=== PATIENT | male | born 1935 | race Caucasian/White ===

== ENCOUNTER 2016-12-03 02:37 | Emergency (ER) | payer MEDICARE, OTHER ==
--- NOTE | 2016-12-03 02:48 | ED ---
General Adult HPI - General Chief complaint: Upper Respiratory Infection Stated complaint: Cough Time Seen by Provider: 12/03/16 02:37 Source: patient, EMS, RN notes reviewed Mode of arrival: EMS Limitations: no limitations - History of Present Illness Initial comments: This is an 81-year-old male who presents to the emergency department with a past history of pneumonia 3 weeks ago. Patient also states he has a history of diabetes. Patient comes in today because he has been coughing a little bit today. Patient denies any sputum production. Patient denies any shortness of breath or difficulty breathing. Patient denies any fever or chills. Patient denies anyone else was sick around him. Patient denies any chest pain. Patient denies any abdominal pain. Patient denies nausea vomiting diarrhea. Patient denies headache patient denies numbness weakness. - Related Data Home Medications Medication Instructions Recorded Confirmed ALPRAZolam [Xanax] 0.25 mg PO BID PRN 11/12/16 11/12/16 INSULIN LISPRO (HumaLOG) [humaLOG] See Protocol SQ ACHS 11/12/16 11/12/16 Insulin Detemir [Levemir] 14 unit SQ AC-BRKFST 11/12/16 11/12/16 Multivitamins, Thera [Multivitamin] 1 tab PO DAILY 11/12/16 11/12/16 Pregabalin [Lyrica] 75 mg PO BID 11/12/16 11/12/16 amLODIPine BESYLATE [Norvasc] 10 mg PO DAILY 11/12/16 11/12/16 Previous Rx's Medication Instructions Recorded Cefuroxime Axetil [Ceftin] 500 mg PO BID #14 tab 11/17/16 Sodium Bicarbonate Tab 650 mg PO TID tab 11/17/16 Azithromycin [Zithromax Tri-Asim] 500 mg PO DAILY #3 tab 12/03/16 Allergies Allergy/AdvReac Type Severity Reaction Status Date / Time daptomycin Allergy Unknown Verified 12/03/16 02:45 Review of Systems ROS Statement: Those systems with pertinent positive or pertinent negative responses have been documented in the HPI. ROS Other: All systems not noted in ROS Statement are negative. Past Medical History Past Medical History: Heart Failure, COPD, Dementia, Diabetes Mellitus, Hypertension, Pneumonia, Renal Disease Additional Past Medical History / Comment(s): memory loss, buenrostro catheter History of Any Multi-Drug Resistant Organisms: MRSA, Other MDRO, VRE Date of last positivie culture/infection: 04/02/15 MRSA-Penis; 09/02/2011 VRE Unknown MDRO Source:: Urine-MDROs Past Surgical History: Bowel Resection, Hernia Repair Additional Past Surgical History / Comment(s): ruslan leg amputated below knee, abdominal surgery with a bowel resection. Past Anesthesia/Blood Transfusion Reactions: No Reported Reaction Past Psychological History: Anxiety, Depression Additional Psychological History / Comment(s): Patient is cared for in a family home by his family. Former smoker. No significant history of alcohol or recreational drug use. Smoking Status: Former smoker Past Alcohol Use History: None Reported Past Drug Use History: None Reported - Past Family History Father Family Medical History: Diabetes Mellitus Additional Family Medical History / Comment(s): bleeding ulcer Mother Family Medical History: Dementia General Exam - General Exam Comments Initial Comments: GENERAL: Patient is well-developed and well-nourished. Patient is nontoxic and well- hydrated and is in no acute distress. ENT: Neck is soft and supple. No significant lymphadenopathy is noted. Oropharynx is clear. Moist mucous membranes. Neck has full range of motion without eliciting any pain. EYES: The sclera were anicteric and conjunctiva were pink and moist. Extraocular movements were intact and pupils were equal round and reactive to light. Eyelids were unremarkable. PULMONARY: Unlabored respirations. Good breath sounds bilaterally. No audible rales rhonchi or wheezing was noted. CARDIOVASCULAR: There is a regular rate and rhythm without any murmurs gallops or rubs. ABDOMEN: Soft and nontender with normal bowel sounds. No palpable organomegaly was noted. There is no palpable pulsatile mass. SKIN: Skin is clear with no lesions or rashes and otherwise unremarkable. NEUROLOGIC: Patient is alert and oriented x3. Cranial nerves II through XII are grossly intact. Motor and sensory are also intact. Normal speech, volume and content. Symmetrical smile. MUSCULOSKELETAL: Normal extremities with adequate strength and full range of motion. No lower extremity swelling or edema. No calf tenderness. LYMPHATICS: No significant lymphadenopathy is noted PSYCHIATRIC: Normal psychiatric evaluation. Limitations: no limitations Course Vital Signs 12/03/16 02:43 Temperature 98.6 F Pulse Rate 94 Respiratory 18 Rate Blood Pressure 151/72 O2 Sat by Pulse 97 Oximetry Medical Decision Making - Medical Decision Making Chest x-ray shows no obvious pneumonia Disposition Clinical Impression: Bronchitis Disposition: HOME SELF-CARE Condition: Good Prescriptions: Azithromycin [Zithromax Tri-Asim] 500 mg PO DAILY #3 tab Referrals: Luis Fernando Bhatia DO [Primary Care Provider] - 1-2 days Time of Disposition: 04:24
[2016-12-03] MEDS ORDERED: AZITHROMYCIN 500 MG TAB PO STA (04:25)
--- NOTE | 2016-12-03 05:08 | XR ---
EXAMINATION TYPE: XR chest 2V DATE OF EXAM: 12/03/2016 4:08 AM COMPARISON: November 17, 2016 HISTORY: History of CAD hypertension heart disease complains of cough TECHNIQUE: Frontal and lateral views of the chest are obtained. FINDINGS: Mild bilateral pleural effusions and bibasilar lung infiltrates and atelectasis is suggested. Mild ch ronic lung changes are suggested. Mild pulmonary vascular congestion. The cardiac silhouette size is within normal limits. The osseous structures are intact. IMPRESSION: 1. Mild bilateral pleural effusions and bibasilar lung infiltrate and atelectasis. 2. Mild pulmonary vascular congestion.
[2016-12-03 06:31] VITALS: BP 142/78; PULSE 78; RESP 20; TEMP 96.8
== END 2016-12-03 06:31 | disposition home or self-care (01) ==
LOC: EC 02:37
DX: J40 Bronchitis, not specified as acute or chronic (principal); F03.90 Unspecified dementia, unspecified severity, without behavioral disturbance, psychotic disturbance, mood disturbance, and anxiety; I10 Essential (primary) hypertension; I50.9 Heart failure, unspecified; F41.9 Anxiety disorder, unspecified; E11.9 Type 2 diabetes mellitus without complications; N28.9 Disorder of kidney and ureter, unspecified; R09.89 Other specified symptoms and signs involving the circulatory and respiratory systems; Z88.1 Allergy status to other antibiotic agents; Z79.4 Long term (current) use of insulin; Z87.891 Personal history of nicotine dependence; Z89.512 Acquired absence of left leg below knee; Z89.511 Acquired absence of right leg below knee; Z79.899 Other long term (current) drug therapy
CPT/HCPCS: 71020; 99284

== ENCOUNTER 2016-12-06 15:45 | Inpatient (IN) | payer MEDICARE, OTHER ==
--- NOTE | 2016-12-06 15:51 | ED ---
SOB HPI - General Stated Complaint: RESPITORY DISTRESS Time Seen by Provider: 12/06/16 15:45 Source: patient, EMS, RN notes reviewed, old records reviewed Mode of arrival: EMS - History of Present Illness Initial Comments: This is a 81-year-old male with a history of frequent visits the emergency department who was just discharged about a week ago after being diagnosed with pneumonia who subsequently was brought in for evaluation of a cough and also just finished a Z-Asim who is brought in by EMS today for difficulty breathing which started about an hour before he came in. Per EMS he did have a saturation the 70s after one updraft. Improved today he did require a second updraft in route he also received steroids. Patient is nonverbal. No reports of fevers chills sweats. Patient is a [id number] amputee bilaterally with a chronic indwelling Buenrostro catheter with a history of UTIs. MD Complaint: shortness of breath - Related Data Home Medications Medication Instructions Recorded Confirmed ALPRAZolam [Xanax] 0.25 mg PO BID PRN 11/12/16 12/06/16 INSULIN LISPRO (HumaLOG) [humaLOG] See Protocol SQ ACHS 11/12/16 12/06/16 Insulin Detemir [Levemir] 14 unit SQ AC-BRKFST 11/12/16 12/06/16 Multivitamins, Thera [Multivitamin] 1 tab PO DAILY 11/12/16 12/06/16 Pregabalin [Lyrica] 75 mg PO BID 11/12/16 12/06/16 amLODIPine BESYLATE [Norvasc] 10 mg PO DAILY 11/12/16 12/06/16 Cholecalciferol [Vitamin D3] 1,000 unit PO DAILY 12/06/16 12/06/16 Sodium Bicarbonate Tab 650 mg PO BID 12/06/16 12/06/16 Allergies Allergy/AdvReac Type Severity Reaction Status Date / Time daptomycin Allergy Unknown Verified 12/06/16 16:17 Review of Systems ROS Statement: Those systems with pertinent positive or pertinent negative responses have been documented in the HPI. ROS Other: All systems not noted in ROS Statement are negative. Limitations: ROS unobtainable due to patients medical condition Past Medical History Past Medical History: Heart Failure, COPD, Dementia, Diabetes Mellitus, Hypertension, Pneumonia, Renal Disease Additional Past Medical History / Comment(s): memory loss, buenrostro catheter History of Any Multi-Drug Resistant Organisms: MRSA, Other MDRO, VRE Date of last positivie culture/infection: 04/02/15 MRSA-Penis; 09/02/2011 VRE Unknown MDRO Source:: Urine-MDROs Past Surgical History: Bowel Resection, Hernia Repair Additional Past Surgical History / Comment(s): ruslan leg amputated below knee, abdominal surgery with a bowel resection. Past Anesthesia/Blood Transfusion Reactions: No Reported Reaction Past Psychological History: Anxiety, Depression Additional Psychological History / Comment(s): Patient is cared for in a family home by his family. Former smoker. No significant history of alcohol or recreational drug use. Smoking Status: Former smoker Past Alcohol Use History: None Reported Past Drug Use History: None Reported - Past Family History Father Family Medical History: Diabetes Mellitus Additional Family Medical History / Comment(s): bleeding ulcer Mother Family Medical History: Dementia General Exam - General Exam Comments Initial Comments: This is a well-developed well-nourished confused appearing male the second updraft is in progress. Limitations: altered mental status General appearance: alert, in distress Head exam: Present: atraumatic, normocephalic, normal inspection Eye exam: Present: normal appearance, PERRL, EOMI. Absent: scleral icterus, conjunctival injection, periorbital swelling ENT exam: Present: mucous membranes dry Neck exam: Present: normal inspection. Absent: tenderness, meningismus, lymphadenopathy Respiratory exam: Present: decreased breath sounds Cardiovascular Exam: Present: regular rate, normal rhythm, normal heart sounds. Absent: systolic murmur, diastolic murmur, rubs, gallop, clicks GI/Abdominal exam: Present: soft, normal bowel sounds. Absent: distended, tenderness, guarding, rebound, rigid Extremities exam: Present: full ROM, normal capillary refill, other (Bilateral below-knee amputation). Absent: tenderness, pedal edema, joint swelling, calf tenderness Back exam: Present: normal inspection Neurological exam: Present: alert, oriented X3, CN II-XII intact Psychiatric exam: Present: normal affect, normal mood Skin exam: Present: warm, dry, intact, normal color. Absent: rash Course Vital Signs 12/06/16 12/06/16 12/06/16 15:49 16:06 17:11 Temperature 96.9 F L Pulse Rate 76 77 Respiratory 18 18 18 Rate Blood Pressure 108/55 100/54 O2 Sat by Pulse 96 95 Oximetry 12/06/16 12/06/16 12/06/16 18:34 18:55 19:19 Temperature 96.8 F L Pulse Rate 82 75 81 Respiratory 18 18 20 Rate Blood Pressure 108/54 133/51 116/56 O2 Sat by Pulse 98 98 95 Oximetry Medical Decision Making - Medical Decision Making Patient will be admitted I did discuss the findings with the admitting physician. - Lab Data Result diagrams: 12/06/16 16:03 12/06/16 16:03 Lab Results 12/06/16 12/06/16 12/06/16 Range/Units 16:03 16:03 16:03 WBC 12.7 H (3.8-10.6) k/uL RBC 3.17 L (4.30-5.90) m/uL Hgb 9.4 L (13.0-17.5) gm/dL Hct 30.9 L (39.0-53.0) % MCV 97.4 (80.0-100.0) fL MCH 29.6 (25.0-35.0) pg MCHC 30.3 L (31.0-37.0) g/dL RDW 16.3 H (11.5-15.5) % Plt Count 203 (150-450) k/uL Neutrophils % 73 % Lymphocytes % 18 % Monocytes % 6 % Eosinophils % 1 % Basophils % 1 % Neutrophils # 9.3 H (1.3-7.7) k/uL Lymphocytes # 2.2 (1.0-4.8) k/uL Monocytes # 0.8 (0-1.0) k/uL Eosinophils # 0.2 (0-0.7) k/uL Basophils # 0.1 (0-0.2) k/uL Hypochromasia Moderate Anisocytosis Slight Macrocytosis Slight PT (9.0-12.0) sec INR (<1.1) APTT (22.0-30.0) sec Sodium 148 H (137-145) mmol/L Potassium 5.7 H (3.5-5.1) mmol/L Chloride 114 H (98-107) mmol/L Carbon Dioxide 22 (22-30) mmol/L Anion Gap 12 mmol/L BUN 59 H (9-20) mg/dL Creatinine 4.02 H (0.66-1.25) mg/dL Est GFR (MDRD) Af Amer 17 (>60 ml/min/1.73 sqM) Est GFR (MDRD) Non-Af 14 (>60 ml/min/1.73 sqM) Glucose 162 H (74-99) mg/dL Calcium 8.3 L (8.4-10.2) mg/dL Magnesium 1.5 L (1.6-2.3) mg/dL Total Bilirubin 0.3 (0.2-1.3) mg/dL AST 14 L (17-59) U/L ALT 28 (21-72) U/L Alkaline Phosphatase 80 (38-126) U/L Total Creatine Kinase 39 L (55-170) U/L CK-MB (CK-2) 3.3 H* (0.0-2.4) ng/mL CK-MB (CK-2) Rel Index 8.5 Troponin I <0.012 (0.000-0.034) ng/mL NT-Pro-B Natriuret Pep pg/mL Total Protein 6.1 L (6.3-8.2) g/dL Albumin 3.0 L (3.5-5.0) g/dL 12/06/16 12/06/16 Range/Units 16:03 16:03 WBC (3.8-10.6) k/uL RBC (4.30-5.90) m/uL Hgb (13.0-17.5) gm/dL Hct (39.0-53.0) % MCV (80.0-100.0) fL MCH (25.0-35.0) pg MCHC (31.0-37.0) g/dL RDW (11.5-15.5) % Plt Count (150-450) k/uL Neutrophils % % Lymphocytes % % Monocytes % % Eosinophils % % Basophils % % Neutrophils # (1.3-7.7) k/uL Lymphocytes # (1.0-4.8) k/uL Monocytes # (0-1.0) k/uL Eosinophils # (0-0.7) k/uL Basophils # (0-0.2) k/uL Hypochromasia Anisocytosis Macrocytosis PT 10.4 (9.0-12.0) sec INR 1.0 (<1.1) APTT 24.3 (22.0-30.0) sec Sodium (137-145) mmol/L Potassium (3.5-5.1) mmol/L Chloride (98-107) mmol/L Carbon Dioxide (22-30) mmol/L Anion Gap mmol/L BUN (9-20) mg/dL Creatinine (0.66-1.25) mg/dL Est GFR (MDRD) Af Amer (>60 ml/min/1.73 sqM) Est GFR (MDRD) Non-Af (>60 ml/min/1.73 sqM) Glucose (74-99) mg/dL Calcium (8.4-10.2) mg/dL Magnesium (1.6-2.3) mg/dL Total Bilirubin (0.2-1.3) mg/dL AST (17-59) U/L ALT (21-72) U/L Alkaline Phosphatase (38-126) U/L Total Creatine Kinase (55-170) U/L CK-MB (CK-2) (0.0-2.4) ng/mL CK-MB (CK-2) Rel Index Troponin I (0.000-0.034) ng/mL NT-Pro-B Natriuret Pep 1270 pg/mL Total Protein (6.3-8.2) g/dL Albumin (3.5-5.0) g/dL - EKG Data -: EKG Interpreted by Wi EKG shows normal: sinus rhythm (Sinus rhythm rate of 81 a [place] interval 262 QRS duration 78 daily since QTC of 392/[address]-T wave changes.) - Radiology Data Radiology results: report reviewed (I did review the imaging and report evidence of a new right lower lobe infiltrate.), image reviewed Disposition Clinical Impression: Right lower lobe pneumonia, Bronchospasm, Failure of outpatient treatment, Renal insufficiency syndrome Disposition: [facility] Condition: Stable
[2016-12-06 16:16] LABS: Anisocytosis Slight; Basophils # (A) 0.1 k/uL (0-0.2); Basophils % (A) 1 %; CH 29.8; CHCM 30.9; Eosinophils # (A) 0.2 k/uL (0-0.7); Eosinophils % (A) 1 %; HCT 30.9 % (39.0-53.0); HDW 2.83; HGB 9.4 gm/dL (13.0-17.5); Hypochromasia Moderate; Luc # (Auto) 0.19; Luc % (Auto) 2; Lymphocytes # (A) 2.2 k/uL (1.0-4.8); Lymphocytes % (A) 18 %; MCH 29.6 pg (25.0-35.0); MCHC 30.3 g/dL (31.0-37.0); MCV 97.4 fL (80.0-100.0); Macrocytosis Slight; Mean Platelet Volume 8.5; Monocytes # (A) 0.8 k/uL (0-1.0); Monocytes % (A) 6 %; Neutrophils # (A) 9.3 k/uL (1.3-7.7); Neutrophils % (A) 73 %; RBC 3.17 m/uL (4.30-5.90); RDW 16.3 % (11.5-15.5); WBC 12.7 k/uL (3.8-10.6); WBC (Perox) 12.55
--- NOTE | 2016-12-06 16:19 | XR ---
EXAMINATION TYPE: XR chest 2V DATE OF EXAM: 12/06/2016 4:14 PM COMPARISON: 12/03/2016 INDICATION: Difficulty breathing and shortness of breath TECHNIQUE: Frontal and lateral views of the chest are obtained. FINDINGS: The heart size is normal. The pulmonary vasculature is normal. Bibasilar infiltrates are present. Posterior right pleural effusion is not excluded. Left pleural eff usion may be present. Right lower lobe infiltrate is developing from the comparison IMPRESSION: 1. Developing right lower lobe pneumonia with right basilar pleural effusion. Mild left lower infiltr ate may remain present. Small left pleural effusion is present.
[2016-12-06 16:25] LABS: Partial Thromboplastin Time 24.3 sec (22.0-30.0); Prothrombin Time 10.4 sec (9.0-12.0)
[2016-12-06 16:35] LABS: Calcium 8.3 mg/dL (8.4-10.2); Magnesium 1.5 mg/dL (1.6-2.3); Potassium 5.7 mmol/L (3.5-5.1); Total Bilirubin 0.3 mg/dL (0.2-1.3); Total Protein 6.1 g/dL (6.3-8.2)
[2016-12-06 16:42] LABS: Creatine Kinase 39 U/L (55-170)
[2016-12-06 16:54] LABS: Troponin I <0.012 ng/mL (0.000-0.034)
[2016-12-06 17:00] LABS: Creatine Kinase MB 3.3 ng/mL (0.0-2.4)
[2016-12-06] MEDS ORDERED: PNEUMONIA PROTOCOL UTILIZED 1 EACH MISC PO PRN (19:22)
[2016-12-06] MEDS ORDERED: LEVOFLOXACIN 750MG-D5W PMX 750 MG in DEXTROSE/WATER 1 150ML.BAG IVPB STA (19:22)
[2016-12-06] MEDS: ALPRAZolam 0.25 MG TAB PO PRN (20:28)
[2016-12-06] MEDS: HYDROmorphone 1 MG/ML 1 ML SYRINGE IVP PRN (20:29)
[2016-12-06] MEDS: SODIUM CHLORIDE 0.9% 1,000 ML IV SCH (20:29)
[2016-12-06] MEDS ORDERED: INSULIN LISPRO (humaLOG) 300 UNIT/3 ML VIAL SQ SCH (21:00)
[2016-12-06 21:01] LABS: Glucose,Whole Blood 516 mg/dL (75-99)
[2016-12-06 21:01] LABS: Glucose,Whole Blood 524 mg/dL (75-99)
[2016-12-06] MEDS: PREGABALIN 75 MG CAP PO SCH (21:08)
[2016-12-06] MEDS: HEPARIN SODIUM,PORCINE 5,000 UNIT/ML 1 ML VIAL SQ SCH (21:08)
[2016-12-06] MEDS: SODIUM BICARBONATE TAB 650 MG TAB PO SCH (21:08)
[2016-12-06 21:19] LABS: Glucose,Whole Blood 527 mg/dL (75-99)
[2016-12-06] MEDS: IPRATROPIUM-ALBUTEROL 3 ML NEB INHALATION SCH (21:21)
[2016-12-06] MEDS ORDERED: INSULIN REGULAR BOLUS (FROM DRIP BAG) IV ONE (21:50)
[2016-12-06 22:08] LABS: Glucose,Whole Blood 575 mg/dL (75-99)
[2016-12-06] MEDS: INSULIN REGULAR 100 UNIT in SODIUM CHLORIDE 0.9% 100 ML IV SCH (22:12)
[2016-12-06 22:32] LABS: Glucose,Whole Blood 567 mg/dL (75-99)
[2016-12-06 22:59] LABS: Glucose,Whole Blood 526 mg/dL (75-99)
[2016-12-06 23:32] LABS: Glucose,Whole Blood 473 mg/dL (75-99)
[2016-12-06 23:52] LABS: Glucose,Whole Blood 468 mg/dL (75-99)
[2016-12-06] MEDS: PIPERACILLIN-TAZOBACTAM 3.375 GM in DEXTROSE/WATER 1 50ML.BAG IVPB SCH (23:56)
[2016-12-07 00:26] LABS: Glucose,Whole Blood 424 mg/dL (75-99)
[2016-12-07] MEDS: IPRATROPIUM-ALBUTEROL 3 ML NEB INHALATION SCH ×7 (00:44→20:47)
[2016-12-07 00:59] LABS: Glucose,Whole Blood 415 mg/dL (75-99)
[2016-12-07 01:32] LABS: Glucose,Whole Blood 407 mg/dL (75-99)
[2016-12-07 02:03] LABS: Glucose,Whole Blood 333 mg/dL (75-99)
[2016-12-07] MEDS: INSULIN REGULAR 100 UNIT in SODIUM CHLORIDE 0.9% 100 ML IV SCH (02:14)
[2016-12-07 02:34] LABS: Glucose,Whole Blood 311 mg/dL (75-99)
[2016-12-07 03:11] LABS: Glucose,Whole Blood 301 mg/dL (75-99)
[2016-12-07 03:44] LABS: Glucose,Whole Blood 257 mg/dL (75-99)
[2016-12-07 04:04] LABS: Glucose,Whole Blood 238 mg/dL (75-99)
[2016-12-07 06:13] LABS: Glucose,Whole Blood 153 mg/dL (75-99)
[2016-12-07 07:09] LABS: Glucose 610 mg/dL (74-99)
[2016-12-07] MEDS ORDERED: INSULIN DETEMIR 100 UNIT/ML 10 ML VIAL SQ SCH ×2 (07:30→12:00)
[2016-12-07] MEDS ORDERED: INSULIN LISPRO (humaLOG) 300 UNIT/3 ML VIAL SQ SCH ×2 (07:30)
[2016-12-07 08:18] LABS: Glucose,Whole Blood 80 mg/dL (75-99)
[2016-12-07] MEDS: SODIUM CHLORIDE 0.9% 1,000 ML IV SCH ×2 (08:27→16:43)
[2016-12-07] MEDS: PIPERACILLIN-TAZOBACTAM 3.375 GM in DEXTROSE/WATER 1 50ML.BAG IVPB SCH ×2 (08:33→20:46)
[2016-12-07] MEDS: SODIUM BICARBONATE TAB 650 MG TAB PO SCH ×2 (08:33→20:46)
[2016-12-07] MEDS: PREGABALIN 75 MG CAP PO SCH ×2 (08:33→20:46)
[2016-12-07] MEDS: HEPARIN SODIUM,PORCINE 5,000 UNIT/ML 1 ML VIAL SQ SCH ×2 (08:34→20:46)
[2016-12-07] MEDS: amLODIPine 10 MG TAB PO SCH (08:55)
[2016-12-07] MEDS: CHOLECALCIFEROL 1,000 UNIT TAB PO SCH (08:55)
[2016-12-07] MEDS: MULTIVITAMINS, THERA 1 EACH TAB PO SCH (08:55)
[2016-12-07 09:48] LABS: Calcium 8.3 mg/dL (8.4-10.2)
[2016-12-07 09:58] LABS: Anisocytosis Slight; Basophils # (A) 0.1 k/uL (0-0.2); Basophils % (A) 1 %; CH 29.5; CHCM 30.8; Eosinophils % (A) 0 %; HCT 26.5 % (39.0-53.0); HDW 2.85; HGB 8.2 gm/dL (13.0-17.5); Hypochromasia Moderate; Luc # (Auto) 0.05; Luc % (Auto) 1; Lymphocytes # (A) 0.1 k/uL (1.0-4.8); Lymphocytes % (A) 1 %; MCH 29.8 pg (25.0-35.0); MCHC 30.8 g/dL (31.0-37.0); MCV 96.7 fL (80.0-100.0); Mean Platelet Volume 9.8; Monocytes # (A) 0.3 k/uL (0-1.0); Monocytes % (A) 4 %; Neutrophils # (A) 7.8 k/uL (1.3-7.7); Neutrophils % (A) 93 %; RBC 2.74 m/uL (4.30-5.90); RDW 16.3 % (11.5-15.5); WBC 8.3 k/uL (3.8-10.6)
[2016-12-07 10:09] LABS: Potassium 6.6 mmol/L (3.5-5.1)
[2016-12-07 11:03] LABS: Glucose,Whole Blood 80 mg/dL (75-99)
[2016-12-07 11:27] LABS: Manual Review Performed
[2016-12-07 11:53] LABS: Glucose,Whole Blood 78 mg/dL (75-99)
--- NOTE | 2016-12-07 11:56 | XR ---
EXAMINATION TYPE: XR chest 2V DATE OF EXAM: 12/07/2016 10:02 AM COMPARISON: 12/06/2016 HISTORY: 81-year-old male with shortness of breath, difficulty breathing, evaluate for pneumonia TECHNIQUE: Frontal and lateral views FINDINGS: Heart remains upper limits of normal in size. Diffuse interstitial prominence. Continued right greate r than left bibasilar opacities with continued small to moderate pleural effusions. Overall unchanged from prior. IMPRESSION: [id number] bilateral pleural effusions with right greater than left bibasilar opacities. Corre late for pneumonia or CHF. Overall unchanged.
[2016-12-07 12:24] LABS: Hemoglobin A1C 5.4 % (4.2-6.1)
[2016-12-07] MEDS: INSULIN LISPRO (humaLOG) 300 UNIT/3 ML VIAL SQ SCH ×3 (12:39→20:46)
--- NOTE | 2016-12-07 14:06 | HP ---
DATE OF ADMISSION: 12/06/2016 PRESENTING COMPLAINT: Cough, short of breath. HISTORY OF PRESENTING COMPLAINT: This is an 80-year-old patient who follows with Dr. Bhatia with rather extensive medical history. Patient's chronic stable medical conditions include COPD, dementia, diabetes mellitus type 2, hypertension, multiple infections including that of Pseudomonas, Enterobacter, Acinetobacter. Patient has bilateral lower extremity amputation and a rather extensive surgical history. Patient presents with increasing cough, sputum production, found to have pneumonia, admitted for the same. REVIEW OF SYSTEMS: CONSTITUTIONAL: Tired. HEENT: None. RESPIRATORY: As above. CARDIOVASCULAR: None. GASTROINTESTINAL: None. GENITOURINARY: Chronic Norman catheter. DERMATOLOGICAL: None. HEMATOLOGICAL: None. LYMPHATICS: None. PSYCHIATRY: Nil assess, patient has got dementia. NEUROLOGICAL: None. Past medical history of congestive heart failure, COPD, dementia, diabetes mellitus type 2. hypertension, chronic Norman catheter, Pseudomonas infection, Enterobacter, Acinetobacter infection in the past. PAST SURGICAL HISTORY: Bowel resection, hernia repair, bilateral leg amputation below-knee, abdominal surgery with bowel resection. SOCIAL HISTORY: Patient is cared for at home by family member. Patient is a former smoker. Family history of diabetes mellitus type 2. HOME MEDICATIONS: 1. Norvasc 10 mg a day. 2. Sodium bicarb 650 mg p.o. b.i.d. 3. Lyrica 75 mg p.o. b.i.d. 4. Multivitamin 1 tablet p.o. daily. 5. [id number] units subQ with breakfast. 6. Vitamin D3 one thousand units a day. 7. Xanax 0.25 p.o. b.i.d. p.r.n. Allergies to DAPTOMYCIN. On examination, vital signs on presentation, temperature 96.9, pulse 96, respiration 18, blood pressure 108/55, pulse ox 96% on 2 L. GENERAL APPEARANCE: Lying in bed, tired-appearing. EYES: Pupils equal. Conjunctivae normal. HEENT: External appearance of nose and ears normal. Oral cavity missing dentition. NECK: JVD not raised. Mass not palpable. Respiratory effort increased. LUNGS: Bibasal crackles. CARDIOVASCULAR: First and second sounds normal. No edema. ABDOMEN: Soft, nontender. Liver and spleen not palpable. LYMPHATIC: No lymph node palpable in neck or axillae. PSYCHIATRY: Patient is able to simple questions. NEUROLOGICAL: Speech is slightly slurred. Power and sensation grossly intact. EXTREMITIES: Bilateral below-knee amputation. INVESTIGATIONS: White count 12.7, hemoglobin 9.4. Potassium 5.7, BUN 59, creatinine 4.02, BUN and creatinine was 73/3.71 on 11/17/2016. Patient's sugars got up to 524 yesterday. Check x-ray shows right lobe pneumonia with possible effusion. ASSESSMENT: 1. Right lower lobe pneumonia with a possible parapneumonic effusion, suspect gram-negative organism, could be aspiration pneumonia. 2. Chronic kidney disease stage IV, probably from diabetic nephropathy. 3. Chronic obstructive pulmonary disease in an ex-smoker. 4. 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 5. Essential hypertension. 6. Diabetes mellitus type 2, chronically inflamed. 7. 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 Home medications are resumed. Pulmonary will be consulted. Will do aspiration precautions. Patient initially was put on insulin drip. Will switch back to Levemir. Care was discussed with the patient.
[2016-12-07] MEDS ORDERED: SODIUM POLYSTYRENE SULFONATE 15 GM/60 ML BOTTLE PO STA (16:07)
[2016-12-07] MEDS: LEVOFLOXACIN 500 MG TAB PO SCH (17:09)
[2016-12-07 17:20] LABS: Glucose,Whole Blood 73 mg/dL (75-99)
[2016-12-07] MEDS ORDERED: LEVOFLOXACIN 750 MG TAB PO SCH (18:00)
--- NOTE | 2016-12-07 18:25 | P.CNPUL ---
History of Present Illness Consult date: 12/07/16 Reason for consult: dyspnea, pneumonia History of present illness: This is a 81-year-old male with a history of frequent visits the emergency department who was just discharged about a week ago after being diagnosed with pneumonia who subsequently was brought in for evaluation of a cough and a is brought in by EMS today for difficulty breathing which started about an hour before he came in. Per EMS he did have a saturation the 70s after one updraft. Improved today he did require a second updraft in route he also received steroids. This patient is known to me from his previous hospitalization. He is known to have multiple medical problems including COPD, severe peripheral vascular disease with bilateral below the knee amputations, chronic renal failure, chronic wound infection with MRSA, chronic excoriation around his sacrum, hypertension, congestion heart failure, diabetes mellitus and dementia. The patient also has had previous urinary tract infection with Klebsiella oxytoca and Enterobacter as well as pseudomonas aeruginosa and Proteus mirabilis. He has a chronic indwelling Norman catheter in place. At a time of my evaluation, the patient was interactive. He is a poor historian and not much of an inflammation that is useful can be extracted from him. He seems to be quite comfortable without any significant rest or distress. I reviewed his chest x-ray and there is evidence of small to moderate -sized bilateral pleural effusions right greater than left. An underlying pneumonia in the lung bases cannot be completely excluded. Note that this findings can be also in agreement with CHF. The patient has no significant leukocytosis on his blood work. Chronic anemia. Noted the potassium was elevated at a level of 6.6 and he has a mild anion gap metabolic acidosis with a gap of 13 and the bicarb level of 17. He was placed on a combination of Zosyn and Levaquin. No reported aspiration. History. Review of Systems ROS unobtainable: due to mental status Past Medical History Past Medical History: Heart Failure, COPD, Dementia, Diabetes Mellitus, Hypertension, Pneumonia, Renal Disease Additional Past Medical History / Comment(s): Dementia, multiple bouts of sepsis secondary to urine checked infection with infections with gram-negative bacteria, recent septicemia with blood cultures being positive for hemolytic strep., Chronic renal failure, episodic hyperkalemia, diabetes mellitus insulin -dependent, hypertension, chronic bilateral pleural effusion, sacral skin maceration with stage I disease, peripheral vascular disease with bilateral below-knee amputation, COPD, congestion heart failure, frequent urine checked infection, chronic indwelling Norman catheter, dysphagia with previous swallow evaluation did not reveal evidence of penetration or aspiration, anterior abdominal wall hernia, History of Any Multi-Drug Resistant Organisms: MRSA, Other MDRO, VRE Date of last positivie culture/infection: 04/02/15 MRSA-Penis; 09/02/2011 VRE Unknown MDRO Source:: Urine-MDROs Past Surgical History: Bowel Resection, Hernia Repair Additional Past Surgical History / Comment(s): ruslan leg amputated below knee, abdominal surgery with a bowel resection. Past Anesthesia/Blood Transfusion Reactions: No Reported Reaction Past Psychological History: Anxiety, Depression Additional Psychological History / Comment(s): Patient is cared for in a family home by his family. Former smoker. No significant history of alcohol or recreational drug use. Smoking Status: Former smoker Past Alcohol Use History: None Reported Past Drug Use History: None Reported - Past Family History Father Family Medical History: Diabetes Mellitus Additional Family Medical History / Comment(s): bleeding ulcer Mother Family Medical History: Dementia Medications and Allergies Home Medications Medication Instructions Recorded Confirmed Type ALPRAZolam [Xanax] 0.25 mg PO BID PRN 11/12/16 12/06/16 History INSULIN LISPRO (HumaLOG) [humaLOG] See Protocol SQ ACHS 11/12/16 12/06/16 History Insulin Detemir [Levemir] 14 unit SQ AC-BRKFST 11/12/16 12/06/16 History Multivitamins, Thera [Multivitamin] 1 tab PO DAILY 11/12/16 12/06/16 History Pregabalin [Lyrica] 75 mg PO BID 11/12/16 12/06/16 History amLODIPine BESYLATE [Norvasc] 10 mg PO DAILY 11/12/16 12/06/16 History Cholecalciferol [Vitamin D3] 1,000 unit PO DAILY 12/06/16 12/06/16 History Sodium Bicarbonate Tab 650 mg PO BID 12/06/16 12/06/16 History Allergies Allergy/AdvReac Type Severity Reaction Status Date / Time daptomycin Allergy Unknown Verified 12/06/16 16:17 Physical Exam Vitals: Vital Signs Temp Pulse Pulse Resp BP BP Pulse Ox 12/07/16 16:00 106 H 20 12/07/16 15:00 97 F L 102 H 20 115/47 97 12/07/16 11:42 72 12/07/16 11:29 70 12/07/16 08:00 106 H 20 12/07/16 07:44 76 12/07/16 07:34 76 12/07/16 07:00 97.3 F L 106 H 20 108/62 96 12/07/16 04:24 88 12/07/16 04:09 88 12/07/16 00:56 76 12/07/16 00:44 76 12/06/16 21:37 82 12/06/16 21:24 82 98 12/06/16 21:05 96.3 F L 75 16 107/58 94 L 12/06/16 20:34 82 16 103/56 96 Intake and Output 12/07/16 12/07/16 12/07/16 06:59 14:59 22:59 Intake Total 1160.434 200 Balance 1160.434 200 Intake: IV 1030 Insulin Regular 100 unit 180 In Sodium Chloride 0.9% 100 ml @ Titrate IV .Q0M [facility] Rx#:[id number] Piperacillin-Tazobactam 3 50 .375 gm In Dextrose/Water 1 50ml.bag @ 12.5 mls/hr IVPB Q8HR [facility] Rx#: [id number] Sodium Chloride 0.9% 1, 800 000 ml @ 100 mls/hr IV . Q10H [facility] Rx#:[id number] Intake, IV Titration 130.434 Amount Insulin Regular 100 unit 130.434 In Sodium Chloride 0.9% 100 ml @ Titrate IV .Q0M [facility] Rx#:[id number] Oral 200 Other: Voiding Method Indwelling Catheter Indwelling Catheter Indwelling Catheter Weight 62 kg 62 kg Patient Weight 12/08/16 06:59 Weight 62 kg Head exam was generally normal. There was no scleral icterus or corneal arcus. Mucous membranes were moist.Neck was supple and without jugular venous distension, thyromegaly, or carotid bruits. Carotids were easily palpable bilaterally. There was no adenopathy. Patient is edentulous. Lung sounds are diminished in lung bases bilaterally otherwise clear.Cardiac exam revealed the PMI to be normally situated and sized. The rhythm was regular and no extrasystoles were noted during several minutes of auscultation. The first and second heart sounds were normal and physiologic splitting of the second heart sound was noted. There were no murmurs, rubs, clicks, or gallops.Abdominal exam revealed normal bowel sounds. The abdomen was soft, non-tender, and without masses, organomegaly, or appreciable enlargement of the abdominal aorta. There is a anterior abdominal wall hernia that is easily reducible and the patient has normal bowel sounds. Extremities reveal bilateral below-knee amputation. There is no cyanosis. No clubbing. Upper extremity pulses are diminished at the present. Results - Laboratory Findings CBC and BMP: 12/07/16 09:17 12/07/16 09:17 PT/INR, D-dimer PT 10.4 sec (9.0-12.0) 12/06/16 16:03 INR 1.0 (<1.1) 12/06/16 16:03 Abnormal lab findings: Abnormal Labs 12/06/16 12/06/16 12/06/16 20:52 20:57 21:02 RBC Hgb Hct MCHC RDW Neutrophils # Lymphocytes # Potassium Chloride Carbon Dioxide BUN Creatinine Glucose POC Glucose (mg/dL) 516 H 524 H 527 H Calcium 12/06/16 12/06/16 12/06/16 21:53 22:06 22:30 RBC Hgb Hct MCHC RDW Neutrophils # Lymphocytes # Potassium Chloride Carbon Dioxide BUN Creatinine Glucose 610 H* POC Glucose (mg/dL) 575 H 567 H Calcium 12/06/16 12/06/16 12/06/16 22:58 23:31 23:51 RBC Hgb Hct MCHC RDW Neutrophils # Lymphocytes # Potassium Chloride Carbon Dioxide BUN Creatinine Glucose POC Glucose (mg/dL) 526 H 473 H 468 H Calcium 12/07/16 12/07/16 12/07/16 00:24 00:56 01:29 RBC Hgb Hct MCHC RDW Neutrophils # Lymphocytes # Potassium Chloride Carbon Dioxide BUN Creatinine Glucose POC Glucose (mg/dL) 424 H 415 H 407 H Calcium 12/07/16 12/07/16 12/07/16 02:01 02:33 03:10 RBC Hgb Hct MCHC RDW Neutrophils # Lymphocytes # Potassium Chloride Carbon Dioxide BUN Creatinine Glucose POC Glucose (mg/dL) 333 H 311 H 301 H Calcium 12/07/16 12/07/16 12/07/16 03:31 04:02 06:00 RBC Hgb Hct MCHC RDW Neutrophils # Lymphocytes # Potassium Chloride Carbon Dioxide BUN Creatinine Glucose POC Glucose (mg/dL) 257 H 238 H 153 H Calcium 12/07/16 12/07/16 12/07/16 09:17 09:17 17:07 RBC 2.74 L Hgb 8.2 L Hct 26.5 L MCHC 30.8 L RDW 16.3 H Neutrophils # 7.8 H Lymphocytes # 0.1 L Potassium 6.6 H* Chloride 115 H Carbon Dioxide 17 L BUN 63 H Creatinine 3.98 H Glucose POC Glucose (mg/dL) 73 L Calcium 8.3 L - Diagnostic Findings Chest x-ray: image reviewed Assessment and Plan Plan: Assessment 1 acute respiratory distress with previous hypoxic respiratory failure that has recovered and the patient is currently on room air oxygen without any significant respiratory distress. Chest x-ray shows small to moderate-sized better pleural effusion and possible some underlying pulmonary infiltration/ pneumonia although CHF and fluid overload cannot be completely excluded. 2 dementia 3 dysphagia with a swallow evaluation in the past showing normal findings without any evidence of penetration or aspiration 4 previous bouts of sepsis most recent related to hemolytic streptococcus 5 frequent urine checked infection with previous infections related to Klebsiella, Proteus, Enterobacter and Pseudomonas and VRE 6 chronic renal failure 7 acute hyperkalemia A dementia 9 diabetes mellitus 10 hypertension 11 stage I sacral skin maceration 12 severe peripheral vascular disease with bilateral below-knee amputation 13 COPD 14 chronic indwelling Norman catheter 15 anterior abdominal wall hernia 16 chronic anemia Plan Continue Zosyn /Levaquin. No clear convincing evidence of a pneumonia however based on his medical problems and comorbidities reasonable to put this patient on empiric Antibiotic coverage for now. Treatment of acute hyperkalemia with 60 g of Kayexalate and repeat the potassium in 6 hours. Resume outpatient medication. Continue bronchodilators. Prognosis poor baseline above-mentioned comorbidities. Aspiration precautions. Routine medical care. We'll follow.
[2016-12-07] MEDS ORDERED: IPRATROPIUM-ALBUTEROL 3 ML NEB INHALATION PRN (19:52)
[2016-12-07 20:36] LABS: Glucose,Whole Blood 69 mg/dL (75-99)
[2016-12-07 20:36] LABS: Glucose,Whole Blood 43 mg/dL (75-99)
[2016-12-07 20:36] LABS: Glucose,Whole Blood 45 mg/dL (75-99)
[2016-12-07 21:04] LABS: Glucose,Whole Blood 108 mg/dL (75-99)
[2016-12-08] MEDS: SODIUM CHLORIDE 0.9% 1,000 ML IV SCH ×2 (03:28→12:42)
[2016-12-08] MEDS: IPRATROPIUM-ALBUTEROL 3 ML NEB INHALATION SCH ×4 (07:59→19:39)
[2016-12-08] MEDS: INSULIN LISPRO (humaLOG) 300 UNIT/3 ML VIAL SQ SCH ×4 (08:45→23:06)
[2016-12-08] MEDS: HEPARIN SODIUM,PORCINE 5,000 UNIT/ML 1 ML VIAL SQ SCH ×2 (08:47→22:50)
[2016-12-08] MEDS: MULTIVITAMINS, THERA 1 EACH TAB PO SCH (08:47)
[2016-12-08] MEDS: PREGABALIN 75 MG CAP PO SCH ×2 (08:47→22:50)
[2016-12-08] MEDS: CHOLECALCIFEROL 1,000 UNIT TAB PO SCH (08:48)
[2016-12-08] MEDS: SODIUM BICARBONATE TAB 650 MG TAB PO SCH ×2 (08:48→22:50)
[2016-12-08] MEDS: amLODIPine 10 MG TAB PO SCH (08:48)
[2016-12-08] MEDS: PIPERACILLIN-TAZOBACTAM 3.375 GM in DEXTROSE/WATER 1 50ML.BAG IVPB SCH ×2 (08:50→22:50)
[2016-12-08] MEDS: INSULIN DETEMIR 100 UNIT/ML 10 ML VIAL SQ SCH (08:50)
[2016-12-08 12:23] LABS: Glucose,Whole Blood 87 mg/dL (75-99)
[2016-12-08 13:05] LABS: Anisocytosis Slight; Basophils % (A) 0 %; CH 29.6; CHCM 31.3; Eosinophils # (A) 0.4 k/uL (0-0.7); Eosinophils % (A) 4 %; HDW 2.76; Hypochromasia Slight; Luc # (Auto) 0.11; Luc % (Auto) 1; Lymphocytes # (A) 0.3 k/uL (1.0-4.8); Lymphocytes % (A) 4 %; MCH 30.4 pg (25.0-35.0); MCHC 31.9 g/dL (31.0-37.0); MCV 95.3 fL (80.0-100.0); Mean Platelet Volume 8.6; Monocytes # (A) 0.3 k/uL (0-1.0); Monocytes % (A) 4 %; Neutrophils # (A) 7.4 k/uL (1.3-7.7); Neutrophils % (A) 87 %; RBC 2.62 m/uL (4.30-5.90); RDW 16.4 % (11.5-15.5); WBC 8.5 k/uL (3.8-10.6); WBC (Perox) 8.92
[2016-12-08 13:06] LABS: Calcium 8.2 mg/dL (8.4-10.2); Potassium 5.7 mmol/L (3.5-5.1)
--- NOTE | 2016-12-08 15:48 | P.PN ---
Subjective This is a 81-year-old male with a history of frequent visits the emergency department who was just discharged about a week ago after being diagnosed with pneumonia who subsequently was brought in for evaluation of a cough and a is brought in by EMS today for difficulty breathing which started about an hour before he came in. Per EMS he did have a saturation the 70s after one updraft. He is known to have multiple medical problems including COPD, severe peripheral vascular disease with bilateral [id number] amputations, chronic renal failure, chronic wound infections with with MRSA, chronic excoriation around his sacrum, hypertension, congestion heart failure, diabetes mellitus and dementia. The patient also has had previous urinary tract infection with Klebsiella oxytoca and Enterobacter as well as pseudomonas aeruginosa and Proteus mirabilis. He has a chronic indwelling Norman catheter in place. His initial chest x-ray revealed small to moderate size bilateral pleural effusions right greater than left. An underlying pneumonia in the bases could not be totally excluded. He is being treated for both pneumonia and CHF exacerbation. He is seen again today 12/08/2016 in follow-up. He is awake and alert in no acute distress. He is currently maintaining O2 saturations in the mid 90s on room air. Slight temp at 99.2. No leukocytosis. His hyperkalemia is improved from 6.7-5.7. He states he is breathing easier today as compared to yesterday. Objective - Vital Signs Vital signs: Vital Signs Temp 99.2 F 12/08/16 15:00 Pulse 80 12/08/16 15:34 Resp 16 12/08/16 15:16 BP 115/56 12/08/16 15:00 Pulse Ox 97 12/08/16 15:00 Intake & Output 12/07/16 12/08/16 12/08/16 18:59 06:59 18:59 Intake Total 440 530 200 Output Total 200 Balance 440 330 200 Weight 62 kg 62 kg Intake: IV 50 Piperacillin-Tazobactam 3 50 .375 gm In Dextrose/Water 1 50ml.bag @ 12.5 mls/hr IVPB Q8HR [facility] Rx#: [id number] Oral 440 480 200 Output: Urine 200 Uretheral (Norman) 200 Other: Voiding Method Indwelling Catheter Indwelling Catheter Indwelling Catheter # Bowel Movements 2 1 - Exam GENERAL EXAM: Alert, comfortable in no apparent distress. HEAD: Normocephalic. EYES: Normal reaction of pupils, equal size. NOSE: Clear with pink turbinates. THROAT: No erythema or exudates. NECK: No masses, no JVD. CHEST: No chest wall deformity. LUNGS: Equal air entry with few scattered rhonchi. Crackles in the posterior bases. Diminished. CVS: S1 and S2 normal with audible murmurs, regular rhythm. ABDOMEN: Abdominal wall hernia anteriorly which is easily reducible. No hepatosplenomegaly, normal bowel sounds, no guarding or rigidity. SPINE: Kyphoscoliosis. Extremities: There is no significant peripheral edema. No clubbing, no cyanosis. Peripheral pulses are intact. - Labs CBC & Chem 7: 12/08/16 12:24 12/08/16 12:24 Labs: Abnormal Lab Results - Last 24 Hours (Table) 12/07/16 12/07/16 12/07/16 Range/Units 17:07 20:08 20:09 RBC (4.30-5.90) m/uL Hgb (13.0-17.5) gm/dL Hct (39.0-53.0) % RDW (11.5-15.5) % Plt Count (150-450) k/uL Lymphocytes # (1.0-4.8) k/uL Sodium (137-145) mmol/L Potassium (3.5-5.1) mmol/L Chloride (98-107) mmol/L Carbon Dioxide (22-30) mmol/L BUN (9-20) mg/dL Creatinine (0.66-1.25) mg/dL POC Glucose (mg/dL) 73 L 43 L 45 L (75-99) mg/dL Calcium (8.4-10.2) mg/dL 12/07/16 12/07/16 12/07/16 Range/Units 20:33 20:48 20:55 RBC (4.30-5.90) m/uL Hgb (13.0-17.5) gm/dL Hct (39.0-53.0) % RDW (11.5-15.5) % Plt Count (150-450) k/uL Lymphocytes # (1.0-4.8) k/uL Sodium (137-145) mmol/L Potassium 6.7 H* (3.5-5.1) mmol/L Chloride (98-107) mmol/L Carbon Dioxide (22-30) mmol/L BUN (9-20) mg/dL Creatinine (0.66-1.25) mg/dL POC Glucose (mg/dL) 69 L 108 H (75-99) mg/dL Calcium (8.4-10.2) mg/dL 12/08/16 12/08/16 Range/Units 12:24 12:24 RBC 2.62 L (4.30-5.90) m/uL Hgb 8.0 L (13.0-17.5) gm/dL Hct 25.0 L (39.0-53.0) % RDW 16.4 H (11.5-15.5) % Plt Count 126 L (150-450) k/uL Lymphocytes # 0.3 L (1.0-4.8) k/uL Sodium 146 H (137-145) mmol/L Potassium 5.7 H (3.5-5.1) mmol/L Chloride 113 H (98-107) mmol/L Carbon Dioxide 21 L (22-30) mmol/L BUN 69 H (9-20) mg/dL Creatinine 4.92 H (0.66-1.25) mg/dL POC Glucose (mg/dL) (75-99) mg/dL Calcium 8.2 L (8.4-10.2) mg/dL Assessment and Plan Plan: Impression: #1 Acute respiratory distress with previous hypoxic respiratory failure that has recovered in the patient's currently on room air in no acute distress. Chest x-ray revealed small to moderate bilateral pleural effusions more so on the right with some possible underlying pulmonary infiltrate/pneumonia. #2 Dementia. #3 Dysphagia with a swallow evaluation in the past showing normal findings without evidence of penetration or aspiration. #4 Previous bouts of sepsis most recent related to hemolytic Streptococcus. #5 Frequent urinary tract infections with previous infections related to Klebsiella, Proteus, Enterobacter and Pseudomonas and VRE. #6 Chronic renal failure. #7 Acute hyperkalemia, current potassium 5.7. #8 Dementia. #9 Diabetes mellitus. #10 Hypertension. #11 stage I sacral skin ulceration. #12 Severe peripheral vascular disease with bilateral below the knee and dictation. #13 Chronic obstructive pulmonary disease. #14 Chronic indwelling Norman catheter. #15 Anterior abdominal wall hernia. #16 Chronic anemia. Plan: The patient was seen and evaluated by Dr. Don. The patient is improved today as compared to yesterday. We'll continue with his current antibiotics in the form of Zosyn and Levaquin. We'll continue to monitor his potassium. We will increase his activity as tolerated. We'll continue to follow make further recommendations based on his clinical status.
[2016-12-08 17:30] LABS: Glucose,Whole Blood 102 mg/dL (75-99)
--- NOTE | 2016-12-08 18:55 | PN ---
DATE OF SERVICE: 12/08/2016 PRESENTING COMPLAINT: Pneumonia. INTERVAL HISTORY: This patient with pneumonia looks a bit more awake; still a little bit congested. Did tolerate some diet. Lying in bed, not in distress. Review of systems done for constitutional, cardiovascular, GI, pulmonary; relevant findings as above. Current medications are reviewed that include IV Zosyn. On examination, temperature 99.2, pulse 85, respiration 18, blood pressure 115/66, pulse ox 97% on room air. GENERAL APPEARANCE: Lying in bed. Awake. EYES: Pupils equal. Conjunctivae normal. NECK: JVD not raised. Mass not palpable. RESPIRATORY: Effort increased. LUNGS: Right basal crackles. CARDIOVASCULAR: First and second sounds normal. No edema. ABDOMEN: Soft, nontender. Liver and spleen not palpable. PSYCHIATRY: Awake. Answering simple questions. INVESTIGATIONS: White count 8.5, hemoglobin 8.0, potassium 5.7. BUN 69, creatinine 4.92. ASSESSMENT: 1. Right lower lobe pneumonia with possible parapneumonic effusion; suspect Gram-negative organism; could be aspiration. 2. Chronic kidney disease, stage IV, from diabetic nephropathy. 3. Chronic obstructive pulmonary disease in an ex-smoker. 4. 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 5. Essential hypertension. 6. Diabetes mellitus, type 2, chronic, on medications. 7. 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 8. Hyperkalemia in a setting of renal failure. PLAN: Continue with antibiotics. Patient clinically looks actually better. Keep a close eye on patient's renal function. Overall prognosis is guarded. Will follow.
[2016-12-08 23:00] LABS: Glucose,Whole Blood 131 mg/dL (75-99)
[2016-12-09 07:13] LABS: Glucose,Whole Blood 40 mg/dL (75-99)
[2016-12-09] MEDS: IPRATROPIUM-ALBUTEROL 3 ML NEB INHALATION SCH ×4 (07:32→19:57)
[2016-12-09 07:36] LABS: Calcium 8.4 mg/dL (8.4-10.2); Potassium 5.8 mmol/L (3.5-5.1)
[2016-12-09 07:37] LABS: Glucose,Whole Blood 80 mg/dL (75-99)
[2016-12-09] MEDS: INSULIN LISPRO (humaLOG) 300 UNIT/3 ML VIAL SQ SCH ×4 (07:53→20:52)
[2016-12-09] MEDS: INSULIN DETEMIR 100 UNIT/ML 10 ML VIAL SQ SCH (08:40)
[2016-12-09] MEDS: HEPARIN SODIUM,PORCINE 5,000 UNIT/ML 1 ML VIAL SQ SCH ×2 (10:18→20:52)
[2016-12-09] MEDS: PIPERACILLIN-TAZOBACTAM 3.375 GM in DEXTROSE/WATER 1 50ML.BAG IVPB SCH ×2 (10:18→20:52)
[2016-12-09] MEDS: amLODIPine 10 MG TAB PO SCH (10:19)
[2016-12-09] MEDS: CHOLECALCIFEROL 1,000 UNIT TAB PO SCH (10:19)
[2016-12-09] MEDS: SODIUM BICARBONATE TAB 650 MG TAB PO SCH ×3 (10:19→20:53)
[2016-12-09] MEDS: PREGABALIN 75 MG CAP PO SCH ×2 (10:19→20:53)
[2016-12-09] MEDS: MULTIVITAMINS, THERA 1 EACH TAB PO SCH (10:19)
[2016-12-09] MEDS ORDERED: SODIUM CHLORIDE 0.45% 1,000 ML IV SCH (11:15)
[2016-12-09 11:33] LABS: Glucose,Whole Blood 132 mg/dL (75-99)
[2016-12-09] MEDS: DEXTROSE 5%-0.45% NACL 1,000 ML IV SCH (12:11)
--- NOTE | 2016-12-09 13:49 | P.NPCON ---
History of Present Illness - Reason for Consult Consult date: 12/09/16 acute renal failure - Chief Complaint Acute kidney injury, chronic kidney disease with congestive heart failure - History of Present Illness This 89-year-old male known to us with chronic kidney disease stage IV with a baseline creatinine of 3.4-3.7 a month ago in October 2016, came in because of worsening shortness of breath. He was recently hospitalized in October and discharged. Because is a poor historian and has dementia is difficult to obtain a reliable history. He supposedly has frequent visits to the emergency department. He had just finished a course of Z-Asim. Patient denies any nausea vomiting diarrhea abdominal pain. He says he has a cough and shortness of breath but is much better. He is known with COPD, diabetes, dementia, hypertension, history of MRSA and VRE , history of bowel resection and hernia repair bilateral amputee and has had a history of bowel resection as well. Past Medical History Past Medical History: Heart Failure, COPD, Dementia, Diabetes Mellitus, Hypertension, Pneumonia, Renal Disease Additional Past Medical History / Comment(s): Dementia, multiple bouts of sepsis secondary to urine checked infection with infections with gram-negative bacteria, recent septicemia with blood cultures being positive for hemolytic strep., Chronic renal failure, episodic hyperkalemia, diabetes mellitus insulin -dependent, hypertension, chronic bilateral pleural effusion, sacral skin maceration with stage I disease, peripheral vascular disease with bilateral below-knee amputation, COPD, congestion heart failure, frequent urine checked infection, chronic indwelling Norman catheter, dysphagia with previous swallow evaluation did not reveal evidence of penetration or aspiration, anterior abdominal wall hernia, History of Any Multi-Drug Resistant Organisms: MRSA, Other MDRO, VRE Date of last positivie culture/infection: 04/02/15 MRSA-Penis; 09/02/2011 VRE Unknown MDRO Source:: Urine-MDROs Past Surgical History: Bowel Resection, Hernia Repair Additional Past Surgical History / Comment(s): ruslan leg amputated below knee, abdominal surgery with a bowel resection. Past Anesthesia/Blood Transfusion Reactions: No Reported Reaction Past Psychological History: Anxiety, Depression Additional Psychological History / Comment(s): Patient is cared for in a family home by his family. Former smoker. No significant history of alcohol or recreational drug use. Smoking Status: Former smoker Past Alcohol Use History: None Reported Past Drug Use History: None Reported - Past Family History Father Family Medical History: Diabetes Mellitus Additional Family Medical History / Comment(s): bleeding ulcer Mother Family Medical History: Dementia Medications and Allergies Home Medications Medication Instructions Recorded Confirmed Type ALPRAZolam [Xanax] 0.25 mg PO BID PRN 11/12/16 12/06/16 History INSULIN LISPRO (HumaLOG) [humaLOG] See Protocol SQ ACHS 11/12/16 12/06/16 History Insulin Detemir [Levemir] 14 unit SQ AC-BRKFST 11/12/16 12/06/16 History Multivitamins, Thera [Multivitamin] 1 tab PO DAILY 11/12/16 12/06/16 History Pregabalin [Lyrica] 75 mg PO BID 11/12/16 12/06/16 History amLODIPine BESYLATE [Norvasc] 10 mg PO DAILY 11/12/16 12/06/16 History Cholecalciferol [Vitamin D3] 1,000 unit PO DAILY 12/06/16 12/06/16 History Sodium Bicarbonate Tab 650 mg PO BID 12/06/16 12/06/16 History Allergies Allergy/AdvReac Type Severity Reaction Status Date / Time daptomycin Allergy Unknown Verified 12/06/16 16:17 Physical Exam Vitals: Vital Signs Temp Pulse Pulse Resp BP Pulse Ox 12/09/16 08:00 16 12/09/16 07:42 88 12/09/16 07:32 80 12/09/16 07:00 97.8 F 85 16 121/58 98 12/08/16 22:24 97.7 F 96 18 128/65 97 12/08/16 19:49 80 12/08/16 19:39 80 12/08/16 15:34 80 12/08/16 15:16 89 16 12/08/16 15:00 99.2 F 85 18 115/56 97 Intake and Output 12/08/16 12/09/16 12/09/16 22:59 06:59 14:59 Intake Total 350 Output Total 275 550 Balance 75 -550 Intake: IV 350 Sodium Chloride 0.9% 1, 350 000 ml @ 100 mls/hr IV . Q10H [facility] Rx#:[id number] Output: Urine 275 550 Other: Voiding Method Indwelling Catheter Indwelling Catheter Indwelling Catheter Weight 63.5 kg On examination he seems to be comfortable cheerful but confused and disoriented. He follows commands and cooperative. A chin exam no JVP neck is supple no facial asymmetry no card bruit noted Pupils are equal and reactive. Lungs are significant for bilateral coarse crackles no dullness percussion Heart sounds are unremarkable for any murmur rub gallop Is normal sinus rhythm Abdomen soft nontender no organomegaly, no masses felt. There is a ventral hernia in the epigastric area which is easily reducible. Extremity exam was bilateral amputee below knee Neurologically awake alert but disoriented has no memory of recent events. status masses Results - Lab Results Most recent lab results Calcium 8.4 mg/dL (8.4-10.2) 12/09/16 07:06 Magnesium 1.5 mg/dL (1.6-2.3) L 12/06/16 16:03 12/08/16 12:24 12/09/16 07:06 Assessment and Plan Plan: Impression. 1. Acute kidney injury secondary to congestive heart failure. Creatinine went up from for admission to 5.26. 2. Chronic kidney disease secondary diabetic nephropathy with baseline creatinine of about 3.5-3.7 as of October 2016 a month ago. 3. Hyperkalemia secondary to acute kidney injury. Potassium was 5.7 on 2016, went up to 6.7 on 12/07/2016 and this morning is 5.8 with high blood sugar on and off therefore part of this hyperkalemia is secondary to transcellular shift from high blood sugar. 4. Non-gap Metabolic acidosis non-gap secondary to acute kidney injury and RTA. 5. Hypernatremia secondary to decreased intake of free water in a patient who may be somewhat confused. 6. Bilateral remote amputee. 7. Peripheral vascular disease, COPD, history of bowel resection, likely vasculopathic Recommendation. 1. Maintain diuretics Lasix IV 20 mg every 12. 2. Maintain strict blood sugar control to improve the potassium. 3. Maintain sodium bicarb but increase the dose from 650 twice a day to 4 times a day
--- NOTE | 2016-12-09 14:09 | P.PN ---
Subjective This is a 81-year-old male with a history of frequent visits the emergency department who was just discharged about a week ago after being diagnosed with pneumonia who subsequently was brought in for evaluation of a cough and a is brought in by EMS today for difficulty breathing which started about an hour before he came in. Per EMS he did have a saturation the 70s after one updraft. He is known to have multiple medical problems including COPD, severe peripheral vascular disease with bilateral [id number]-rro-[id number] amputations, chronic renal failure, chronic wound infections with with MRSA, chronic excoriation around his sacrum, hypertension, congestion heart failure, diabetes mellitus and dementia. The patient also has had previous urinary tract infection with Klebsiella oxytoca and Enterobacter as well as pseudomonas aeruginosa and Proteus mirabilis. He has a chronic indwelling Norman catheter in place. His initial chest x-ray revealed small to moderate size bilateral pleural effusions right greater than left. An underlying pneumonia in the bases could not be totally excluded. He is being treated for both pneumonia and CHF exacerbation. He is seen again today 12/09/2016 in follow-up. He is awake and alert in no acute distress. He remains on aspiration precautions. He does need assistance with meals. He is using honey thickened liquids. He is currently maintaining O2 saturations in the mid 90s on room air. Afebrile. Objective - Vital Signs Vital signs: Vital Signs Temp 97.8 F 12/09/16 07:00 Pulse 88 12/09/16 07:42 Resp 16 12/09/16 08:00 BP 121/58 12/09/16 07:00 Pulse Ox 98 12/09/16 07:00 Intake & Output 12/08/16 12/09/16 12/09/16 18:59 06:59 18:59 Intake Total 200 350 Output Total 275 550 Balance -75 -200 Weight 63.5 kg Intake: IV 350 Sodium Chloride 0.9% 1, 350 000 ml @ 100 mls/hr IV . Q10H [facility] Rx#:[id number] Oral 200 Output: Urine 275 550 Other: Voiding Method Indwelling Catheter Indwelling Catheter Indwelling Catheter # Bowel Movements 1 - Exam GENERAL EXAM: Alert, comfortable in no apparent distress. HEAD: Normocephalic. EYES: Normal reaction of pupils, equal size. NOSE: Clear with pink turbinates. THROAT: No erythema or exudates. NECK: No masses, no JVD. CHEST: No chest wall deformity. LUNGS: Equal air entry with few scattered rhonchi. Crackles in the posterior bases. Diminished. CVS: S1 and S2 normal with audible murmurs, regular rhythm. ABDOMEN: Abdominal wall hernia anteriorly which is easily reducible. No hepatosplenomegaly, normal bowel sounds, no guarding or rigidity. SPINE: Kyphoscoliosis. Extremities: There is no significant peripheral edema. No clubbing, no cyanosis. Peripheral pulses are intact. - Labs CBC & Chem 7: 12/08/16 12:24 12/09/16 07:06 Labs: Abnormal Lab Results - Last 24 Hours (Table) 12/08/16 12/08/16 12/09/16 Range/Units 17:28 22:40 07:06 Sodium 148 H (137-145) mmol/L Potassium 5.8 H (3.5-5.1) mmol/L Chloride 118 H (98-107) mmol/L Carbon Dioxide 19 L (22-30) mmol/L BUN 76 H (9-20) mg/dL Creatinine 5.26 H* (0.66-1.25) mg/dL Glucose 36 L* (74-99) mg/dL POC Glucose (mg/dL) 102 H 131 H (75-99) mg/dL 12/09/16 12/09/16 Range/Units 07:06 11:31 Sodium (137-145) mmol/L Potassium (3.5-5.1) mmol/L Chloride (98-107) mmol/L Carbon Dioxide (22-30) mmol/L BUN (9-20) mg/dL Creatinine (0.66-1.25) mg/dL Glucose (74-99) mg/dL POC Glucose (mg/dL) 40 L 132 H (75-99) mg/dL Assessment and Plan Plan: Impression: #1 Acute respiratory distress with previous hypoxic respiratory failure that has recovered in the patient's currently on room air in no acute distress. Chest x-ray revealed small to moderate bilateral pleural effusions more so on the right with some possible underlying pulmonary infiltrate/pneumonia. #2 Dementia. #3 Dysphagia with a swallow evaluation in the past showing normal findings without evidence of penetration or aspiration. #4 Previous bouts of sepsis most recent related to hemolytic Streptococcus. #5 Frequent urinary tract infections with previous infections related to Klebsiella, Proteus, Enterobacter and Pseudomonas and VRE. #6 Acute on Chronic renal failure. Current creatinine 5.26. #7 Acute hyperkalemia, current potassium 5.8. #8 Dementia. #9 Diabetes mellitus, with an episode of hypoglycemia this a.m. #10 Hypertension. #11 Stage I sacral skin ulceration. #12 Severe peripheral vascular disease with bilateral below the knee and dictation. #13 Chronic obstructive pulmonary disease. #14 Chronic indwelling Norman catheter. #15 Anterior abdominal wall hernia. #16 Chronic anemia. Plan: The patient was seen and evaluated by Dr. Don. The patient is improved today as compared to yesterday. We'll continue with his current antibiotics in the form of Zosyn and Levaquin. We will repeat his chest x-ray in the a.m. We' ll change his IV to D5 0.45 at 75 mL per hour based on his episode of hypoglycemia, hypernatremia and increasing creatinine levels. We'll continue to monitor his glucose levels. We'll repeat his labs in the a.m. We'll continue to follow make further recommendations based on his clinical status.
[2016-12-09 17:17] LABS: Glucose,Whole Blood 153 mg/dL (75-99)
[2016-12-09] MEDS: LEVOFLOXACIN 500 MG TAB PO SCH (17:36)
[2016-12-09 20:32] LABS: Glucose,Whole Blood 202 mg/dL (75-99)
[2016-12-09] MEDS: SODIUM POLYSTYRENE SULFONATE 15 GM/60 ML BOTTLE PO STA (22:21)
[2016-12-10] MEDS: SODIUM POLYSTYRENE SULFONATE 15 GM/60 ML BOTTLE PO STA (00:36)
[2016-12-10 02:27] LABS: Glucose,Whole Blood 141 mg/dL (75-99)
--- NOTE | 2016-12-10 06:33 | PN ---
DATE OF SERVICE: 12/09/2016 PRESENTING COMPLAINT: Pneumonia. INTERVAL HISTORY: This patient was admitted with pneumonia, has underlying renal failure. Far more perky today. I saw the patient this morning. Did tolerate some diet. Feels better. Cough has gone down reasonably. Review of systems done for constitutional, cardiovascular, GI, pulmonary; relevant findings as above. Current medications are reviewed and include IV Zosyn and Lasix. On examination, temperature 97.8, pulse 65, respiration 16, blood pressure 120/58, pulse ox 98% on room air. GENERAL APPEARANCE: Sitting up, more comfortable, awake. EYES: Pupils equal. Conjunctivae normal. NECK: JVD not raised. Mass not palpable. RESPIRATORY: Effort increased. LUNGS: Right base crackles. CARDIOVASCULAR: First and second sounds normal. No edema. ABDOMEN: Soft, nontender. Liver and spleen not palpable. PSYCHIATRY: Awake, answering questions. INVESTIGATIONS: Sodium 148, potassium 5.8. BUN 76, creatinine 5.26. ASSESSMENT: 1. Right lobe pneumonia with possible parapneumonic effusion and suspect gram-negative organism, could be aspiration with clinical improvement. 2. 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 3. Acute renal failure, probably acute tubular necrosis, probably from diuresis. 4. Chronic obstructive pulmonary disease in an ex-smoker. 5. 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 6. Essential hypertension. 7. Diabetes mellitus, type 2, chronically on medication. 8. 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 9. Hyperkalemia in the setting of renal failure. PLAN: Continue current medications and treatment plan. Follow with nephrology and pulmonary. Care was discussed with the patient. Will give another dose of Kayexalate.
[2016-12-10 07:22] LABS: Glucose,Whole Blood 156 mg/dL (75-99)
[2016-12-10] MEDS: IPRATROPIUM-ALBUTEROL 3 ML NEB INHALATION SCH ×4 (07:34→19:48)
[2016-12-10] MEDS: INSULIN DETEMIR 100 UNIT/ML 10 ML VIAL SQ SCH (07:40)
[2016-12-10] MEDS: INSULIN LISPRO (humaLOG) 300 UNIT/3 ML VIAL SQ SCH ×4 (07:41→23:46)
[2016-12-10] MEDS: DEXTROSE 5%-0.45% NACL 1,000 ML IV SCH ×2 (07:42→15:59)
--- NOTE | 2016-12-10 08:00 | XR ---
EXAMINATION TYPE: XR chest 1V portable DATE OF EXAM: 12/10/2016 7:48 AM Comparison: 12/07/2016 Clinical History: 81-year-old male CHF/infiltrate, follow-up exam Findings: Heart remains borderline enlarged. Mild interstitial prominence and patchy lower lung opacities persi st. Small effusions also persist. Prominent skinfold projecting at the peripheral left lower lung. Impression: Overall stable small pleural effusions with adjacent bibasilar patchy consolidation that could relate to infiltrates or pulmonary edema.
[2016-12-10] MEDS: SODIUM BICARBONATE TAB 650 MG TAB PO SCH ×4 (08:27→23:46)
[2016-12-10] MEDS: HEPARIN SODIUM,PORCINE 5,000 UNIT/ML 1 ML VIAL SQ SCH ×2 (08:27→23:46)
[2016-12-10] MEDS: PIPERACILLIN-TAZOBACTAM 3.375 GM in DEXTROSE/WATER 1 50ML.BAG IVPB SCH ×2 (08:27→23:53)
[2016-12-10] MEDS: amLODIPine 10 MG TAB PO SCH (08:27)
[2016-12-10] MEDS: MULTIVITAMINS, THERA 1 EACH TAB PO SCH (08:27)
[2016-12-10] MEDS: CHOLECALCIFEROL 1,000 UNIT TAB PO SCH (08:27)
[2016-12-10] MEDS: PREGABALIN 75 MG CAP PO SCH ×2 (08:27→23:46)
[2016-12-10] MEDS ORDERED: FUROSEMIDE 10 MG/ML 2 ML VIAL IV SCH (09:00)
[2016-12-10 10:22] LABS: Calcium 7.9 mg/dL (8.4-10.2); Potassium 5.4 mmol/L (3.5-5.1)
[2016-12-10 11:52] LABS: Glucose,Whole Blood 99 mg/dL (75-99)
--- NOTE | 2016-12-10 12:16 | P.PN ---
Subjective Principal diagnosis: This is a 80-year-old male seen in consultation initially because of acute kidney injury, secondary to prerenal seems to be from congestive heart failure but has worsened with Lasix. He also was hypernatremic and was deemed to be from decreased free water intake. This morning after discussion with cardiology we have stopped his Lasix and he was given IV fluids overnight half-normal saline at 75 mL an hour. This morning he is denying any shortness of breath but because of dementia he is history is rather unreliable. No nausea vomiting diarrhea he has difficulty swallowing therefore is on a dysphagia diet. No abdominal pain no diarrhea. He is known with COPD, diabetes, dementia, hypertension, history of MRSA and VRE , history of bowel resection and hernia repair bilateral amputee and has had a history of bowel resection as well. Objective - Vital Signs Vital signs: Vital Signs Temp 97 F L 12/10/16 07:00 Pulse 88 12/10/16 07:00 Resp 18 12/10/16 08:00 BP 150/71 12/10/16 07:00 Pulse Ox 92 L 12/10/16 07:00 Intake & Output 12/09/16 12/10/16 12/10/16 18:59 06:59 18:59 Intake Total 700 Output Total 440 650 Balance 260 -650 Weight 66.5 kg Intake: IV 700 Sodium Chloride 0.9% 1, 700 000 ml @ 100 mls/hr IV . Q10H [facility] Rx#:[id number] Output: Urine 650 Stool 440 Other: Voiding Method Indwelling Catheter Indwelling Catheter Indwelling Catheter On examination awake alert disoriented. Follows commands. HEENT exam no JVP noted neck is supple no facial asymmetry Lungs are clear to auscultation percussion fair air entry bilaterally Abdomen soft nontender nondistended Sounds are unremarkable for any murmur rub gallop Extremity exam reveals bilateral amputee No swelling in the stumps. Neurologically awake alert cheerful but disoriented. Follows: - Labs CBC & Chem 7: 12/08/16 12:24 12/10/16 09:50 Labs: Abnormal Lab Results - Last 24 Hours (Table) 12/09/16 12/09/16 12/10/16 Range/Units 17:04 20:12 02:24 Sodium (137-145) mmol/L Potassium (3.5-5.1) mmol/L Chloride (98-107) mmol/L Carbon Dioxide (22-30) mmol/L BUN (9-20) mg/dL Creatinine (0.66-1.25) mg/dL Glucose (74-99) mg/dL POC Glucose (mg/dL) 153 H 202 H 141 H (75-99) mg/dL Calcium (8.4-10.2) mg/dL 12/10/16 12/10/16 Range/Units 07:20 09:50 Sodium 146 H (137-145) mmol/L Potassium 5.4 H (3.5-5.1) mmol/L Chloride 116 H (98-107) mmol/L Carbon Dioxide 16 L (22-30) mmol/L BUN 77 H (9-20) mg/dL Creatinine 5.40 H* (0.66-1.25) mg/dL Glucose 156 H (74-99) mg/dL POC Glucose (mg/dL) 156 H (75-99) mg/dL Calcium 7.9 L (8.4-10.2) mg/dL Assessment and Plan Plan: Impression. 1. Acute kidney injury secondary to prerenal, assumed to be initially from congestive heart failure based on clinical and radiological findings . Upon diuresis Creatinine went up from 3.98 on 12/07/2016 to 5.4 as of this morning Likely he has intravascular volume depletion at this time 2. Chronic kidney disease secondary diabetic nephropathy with baseline creatinine of about 3.5-3.7 as of October 2016 a month ago. 3. Hyperkalemia secondary to acute kidney injury, Additionally from high blood sugar. Potassium was 5.7 on 12/06/2016, went up to 6.7 on 12/07/2016 and this morning is down to 5.4. 4. Non-gap Metabolic acidosis non-gap secondary to acute kidney injury and RTA.Bicarb down further to 16 today 5. Hypernatremia secondary to decreased intake of free water in a patient who may be somewhat confused, Additionally from decreased concentration capacity off chronic kidney disease.On IV D5 half-normal saline 6. Bilateral remote amputee. 7. Peripheral vascular disease, COPD, history of bowel resection, likely vasculopathic Recommendation. 1. agree with discontinuation of Lasix and starting IV D5 W half-normal saline at 75 mL an hour. 2. Maintain strict blood sugar control to improve the potassium. 3. Maintain sodium bicarb 650 4 times a day
--- NOTE | 2016-12-10 14:47 | P.PN ---
Subjective This is a 81-year-old male with a history of frequent visits the emergency department who was just discharged about a week ago after being diagnosed with pneumonia who subsequently was brought in for evaluation of a cough and a is brought in by EMS today for difficulty breathing which started about an hour before he came in. Per EMS he did have a saturation the 70s after one updraft. He is known to have multiple medical problems including COPD, severe peripheral vascular disease with bilateral [id number] amputations, chronic renal failure, chronic wound infections with with MRSA, chronic excoriation around his sacrum, hypertension, congestion heart failure, diabetes mellitus and dementia. The patient also has had previous urinary tract infection with Klebsiella oxytoca and Enterobacter as well as pseudomonas aeruginosa and Proteus mirabilis. He has a chronic indwelling Norman catheter in place. His initial chest x-ray revealed small to moderate size bilateral pleural effusions right greater than left. An underlying pneumonia in the bases could not be totally excluded. He is being treated for both pneumonia and CHF exacerbation. He is seen again today 12/09/2016 in follow-up. He is awake and alert in no acute distress. He remains on aspiration precautions. He does need assistance with meals. He is using honey thickened liquids. He is currently maintaining O2 saturations in the mid 90s on room air. Afebrile. On 12/10/2016 the patient is being seen in follow-up. No significant respiratory distress. Is a bit confused and has been interval worsening the renal function and creatinine is up to 5.4. The patient also has a component of non-anion gap metabolic acidosis with a bicarb level of 16. Sodium level remains elevated at 146. No hypoglycemic episodes. The patient is on D5 half- normal saline at rate of 75 ml hour. Objective - Vital Signs Vital signs: Vital Signs Temp 97 F L 12/10/16 07:00 Pulse 88 12/10/16 07:00 Resp 18 12/10/16 08:00 BP 150/71 12/10/16 07:00 Pulse Ox 92 L 12/10/16 07:00 Intake & Output 12/09/16 12/10/16 12/10/16 18:59 06:59 18:59 Intake Total 700 575 Output Total 440 650 Balance 260 -650 575 Weight 66.5 kg Intake: IV 700 Sodium Chloride 0.9% 1, 700 000 ml @ 100 mls/hr IV . Q10H [facility] Rx#:[id number] Intake, IV Titration 575 Amount Dextrose 5%-0.45% NaCl 1, 525 000 ml @ 75 mls/hr IV . [id number] [facility] Rx#:[id number] Piperacillin-Tazobactam 3 50 .375 gm In Dextrose/Water 1 50ml.bag @ 12.5 mls/hr IVPB Q12HR [facility] Rx#: [id number] Output: Urine 650 Stool 440 Other: Voiding Method Indwelling Catheter Indwelling Catheter Indwelling Catheter - Exam GENERAL EXAM: Alert, comfortable in no apparent distress. HEAD: Normocephalic. EYES: Normal reaction of pupils, equal size. NOSE: Clear with pink turbinates. THROAT: No erythema or exudates. NECK: No masses, no JVD. CHEST: No chest wall deformity. LUNGS: Equal air entry with few scattered rhonchi. Crackles in the posterior bases. Diminished. CVS: S1 and S2 normal with audible murmurs, regular rhythm. ABDOMEN: Abdominal wall hernia anteriorly which is easily reducible. No hepatosplenomegaly, normal bowel sounds, no guarding or rigidity. SPINE: Kyphoscoliosis. Extremities: There is no significant peripheral edema. No clubbing, no cyanosis. Peripheral pulses are intact. - Labs CBC & Chem 7: 12/08/16 12:24 12/10/16 09:50 Labs: Abnormal Lab Results - Last 24 Hours (Table) 12/09/16 12/09/16 12/10/16 Range/Units 17:04 20:12 02:24 Sodium (137-145) mmol/L Potassium (3.5-5.1) mmol/L Chloride (98-107) mmol/L Carbon Dioxide (22-30) mmol/L BUN (9-20) mg/dL Creatinine (0.66-1.25) mg/dL Glucose (74-99) mg/dL POC Glucose (mg/dL) 153 H 202 H 141 H (75-99) mg/dL Calcium (8.4-10.2) mg/dL 12/10/16 12/10/16 Range/Units 07:20 09:50 Sodium 146 H (137-145) mmol/L Potassium 5.4 H (3.5-5.1) mmol/L Chloride 116 H (98-107) mmol/L Carbon Dioxide 16 L (22-30) mmol/L BUN 77 H (9-20) mg/dL Creatinine 5.40 H* (0.66-1.25) mg/dL Glucose 156 H (74-99) mg/dL POC Glucose (mg/dL) 156 H (75-99) mg/dL Calcium 7.9 L (8.4-10.2) mg/dL Assessment and Plan Plan: Assessment 1 acute respiratory distress with previous hypoxic respiratory failure that has recovered and the patient is currently on room air oxygen without any significant respiratory distress. Chest x-ray shows small to moderate-sized better pleural effusion and possible some underlying pulmonary infiltration/ pneumonia although CHF and fluid overload cannot be completely excluded. On 12/10/2016, the patient is to status is stable. The patient remains on room air. He is having some difficulties with change in mental status and confusion. This could be attributed to his underlying worsening renal function. 2 dementia 3 dysphagia with a swallow evaluation in the past showing normal findings without any evidence of penetration or aspiration 4 previous bouts of sepsis most recent related to hemolytic streptococcus 5 frequent urine checked infection with previous infections related to Klebsiella, Proteus, Enterobacter and Pseudomonas and VRE 6 chronic renal failure with acute decompensation of renal function in the creatinine is up to 5.4. 7 acute hyperkalemia A dementia 9 diabetes mellitus 10 hypertension 11 stage I sacral skin maceration 12 severe peripheral vascular disease with bilateral below-knee amputation 13 COPD 14 chronic indwelling Norman catheter 15 anterior abdominal wall hernia 16 chronic anemia Plan Continue Zosyn /Levaquin. Continue D5 half-normal saline at the rate of 75 mL an hour. Stop the IV Lasix. Monitor respiratory status. Monitor renal function. We'll continue to follow.
[2016-12-10] MEDS: ALPRAZolam 0.25 MG TAB PO PRN (15:20)
[2016-12-10] MEDS: HYDROmorphone 1 MG/ML 1 ML SYRINGE IVP PRN (15:59)
[2016-12-10 17:01] LABS: Glucose,Whole Blood 87 mg/dL (75-99)
--- NOTE | 2016-12-10 17:18 | PN ---
DATE OF SERVICE: 12/10/2016 PRESENTING COMPLAINT: Pneumonia, renal failure. INTERVAL HISTORY: The patient was admitted with pneumonia and renal failure after getting diuresis, renal function has gotten worse. Patient is refusing his medications. Did tolerate some diet. Review of systems was attempted. Current medications are reviewed and include IV Zosyn, Lasix has been held. On examination, temperature 97, pulse 88, respirations 18, blood pressure 150/71, pulse ox 92% on room air. GENERAL APPEARANCE: A gentleman lying in bed, not in distress. EYES: Pupils equal, conjunctivae normal. NECK: JVD not raised. Mass not palpable. Respiratory effort increased. LUNGS: Bibasilar crackles. CARDIOVASCULAR: First and second sounds normal. No edema. ABDOMEN: Soft, nontender. PSYCHIATRY: Patient does answer some questions. INVESTIGATIONS: Sodium 146, potassium 5.4. BUN 77, creatinine 5.40. ASSESSMENT: 1. Right lobe pneumonia with possible parapneumonic effusion, suspect gram-negative organism, could be aspiration. 2. 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 3. Acute renal failure, probably acute tubular necrosis, probably from diuresis and possibly from decreased oral intake. 4. Chronic obstructive pulmonary disease in an ex-smoker. 5. Alzheimer's dementia, probably late onset with no behavioral change. 6. Essential hypertension. 7. Diabetes mellitus type 2, chronically on medication. 8. 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 9. Hyperkalemia in the setting of renal failure. PLAN: Patient's Lasix has been discontinued. Patient to be gently hydrated. Did ask the nurse to talk to patient's daughter to see if she will come and talk to patient about taking medications. There could be an element of delirium in the same though patient's conscious levels have not fluctuated. Overall prognosis guarded. Will follow closely.
[2016-12-10 20:09] LABS: Glucose,Whole Blood 132 mg/dL (75-99)
[2016-12-11 02:04] LABS: Glucose,Whole Blood 132 mg/dL (75-99)
[2016-12-11] MEDS: HYDROmorphone 1 MG/ML 1 ML SYRINGE IVP PRN (03:28)
[2016-12-11] MEDS: DEXTROSE 5%-0.45% NACL 1,000 ML IV SCH ×2 (06:11→20:12)
[2016-12-11] MEDS: IPRATROPIUM-ALBUTEROL 3 ML NEB INHALATION SCH ×4 (07:37→20:39)
[2016-12-11] MEDS: INSULIN LISPRO (humaLOG) 300 UNIT/3 ML VIAL SQ SCH ×4 (07:52→20:59)
[2016-12-11] MEDS: INSULIN DETEMIR 100 UNIT/ML 10 ML VIAL SQ SCH (07:59)
[2016-12-11 08:03] LABS: Glucose,Whole Blood 116 mg/dL (75-99)
[2016-12-11] MEDS: SODIUM BICARBONATE TAB 650 MG TAB PO SCH ×4 (08:13→23:55)
[2016-12-11] MEDS: PREGABALIN 75 MG CAP PO SCH ×2 (08:14→20:12)
[2016-12-11] MEDS: HEPARIN SODIUM,PORCINE 5,000 UNIT/ML 1 ML VIAL SQ SCH ×2 (08:14→20:12)
[2016-12-11] MEDS: MULTIVITAMINS, THERA 1 EACH TAB PO SCH (08:14)
[2016-12-11] MEDS: amLODIPine 10 MG TAB PO SCH (08:14)
[2016-12-11] MEDS: CHOLECALCIFEROL 1,000 UNIT TAB PO SCH (08:14)
--- NOTE | 2016-12-11 10:40 | P.PN ---
Subjective Patient is seen in follow-up for acute kidney injury on chronic kidney disease. Patient has chronic kidney disease stage IV with baseline creatinine in the range of 3.5-3.7 secondary to diabetic kidney disease. Patient presented with dyspnea. He initially received IV diuretics. His renal function subsequently worsened with creatinine at 5.4 and is currently on gentle IV hydration. Currently is resting in bed. Did have some diarrhea yesterday. No active chest pain or shortness breath. He has a Norman catheter in place and is nonoliguric. Vital signs are stable. General: The patient appeared well nourished and normally developed. HEENT: Head exam is unremarkable. Neck is without jugular venous distension. LUNGS: Lungs are clear to auscultation and percussion. Breath sounds decreased. HEART: Rate and Rhythm are regular. First and second heart sounds normal. No murmurs, rubs or gallops. ABDOMEN: Abdominal exam reveals normal bowel sounds. Non-tender and non- distended. No evidence of peritonitis. EXTREMITITES: No clubbing, cyanosis, or edema. Objective - Vital Signs Vital signs: Vital Signs Temp 97.9 F 12/11/16 07:00 Pulse 83 12/11/16 07:00 Resp 18 12/11/16 07:00 BP 113/61 12/11/16 07:00 Pulse Ox 97 12/11/16 07:00 Intake & Output 12/10/16 12/11/16 12/11/16 18:59 06:59 18:59 Intake Total 575 525 Output Total 440 1140 Balance 135 -615 Weight 67.2 kg Intake: Intake, IV Titration 575 525 Amount Dextrose 5%-0.45% NaCl 1, 525 525 000 ml @ 75 mls/hr IV . [id number] [facility] Rx#:[id number] Piperacillin-Tazobactam 3 50 .375 gm In Dextrose/Water 1 50ml.bag @ 12.5 mls/hr IVPB Q12HR [facility] Rx#: [id number] Output: Urine 700 Uretheral (Norman) 700 Stool 440 440 Other: Voiding Method Indwelling Catheter Indwelling Catheter # Bowel Movements 1 2 - Labs CBC & Chem 7: 12/08/16 12:24 12/10/16 09:50 Labs: Abnormal Lab Results - Last 24 Hours (Table) 12/10/16 12/11/16 12/11/16 Range/Units 20:06 02:02 07:48 POC Glucose (mg/dL) 132 H 132 H 116 H (75-99) mg/dL Assessment and Plan Plan: Assessment: #1. Nonoliguric acute kidney injury secondary to intravascular volume depletion related to sepsis and diuresis. Creatinine was 5.4 yesterday. Labs from today are pending at this time. #2. Chronic kidney disease stage IV secondary to diabetic kidney disease with baseline creatinine in the range of 3.5-3.7. #3. Mild hyperkalemia secondary to acute kidney injury as well as metabolic acidosis. #4. Anion gap metabolic acidosis secondary to acute kidney injury. #5. Mild hypernatremia secondary to lack of oral water intake. #6. Right lobe pneumonia. Plan: Maintain IV hydration with half-normal saline to be run at 75 mL an hour. Maintain oral sodium bicarbonate supplementation. Check electrolytes now and again in the morning. Maintain antibiotics. Avoid nephrotoxic agents and hypotensive episodes. No urgent need for renal replacement therapy at this time.
[2016-12-11] MEDS: PIPERACILLIN-TAZOBACTAM 3.375 GM in DEXTROSE/WATER 1 50ML.BAG IVPB SCH ×2 (10:44→20:12)
[2016-12-11 11:32] LABS: Calcium 7.8 mg/dL (8.4-10.2); Potassium 5.3 mmol/L (3.5-5.1)
[2016-12-11 11:41] LABS: Glucose,Whole Blood 147 mg/dL (75-99)
--- NOTE | 2016-12-11 15:31 | P.PN ---
Subjective Principal diagnosis: Acute hypoxic respiratory failure, multifactorial. This is a 81-year-old male with a history of frequent visits the emergency department who was just discharged about a week ago after being diagnosed with pneumonia who subsequently was brought in for evaluation of a cough and a is brought in by EMS today for difficulty breathing which started about an hour before he came in. Per EMS he did have a saturation the 70s after one updraft. He is known to have multiple medical problems including COPD, severe peripheral vascular disease with bilateral [id number] amputations, chronic renal failure, chronic wound infections with with MRSA, chronic excoriation around his sacrum, hypertension, congestion heart failure, diabetes mellitus and dementia. The patient also has had previous urinary tract infection with Klebsiella oxytoca and Enterobacter as well as pseudomonas aeruginosa and Proteus mirabilis. He has a chronic indwelling Norman catheter in place. His initial chest x-ray revealed small to moderate size bilateral pleural effusions right greater than left. An underlying pneumonia in the bases could not be totally excluded. He is being treated for both pneumonia and CHF exacerbation. He is seen again today 12/09/2016 in follow-up. He is awake and alert in no acute distress. He remains on aspiration precautions. He does need assistance with meals. He is using honey thickened liquids. He is currently maintaining O2 saturations in the mid 90s on room air. Afebrile. On 12/10/2016 the patient is being seen in follow-up. No significant respiratory distress. Is a bit confused and has been interval worsening the renal function and creatinine is up to 5.4. The patient also has a component of non-anion gap metabolic acidosis with a bicarb level of 16. Sodium level remains elevated at 146. No hypoglycemic episodes. The patient is on D5 half- normal saline at rate of 75 ml hour. On 12/11/2016, patient seems to be very comfortable, he denies any shortness of breath. No cough no wheezing no shortness of breath. Renal functioning seems to be getting worse. Continues to have anion gap metabolic acidosis of 16. Chest x-ray showed stable small pleural effusions and adjacent by basilar atelectasis/consolidation. Objective - Vital Signs Vital signs: Vital Signs Temp 97.9 F 12/11/16 07:00 Pulse 83 12/11/16 07:00 Resp 18 12/11/16 07:00 BP 113/61 12/11/16 07:00 Pulse Ox 97 12/11/16 07:00 Intake & Output 12/10/16 12/11/16 12/11/16 18:59 06:59 18:59 Intake Total 575 525 650 Output Total 440 1140 Balance 135 -615 650 Weight 67.2 kg Intake: Intake, IV Titration 575 525 650 Amount Dextrose 5%-0.45% NaCl 1, 525 525 600 000 ml @ 75 mls/hr IV . [id number] [facility] Rx#:[id number] Piperacillin-Tazobactam 3 50 50 .375 gm In Dextrose/Water 1 50ml.bag @ 12.5 mls/hr IVPB Q12HR [facility] Rx#: [id number] Output: Urine 700 Uretheral (Norman) 700 Stool 440 440 Other: Voiding Method Indwelling Catheter Indwelling Catheter Indwelling Catheter # Bowel Movements 1 2 - Exam GENERAL EXAM: Alert, comfortable in no apparent distress. HEAD: Normocephalic. EYES: Normal reaction of pupils, equal size. NOSE: Clear with pink turbinates. THROAT: No erythema or exudates. NECK: No masses, no JVD. CHEST: No chest wall deformity. LUNGS: Equal air entry with few scattered rhonchi. Crackles in the posterior bases. Diminished. CVS: S1 and S2 normal with audible murmurs, regular rhythm. ABDOMEN: Abdominal wall hernia anteriorly which is easily reducible. No hepatosplenomegaly, normal bowel sounds, no guarding or rigidity. SPINE: Kyphoscoliosis. Extremities: Bilateral below-knee amputations. - Labs CBC & Chem 7: 12/08/16 12:24 12/11/16 10:50 Labs: Abnormal Lab Results - Last 24 Hours (Table) 12/10/16 12/11/16 12/11/16 Range/Units 20:06 02:02 07:48 Sodium (137-145) mmol/L Potassium (3.5-5.1) mmol/L Chloride (98-107) mmol/L Carbon Dioxide (22-30) mmol/L BUN (9-20) mg/dL Creatinine (0.66-1.25) mg/dL Glucose (74-99) mg/dL POC Glucose (mg/dL) 132 H 132 H 116 H (75-99) mg/dL Calcium (8.4-10.2) mg/dL 12/11/16 12/11/16 Range/Units 10:50 11:37 Sodium 146 H (137-145) mmol/L Potassium 5.3 H (3.5-5.1) mmol/L Chloride 114 H (98-107) mmol/L Carbon Dioxide 16 L (22-30) mmol/L BUN 79 H (9-20) mg/dL Creatinine 5.44 H* (0.66-1.25) mg/dL Glucose 152 H (74-99) mg/dL POC Glucose (mg/dL) 147 H (75-99) mg/dL Calcium 7.8 L (8.4-10.2) mg/dL Assessment and Plan Plan: 1 acute respiratory distress with previous hypoxic respiratory failure that has recovered and the patient is currently on room air oxygen without any significant respiratory distress. Chest x-ray shows small to moderate-sized better pleural effusion and possible some underlying pulmonary infiltration/ pneumonia although CHF and fluid overload cannot be completely excluded. On 12/10/2016, the patient is to status is stable. The patient remains on room air. He is having some difficulties with change in mental status and confusion. This could be attributed to his underlying worsening renal function. On 12/11/2016, patient is practically about the same. Clinically he looks fine, but his labs and his abnormal chest x-ray are a bit concerning. 2 dementia 3 dysphagia with a swallow evaluation in the past showing normal findings without any evidence of penetration or aspiration 4 previous bouts of sepsis most recent related to hemolytic streptococcus 5 frequent urine checked infection with previous infections related to Klebsiella, Proteus, Enterobacter and Pseudomonas and VRE 6 chronic renal failure with acute decompensation of renal function in the creatinine is up to 5.4. 7 acute hyperkalemia A dementia 9 diabetes mellitus 10 hypertension 11 stage I sacral skin maceration 12 severe peripheral vascular disease with bilateral below-knee amputation 13 COPD 14 chronic indwelling Norman catheter 15 anterior abdominal wall hernia 16 chronic anemia Recommendation: Continue antibiotics, hydrate slowly, hold the Lasix for now, monitor respiratory status and renal profile. Time with Patient: Less than 30
[2016-12-11 17:25] LABS: Glucose,Whole Blood 77 mg/dL (75-99)
[2016-12-11] MEDS: LEVOFLOXACIN 500 MG TAB PO SCH (17:31)
[2016-12-11 20:25] LABS: Glucose,Whole Blood 97 mg/dL (75-99)
--- NOTE | 2016-12-11 21:41 | PN ---
DATE OF SERVICE: 12/11/2016 PRESENTING COMPLAINT: Pneumonia and renal failure. INTERVAL HISTORY: Patient was admitted with pneumonia and renal failure, getting worse after diuresis. Breathing is improved. Minimal sputum production. Renal function seems to getting stabilized. The patient actually ate better. Did tolerate his diet. Review of systems done for constitutional, cardiovascular, GI, pulmonary; relevant findings as above. Current medications are reviewed that include IV Zosyn, Levaquin and IV fluids at 75 mL/h. On examination, temperature 98.1, pulse 81, respirations 18, blood pressure 107/53, pulse ox 96% on room air. GENERAL APPEARANCE: Sitting up, more comfortable. EYES: Pupils equal. Conjunctivae normal. NECK: JVD not raised. Mass not palpable. RESPIRATORY: Effort normal. LUNGS: Improved crackles. CARDIOVASCULAR: First and second sounds normal. No edema. ABDOMEN: Soft, nontender liver and spleen not palpable. PSYCHIATRY: Answering questions appropriately. EXTREMITIES: Bilateral below-knee amputation, chronic. INVESTIGATIONS: Potassium 5.3, BUN 39, creatinine 5.44. ASSESSMENT: 1. Right lower pneumonia with possible parapneumonic effusion, present on admission, suspect gram-negative organism, could be aspiration, present at admission with good clinical improvement. 2. Chronic kidney disease, stage IV, from diabetic nephropathy. 3. Acute renal failure, probably acute tubular necrosis. 4. Chronic obstructive pulmonary disease in an ex-smoker. 5. 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 6. Essential hypertension. 7. Diabetes mellitus type II chronically on oral medications. 8. 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 9. Hyperkalemia in the setting of renal failure. 10. Hypernatremia, probably free water deficit. 11. Acute delirium, ( ) seems to have improved. PLAN: Patient Lasix continues to be held. Patient is gently getting hydrated. Clinically patient looking better. Await labs tomorrow.
[2016-12-12 02:16] LABS: Glucose,Whole Blood 123 mg/dL (75-99)
[2016-12-12] MEDS: DEXTROSE 5%-0.45% NACL 1,000 ML IV SCH ×8 (05:25→22:29)
[2016-12-12] MEDS: IPRATROPIUM-ALBUTEROL 3 ML NEB INHALATION SCH ×4 (07:03→19:02)
[2016-12-12 08:17] LABS: Glucose,Whole Blood 143 mg/dL (75-99)
[2016-12-12 08:30] LABS: Calcium 7.9 mg/dL (8.4-10.2); Potassium 5.8 mmol/L (3.5-5.1)
[2016-12-12] MEDS: amLODIPine 10 MG TAB PO SCH (08:34)
[2016-12-12] MEDS: SODIUM BICARBONATE TAB 650 MG TAB PO SCH ×4 (08:34→22:34)
[2016-12-12] MEDS: INSULIN LISPRO (humaLOG) 300 UNIT/3 ML VIAL SQ SCH ×4 (08:34→22:34)
[2016-12-12] MEDS: MULTIVITAMINS, THERA 1 EACH TAB PO SCH (08:34)
[2016-12-12] MEDS: PREGABALIN 75 MG CAP PO SCH ×2 (08:35→22:30)
[2016-12-12] MEDS: HEPARIN SODIUM,PORCINE 5,000 UNIT/ML 1 ML VIAL SQ SCH ×2 (08:35→22:29)
[2016-12-12] MEDS: CHOLECALCIFEROL 1,000 UNIT TAB PO SCH (08:35)
[2016-12-12] MEDS: INSULIN DETEMIR 100 UNIT/ML 10 ML VIAL SQ SCH (08:37)
[2016-12-12] MEDS: PIPERACILLIN-TAZOBACTAM 3.375 GM in DEXTROSE/WATER 1 50ML.BAG IVPB SCH ×2 (08:55→22:30)
[2016-12-12] MEDS ORDERED: SODIUM BICARB 8.4% 50 ML SYR (1 MEQ/ML) IV STA (11:06)
--- NOTE | 2016-12-12 11:35 | P.PN ---
Subjective Patient is seen in follow-up for acute kidney injury on chronic kidney disease. Patient has chronic kidney disease stage IV with baseline creatinine in the range of 3.5-3.7 secondary to diabetic kidney disease. Patient presented with dyspnea. He initially received IV diuretics. His renal function subsequently worsened with creatinine at 5.4 and is currently on gentle IV hydration. Creatinine today is 5.72. Currently is resting in bed. No active chest pain or shortness breath. He has a Norman catheter in place and is nonoliguric. Vital signs are stable. General: The patient appeared well nourished and normally developed. HEENT: Head exam is unremarkable. Neck is without jugular venous distension. LUNGS: Lungs are clear to auscultation and percussion. Breath sounds decreased. HEART: Rate and Rhythm are regular. First and second heart sounds normal. No murmurs, rubs or gallops. ABDOMEN: Abdominal exam reveals normal bowel sounds. Non-tender and non- distended. No evidence of peritonitis. EXTREMITITES: No clubbing, cyanosis, or edema. Objective - Vital Signs Vital signs: Vital Signs Temp 99.5 F 12/12/16 07:00 Pulse 84 12/12/16 10:42 Resp 18 12/12/16 07:00 BP 123/48 12/12/16 07:00 Pulse Ox 92 L 12/12/16 07:00 Intake & Output 12/11/16 12/12/16 12/12/16 18:59 06:59 18:59 Intake Total 650 775 Output Total 600 1190 Balance 50 -415 Weight 67.2 kg 67.5 kg Intake: Intake, IV Titration 650 525 Amount Dextrose 5%-0.45% NaCl 1, 600 525 000 ml @ 75 mls/hr IV . [id number] [facility] Rx#:[id number] Piperacillin-Tazobactam 3 50 .375 gm In Dextrose/Water 1 50ml.bag @ 12.5 mls/hr IVPB Q12HR [facility] Rx#: [id number] Oral 250 Output: Urine 600 750 Uretheral (Norman) 750 Stool 440 Other: Voiding Method Indwelling Catheter Indwelling Catheter Indwelling Catheter - Labs CBC & Chem 7: 12/08/16 12:24 12/12/16 07:44 Labs: Abnormal Lab Results - Last 24 Hours (Table) 12/11/16 12/11/16 12/12/16 Range/Units 10:50 11:37 02:13 Sodium 146 H (137-145) mmol/L Potassium 5.3 H (3.5-5.1) mmol/L Chloride 114 H (98-107) mmol/L Carbon Dioxide 16 L (22-30) mmol/L BUN 79 H (9-20) mg/dL Creatinine 5.44 H* (0.66-1.25) mg/dL Glucose 152 H (74-99) mg/dL POC Glucose (mg/dL) 147 H 123 H (75-99) mg/dL Calcium 7.8 L (8.4-10.2) mg/dL 12/12/16 12/12/16 Range/Units 07:44 08:06 Sodium 147 H (137-145) mmol/L Potassium 5.8 H (3.5-5.1) mmol/L Chloride 115 H (98-107) mmol/L Carbon Dioxide 16 L (22-30) mmol/L BUN 79 H (9-20) mg/dL Creatinine 5.72 H* (0.66-1.25) mg/dL Glucose 129 H (74-99) mg/dL POC Glucose (mg/dL) 143 H (75-99) mg/dL Calcium 7.9 L (8.4-10.2) mg/dL Assessment and Plan Plan: Assessment: #1. Nonoliguric acute kidney injury secondary to intravascular volume depletion related to sepsis and diuresis. Creatinine at 5.7 today. #2. Chronic kidney disease stage IV secondary to diabetic kidney disease with baseline creatinine in the range of 3.5-3.7. #3. Hyperkalemia secondary to acute kidney injury as well as metabolic acidosis. #4. Anion gap metabolic acidosis secondary to acute kidney injury. #5. Mild hypernatremia secondary to lack of oral water intake. #6. Right lobe pneumonia. Plan: Increase IV hydration with half-normal saline to be run at 100 mL an hour. Maintain oral sodium bicarbonate supplementation. I will give an additional 2 A of sodium bicarbonate IV push. Low potassium diet. Maintain antibiotics. Avoid nephrotoxic agents and hypotensive episodes. No urgent need for renal replacement therapy at this time. However it appears his renal function has progressed to stage V. I did discuss dialysis options with the patient and he is refusing any form of renal replacement therapy at this time. I also spoke with the patient's daughter at length also wishes to hold off on renal replacement therapy at this time. Will continue to assess on a day-to-day basis.
--- NOTE | 2016-12-12 11:51 | P.PN ---
Subjective This is a 81-year-old male with a history of frequent visits the emergency department who was just discharged about a week ago after being diagnosed with pneumonia who subsequently was brought in for evaluation of a cough and a is brought in by EMS today for difficulty breathing which started about an hour before he came in. Per EMS he did have a saturation the 70s after one updraft. He is known to have multiple medical problems including COPD, severe peripheral vascular disease with bilateral kencl-gjr-gjhv amputations, chronic renal failure, chronic wound infections with with MRSA, chronic excoriation around his sacrum, hypertension, congestion heart failure, diabetes mellitus and dementia. The patient also has had previous urinary tract infection with Klebsiella oxytoca and Enterobacter as well as pseudomonas aeruginosa and Proteus mirabilis. He has a chronic indwelling Norman catheter in place. His initial chest x-ray revealed small to moderate size bilateral pleural effusions right greater than left. An underlying pneumonia in the bases could not be totally excluded. A follow-up chest x-ray continue to reveal small pleural effusions with adjacent bibasilar patchy consolidation He is being treated for both pneumonia and CHF exacerbation. He is seen again today 2016 in follow-up. He is awake and alert in no acute distress. He remains on aspiration precautions. He does need assistance with meals. He is using honey thickened liquids. He is currently maintaining O2 saturations in the mid 90s on room air. Afebrile. He has had worsening creatinine levels. Currently at 5.72. Blood cultures revealed no growth to date. Objective - Vital Signs Vital signs: Vital Signs Temp 99.5 F 12/12/16 07:00 Pulse 84 12/12/16 10:42 Resp 18 12/12/16 07:00 BP 123/48 12/12/16 07:00 Pulse Ox 92 L 12/12/16 07:00 Intake & Output 12/11/16 12/12/16 12/12/16 18:59 06:59 18:59 Intake Total 650 775 Output Total 600 1190 Balance 50 -415 Weight 67.2 kg 67.5 kg Intake: Intake, IV Titration 650 525 Amount Dextrose 5%-0.45% NaCl 1, 600 525 000 ml @ 75 mls/hr IV . [id number] [facility] Rx#:[id number] Piperacillin-Tazobactam 3 50 .375 gm In Dextrose/Water 1 50ml.bag @ 12.5 mls/hr IVPB Q12HR [facility] Rx#: [id number] Oral 250 Output: Urine 600 750 Uretheral (Norman) 750 Stool 440 Other: Voiding Method Indwelling Catheter Indwelling Catheter Indwelling Catheter - Exam GENERAL EXAM: Alert, comfortable in no apparent distress. HEAD: Normocephalic. EYES: Normal reaction of pupils, equal size. NOSE: Clear with pink turbinates. THROAT: No erythema or exudates. NECK: No masses, no JVD. CHEST: No chest wall deformity. LUNGS: Equal air entry with few scattered rhonchi. Crackles in the posterior bases. Diminished. CVS: S1 and S2 normal with audible murmurs, regular rhythm. ABDOMEN: Abdominal wall hernia anteriorly which is easily reducible. No hepatosplenomegaly, normal bowel sounds, no guarding or rigidity. SPINE: Kyphoscoliosis. Extremities: There is no significant peripheral edema. No clubbing, no cyanosis. Peripheral pulses are intact. - Labs CBC & Chem 7: 12/08/16 12:24 12/12/16 07:44 Labs: Abnormal Lab Results - Last 24 Hours (Table) 12/12/16 12/12/16 12/12/16 Range/Units 02:13 07:44 08:06 Sodium 147 H (137-145) mmol/L Potassium 5.8 H (3.5-5.1) mmol/L Chloride 115 H (98-107) mmol/L Carbon Dioxide 16 L (22-30) mmol/L BUN 79 H (9-20) mg/dL Creatinine 5.72 H* (0.66-1.25) mg/dL Glucose 129 H (74-99) mg/dL POC Glucose (mg/dL) 123 H 143 H (75-99) mg/dL Calcium 7.9 L (8.4-10.2) mg/dL Assessment and Plan Plan: Impression: #1 Acute respiratory distress with previous hypoxic respiratory failure that has recovered in the patient's currently on room air in no acute distress. Chest x-ray revealed small to moderate bilateral pleural effusions more so on the right with some possible underlying pulmonary infiltrate/pneumonia. #2 Dementia. #3 Dysphagia with a swallow evaluation in the past showing normal findings without evidence of penetration or aspiration. #4 Previous bouts of sepsis most recent related to hemolytic Streptococcus. #5 Frequent urinary tract infections with previous infections related to Klebsiella, Proteus, Enterobacter and Pseudomonas and VRE. #6 Acute on chronic renal failure secondary to diabetic kidney disease. Current creatinine 5.72. #7 Acute hyperkalemia, current potassium 5.8. #8 Dementia. #9 Diabetes mellitus. #10 Hypertension. #11 Stage I sacral skin ulceration. #12 Severe peripheral vascular disease with bilateral below the knee and dictation. #13 Chronic obstructive pulmonary disease. #14 Chronic indwelling Norman catheter. #15 Anterior abdominal wall hernia. #16 Chronic anemia. #17 Poor overall functional performance secondary to the above-mentioned multiple comorbidities. Plan: The patient was seen and evaluated by Dr. Anaya The patient is improved today as compared to yesterday. We'll continue with his current antibiotics in the form of Zosyn and Levaquin. Nephrology is following the patient regards to the worsening renal function. Dr. Lugo did have a discussion with both the patient and his daughter who are declining any renal replacement therapy at this time. He did increase his half normal saline to 100 mL per hour. He is on oral bicarb supplements with an additional 2 Amps of IV sodium bicarb. We will repeat his labs in a.m. We will continue to follow make further recommendations based on his clinical status.
[2016-12-12] MEDS ORDERED: SODIUM POLYSTYRENE SULFONATE 15 GM/60 ML BOTTLE PO STA (11:57)
[2016-12-12 13:02] LABS: Glucose,Whole Blood 185 mg/dL (75-99)
--- NOTE | 2016-12-12 17:40 | PN ---
DATE OF SERVICE: 12/12/2016 PRESENTING COMPLAINT: Pneumonia and renal failure. INTERVAL HISTORY: Patient admitted with pneumonia, renal failure, which has gotten worse. Patient is getting hydrated. Patient did tolerate a diet, taking his medications, feeling better. Review of systems done for constitutional, cardiovascular, GI, pulmonary; relevant findings as above. Current medications are reviewed and include IV fluids at 100 mL/h and IV Zosyn and Levaquin. On examination, temperature 99.5, pulse 95, respiratory rate 18, blood pressure 123/48, pulse 92% on room air. GENERAL APPEARANCE: Lying in bed, awake, comfortable. EYES: Pupils equal. Conjunctivae normal. NECK: JVD not raised. Mass not palpable. RESPIRATORY: Effort normal. LUNGS: Improved air entry. CARDIOVASCULAR: First and second sounds normal. No edema. ABDOMEN: Soft, nontender. PSYCHIATRY: Awake, answering simple questions. INVESTIGATIONS: Sodium 147, potassium 5.8. BUN 79, creatinine 5.72. ASSESSMENT: 1. Right lower lobe pneumonia with possible parapneumonic effusion, present on admission, suspect gram-negative orgasm, could be aspiration with clinical improvement. 2. 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 3. Acute renal failure, nonoliguric, probably acute tubular necrosis from sepsis. 4. Chronic obstructive pulmonary disease in an ex-smoker. 5. Alzheimer's dementia, late onset, no behavioral change. 6. Essential hypertension. 7. Diabetes mellitus, type 2, chronically on oral medications. 8. 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 9. Hyperkalemia in the setting of renal failure. 10. Hypernatremia probably from free water deficit. 11. Acute delirium from sepsis with improvement. PLAN: Continue with IV fluid hydration ( ) renal function to improve. The patient does not want renal replacement therapy as he discussed with Nephrology. Overall prognosis is guarded.
[2016-12-12 17:52] LABS: Glucose,Whole Blood 109 mg/dL (75-99)
[2016-12-12 21:02] LABS: Glucose,Whole Blood 133 mg/dL (75-99)
[2016-12-13 02:04] LABS: Glucose,Whole Blood 38 mg/dL (75-99)
[2016-12-13] MEDS ORDERED: DEXTROSE 50%-WATER 50 ML SYRINGE IVP ONE (02:06)
[2016-12-13 02:22] LABS: Glucose,Whole Blood 122 mg/dL (75-99)
[2016-12-13 03:26] LABS: Glucose,Whole Blood 142 mg/dL (75-99)
[2016-12-13] MEDS: DEXTROSE 5%-0.45% NACL 1,000 ML IV SCH ×2 (05:58→12:58)
[2016-12-13] MEDS: IPRATROPIUM-ALBUTEROL 3 ML NEB INHALATION SCH ×4 (08:01→18:59)
[2016-12-13 08:28] LABS: Glucose,Whole Blood 166 mg/dL (75-99)
[2016-12-13] MEDS: SODIUM BICARBONATE TAB 650 MG TAB PO SCH ×4 (08:40→20:49)
[2016-12-13] MEDS: CHOLECALCIFEROL 1,000 UNIT TAB PO SCH (08:40)
[2016-12-13] MEDS: amLODIPine 10 MG TAB PO SCH (08:40)
[2016-12-13] MEDS: HEPARIN SODIUM,PORCINE 5,000 UNIT/ML 1 ML VIAL SQ SCH ×2 (08:40→20:48)
[2016-12-13] MEDS: INSULIN LISPRO (humaLOG) 300 UNIT/3 ML VIAL SQ SCH ×4 (08:41→20:49)
[2016-12-13] MEDS: MULTIVITAMINS, THERA 1 EACH TAB PO SCH (08:41)
[2016-12-13] MEDS: PIPERACILLIN-TAZOBACTAM 3.375 GM in DEXTROSE/WATER 1 50ML.BAG IVPB SCH ×2 (08:41→19:52)
[2016-12-13] MEDS: PREGABALIN 75 MG CAP PO SCH ×2 (08:41→20:49)
[2016-12-13] MEDS: INSULIN DETEMIR 100 UNIT/ML 10 ML VIAL SQ SCH (09:10)
--- NOTE | 2016-12-13 10:49 | P.PN ---
Subjective This is a 81-year-old male with a history of frequent visits the emergency department who was just discharged about a week ago after being diagnosed with pneumonia who subsequently was brought in for evaluation of a cough and a is brought in by EMS today for difficulty breathing which started about an hour before he came in. Per EMS he did have a saturation the 70s after one updraft. 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 The patient also has had previous urinary tract infection with Klebsiella oxytoca and Enterobacter as well as pseudomonas aeruginosa and Proteus mirabilis. He has a chronic indwelling Norman catheter in place. His initial chest x-ray revealed small to moderate size bilateral pleural effusions right greater than left. An underlying pneumonia in the bases could not be totally excluded. A follow-up chest x-ray on 12/10/2016 continued to reveal small pleural effusions with adjacent bibasilar patchy consolidation. He is being treated for both pneumonia and CHF exacerbation. He is seen again today 12/13/2016 in follow-up. He is awake and alert in no acute distress. He remains on aspiration precautions. He does need assistance with meals. He is using honey thickened liquids. He is currently maintaining O2 saturations in the mid 90s on room air. Afebrile. He has had worsening creatinine levels. Currently at 5.72. Blood cultures revealed no growth to date. Chest x-ray is pending. Objective - Vital Signs Vital signs: Vital Signs Temp 98.2 F 12/13/16 07:00 Pulse 88 12/13/16 08:15 Resp 18 12/13/16 07:00 BP 146/84 12/13/16 07:00 Pulse Ox 93 L 12/13/16 07:00 Intake & Output 12/12/16 12/13/16 12/13/16 18:59 06:59 18:59 Intake Total 250 990 240 Output Total 500 1000 Balance -250 -10 240 Weight 66 kg Intake: Intake, IV Titration 250 750 Amount Dextrose 5%-0.45% NaCl 1, 200 700 000 ml @ 100 mls/hr IV . Q10H [facility] Rx#:[id number] Piperacillin-Tazobactam 3 50 50 .375 gm In Dextrose/Water 1 50ml.bag @ 12.5 mls/hr IVPB Q12HR [facility] Rx#: [id number] Oral 240 240 Output: Urine 500 1000 Uretheral (Norman) 500 Other: Voiding Method Indwelling Catheter Indwelling Catheter Indwelling Catheter - Exam GENERAL EXAM: Alert, comfortable in no apparent distress. HEAD: Normocephalic. EYES: Normal reaction of pupils, equal size. NOSE: Clear with pink turbinates. THROAT: No erythema or exudates. NECK: No masses, no JVD. CHEST: No chest wall deformity. LUNGS: Equal air entry with few scattered rhonchi. Crackles in the posterior bases. Diminished. CVS: S1 and S2 normal with audible murmurs, regular rhythm. ABDOMEN: Abdominal wall hernia anteriorly which is easily reducible. No hepatosplenomegaly, normal bowel sounds, no guarding or rigidity. SPINE: Kyphoscoliosis. Extremities: There is no significant peripheral edema. No clubbing, no cyanosis. Peripheral pulses are intact. - Labs CBC & Chem 7: 12/08/16 12:24 12/12/16 07:44 Labs: Abnormal Lab Results - Last 24 Hours (Table) 12/12/16 12/12/16 12/12/16 Range/Units 12:44 17:37 21:00 POC Glucose (mg/dL) 185 H 109 H 133 H (75-99) mg/dL 12/13/16 12/13/16 12/13/16 Range/Units 02:03 02:21 03:14 POC Glucose (mg/dL) 38 L 122 H 142 H (75-99) mg/dL 12/13/16 Range/Units 07:56 POC Glucose (mg/dL) 166 H (75-99) mg/dL Assessment and Plan Plan: Impression: #1 Acute respiratory distress with previous hypoxic respiratory failure that has recovered in the patient's currently on room air in no acute distress. Chest x-ray revealed small to moderate bilateral pleural effusions more so on the right with some possible underlying pulmonary infiltrate/pneumonia. #2 Dementia. #3 Dysphagia with a swallow evaluation in the past showing normal findings without evidence of penetration or aspiration. #4 Previous bouts of sepsis most recent related to hemolytic Streptococcus. #5 Frequent urinary tract infections with previous infections related to Klebsiella, Proteus, Enterobacter and Pseudomonas and VRE. #6 Acute on chronic renal failure secondary to diabetic kidney disease. Current creatinine 5.72. #7 Acute hyperkalemia, current potassium 5.8. #8 Dementia. #9 Diabetes mellitus. #10 Hypertension. #11 Stage I sacral skin ulceration. #12 Severe peripheral vascular disease with bilateral below the knee and dictation. #13 Chronic obstructive pulmonary disease. #14 Chronic indwelling Norman catheter. #15 Anterior abdominal wall hernia. #16 Chronic anemia. #17 Poor overall functional performance secondary to the above-mentioned multiple comorbidities. Plan: The patient was seen and evaluated by Dr. Anaya The patient is improved today as compared to yesterday. We'll continue with his bronchodilators and current antibiotics in the form of Zosyn and Levaquin. Blood cultures revealed no growth to date. We will repeat his chest x-ray today. Nephrology is following the patient regards to the worsening renal function. Dr. Lugo did have a discussion with both the patient and his daughter who are declining any renal replacement therapy at this time. He did increase his D5W/half normal saline to 100 mL per hour. He is on oral bicarb supplements with an additional 2 Amps of IV sodium bicarb. We will repeat his labs in a.m. we will increase his activity as tolerated. He remains on heparin for DVT prophylaxis. We will continue to follow and make further recommendations based on his clinical status.
[2016-12-13 10:59] LABS: Anisocytosis Slight; CH 29.4; CHCM 31.1; HCT 22.8 % (39.0-53.0); HDW 2.75; HGB 7.1 gm/dL (13.0-17.5); Hypochromasia Slight; MCH 29.9 pg (25.0-35.0); MCHC 31.3 g/dL (31.0-37.0); MCV 95.3 fL (80.0-100.0); Mean Platelet Volume 8.9; RBC 2.39 m/uL (4.30-5.90); RDW 16.2 % (11.5-15.5); WBC (Perox) 5.19
[2016-12-13 11:05] LABS: Calcium 7.5 mg/dL (8.4-10.2); Potassium 4.2 mmol/L (3.5-5.1)
--- NOTE | 2016-12-13 11:16 | XR ---
EXAMINATION TYPE: XR chest 1V portable DATE OF EXAM: 12/13/2016 11:11 AM CLINICAL HISTORY: Difficulty breathing and pleural effusion progress study. TECHNIQUE: Single AP portable upright view of the chest is obtained. COMPARISON: Chest x-ray from 3 days earlier FINDINGS: Cardiac silhouette size is stable and mildly enlarged with atherosclerotic and ectatic aor tic knob redemonstrated. Bibasilar opacity consistent with small bilateral pleural effusions and asso ciated bibasilar atelectasis and/or infiltrate is again seen. Upper lungs are clear without pneumotho rax. Underlying scoliosis is again seen and may be exaggerated by positioning. IMPRESSION: Overall stable findings, suspect CHF exacerbation as there is persistent cardiomegaly w ith mild central vascular congestion and small bilateral pleural effusions all redemonstrated.
[2016-12-13 12:07] LABS: Glucose,Whole Blood 181 mg/dL (75-99)
[2016-12-13 12:55] LABS: Add Differential Manual Differential
[2016-12-13 12:57] LABS: Nucleated Red Blood Cells 0 /100 WBC (0-0); Total Cells Counted 100
[2016-12-13 12:58] LABS: Manual Review Performed
[2016-12-13] MEDS ORDERED: DEXTROSE 5% IN WATER 1,000 ML IV SCH (14:15)
--- NOTE | 2016-12-13 14:16 | P.PN ---
Subjective Patient is seen in follow-up for acute kidney injury on chronic kidney disease. Patient has chronic kidney disease stage IV with baseline creatinine in the range of 3.5-3.7 secondary to diabetic kidney disease. Patient presented with dyspnea. He initially received IV diuretics. His renal function subsequently worsened with creatinine at 5.4 and is currently on gentle IV hydration. Creatinine today is 5.67. Currently resting in bed. No active chest pain or shortness breath. He has a Norman catheter in place and is nonoliguric. Vital signs are stable. General: The patient appeared well nourished and normally developed. HEENT: Head exam is unremarkable. Neck is without jugular venous distension. LUNGS: Lungs are clear to auscultation and percussion. Breath sounds decreased. HEART: Rate and Rhythm are regular. First and second heart sounds normal. No murmurs, rubs or gallops. ABDOMEN: Abdominal exam reveals normal bowel sounds. Non-tender and non- distended. No evidence of peritonitis. EXTREMITITES: No clubbing, cyanosis, or edema. Objective - Vital Signs Vital signs: Vital Signs Temp 98.2 F 12/13/16 07:00 Pulse 88 12/13/16 08:15 Resp 18 12/13/16 07:00 BP 146/84 12/13/16 07:00 Pulse Ox 93 L 12/13/16 07:00 Intake & Output 12/12/16 12/13/16 12/13/16 18:59 06:59 18:59 Intake Total 250 990 240 Output Total 500 1000 Balance -250 -10 240 Weight 66 kg Intake: Intake, IV Titration 250 750 Amount Dextrose 5%-0.45% NaCl 1, 200 700 000 ml @ 100 mls/hr IV . Q10H [facility] Rx#:[id number] Piperacillin-Tazobactam 3 50 50 .375 gm In Dextrose/Water 1 50ml.bag @ 12.5 mls/hr IVPB Q12HR [facility] Rx#: [id number] Oral 240 240 Output: Urine 500 1000 Uretheral (Norman) 500 Other: Voiding Method Indwelling Catheter Indwelling Catheter Indwelling Catheter - Labs CBC & Chem 7: 12/13/16 10:24 12/13/16 10:24 Labs: Abnormal Lab Results - Last 24 Hours (Table) 12/12/16 12/12/16 12/13/16 Range/Units 17:37 21:00 02:03 RBC (4.30-5.90) m/uL Hgb (13.0-17.5) gm/dL Hct (39.0-53.0) % RDW (11.5-15.5) % Plt Count (150-450) k/uL Lymphocytes # (Manual) (1.0-4.8) k/uL Sodium (137-145) mmol/L Chloride (98-107) mmol/L Carbon Dioxide (22-30) mmol/L BUN (9-20) mg/dL Creatinine (0.66-1.25) mg/dL Glucose (74-99) mg/dL POC Glucose (mg/dL) 109 H 133 H 38 L (75-99) mg/dL Calcium (8.4-10.2) mg/dL 12/13/16 12/13/16 12/13/16 Range/Units 02:21 03:14 07:56 RBC (4.30-5.90) m/uL Hgb (13.0-17.5) gm/dL Hct (39.0-53.0) % RDW (11.5-15.5) % Plt Count (150-450) k/uL Lymphocytes # (Manual) (1.0-4.8) k/uL Sodium (137-145) mmol/L Chloride (98-107) mmol/L Carbon Dioxide (22-30) mmol/L BUN (9-20) mg/dL Creatinine (0.66-1.25) mg/dL Glucose (74-99) mg/dL POC Glucose (mg/dL) 122 H 142 H 166 H (75-99) mg/dL Calcium (8.4-10.2) mg/dL 12/13/16 12/13/16 12/13/16 Range/Units 10:24 10:24 11:55 RBC 2.39 L (4.30-5.90) m/uL Hgb 7.1 L (13.0-17.5) gm/dL Hct 22.8 L (39.0-53.0) % RDW 16.2 H (11.5-15.5) % Plt Count 77 L (150-450) k/uL Lymphocytes # (Manual) 0.5 L (1.0-4.8) k/uL Sodium 147 H (137-145) mmol/L Chloride 112 H (98-107) mmol/L Carbon Dioxide 16 L (22-30) mmol/L BUN 78 H (9-20) mg/dL Creatinine 5.67 H* (0.66-1.25) mg/dL Glucose 174 H (74-99) mg/dL POC Glucose (mg/dL) 181 H (75-99) mg/dL Calcium 7.5 L (8.4-10.2) mg/dL Assessment and Plan Plan: Assessment: #1. Nonoliguric acute kidney injury secondary to intravascular volume depletion related to sepsis and diuresis. Creatinine at 5.67 today. It appears he has progressed to chronic kidney disease stage V. #2. Chronic kidney disease stage IV secondary to diabetic kidney disease with baseline creatinine in the range of 3.5-3.7. #3. Hyperkalemia secondary to acute kidney injury as well as metabolic acidosis. #4. Anion gap metabolic acidosis secondary to acute kidney injury. #5. Mild hypernatremia secondary to lack of oral water intake. #6. Right lobe pneumonia. Plan: I will change IV fluids to D5W with 75 mEq of sodium bicarbonate to be run at 100 mL an hour. Maintain oral sodium bicarbonate supplementation. Low potassium diet. Maintain antibiotics. Avoid nephrotoxic agents and hypotensive episodes. No urgent need for renal replacement therapy at this time. However it appears his renal function has progressed to stage V. I did discuss dialysis options with the patient and he is refusing any form of renal replacement therapy at this time. I also spoke with the patient's daughter at length also wishes to hold off on renal replacement therapy at this time. Will continue to assess on a day-to-day basis.
[2016-12-13 15:03] LABS: % Iron Saturation 57.1 % (20-50)
[2016-12-13] MEDS: DARBEPOETIN ALFA 40 MCG/0.4 ML SYRINGE SQ SCH (15:10)
--- NOTE | 2016-12-13 15:18 | PN ---
DATE OF SERVICE: 12/13/2016 PRESENTING COMPLAINT: Pneumonia and renal failure. INTERVAL HISTORY: The patient admitted with pneumonia, renal failure, getting IV fluids. Patient looks more comfortable, did tolerate his diet. Potassium had been running high. Review of systems done for constitutional, cardiovascular, GI, pulmonary; relevant findings as above. Sputum production, minimal if any. Current medications are reviewed and include IV Zosyn. On examination, temperature 98.2, pulse 84, respirations 18, blood pressure 146/84, pulse ox 93%. GENERAL APPEARANCE: Lying in bed, awake, comfortable. EYES: Pupils equal. Conjunctivae normal. NECK: JVD not raised. Mass not palpable. Respiratory effort normal. LUNGS: Improved air entry. CARDIOVASCULAR: First and second sounds normal. No edema. ABDOMEN: Soft, nontender, liver and spleen not palpable. PSYCHIATRY: Awake, answering questions. EXTREMITIES: Bilateral below-knee amputation. INVESTIGATIONS: White count 5, hemoglobin 7.1, potassium 4.2, BUN 78, creatinine 5.67, sodium 147. ASSESSMENT: 1. Right lobe pneumonia with possible parapneumonic effusion, present on admission, suspect gram-negative organism, could be aspiration with clinical improvement. 2. Chronic kidney disease stage IV, from diabetic nephropathy. 3. Acute renal failure, nonoliguric, probably from acute tubular necrosis from sepsis. 4. Chronic obstructive pulmonary disease in an ex-smoker. 5. Alzheimer's dementia, late onset, no behavioral change. 6. Essential hypertension. 7. Diabetes mellitus type 2, chronically on oral medication. 8. 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 9. Hyperkalemia in the setting of renal failure, some improvement. 10. Hypernatremia, probably from free water deficit, slow to respond. 11. Acute delirium from sepsis with improvement. 12. Chronic anemia, probably renal failure with an acute component, which is probably hospital-acquired, likely from blood draws. No evidence of gastrointestinal bleed. PLAN: Continue current medication and treatment plan. Continue with IV fluids, bicarb has been added.
[2016-12-13] MEDS: DEXTROSE 5% IN WATER 1,000 ML with SODIUM BICARB (1 MEQ/ML) 75 ML IV SCH (16:55)
[2016-12-13 17:12] LABS: Glucose,Whole Blood 219 mg/dL (75-99)
[2016-12-13] MEDS: LEVOFLOXACIN 500 MG TAB PO SCH (17:43)
[2016-12-13 20:22] LABS: Glucose,Whole Blood 184 mg/dL (75-99)
[2016-12-14 02:09] LABS: Glucose,Whole Blood 180 mg/dL (75-99)
[2016-12-14] MEDS: DEXTROSE 5% IN WATER 1,000 ML with SODIUM BICARB (1 MEQ/ML) 75 ML IV SCH ×2 (05:19→17:38)
[2016-12-14 07:18] LABS: Glucose,Whole Blood 171 mg/dL (75-99)
[2016-12-14] MEDS: IPRATROPIUM-ALBUTEROL 3 ML NEB INHALATION SCH ×4 (08:34→20:20)
[2016-12-14 08:42] LABS: Potassium 4.1 mmol/L (3.5-5.1)
[2016-12-14] MEDS: MULTIVITAMINS, THERA 1 EACH TAB PO SCH (09:17)
[2016-12-14] MEDS: amLODIPine 10 MG TAB PO SCH (09:17)
[2016-12-14] MEDS: INSULIN LISPRO (humaLOG) 300 UNIT/3 ML VIAL SQ SCH ×4 (09:17→23:02)
[2016-12-14] MEDS: SODIUM BICARBONATE TAB 650 MG TAB PO SCH ×4 (09:17→20:52)
[2016-12-14] MEDS: PREGABALIN 75 MG CAP PO SCH ×2 (09:17→20:52)
[2016-12-14] MEDS: CHOLECALCIFEROL 1,000 UNIT TAB PO SCH (09:18)
[2016-12-14] MEDS: HEPARIN SODIUM,PORCINE 5,000 UNIT/ML 1 ML VIAL SQ SCH ×2 (09:18→20:59)
[2016-12-14] MEDS: INSULIN DETEMIR 100 UNIT/ML 10 ML VIAL SQ SCH (09:19)
[2016-12-14] MEDS: PIPERACILLIN-TAZOBACTAM 3.375 GM in DEXTROSE/WATER 1 50ML.BAG IVPB SCH (09:36)
--- NOTE | 2016-12-14 10:53 | P.PN ---
Subjective Patient is seen in follow-up for acute kidney injury on chronic kidney disease. Patient has chronic kidney disease stage IV with baseline creatinine in the range of 3.5-3.7 secondary to diabetic kidney disease. Patient presented with dyspnea. He initially received IV diuretics. His renal function subsequently worsened with creatinine at 5.4 and is currently on gentle IV hydration. Creatinine today is 5.75. Currently resting in bed. No active chest pain or shortness breath. He has a Norman catheter in place and is nonoliguric. Vital signs are stable. General: The patient appeared well nourished and normally developed. HEENT: Head exam is unremarkable. Neck is without jugular venous distension. LUNGS: Lungs are clear to auscultation and percussion. Breath sounds decreased. HEART: Rate and Rhythm are regular. First and second heart sounds normal. No murmurs, rubs or gallops. ABDOMEN: Abdominal exam reveals normal bowel sounds. Non-tender and non- distended. No evidence of peritonitis. EXTREMITITES: No clubbing, cyanosis, or edema. Objective - Vital Signs Vital signs: Vital Signs Temp 97.6 F 12/14/16 07:00 Pulse 85 12/14/16 08:45 Resp 17 12/14/16 08:00 BP 150/72 12/14/16 07:00 Pulse Ox 97 12/14/16 07:00 Intake & Output 12/13/16 12/14/16 12/14/16 18:59 06:59 18:59 Intake Total 690 350 240 Output Total 1340 440 Balance 690 -990 -200 Weight 68 kg Intake: Intake, IV Titration 450 350 Amount Dextrose 5%-0.45% NaCl 1, 400 300 000 ml @ 100 mls/hr IV . Q10H [facility] Rx#:[id number] Piperacillin-Tazobactam 3 50 50 .375 gm In Dextrose/Water 1 50ml.bag @ 12.5 mls/hr IVPB Q12HR [facility] Rx#: [id number] Oral 240 240 Output: Urine 900 Stool 440 440 Other: Voiding Method Indwelling Catheter Indwelling Catheter Indwelling Catheter # Bowel Movements 2 - Labs CBC & Chem 7: 12/13/16 10:24 12/14/16 07:55 Labs: Abnormal Lab Results - Last 24 Hours (Table) 12/13/16 12/13/16 12/13/16 Range/Units 10:24 10:24 10:24 RBC 2.39 L (4.30-5.90) m/uL Hgb 7.1 L (13.0-17.5) gm/dL Hct 22.8 L (39.0-53.0) % RDW 16.2 H (11.5-15.5) % Plt Count 77 L (150-450) k/uL Lymphocytes # (Manual) 0.5 L (1.0-4.8) k/uL Sodium 147 H (137-145) mmol/L Chloride 112 H (98-107) mmol/L Carbon Dioxide 16 L (22-30) mmol/L BUN 78 H (9-20) mg/dL Creatinine 5.67 H* (0.66-1.25) mg/dL Glucose 174 H (74-99) mg/dL POC Glucose (mg/dL) (75-99) mg/dL Calcium 7.5 L (8.4-10.2) mg/dL TIBC 140 L (261-462) ug/dL % Saturation 57.1 H (20-50) % Ferritin >1000 H (18-464) ng/mL 12/13/16 12/13/16 12/13/16 Range/Units 11:55 17:09 20:19 RBC (4.30-5.90) m/uL Hgb (13.0-17.5) gm/dL Hct (39.0-53.0) % RDW (11.5-15.5) % Plt Count (150-450) k/uL Lymphocytes # (Manual) (1.0-4.8) k/uL Sodium (137-145) mmol/L Chloride (98-107) mmol/L Carbon Dioxide (22-30) mmol/L BUN (9-20) mg/dL Creatinine (0.66-1.25) mg/dL Glucose (74-99) mg/dL POC Glucose (mg/dL) 181 H 219 H 184 H (75-99) mg/dL Calcium (8.4-10.2) mg/dL TIBC (261-462) ug/dL % Saturation (20-50) % Ferritin (18-464) ng/mL 12/14/16 12/14/16 12/14/16 Range/Units 02:06 07:14 07:55 RBC (4.30-5.90) m/uL Hgb (13.0-17.5) gm/dL Hct (39.0-53.0) % RDW (11.5-15.5) % Plt Count (150-450) k/uL Lymphocytes # (Manual) (1.0-4.8) k/uL Sodium 146 H (137-145) mmol/L Chloride 110 H (98-107) mmol/L Carbon Dioxide 21 L (22-30) mmol/L BUN 77 H (9-20) mg/dL Creatinine 5.75 H* (0.66-1.25) mg/dL Glucose 152 H (74-99) mg/dL POC Glucose (mg/dL) 180 H 171 H (75-99) mg/dL Calcium 7.0 L (8.4-10.2) mg/dL TIBC (261-462) ug/dL % Saturation (20-50) % Ferritin (18-464) ng/mL Assessment and Plan Plan: Assessment: #1. Nonoliguric acute kidney injury secondary to intravascular volume depletion related to sepsis and diuresis. Creatinine at 5.75 today. It appears he has progressed to chronic kidney disease stage V. #2. Chronic kidney disease stage IV secondary to diabetic kidney disease with baseline creatinine in the range of 3.5-3.7. #3. Hyperkalemia secondary to acute kidney injury as well as metabolic acidosis. Resolved. #4. Anion gap metabolic acidosis secondary to acute kidney injury. Improving. #5. Mild hypernatremia secondary to lack of oral water intake. #6. Right lobe pneumonia. Plan: Maintain IV fluids with D5W with 75 mEq of sodium bicarbonate to be run at 100 mL an hour. Maintain oral sodium bicarbonate supplementation. Low potassium diet. Maintain antibiotics. Avoid nephrotoxic agents and hypotensive episodes. No urgent need for renal replacement therapy at this time. However it appears his renal function has progressed to stage V. I did discuss dialysis options with the patient and he is refusing any form of renal replacement therapy at this time. I also spoke with the patient's daughter at length also wishes to hold off on renal replacement therapy at this time. Will continue to assess on a day-to-day basis.
[2016-12-14 11:52] LABS: Glucose,Whole Blood 172 mg/dL (75-99)
--- NOTE | 2016-12-14 13:20 | P.PN ---
Subjective Principal diagnosis: Acute hypoxic respiratory failure, multifactorial. This is a 81-year-old male with a history of frequent visits the emergency department who was just discharged about a week ago after being diagnosed with pneumonia who subsequently was brought in for evaluation of a cough and a is brought in by EMS today for difficulty breathing which started about an hour before he came in. Per EMS he did have a saturation the 70s after one updraft. 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 The patient also has had previous urinary tract infection with Klebsiella oxytoca and Enterobacter as well as pseudomonas aeruginosa and Proteus mirabilis. He has a chronic indwelling Norman catheter in place. His initial chest x-ray revealed small to moderate size bilateral pleural effusions right greater than left. An underlying pneumonia in the bases could not be totally excluded. A follow-up chest x-ray on 12/10/2016 continued to reveal small pleural effusions with adjacent bibasilar patchy consolidation. He is being treated for both pneumonia and CHF exacerbation. He is seen again today 12/13/2016 in follow-up. He is awake and alert in no acute distress. He remains on aspiration precautions. He does need assistance with meals. He is using honey thickened liquids. He is currently maintaining O2 saturations in the mid 90s on room air. Afebrile. He has had worsening creatinine levels. Currently at 5.72. Blood cultures revealed no growth to date. Chest x-ray is pending. Reevaluated today on 12/14/2016, patient continues to do well. Chest x-ray is showing definite improvement, mild central vascular congestion and small pleural effusions noted. But overall the chest x-ray is improved. Objective - Vital Signs Vital signs: Vital Signs Temp 97.6 F 12/14/16 07:00 Pulse 85 12/14/16 08:45 Resp 17 12/14/16 08:00 BP 150/72 12/14/16 07:00 Pulse Ox 97 12/14/16 07:00 Intake & Output 12/13/16 12/14/16 12/14/16 18:59 06:59 18:59 Intake Total 690 350 240 Output Total 1340 440 Balance 690 -990 -200 Weight 68 kg Intake: Intake, IV Titration 450 350 Amount Dextrose 5%-0.45% NaCl 1, 400 300 000 ml @ 100 mls/hr IV . Q10H [facility] Rx#:[id number] Piperacillin-Tazobactam 3 50 50 .375 gm In Dextrose/Water 1 50ml.bag @ 12.5 mls/hr IVPB Q12HR [facility] Rx#: [id number] Oral 240 240 Output: Urine 900 Stool 440 440 Other: Voiding Method Indwelling Catheter Indwelling Catheter Indwelling Catheter # Bowel Movements 2 - Exam GENERAL EXAM: Alert, comfortable in no apparent distress. HEAD: Normocephalic. EYES: Normal reaction of pupils, equal size. NOSE: Clear with pink turbinates. THROAT: No erythema or exudates. NECK: No masses, no JVD. CHEST: No chest wall deformity. LUNGS: Equal air entry with few scattered rhonchi. Crackles in the posterior bases. Diminished. CVS: S1 and S2 normal with audible murmurs, regular rhythm. ABDOMEN: Abdominal wall hernia anteriorly which is easily reducible. No hepatosplenomegaly, normal bowel sounds, no guarding or rigidity. SPINE: Kyphoscoliosis. Extremities: There is no significant peripheral edema. No clubbing, no cyanosis. Peripheral pulses are intact. - Labs CBC & Chem 7: 12/13/16 10:24 12/14/16 07:55 Labs: Abnormal Lab Results - Last 24 Hours (Table) 12/13/16 12/13/16 12/13/16 Range/Units 10:24 17:09 20:19 Sodium (137-145) mmol/L Chloride (98-107) mmol/L Carbon Dioxide (22-30) mmol/L BUN (9-20) mg/dL Creatinine (0.66-1.25) mg/dL Glucose (74-99) mg/dL POC Glucose (mg/dL) 219 H 184 H (75-99) mg/dL Calcium (8.4-10.2) mg/dL TIBC 140 L (261-462) ug/dL % Saturation 57.1 H (20-50) % Ferritin >1000 H (18-464) ng/mL 12/14/16 12/14/16 12/14/16 Range/Units 02:06 07:14 07:55 Sodium 146 H (137-145) mmol/L Chloride 110 H (98-107) mmol/L Carbon Dioxide 21 L (22-30) mmol/L BUN 77 H (9-20) mg/dL Creatinine 5.75 H* (0.66-1.25) mg/dL Glucose 152 H (74-99) mg/dL POC Glucose (mg/dL) 180 H 171 H (75-99) mg/dL Calcium 7.0 L (8.4-10.2) mg/dL TIBC (261-462) ug/dL % Saturation (20-50) % Ferritin (18-464) ng/mL 12/14/16 Range/Units 11:48 Sodium (137-145) mmol/L Chloride (98-107) mmol/L Carbon Dioxide (22-30) mmol/L BUN (9-20) mg/dL Creatinine (0.66-1.25) mg/dL Glucose (74-99) mg/dL POC Glucose (mg/dL) 172 H (75-99) mg/dL Calcium (8.4-10.2) mg/dL TIBC (261-462) ug/dL % Saturation (20-50) % Ferritin (18-464) ng/mL Assessment and Plan Plan: #1 Acute respiratory distress with previous hypoxic respiratory failure that has recovered in the patient's currently on room air in no acute distress. Chest x-ray revealed small pleural effusions and mild central vascular congestion. #2 Dementia. #3 Dysphagia with a swallow evaluation in the past showing normal findings without evidence of penetration or aspiration. #4 Previous bouts of sepsis most recent related to hemolytic Streptococcus. #5 Frequent urinary tract infections with previous infections related to Klebsiella, Proteus, Enterobacter and Pseudomonas and VRE. #6 Acute on chronic renal failure secondary to diabetic kidney disease. Current creatinine 5.72. #7 Acute hyperkalemia, current potassium 5.8. #8 Dementia. #9 Diabetes mellitus. #10 Hypertension. #11 Stage I sacral skin ulceration. #12 Severe peripheral vascular disease with bilateral below the knee and dictation. #13 Chronic obstructive pulmonary disease. #14 Chronic indwelling Norman catheter. #15 Anterior abdominal wall hernia. #16 Chronic anemia. #17 Poor overall functional performance secondary to the above-mentioned multiple comorbidities. Plan: Consider present treatment plan, consider discharge planning once the patient is cleared by the other consultants on the case including nephrology. Apparently the patient is refusing to undergo any dialysis now or in the future. Hence overall prognosis is definitely poor and guarded. Time with Patient: Less than 30
[2016-12-14 15:15] LABS: Glucose,Whole Blood 102 mg/dL (75-99)
[2016-12-14 16:05] LABS: Glucose,Whole Blood 77 mg/dL (75-99)
[2016-12-14 20:40] LABS: Glucose,Whole Blood 47 mg/dL (75-99)
[2016-12-14 20:40] LABS: Glucose,Whole Blood 53 mg/dL (75-99)
--- NOTE | 2016-12-14 20:49 | PN ---
DATE OF SERVICE: 12/14/2016 PRESENTING COMPLAINT: Pneumonia and renal failure. INTERVAL HISTORY: This patient with pneumonia, which is clinically improved, but renal failure has not been improving. Patient has declined hemodialysis. Tolerating a diet. Otherwise, comfortable. Review of systems done for constitutional, cardiovascular, GI, pulmonary; relevant findings as above. Current medications are reviewed. On examination, temperature 97.4, pulse 80, respiration 18, blood pressure 115/72, pulse ox 97%. GENERAL APPEARANCE: Lying in bed, awake, comfortable. EYES: Pupils equal. Conjunctivae normal. NECK: JVD not raised. Mass not palpable. RESPIRATORY: Effort normal. LUNGS: Diminished breath sounds. CARDIOVASCULAR: First and second sounds. No edema. ABDOMEN: Soft. Nontender. Liver and spleen not palpable. PSYCHIATRY: Awake, answering questions. EXTREMITIES: Bilateral below-knee amputation. INVESTIGATIONS: Sodium 146, potassium 4.1, bicarb 21, BUN 37, creatinine 5.75. ASSESSMENT: 1. Right lower lobe pneumonia with possible parapneumonic effusion present on admission, suspect gram-negative organism, could be aspiration with clinical improvement. 2. 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 3. Acute renal failure with nonoliguric, probably from acute tubular necrosis from sepsis. 4. Chronic obstructive pulmonary disease in an ex-smoker. 5. Alzheimer's dementia, late onset, no behavioral change. 6. Essential hypertension. 7. Diabetes mellitus type 2, chronically on oral medications. 8. 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 9. Hyperkalemia in the setting of renal failure with some improved. 10. Metabolic alkalosis and renal failure. 11. Hypernatremia probably from free water deficit, slow to respond. 12. Acute delirium from sepsis with improvement. 13. Chronic anemia, probably renal failure with acute component which is probably hospital acquired from blood draws. PLAN: Prognosis remains guarded. Continue with IV fluids, bicarbonate. Follow with Pulmonary. Will discontinue antibiotics.
[2016-12-14 21:02] LABS: Glucose,Whole Blood 102 mg/dL (75-99)
[2016-12-15 02:07] LABS: Glucose,Whole Blood 161 mg/dL (75-99)
[2016-12-15] MEDS: DEXTROSE 5% IN WATER 1,000 ML with SODIUM BICARB (1 MEQ/ML) 75 ML IV SCH (03:26)
[2016-12-15] MEDS: IPRATROPIUM-ALBUTEROL 3 ML NEB INHALATION SCH ×4 (07:28→21:05)
[2016-12-15 07:34] LABS: Glucose,Whole Blood 109 mg/dL (75-99)
[2016-12-15] MEDS: INSULIN LISPRO (humaLOG) 300 UNIT/3 ML VIAL SQ SCH ×4 (08:14→21:10)
[2016-12-15] MEDS: amLODIPine 10 MG TAB PO SCH (08:20)
[2016-12-15] MEDS: CHOLECALCIFEROL 1,000 UNIT TAB PO SCH (08:22)
[2016-12-15] MEDS: PREGABALIN 75 MG CAP PO SCH ×2 (08:22→21:15)
[2016-12-15] MEDS: HEPARIN SODIUM,PORCINE 5,000 UNIT/ML 1 ML VIAL SQ SCH ×2 (08:22→21:14)
[2016-12-15] MEDS: MULTIVITAMINS, THERA 1 EACH TAB PO SCH (08:22)
[2016-12-15] MEDS: SODIUM BICARBONATE TAB 650 MG TAB PO SCH ×4 (08:23→21:16)
--- NOTE | 2016-12-15 08:28 | P.PN ---
Subjective Patient is seen in follow-up for acute kidney injury on chronic kidney disease. Patient has chronic kidney disease stage IV with baseline creatinine in the range of 3.5-3.7 secondary to diabetic kidney disease. Patient presented with dyspnea. He initially received IV diuretics. His renal function subsequently worsened with creatinine at 5.4 and is currently on gentle IV hydration. Creatinine as of yesterday was 5.75. Currently resting in bed. No active chest pain or shortness breath. He has a Norman catheter in place and is nonoliguric. Vital signs are stable. General: The patient appeared well nourished and normally developed. HEENT: Head exam is unremarkable. Neck is without jugular venous distension. LUNGS: Lungs are clear to auscultation and percussion. Breath sounds decreased. HEART: Rate and Rhythm are regular. First and second heart sounds normal. No murmurs, rubs or gallops. ABDOMEN: Abdominal exam reveals normal bowel sounds. Non-tender and non- distended. No evidence of peritonitis. EXTREMITITES: No clubbing, cyanosis, or edema. Objective - Vital Signs Vital signs: Vital Signs Temp 97.7 F 12/15/16 07:00 Pulse 93 12/15/16 07:40 Resp 18 12/15/16 07:00 BP 147/70 12/15/16 07:00 Pulse Ox 96 12/15/16 07:30 Intake & Output 12/14/16 12/15/16 12/15/16 18:59 06:59 18:59 Intake Total 560 800 Output Total 1340 600 Balance -780 200 Weight 69 kg Intake: Intake, IV Titration 800 Amount Dextrose 5% in Water 1, 800 000 ml @ 100 mls/hr IV . [id number] COLIN with Sodium Bicarb (1 Meq/ml) 75 ml Rx#:[id number] Oral 560 Output: Urine 900 600 Uretheral (Norman) 900 Stool 440 Other: Voiding Method Indwelling Catheter Indwelling Catheter # Bowel Movements 1 - Labs CBC & Chem 7: 12/13/16 10:24 12/14/16 07:55 Labs: Abnormal Lab Results - Last 24 Hours (Table) 12/14/16 12/14/16 12/14/16 Range/Units 07:55 11:48 15:12 Sodium 146 H (137-145) mmol/L Chloride 110 H (98-107) mmol/L Carbon Dioxide 21 L (22-30) mmol/L BUN 77 H (9-20) mg/dL Creatinine 5.75 H* (0.66-1.25) mg/dL Glucose 152 H (74-99) mg/dL POC Glucose (mg/dL) 172 H 102 H (75-99) mg/dL Calcium 7.0 L (8.4-10.2) mg/dL 12/14/16 12/14/16 12/14/16 Range/Units 20:13 20:30 20:53 Sodium (137-145) mmol/L Chloride (98-107) mmol/L Carbon Dioxide (22-30) mmol/L BUN (9-20) mg/dL Creatinine (0.66-1.25) mg/dL Glucose (74-99) mg/dL POC Glucose (mg/dL) 53 L 47 L 102 H (75-99) mg/dL Calcium (8.4-10.2) mg/dL 12/15/16 12/15/16 Range/Units 01:58 07:28 Sodium (137-145) mmol/L Chloride (98-107) mmol/L Carbon Dioxide (22-30) mmol/L BUN (9-20) mg/dL Creatinine (0.66-1.25) mg/dL Glucose (74-99) mg/dL POC Glucose (mg/dL) 161 H 109 H (75-99) mg/dL Calcium (8.4-10.2) mg/dL Assessment and Plan Plan: Assessment: #1. Nonoliguric acute kidney injury secondary to intravascular volume depletion related to sepsis and diuresis. Creatinine at 5.75 as of yesterday. It appears he has progressed to chronic kidney disease stage V. #2. Chronic kidney disease stage IV secondary to diabetic kidney disease with baseline creatinine in the range of 3.5-3.7. #3. Hyperkalemia secondary to acute kidney injury as well as metabolic acidosis. Resolved. #4. Anion gap metabolic acidosis secondary to acute kidney injury. Improving. #5. Mild hypernatremia secondary to lack of oral water intake. #6. Right lobe pneumonia. Plan: I will change the IV fluids to normal saline to be run at 50 mL an hour. Maintain oral sodium bicarbonate supplementation - dose may need to be decreased. Low potassium diet. Maintain antibiotics. Avoid nephrotoxic agents and hypotensive episodes. No urgent need for renal replacement therapy at this time. However it appears his renal function has progressed to stage V. I did discuss dialysis options with the patient and he is refusing any form of renal replacement therapy. I also spoke with the patient's daughters again yesterday who want dialysis to be initiated. The patient appears competent at this time and is adamantly refusing any forms of renal replacement therapy. Continue with conservative management for now.
[2016-12-15] MEDS: SODIUM CHLORIDE 0.9% 1,000 ML IV SCH ×2 (08:29→22:28)
[2016-12-15] MEDS: INSULIN DETEMIR 100 UNIT/ML 10 ML VIAL SQ SCH (08:36)
[2016-12-15 09:27] LABS: Calcium 6.8 mg/dL (8.4-10.2); Potassium 4.3 mmol/L (3.5-5.1)
[2016-12-15 11:34] LABS: Glucose,Whole Blood 181 mg/dL (75-99)
--- NOTE | 2016-12-15 14:14 | CONS ---
DATE OF CONSULTATION: This is an 81-year-old gentleman, I was consulted for placement of a dialysis catheter. Patient has several medical issues including COPD, dementia, diabetes type 2, hypertension, history of multiple infections including that of pneumonia. Patient has a high BUN and creatinine and patient was seen by Dr. Lugo and the family wanted to have dialysis catheter but the patient is refusing. Past medical history includes history of congestive heart failure, COPD, hypertension, chronic Norman catheter. PERSONAL HISTORY: Allergic to DAPTOMYCIN. SOCIAL HISTORY: The patient is a former smoker. On examination, patient was seen in his room. NECK: Supple. No jugular distention. LUNGS: Bilateral crackles. ABDOMEN: Soft, nontender. Patient has bilateral lower extremity amputation. I have discussed in detail with the patient. Patient refusing dialysis. Discussed with Dr. Lugo and he will discuss with the family. If patient agrees, we will place.
[2016-12-15 17:13] LABS: Glucose,Whole Blood 57 mg/dL (75-99)
--- NOTE | 2016-12-15 17:16 | PN ---
DATE OF SERVICE: 12/15/2016 PRESENTING COMPLAINT: Pneumonia and renal failure. INTERVAL HISTORY: This patient with pneumonia is clinically much better, but renal failure getting worse. Patient's family along with the patient initially decreased to hemodialysis, then patient later started saying he does not hemodialysis. Otherwise, patient is sitting up tolerating his diet. Often forgetful. Patient's brother and sister in the room too. Review of systems done for constitutional, cardiovascular, GI, pulmonary; relevant findings as above. Current medications are reviewed. On examination, temperature 99.3, pulse 84, respiration 18, blood pressure 123/64, pulse ox 99% on 2 liters. GENERAL APPEARANCE: Sitting up, awake. EYES: Pupils equal. Conjunctivae normal. NECK: JVD not raised. Mass not palpable. RESPIRATORY: Effort normal. LUNGS: Diminished breath sounds. CARDIOVASCULAR: First and second sounds normal. No edema. ABDOMEN: Soft, liver and spleen not palpable. PSYCHIATRY: Awake, answering simple questions. EXTREMITIES: Bilateral below-knee amputation. NEUROLOGICAL: Chronic dysarthria. INVESTIGATIONS: BUN 77, creatinine 5.80. ASSESSMENT: 1. Right lower lobe pneumonia with possible parapneumonic effusion, present at admission, suspect gram-negative organism, could be aspiration with clinical improvement. 2. Chronic kidney disease, stage IV, from diabetic nephropathy. 3. Acute renal failure from nonoliguric, probably from acute tubular necrosis from sepsis. 4. Chronic obstructive pulmonary disease in an ex-smoker. 5. Alzheimer's dementia, late onset, no behavioral changes. 6. Essential hypertension. 7. Diabetes mellitus type 2, chronically on oral medications. 8. 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 9. Hyperkalemia in setting of renal failure with some improvement. 10. Metabolic alkalosis from renal failure. 11. Hypernatremia, probably from free water deficit with improvement. 12. Acute delirium from sepsis with improvement. 13. Chronic anemia, probably from renal failure and acute component, which is probably related to hospital acquired anemia from blood draws. PLAN: I had a very lengthy discussion with the patient, his daughter, patient's brother. Patient going back and forth about hemodialysis. Daughter is also the POA. PA is present. When I left the room they were going to get back to me and finally decide what to do. Total time spent today was about 40 minutes with over 25 minutes of discussion. Will procedure with hemodialysis, both the patient and family agree with the same, especially the daughter who is also the POA.
[2016-12-15 17:33] LABS: Glucose,Whole Blood 98 mg/dL (75-99)
[2016-12-15 20:14] LABS: Glucose,Whole Blood 125 mg/dL (75-99)
[2016-12-16 02:09] LABS: Glucose,Whole Blood 127 mg/dL (75-99)
[2016-12-16] MEDS: IPRATROPIUM-ALBUTEROL 3 ML NEB INHALATION SCH ×4 (07:40→19:25)
[2016-12-16] MEDS ORDERED: IV FLUID CONTINUATION 1,000 ML IV ONE (07:43)
[2016-12-16 08:13] LABS: Glucose,Whole Blood 116 mg/dL (75-99)
[2016-12-16] MEDS ORDERED: fentaNYL (PF) 50 MCG/ML 2 ML AMP IV ONE (08:25)
[2016-12-16] MEDS ORDERED: LIDOCAINE 2% INJ 20 MG/ML SQ ONE ×2 (08:42→09:04)
[2016-12-16] MEDS ORDERED: ONDANSETRON 4 MG/2 ML VIAL IVP ONE (09:17)
[2016-12-16] MEDS: INSULIN LISPRO (humaLOG) 300 UNIT/3 ML VIAL SQ SCH ×4 (09:27→20:14)
--- NOTE | 2016-12-16 10:15 | XR ---
EXAMINATION TYPE: XR chest 1V confirm line [facility] DATE OF EXAM: 12/16/2016 10:04 AM COMPARISON: 12/13/2016 INDICATION: Dialysis catheter confirmation TECHNIQUE: Single frontal view of the chest is obtained. Patient is rotated to the left. FINDINGS: The heart size is normal. The pulmonary vasculature is normal. There is a small to moderate right pleural effusion. Minimal left pleural effusion is present. These are unchanged. Double-lumen catheter is present on the left tips in superior vena cava region. No pneumothorax is ev ident. IMPRESSION: 1. No pneumothorax post line placement. 2. Bilateral pleural effusions, stable
[2016-12-16 11:45] LABS: Anisocytosis Slight; Basophils % (A) 1 %; CH 29.9; CHCM 32.2; Eosinophils # (A) 0.2 k/uL (0-0.7); Eosinophils % (A) 5 %; HCT 20.6 % (39.0-53.0); HDW 2.56; Luc # (Auto) 0.17; Luc % (Auto) 4; Lymphocytes # (A) 0.7 k/uL (1.0-4.8); Lymphocytes % (A) 17 %; MCH 29.1 pg (25.0-35.0); MCHC 31.1 g/dL (31.0-37.0); MCV 93.5 fL (80.0-100.0); Mean Platelet Volume 9.7; Monocytes # (A) 0.3 k/uL (0-1.0); Monocytes % (A) 6 %; Neutrophils # (A) 2.9 k/uL (1.3-7.7); Neutrophils % (A) 68 %; WBC 4.3 k/uL (3.8-10.6); WBC (Perox) 4.22
[2016-12-16 11:47] LABS: Glucose,Whole Blood 144 mg/dL (75-99)
[2016-12-16 11:47] LABS: HGB 6.4 gm/dL (13.0-17.5)
[2016-12-16 11:48] LABS: Potassium 4.8 mmol/L (3.5-5.1)
[2016-12-16 11:57] LABS: Calcium 6.4 mg/dL (8.4-10.2)
[2016-12-16] MEDS: MULTIVITAMINS, THERA 1 EACH TAB PO SCH (12:32)
[2016-12-16] MEDS: SODIUM BICARBONATE TAB 650 MG TAB PO SCH ×4 (12:32→20:13)
[2016-12-16] MEDS: CHOLECALCIFEROL 1,000 UNIT TAB PO SCH (12:32)
[2016-12-16] MEDS: INSULIN DETEMIR 100 UNIT/ML 10 ML VIAL SQ SCH (12:35)
[2016-12-16] MEDS: amLODIPine 10 MG TAB PO SCH (12:35)
[2016-12-16] MEDS: HEPARIN SODIUM,PORCINE 5,000 UNIT/ML 1 ML VIAL SQ SCH ×2 (12:35→20:13)
[2016-12-16] MEDS: PREGABALIN 75 MG CAP PO SCH ×2 (12:35→20:13)
[2016-12-16 16:54] LABS: Glucose,Whole Blood 144 mg/dL (75-99)
--- NOTE | 2016-12-16 18:56 | PCN ---
DATE OF PROCEDURE: PREPROCEDURE DIAGNOSIS: Acute renal failure. PROCEDURE: Attempted to place a right INTERNAL JUGULAR . Right IJ was small in caliber. Then we placed a 32 cm dialysis catheter left internal jugular approach. The patient was brought to the labor expediter and right and left neck was prepped and drapes were applied in the usual sterile manner. 1% lidocaine in the right neck area. The ultrasound guided needle attempted to pass catheter in the right IJ but right IJ was very small in caliber. Then we decided to go on the left side. Left side 1% lidocaine was infiltrated. Ultrasound-guided needle was introduced into the left internal jugular vein. Guidewire was passed and 4 Jordanian dilator advanced on top the guidewire. Then the tunnel was created. Through the tunnel, we brought the 32 cm dialysis catheter. Guidewire was passed. Guidewire was parked in the inferior vena cava. Dilator was advanced and then sheath was advanced on top of the guidewire. Through the sheath, we introduced the dialysis catheter. Tip of catheter was in superior vena cava and atrium, flushed with heparin saline and hep-locked. Incision was closed with Vicryl. Dressing applied. The patient tolerated the procedure well.
[2016-12-16] MEDS: diphenhydrAMINE 50 MG CAP PO PRN (20:12)
[2016-12-16 20:24] LABS: Glucose,Whole Blood 52 mg/dL (75-99)
[2016-12-16 20:48] LABS: Glucose,Whole Blood 60 mg/dL (75-99)
[2016-12-16 21:02] LABS: Glucose,Whole Blood 80 mg/dL (75-99)
[2016-12-16] MEDS: SODIUM CHLORIDE 0.9% 1,000 ML IV SCH (23:30)
[2016-12-17 02:07] LABS: Glucose,Whole Blood 86 mg/dL (75-99)
[2016-12-17 07:29] LABS: Glucose,Whole Blood 40 mg/dL (75-99)
[2016-12-17 07:47] LABS: Anion Gap 9 mmol/L; Blood Urea Nitrogen 46 mg/dL (9-20); Calcium 6.9 mg/dL (8.4-10.2); Carbon Dioxide 29 mmol/L (22-30); Chloride 106 mmol/L (98-107); Potassium 4.2 mmol/L (3.5-5.1); Sodium 144 mmol/L (137-145)
[2016-12-17 08:00] LABS: Glucose,Whole Blood 91 mg/dL (75-99)
[2016-12-17 08:08] LABS: Glucose 35 mg/dL (74-99); Non-African American GFR(MDRD) 15 (>60 ml/min/1.73 sqM)
--- NOTE | 2016-12-17 08:13 | P.PN ---
Subjective Principal diagnosis: Patient was in OR yesterday for HD catheter so unable to see him. He received HD yesterday two hours. BP low. No UF performed. He is alert no distress. Objective - Vital Signs Vital signs: Vital Signs Temp 97.5 F L 12/16/16 23:00 Pulse 74 12/16/16 23:00 Resp 16 12/16/16 23:00 BP 102/48 12/16/16 23:00 Pulse Ox 93 L 12/16/16 23:00 Intake & Output 12/16/16 12/17/16 12/17/16 18:59 06:59 18:59 Intake Total 350 480 Output Total 440 440 Balance -90 40 Weight 63.5 kg Intake: IV 100 Oral 480 Blood Product 250 Rc Cpda-1 Unit 250 [id number] Output: Stool 440 440 Other: Voiding Method Indwelling Catheter Indwelling Catheter # Voids 2 # Bowel Movements 1 - Constitutional General appearance: Present: no acute distress - Respiratory Respiratory: bilateral: CTA - Cardiovascular Rhythm: regular Heart sounds: normal: S1, S2 - Gastrointestinal General gastrointestinal: Present: distended, soft - Labs CBC & Chem 7: 12/16/16 11:09 12/17/16 07:04 Labs: Abnormal Lab Results - Last 24 Hours (Table) 12/16/16 12/16/16 12/16/16 Range/Units 07:23 11:09 11:09 RBC 2.20 L (4.30-5.90) m/uL Hgb 6.4 L* (13.0-17.5) gm/dL Hct 20.6 L (39.0-53.0) % RDW 16.0 H (11.5-15.5) % Plt Count 86 L (150-450) k/uL Lymphocytes # 0.7 L (1.0-4.8) k/uL Carbon Dioxide 21 L (22-30) mmol/L BUN 77 H (9-20) mg/dL Creatinine 5.92 H* (0.66-1.25) mg/dL Glucose 116 H (74-99) mg/dL POC Glucose (mg/dL) 116 H (75-99) mg/dL Calcium 6.4 L* (8.4-10.2) mg/dL Crossmatch 12/16/16 12/16/16 12/16/16 Range/Units 11:38 15:01 16:52 RBC (4.30-5.90) m/uL Hgb (13.0-17.5) gm/dL Hct (39.0-53.0) % RDW (11.5-15.5) % Plt Count (150-450) k/uL Lymphocytes # (1.0-4.8) k/uL Carbon Dioxide (22-30) mmol/L BUN (9-20) mg/dL Creatinine (0.66-1.25) mg/dL Glucose (74-99) mg/dL POC Glucose (mg/dL) 144 H 144 H (75-99) mg/dL Calcium (8.4-10.2) mg/dL Crossmatch See Detail 12/16/16 12/16/16 12/17/16 Range/Units 20:13 20:35 07:04 RBC (4.30-5.90) m/uL Hgb (13.0-17.5) gm/dL Hct (39.0-53.0) % RDW (11.5-15.5) % Plt Count (150-450) k/uL Lymphocytes # (1.0-4.8) k/uL Carbon Dioxide (22-30) mmol/L BUN 46 H (9-20) mg/dL Creatinine 3.92 H (0.66-1.25) mg/dL Glucose 35 L* (74-99) mg/dL POC Glucose (mg/dL) 52 L 60 L (75-99) mg/dL Calcium 6.9 L (8.4-10.2) mg/dL Crossmatch 12/17/16 Range/Units 07:27 RBC (4.30-5.90) m/uL Hgb (13.0-17.5) gm/dL Hct (39.0-53.0) % RDW (11.5-15.5) % Plt Count (150-450) k/uL Lymphocytes # (1.0-4.8) k/uL Carbon Dioxide (22-30) mmol/L BUN (9-20) mg/dL Creatinine (0.66-1.25) mg/dL Glucose (74-99) mg/dL POC Glucose (mg/dL) 40 L (75-99) mg/dL Calcium (8.4-10.2) mg/dL Crossmatch Assessment and Plan Plan: #1. Nonoliguric acute kidney injury secondary to intravascular volume depletion related to sepsis and diuresis. --No renal recovery, Decision made by family to start dialysis. Received HD catheter yesterday and had 2 hours of HD. Low BP but otherwise tolerated well. - -Plan for HD Sunday. #2. Chronic kidney disease stage IV secondary to diabetic kidney disease with baseline creatinine in the range of 3.5-3.7. #3. Hyperkalemia secondary to acute kidney injury as well as metabolic acidosis. Resolved. #4. Anion gap metabolic acidosis secondary to acute kidney injury. Improving. #5. Hypocalcemia --Will add CaCO3 1000mg bid and increase Ca bath on HD Sunday. #6. Right lobe pneumonia.
[2016-12-17 08:15] LABS: Hepatitis B Surface Ag Index 0.08
[2016-12-17 08:20] LABS: Hepatitis B Core IgM Index 0.03
[2016-12-17] MEDS: INSULIN LISPRO (humaLOG) 300 UNIT/3 ML VIAL SQ SCH ×4 (08:32→21:14)
[2016-12-17] MEDS: MULTIVITAMINS, THERA 1 EACH TAB PO SCH (08:35)
[2016-12-17] MEDS: HEPARIN SODIUM,PORCINE 5,000 UNIT/ML 1 ML VIAL SQ SCH ×2 (08:35→21:14)
[2016-12-17] MEDS: amLODIPine 10 MG TAB PO SCH (08:35)
[2016-12-17] MEDS: CHOLECALCIFEROL 1,000 UNIT TAB PO SCH (08:35)
[2016-12-17] MEDS: PREGABALIN 75 MG CAP PO SCH ×2 (08:35→21:14)
[2016-12-17 08:36] LABS: Hepatitis B Surface Antibody Negative (Negative)
[2016-12-17] MEDS: INSULIN DETEMIR 100 UNIT/ML 10 ML VIAL SQ SCH (08:37)
[2016-12-17 08:43] LABS: Anisocytosis Slight; Aty Lym Flag Slight; CH 29.5; CHCM 32.6; HCT 24.1 % (39.0-53.0); HDW 2.63; HGB 7.8 gm/dL (13.0-17.5); MCH 29.6 pg (25.0-35.0); MCHC 32.5 g/dL (31.0-37.0); MCV 91.1 fL (80.0-100.0); Mean Platelet Volume 8.8; RBC 2.64 m/uL (4.30-5.90); RDW 16.1 % (11.5-15.5); WBC 4.8 k/uL (3.8-10.6); WBC (Perox) 5.11
[2016-12-17] MEDS: CALCIUM CARBONATE 500 MG CHEWABLE PO SCH ×2 (09:16→21:14)
[2016-12-17] MEDS: IPRATROPIUM-ALBUTEROL 3 ML NEB INHALATION SCH ×4 (09:18→18:59)
[2016-12-17 10:10] LABS: Add Differential Manual Differential
[2016-12-17 10:13] LABS: Manual Review Performed; Nucleated Red Blood Cells 0 /100 WBC (0-0); Total Cells Counted 100
--- NOTE | 2016-12-17 11:11 | PN ---
DATE OF SERVICE: 12/16/2016 PRESENTING COMPLAINT: Pneumonia and renal failure. INTERVAL HISTORY: This patient and the family after going back and forth, decided to proceed with dialysis. Dr. James has put hemodialysis catheter. When I saw the patient earlier today, the patient awaiting his hemodialysis, tired. Review of systems done for constitutional, cardiovascular, GI, pulmonary; relevant findings as above. Current medications are reviewed. On examination, temperature 97.4, pulse 87, respiration 18, blood pressure 105/54, pulse ox 99% on room air. GENERAL APPEARANCE: Lying in bed, tired -appearing. EYES: Pupils equal. Conjunctivae normal. NECK: JVD not raised. Mass not palpable. RESPIRATORY: Effort normal. LUNGS: Decreased breath sounds. CARDIOVASCULAR: First and second sounds normal. No edema. ABDOMEN: Soft. Liver and spleen not palpable. PSYCHIATRY: Patient continues dozing off. EXTREMITIES: Bilateral below-knee amputation. NEUROLOGICAL: Chronic dysarthria. INVESTIGATIONS: White count 4.3, hemoglobin 6.4. Potassium 4.8. BUN ( ). Creatinine 5.92. ASSESSMENT: 1. Right lower lobe pneumonia with possible parapneumonic effusion present on admission, suspect organism could be aspiration with some clinical improvement. 2. Chronic kidney disease, stage IV, from diabetic nephropathy. 3. Acute renal failure from non-oliguric probably from acute tubular necrosis from sepsis, proceeding to renal replacement therapy. 4. Chronic obstructive pulmonary disease in an ex-smoker. 5. Alzheimer's dementia, late onset, no behavioral changes. 6. Essential hypertension. 7. Diabetes mellitus, type II, chronically on oral medication. 8. 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 9. Hyperkalemia in the setting of renal failure. 10. Metabolic acidosis, from renal failure. 11. Hyponatremia, probably free water deficit with improvement. 12. Acute delirium from sepsis with improvement. 13. Chronic anemia probably from renal failure, acute component, which is probably due to hospital-acquired ( ) from blood draws. PLAN: The patient will get hemodialyzed today, ( ) hemoglobin ( ) drop patient should get blood transfused with hemodialysis. Overall prognosis guarded.
--- NOTE | 2016-12-17 12:14 | IR ---
EXAMINATION TYPE: IR cvc insert central tunneled DATE OF EXAM: 12/17/2016 10:51 AM COMPARISON: NONE HISTORY: Dialysis, renal failure Fluoroscopy support supplied to the referring clinician. See dictated report from vascular surgery, 657 intraoperative C-arm images document the procedure, 1.5 minutes fluoroscopy time supplied.
[2016-12-17 12:21] LABS: Glucose,Whole Blood 137 mg/dL (75-99)
[2016-12-17] MEDS: diphenhydrAMINE 50 MG CAP PO PRN (14:26)
[2016-12-17 17:25] LABS: Glucose,Whole Blood 115 mg/dL (75-99)
[2016-12-17 20:50] LABS: Glucose,Whole Blood 144 mg/dL (75-99)
[2016-12-17] MEDS: ACETAMINOPHEN TAB 325 MG TAB PO PRN (21:13)
[2016-12-18 01:56] LABS: Glucose,Whole Blood 115 mg/dL (75-99)
[2016-12-18 08:15] LABS: Glucose,Whole Blood 90 mg/dL (75-99)
[2016-12-18 08:53] LABS: Calcium 7.4 mg/dL (8.4-10.2); Potassium 4.7 mmol/L (3.5-5.1)
[2016-12-18] MEDS: IPRATROPIUM-ALBUTEROL 3 ML NEB INHALATION SCH ×4 (10:05→19:28)
[2016-12-18] MEDS: INSULIN LISPRO (humaLOG) 300 UNIT/3 ML VIAL SQ SCH ×4 (10:13→22:00)
[2016-12-18] MEDS: CALCIUM CARBONATE 500 MG CHEWABLE PO SCH (10:14)
[2016-12-18] MEDS: amLODIPine 10 MG TAB PO SCH (10:14)
[2016-12-18] MEDS: CHOLECALCIFEROL 1,000 UNIT TAB PO SCH (10:14)
[2016-12-18] MEDS: PREGABALIN 75 MG CAP PO SCH (10:14)
[2016-12-18] MEDS: HEPARIN SODIUM,PORCINE 5,000 UNIT/ML 1 ML VIAL SQ SCH (10:15)
[2016-12-18] MEDS: MULTIVITAMINS, THERA 1 EACH TAB PO SCH (10:15)
--- NOTE | 2016-12-18 10:38 | P.PN ---
Subjective Patient is seen in follow-up for acute kidney injury on chronic kidney disease. Patient has chronic kidney disease stage IV with baseline creatinine in the range of 3.5-3.7 secondary to diabetic kidney disease. Patient presented with dyspnea. His renal function seems to have progressed to stage V and is now dialysis dependent. Currently resting in bed. No active chest pain or shortness breath. He has a Norman catheter in place and is nonoliguric. Vital signs are stable. General: The patient appeared well nourished and normally developed. HEENT: Head exam is unremarkable. Neck is without jugular venous distension. LUNGS: Lungs are clear to auscultation and percussion. Breath sounds decreased. HEART: Rate and Rhythm are regular. First and second heart sounds normal. No murmurs, rubs or gallops. ABDOMEN: Abdominal exam reveals normal bowel sounds. Non-tender and non- distended. No evidence of peritonitis. EXTREMITITES: No clubbing, cyanosis, or edema. Amputations noted. Objective - Vital Signs Vital signs: Vital Signs Temp 100 F H 12/18/16 07:00 Pulse 78 12/18/16 07:00 Resp 18 12/18/16 07:00 BP 139/75 12/18/16 07:00 Pulse Ox 91 L 12/18/16 07:00 Intake & Output 12/17/16 12/18/16 12/18/16 18:59 06:59 18:59 Intake Total 240 100 Output Total 590 101 Balance -350 -1 Weight 68.5 kg Intake: Oral 240 100 Output: Urine 150 101 Stool 440 Other: Voiding Method Indwelling Catheter Indwelling Catheter # Voids 2 # Bowel Movements 1 - Labs CBC & Chem 7: 12/17/16 07:04 12/18/16 07:39 Labs: Abnormal Lab Results - Last 24 Hours (Table) 12/17/16 12/17/16 12/17/16 Range/Units 12:01 17:24 20:49 BUN (9-20) mg/dL Creatinine (0.66-1.25) mg/dL POC Glucose (mg/dL) 137 H 115 H 144 H (75-99) mg/dL Calcium (8.4-10.2) mg/dL 12/18/16 12/18/16 Range/Units 01:54 07:39 BUN 49 H (9-20) mg/dL Creatinine 4.84 H (0.66-1.25) mg/dL POC Glucose (mg/dL) 115 H (75-99) mg/dL Calcium 7.4 L (8.4-10.2) mg/dL Assessment and Plan Plan: Assessment: #1. Nonoliguric acute kidney injury secondary to intravascular volume depletion related to sepsis and diuresis. Renal function has now progressed to stage V. Underwent first treatment of hemodialysis on December 16. #2. Chronic kidney disease stage IV secondary to diabetic kidney disease with baseline creatinine in the range of 3.5-3.7. Now progressed to stage V. #3. Hyperkalemia secondary to acute kidney injury as well as metabolic acidosis. Resolved. #4. Anion gap metabolic acidosis secondary to acute kidney injury. Resolved. #5. Mild hypernatremia secondary to lack of oral water intake. #6. Right lobe pneumonia. #7. Anemia of chronic kidney disease. Plan: Hemodialysis today. Maintain Aranesp. Nephrocaps daily. Check phosphorus level. Will get medical case worker on board to help facilitate outpatient hemodialysis.
--- NOTE | 2016-12-18 11:36 | PN ---
DATE OF SERVICE: 12/17/2016 PRESENTING COMPLAINT: Pneumonia and renal failure. INTERVAL HISTORY: This patient presented with pneumonia, which is improved and went into advanced renal failure. Had a dialysis catheter placed, had first dialysis yesterday. There was no ultrafiltration. Patient is awake, tolerate his diet. Two daughters are at the bedside. Patient feels comfortable. REVIEW OF SYSTEMS: CONSTITUTIONAL: Findings as above. CARDIOVASCULAR: Findings as above. GI: Findings as above. PULMONARY: Findings as above. Current medications are reviewed. On examination, temperature 98.2, pulse 80, respirations 18, blood pressure 130/65, pulse ox 92% on room air. GENERAL APPEARANCE: Lying in bed, awake. EYES: Pupils equal. Conjunctivae normal. NECK: JVD not raised. Mass not palpable. RESPIRATORY: Effort normal. LUNGS: Decreased breath sounds. CARDIOVASCULAR: First and second sounds normal. No edema. ABDOMEN: Soft, nontender. ( ) palpable. CHEST WALL: Dialysis catheter on the left side. EXTREMITIES: Bilateral ( ) amputation. INVESTIGATIONS: Hemoglobin 7.8. BUN 46, creatinine 3.92. Glucose was down to 35. ASSESSMENT: 1. Right lower lobe pneumonia with possible parapneumonic effusion, present on admission; suspect aspiration with clinical resolution. 2. 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 3. Acute renal failure from acute tubular necrosis from sepsis ( ) to renal replacement therapy. 4. Chronic obstructive pulmonary disease/ 5. Smoker. 6. Alzheimer's dementia, late onset, no behavioral changes. 7. Essential hypertension. 8. Diabetes mellitus type 2, chronically on oral medication. 9. 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 10. Hyperkalemia in setting of renal failure, improved. 11. Metabolic acidosis from renal failure. 12. Hypernatremia from free water deficit with improvement. 13. Acute delirium from sepsis with improvement. 14. Chronic anemia from renal failure, acute component which is probably hospital acquired from blood draws. PLAN: Care was discussed with the patient's daughters at bedside. Follow up with nephrology. Patient stable. Because of hypoglycemia, will adjust patient's insulin accordingly. In fact, will d/c the Levemir and just maintain ( ) for right now.
[2016-12-18 12:25] LABS: Glucose,Whole Blood 149 mg/dL (75-99)
[2016-12-18] MEDS: FOLIC ACID-VIT B COMPLEX-VIT C 1 CAP PO SCH (12:49)
[2016-12-18] MEDS: diphenhydrAMINE 50 MG CAP PO PRN (14:34)
[2016-12-18 18:02] LABS: Glucose,Whole Blood 181 mg/dL (75-99)
[2016-12-18 20:40] LABS: Glucose,Whole Blood 167 mg/dL (75-99)
--- NOTE | 2016-12-18 22:25 | PN ---
DATE OF SERVICE: 12/18/2016 PRESENTING COMPLAINT: Pneumonia and renal failure. INTERVAL HISTORY: This patient presented with pneumonia and worsening renal failure; has been started on hemodialysis. Patient did tolerate his diet. Comfortable at rest. Review of systems done for constitutional, cardiovascular, GI, pulmonary; relevant findings as above. Current medications are reviewed. On examination, temperature 100, pulse 78, respiration 18, blood pressure 139/75, pulse ox 91% on room air. GENERAL APPEARANCE: Sitting in bed, comfortable. EYES: Pupils equal. Conjunctivae normal. NECK: JVD not raised. Mass not palpable. RESPIRATORY: Effort normal. LUNGS: Decreased breath sounds. CARDIOVASCULAR: First and second sounds normal. No edema. ABDOMEN: Soft, nontender. Liver and spleen not palpable. Chest wall dialysis catheter on the left side. EXTREMITIES: Bilateral below-knee amputations. DERMATOLOGICAL: Stage II sacral decubitus ulcer. INVESTIGATIONS: BUN 49, creatinine 4.84. ASSESSMENT: 1. Right lobe pneumonia with possible parapneumonic effusion; responded well to antibiotics; improved. 2. Chronic kidney disease, stage IV, from diabetic nephropathy. 3. Acute renal failure from acute tubular necrosis from sepsis. Now patient is on renal replacement therapy. 4. Chronic obstructive pulmonary disease in an ex-smoker. 5. Alzheimer dementia, late onset; no behavioral changes. 6. Essential hypertension. 7. Diabetes mellitus, type 2, chronically on oral medication. 8. 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 9. Hyperkalemia in the setting of renal failure, improved. 10. Metabolic acidosis from renal failure. 11. Hypernatremia from free water deficit, with improvement. 12. Acute delirium from sepsis, improved. 13. Chronic anemia from renal failure, acute component which is probably hospital-acquired from blood draws. Patient did get a blood transfusion. 14. Stage II sacral decubitus ulcer. PLAN: Patient is medically stable. Hemodialysis to continue. I was informed that they are looking at [facility], where he will go for hemodialysis. Family is planning to take the patient home. Levemir was discontinued yesterday and Accu-Cheks are better. Wound care for sacral decubitus ulcer was discussed with the nurse. Continue with the air mattress and frequent turning.
[2016-12-18] MEDS ORDERED: HEPARIN SODIUM,PORCINE 5,000 UNIT/ML 1 ML VIAL ONE (23:30)
[2016-12-19] MEDS: PREGABALIN 75 MG CAP PO SCH ×3 (00:51→20:36)
[2016-12-19] MEDS: HEPARIN SODIUM,PORCINE 5,000 UNIT/ML 1 ML VIAL SQ SCH ×3 (00:52→20:36)
[2016-12-19] MEDS: CALCIUM CARBONATE 500 MG CHEWABLE PO SCH ×3 (00:52→20:36)
[2016-12-19] MEDS: ZINC OXIDE 20% OINT 28.4 GM TUBE TOPICAL SCH ×3 (00:53→20:37)
[2016-12-19 01:56] LABS: Glucose,Whole Blood 188 mg/dL (75-99)
[2016-12-19 07:29] LABS: Glucose,Whole Blood 132 mg/dL (75-99)
[2016-12-19] MEDS: IPRATROPIUM-ALBUTEROL 3 ML NEB INHALATION SCH ×3 (08:03→20:45)
[2016-12-19] MEDS: amLODIPine 10 MG TAB PO SCH (08:25)
[2016-12-19] MEDS: INSULIN LISPRO (humaLOG) 300 UNIT/3 ML VIAL SQ SCH ×4 (08:26→20:36)
[2016-12-19] MEDS: CHOLECALCIFEROL 1,000 UNIT TAB PO SCH (08:26)
[2016-12-19] MEDS: FOLIC ACID-VIT B COMPLEX-VIT C 1 CAP PO SCH (08:27)
[2016-12-19] MEDS: MULTIVITAMINS, THERA 1 EACH TAB PO SCH (08:27)
[2016-12-19 08:57] LABS: Calcium 7.6 mg/dL (8.4-10.2); Potassium 3.8 mmol/L (3.5-5.1)
[2016-12-19 11:16] LABS: Glucose,Whole Blood 168 mg/dL (75-99)
--- NOTE | 2016-12-19 11:20 | P.PN ---
Subjective Patient is seen in follow-up for acute kidney injury on chronic kidney disease. Patient has chronic kidney disease stage IV with baseline creatinine in the range of 3.5-3.7 secondary to diabetic kidney disease. Patient presented with dyspnea. His renal function seems to have progressed to stage V and is now dialysis dependent. Currently resting in bed. No active chest pain or shortness breath. He has a Norman catheter in place and is nonoliguric. Vital signs are stable. General: The patient appeared well nourished and normally developed. HEENT: Head exam is unremarkable. Neck is without jugular venous distension. LUNGS: Lungs are clear to auscultation and percussion. Breath sounds decreased. HEART: Rate and Rhythm are regular. First and second heart sounds normal. No murmurs, rubs or gallops. ABDOMEN: Abdominal exam reveals normal bowel sounds. Non-tender and non- distended. No evidence of peritonitis. EXTREMITITES: No clubbing, cyanosis, or edema. Amputations noted. Objective - Vital Signs Vital signs: Vital Signs Temp 99 F 12/18/16 15:00 Pulse 80 12/19/16 08:18 Resp 18 12/19/16 08:00 BP 127/63 12/19/16 07:00 Pulse Ox 92 L 12/19/16 07:00 Intake & Output 12/18/16 12/19/16 12/19/16 18:59 06:59 18:59 Intake Total 240 Output Total 840 200 Balance -840 240 -200 Weight 68.5 kg 68.5 kg Intake: Oral 240 Output: Stool 840 200 Other: Voiding Method Indwelling Catheter Indwelling Catheter Indwelling Catheter # Voids 1 # Bowel Movements 2 - Labs CBC & Chem 7: 12/17/16 07:04 12/19/16 08:18 Labs: Abnormal Lab Results - Last 24 Hours (Table) 12/18/16 12/18/16 12/18/16 Range/Units 11:55 17:47 20:19 BUN (9-20) mg/dL Creatinine (0.66-1.25) mg/dL Glucose (74-99) mg/dL POC Glucose (mg/dL) 149 H 181 H 167 H (75-99) mg/dL Calcium (8.4-10.2) mg/dL 12/19/16 12/19/16 12/19/16 Range/Units 01:54 07:04 08:18 BUN 27 H (9-20) mg/dL Creatinine 3.10 H (0.66-1.25) mg/dL Glucose 122 H (74-99) mg/dL POC Glucose (mg/dL) 188 H 132 H (75-99) mg/dL Calcium 7.6 L (8.4-10.2) mg/dL 12/19/16 Range/Units 11:14 BUN (9-20) mg/dL Creatinine (0.66-1.25) mg/dL Glucose (74-99) mg/dL POC Glucose (mg/dL) 168 H (75-99) mg/dL Calcium (8.4-10.2) mg/dL Assessment and Plan Plan: Assessment: #1. Nonoliguric acute kidney injury secondary to intravascular volume depletion related to sepsis and diuresis. Renal function has now progressed to stage V. Underwent first treatment of hemodialysis on December 16 and second treatment on December 18. #2. Chronic kidney disease stage IV secondary to diabetic kidney disease with baseline creatinine in the range of 3.5-3.7. Now progressed to stage V. #3. Hyperkalemia secondary to acute kidney injury as well as metabolic acidosis. Resolved. #4. Anion gap metabolic acidosis secondary to acute kidney injury. Resolved. #5. Mild hypernatremia secondary to lack of oral water intake. #6. Right lobe pneumonia. #7. Anemia of chronic kidney disease. #8. Chronic kidney disease mineral bone disease. Plan: Hemodialysis tomorrow. Maintain Aranesp. Nephrocaps daily. Maintain Tums. Stable to be discharged from nephrology standpoint once outpatient hemodialysis set up.
[2016-12-19 17:26] LABS: Glucose,Whole Blood 190 mg/dL (75-99)
[2016-12-19 20:29] LABS: Glucose,Whole Blood 166 mg/dL (75-99)
[2016-12-20 02:50] LABS: Glucose,Whole Blood 175 mg/dL (75-99)
[2016-12-20 06:55] LABS: Glucose,Whole Blood 155 mg/dL (75-99)
[2016-12-20 08:20] VITALS: RESP 16
[2016-12-20] MEDS: CALCIUM CARBONATE 500 MG CHEWABLE PO SCH (08:24)
[2016-12-20] MEDS: PREGABALIN 75 MG CAP PO SCH (08:26)
[2016-12-20] MEDS: FOLIC ACID-VIT B COMPLEX-VIT C 1 CAP PO SCH (08:27)
[2016-12-20] MEDS: CHOLECALCIFEROL 1,000 UNIT TAB PO SCH (08:27)
[2016-12-20] MEDS: HEPARIN SODIUM,PORCINE 5,000 UNIT/ML 1 ML VIAL SQ SCH (08:27)
[2016-12-20] MEDS: INSULIN LISPRO (humaLOG) 300 UNIT/3 ML VIAL SQ SCH ×2 (08:27→12:39)
[2016-12-20] MEDS: amLODIPine 10 MG TAB PO SCH (08:28)
[2016-12-20] MEDS: ZINC OXIDE 20% OINT 28.4 GM TUBE TOPICAL SCH (08:29)
[2016-12-20] MEDS: ACETAMINOPHEN TAB 325 MG TAB PO PRN (09:18)
[2016-12-20] MEDS: MULTIVITAMINS, THERA 1 EACH TAB PO SCH (09:39)
--- NOTE | 2016-12-20 10:26 | P.PN ---
Subjective Patient is seen in follow-up for acute kidney injury on chronic kidney disease. Patient has chronic kidney disease stage IV with baseline creatinine in the range of 3.5-3.7 secondary to diabetic kidney disease. Patient presented with dyspnea. His renal function seems to have progressed to stage V and is now dialysis dependent. Currently resting in bed. No active chest pain or shortness breath. He has a Norman catheter in place and is nonoliguric. Vital signs are stable. General: The patient appeared well nourished and normally developed. HEENT: Head exam is unremarkable. Neck is without jugular venous distension. LUNGS: Lungs are clear to auscultation and percussion. Breath sounds decreased. HEART: Rate and Rhythm are regular. First and second heart sounds normal. No murmurs, rubs or gallops. ABDOMEN: Abdominal exam reveals normal bowel sounds. Non-tender and non- distended. No evidence of peritonitis. EXTREMITITES: No clubbing, cyanosis, or edema. Amputations noted. Objective - Vital Signs Vital signs: Vital Signs Temp 98.9 F 12/20/16 07:00 Pulse 76 12/20/16 07:00 Resp 16 12/20/16 07:00 BP 123/60 12/20/16 07:00 Pulse Ox 95 12/20/16 07:00 Intake & Output 12/19/16 12/20/16 12/20/16 18:59 06:59 18:59 Intake Total 100 390 Output Total 400 100 Balance -300 290 Weight 69 kg Intake: Oral 100 390 Output: Urine 100 Stool 400 Other: Voiding Method Indwelling Catheter Indwelling Catheter # Voids 3 # Bowel Movements 1 - Labs CBC & Chem 7: 12/17/16 07:04 12/19/16 08:18 Labs: Abnormal Lab Results - Last 24 Hours (Table) 12/19/16 12/19/16 12/19/16 Range/Units 11:14 17:20 20:27 POC Glucose (mg/dL) 168 H 190 H 166 H (75-99) mg/dL 12/20/16 12/20/16 Range/Units 02:37 06:54 POC Glucose (mg/dL) 175 H 155 H (75-99) mg/dL Assessment and Plan Plan: Assessment: #1. Nonoliguric acute kidney injury secondary to intravascular volume depletion related to sepsis and diuresis. Renal function has now progressed to stage V. Underwent first treatment of hemodialysis on December 16 and second treatment on December 18. #2. Chronic kidney disease stage IV secondary to diabetic kidney disease with baseline creatinine in the range of 3.5-3.7. Now progressed to stage V. #3. Hyperkalemia secondary to acute kidney injury as well as metabolic acidosis. Resolved. #4. Anion gap metabolic acidosis secondary to acute kidney injury. Resolved. #5. Mild hypernatremia secondary to lack of oral water intake. #6. Right lobe pneumonia. #7. Anemia of chronic kidney disease. #8. Chronic kidney disease mineral bone disease. Plan: Hemodialysis today. Maintain Aranesp. Nephrocaps daily. Maintain Tums. Stable to be discharged from nephrology standpoint once outpatient hemodialysis set up.
[2016-12-20 11:58] VITALS: BMI 23.8
[2016-12-20 12:15] LABS: Glucose,Whole Blood 126 mg/dL (75-99)
[2016-12-20] MEDS ORDERED: HEPARIN SODIUM,PORCINE 5,000 UNIT/ML 1 ML VIAL ONE (13:00)
[2016-12-20] MEDS: IPRATROPIUM-ALBUTEROL 3 ML NEB INHALATION SCH ×2 (13:49→13:50)
[2016-12-20 15:09] VITALS: BP 119/62; PULSE 67; TEMP 97.9
[2016-12-20] MEDS: DARBEPOETIN ALFA 40 MCG/0.4 ML SYRINGE SQ SCH (15:54)
--- NOTE | 2016-12-20 17:09 | DS ---
DATE OF ADMISSION: 12/06/2016 DATE OF DISCHARGE: FINAL DIAGNOSES: 1. Right lower lobe pneumonia with possible ( ) effusion, suspect gram-negative organism. 2. Chronic kidney disease, stage IV, from diabetic nephropathy. 3. Acute renal failure from acute tubular necrosis from sepsis. 4. Chronic obstructive pulmonary disease in an ex-smoker. 5. Alzheimer's dementia, late onset, no behavioral changes. 6. Essential hypertension. 7. Diabetes mellitus Type 2, chronically on oral medications. 8. 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 9. Hyperkalemia in the setting of renal failure. 10. Metabolic acidosis from renal failure. 11. Hypernatremia from free water deficit. 12. Acute delirium from sepsis improved. 13. Chronic anemia prerenal failure with acute component from hospital acquired anemia from blood draws. 14. Stage II sacral decubitus ulcer. CONSULTATION: 1. Dr. Lugo from nephrology. 2. Dr. James from vascular surgery. 3. Dr. Anaya from pulmonary. HOSPITAL COURSE: This patient presented with pneumonia and parapneumonic effusion that improved. The patient also was delirious. The patient's renal functions continued to go downhill. Patient initially was ( ) dialysis, ( ) the patient and the family decided to proceed with hemodialysis. Left chest wall dialysis catheter was placed. The patient getting dialysis. Patient will be going home either this evening or tomorrow morning. Patient on transport. On examination: LUNGS: Fair air entry. The patient able to answer simple questions. Patient has chronic bilateral below-knee amputation. DISCHARGE MEDICATIONS: 1. Xanax 0.25 p.o. b.i.d. p.r.n. 2. Multivitamin 1 tablet p.o. daily. 3. Lyrica 75 mg p.o. b.i.d. 4. Norvasc 10 mg p.o. daily. 5. Vitamin D 3000 units p.o. daily. 6. Sodium bicarbonate 650 mg p.o. b.i.d. 7. TUMS 1000 mg p.o. daily. 8. Nephrocaps 1 capsule p.o. daily. 9. Zinc oxide 20% topical b.i.d. Follow-up with Dr. Dickerson with hemodialysis. Follow-up with Dr. Bhatia. ( ) home care. The patient getting hemodialysis from home. Overall prognosis is guarded. DC planning more than 35 minutes
== END 2016-12-20 17:40 | disposition home health service (06) | DRG 177 ==
LOC: EC 15:45 → 5MS5E 19:22
PROVIDERS: ADMIT Hospitalist; ATTEND Hospitalist
PROC: 5A1D60Z (ICD-10-PCS; principal; 2016-12-16 08:00)
PROC: 05HN33Z Insertion of Infusion Device into Left Internal Jugular Vein, Percutaneous Approach (ICD-10-PCS; principal; 2016-12-16 08:00)
PROC: 30240N1 Transfusion of Nonautologous Red Blood Cells into Central Vein, Open Approach (ICD-10-PCS; 2016-12-16 08:00)
DX: J69.0 Pneumonitis due to inhalation of food and vomit (principal); A41.9 Sepsis, unspecified organism; N17.0 Acute kidney failure with tubular necrosis; R65.20 Severe sepsis without septic shock; I13.2 Hypertensive heart and chronic kidney disease with heart failure and with stage 5 chronic kidney disease, or end stage renal disease; E87.0 Hyperosmolality and hypernatremia; E87.4 Mixed disorder of acid-base balance; N18.5 Chronic kidney disease, stage 5; J44.0 Chronic obstructive pulmonary disease with (acute) lower respiratory infection; F05 Delirium due to known physiological condition; E87.1 Hypo-osmolality and hyponatremia; J15.6 Pneumonia due to other Gram-negative bacteria; L89.152 Pressure ulcer of sacral region, stage 2; R13.10 Dysphagia, unspecified; E11.21 Type 2 diabetes mellitus with diabetic nephropathy; G30.9 Alzheimer's disease, unspecified; E11.51 Type 2 diabetes mellitus with diabetic peripheral angiopathy without gangrene; D63.1 Anemia in chronic kidney disease; E11.22 Type 2 diabetes mellitus with diabetic chronic kidney disease; E11.649 Type 2 diabetes mellitus with hypoglycemia without coma; E86.9 Volume depletion, unspecified; E87.5 Hyperkalemia; F02.80 Dementia in other diseases classified elsewhere, unspecified severity, without behavioral disturbance, psychotic disturbance, mood disturbance, and anxiety; I50.9 Heart failure, unspecified; N13.9 Obstructive and reflux uropathy, unspecified; F32.9 Major depressive disorder, single episode, unspecified; F41.9 Anxiety disorder, unspecified; R19.7 Diarrhea, unspecified; K43.9 Ventral hernia without obstruction or gangrene; E83.9 Disorder of mineral metabolism, unspecified; M41.9 Scoliosis, unspecified; E83.51 Hypocalcemia; Z86.14 Personal history of Methicillin resistant Staphylococcus aureus infection; Z89.512 Acquired absence of left leg below knee; Z89.511 Acquired absence of right leg below knee; Z79.4 Long term (current) use of insulin; Z79.899 Other long term (current) drug therapy; Z88.1 Allergy status to other antibiotic agents
CPT/HCPCS: 36415; 36558; 71010; 71020; 76937; 77001; 80048; 80053; 82009; 82550; 82553; 82728; 82947; 83036; 83540; 83550; 83735; 83880; 84100; 84132; 84484; 85025; 85610; 85730; 86705; 86706; 86850; 86900; 86901; 86920; 87040; 87340; 90935; 93005; 94640; 94760; 96375; 99285

== ENCOUNTER 2016-12-23 19:44 | Inpatient (IN) | payer MEDICARE, OTHER ==
--- NOTE | 2016-12-23 20:08 | ED ---
General Adult HPI - General Chief complaint: Upper Respiratory Infection Stated complaint: pneumonia Time Seen by Provider: 12/23/16 19:44 Source: patient, RN/MD, EMS, RN notes reviewed, old records reviewed Mode of arrival: EMS Limitations: physical limitation - History of Present Illness Initial comments: This is a 81-year-old male with a history of multiple medical problems who was transferred from [facility] to this Hospital due to fear of recurrent pneumonia. Patient started having cough last night he did have dialysis today but had a persistent cough was sent to the emergency department in [place]. He is later transferred here for evaluation. He recently was discharged after an almost 2 week stay in the hospital. He denies any chest pain at this time he denies any fevers chills sweats. He was discharged 3 days ago from this hospital. - Related Data Home Medications Medication Instructions Recorded Confirmed ALPRAZolam [Xanax] 0.25 mg PO BID PRN 11/12/16 12/23/16 Multivitamins, Thera [Multivitamin] 1 tab PO DAILY 11/12/16 12/23/16 Pregabalin [Lyrica] 75 mg PO BID 11/12/16 12/23/16 amLODIPine BESYLATE [Norvasc] 10 mg PO DAILY 11/12/16 12/23/16 Cholecalciferol [Vitamin D3] 2,000 unit PO DAILY 12/06/16 12/23/16 Sodium Bicarbonate Tab 650 mg PO BID 12/06/16 12/23/16 Epoetin Dillon [Procrit] 10,000 unit IV Q14D 12/23/16 12/23/16 Folic Acid-Vit B Complex-Vit C 1 cap PO DAILY 12/23/16 12/23/16 [Nephrocaps] Previous Rx's Medication Instructions Recorded Calcium Carbonate [Tums] 1,000 mg PO BID chew 12/19/16 Zinc Oxide 20% Oint 1 applic TOPICAL BID #1 applic 12/19/16 Allergies Allergy/AdvReac Type Severity Reaction Status Date / Time daptomycin Allergy Unknown Verified 12/06/16 16:17 Penicillins Allergy Unknown Verified 12/23/16 20:11 Review of Systems ROS Statement: Those systems with pertinent positive or pertinent negative responses have been documented in the HPI. ROS Other: All systems not noted in ROS Statement are negative. Past Medical History Past Medical History: Heart Failure, COPD, Dementia, Diabetes Mellitus, Dialysis , Hypertension, Pneumonia, Renal Disease Additional Past Medical History / Comment(s): Dementia, multiple bouts of sepsis secondary to urine checked infection with infections with gram-negative bacteria, recent septicemia with blood cultures being positive for hemolytic strep., Chronic renal failure, episodic hyperkalemia, diabetes mellitus insulin -dependent, hypertension, chronic bilateral pleural effusion, sacral skin maceration with stage I disease, peripheral vascular disease with bilateral below-knee amputation, COPD, congestion heart failure, frequent urine checked infection, chronic indwelling Norman catheter, dysphagia with previous swallow evaluation did not reveal evidence of penetration or aspiration, anterior abdominal wall hernia, History of Any Multi-Drug Resistant Organisms: MRSA, Other MDRO, VRE Date of last positivie culture/infection: 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 Past Anesthesia/Blood Transfusion Reactions: No Reported Reaction Past Psychological History: Anxiety, Depression Additional Psychological History / Comment(s): Patient is cared for in a family home by his family. Former smoker. No significant history of alcohol or recreational drug use. Smoking Status: Former smoker Past Alcohol Use History: None Reported Past Drug Use History: None Reported - Past Family History Father Family Medical History: Diabetes Mellitus Additional Family Medical History / Comment(s): bleeding ulcer Mother Family Medical History: Dementia General Exam - General Exam Comments Initial Comments: This is a well-developed male who is awake and alert at this time. Limitations: physical limitation General appearance: alert, in no apparent distress Head exam: Present: atraumatic, normocephalic, normal inspection Eye exam: Present: normal appearance ENT exam: Present: normal exam, mucous membranes moist Neck exam: Present: normal inspection. Absent: tenderness, meningismus, lymphadenopathy Respiratory exam: Present: decreased breath sounds Cardiovascular Exam: Present: regular rate, normal rhythm, normal heart sounds. Absent: systolic murmur, diastolic murmur, rubs, gallop, clicks GI/Abdominal exam: Present: soft, normal bowel sounds, hernia. Absent: tenderness Rectal exam: Present: other (Patient does demonstrate sacral decubitus ulceration he'll be stage II also seen to the left buttock. Brown stool is present from the rectum.) Extremities exam: Present: other (Bilateral below-knee amputations no evidence of any surgical wound breakdown.) Psychiatric exam: Present: normal affect, normal mood Skin exam: Present: warm, dry, pallor Course Vital Signs 12/23/16 19:54 Temperature 98.2 F Pulse Rate 79 Respiratory 18 Rate Blood Pressure 170/70 O2 Sat by Pulse 92 L Oximetry Medical Decision Making - Medical Decision Making I did discuss the findings with the admission physician as well as review the submitted information from the sending hospital. Patient will be admitted nephrology will be consulted. - Lab Data Lab Results 12/23/16 12/23/16 Range/Units 20:10 20:10 Plasma Lactic Acid Geovani 0.9 (0.7-2.0) mmol/L Magnesium 1.7 (1.6-2.3) mg/dL - Radiology Data Radiology results: image reviewed (I did review the submitted CAT scan and chest x-ray. There is evidence of pleural effusions.) Disposition Clinical Impression: Pleural cavity effusion, Renal insufficiency syndrome, Dyspnea Disposition: ADMITTED IP TO THIS [facility] Condition: Stable
[2016-12-23] MEDS ORDERED: NALOXONE 0.4 MG/ML 1 ML VIAL IV PRN (21:41)
[2016-12-23] MEDS ORDERED: EPOETIN ALFA 10000 UNIT IV SCH (21:45)
[2016-12-23] MEDS: SODIUM CHLORIDE 0.9% 1,000 ML IV SCH (22:51)
[2016-12-24 00:57] LABS: Glucose,Whole Blood 142 mg/dL (75-99)
[2016-12-24 04:51] LABS: Basophils # (A) 0.1 k/uL (0-0.2); Basophils % (A) 1 %; CH 29.4; CHCM 31.2; Eosinophils % (A) 0 %; HCT 23.4 % (39.0-53.0); HDW 2.96; HGB 7.4 gm/dL (13.0-17.5); Hypochromasia Slight; Luc # (Auto) 0.45; Luc % (Auto) 4; Lymphocytes # (A) 0.9 k/uL (1.0-4.8); Lymphocytes % (A) 7 %; MCH 30.2 pg (25.0-35.0); MCHC 31.8 g/dL (31.0-37.0); Mean Platelet Volume 7.3; Monocytes # (A) 0.6 k/uL (0-1.0); Monocytes % (A) 5 %; Neutrophils # (A) 10.4 k/uL (1.3-7.7); Neutrophils % (A) 84 %; RBC 2.47 m/uL (4.30-5.90); RDW 15.7 % (11.5-15.5); WBC 12.4 k/uL (3.8-10.6); WBC (Perox) 12.89
[2016-12-24 04:55] LABS: Calcium 7.8 mg/dL (8.4-10.2); Magnesium 1.7 mg/dL (1.6-2.3); Phosphorous 3.4 mg/dL (2.5-4.5); Potassium 3.1 mmol/L (3.5-5.1); Total Bilirubin 0.4 mg/dL (0.2-1.3); Total Protein 5.1 g/dL (6.3-8.2)
[2016-12-24] MEDS: IPRATROPIUM-ALBUTEROL 3 ML NEB INHALATION SCH ×4 (07:45→19:31)
--- NOTE | 2016-12-24 07:53 | XR ---
EXAMINATION TYPE: XR chest 1V portable DATE OF EXAM: 12/24/2016 7:16 AM COMPARISON: 12/23/2016 HISTORY: Shortness of breath TECHNIQUE: Single frontal view of the chest is obtained. FINDINGS: Bilateral pleural effusion and infiltrate. Underlying COPD. Dialysis catheter stable. Arth ropathy shoulders. No pneumothorax. Apical pleural thickening. IMPRESSION: 1. COPD with bilateral infiltrate and pleural effusion. Pneumonia versus CHF. Underlying chronic inte rstitial lung disease suspected.
[2016-12-24] MEDS ORDERED: MAGNESIUM SULFATE-D5W PMX 1 GM in DEXTROSE/WATER 1 100ML.BAG IVPB ONE (08:00)
[2016-12-24] MEDS: FUROSEMIDE 10 MG/ML 4 ML VIAL IV SCH ×2 (08:38→21:58)
[2016-12-24] MEDS: CALCIUM CARBONATE 500 MG CHEWABLE PO SCH ×2 (08:38→21:57)
[2016-12-24] MEDS: CHOLECALCIFEROL 1,000 UNIT TAB PO SCH (08:38)
[2016-12-24] MEDS: SODIUM BICARBONATE TAB 650 MG TAB PO SCH ×2 (08:38→21:58)
[2016-12-24] MEDS: MULTIVITAMINS, THERA 1 EACH TAB PO SCH (08:39)
[2016-12-24] MEDS: ZINC OXIDE 20% OINT 28.4 GM TUBE TOPICAL SCH ×2 (08:39→21:58)
[2016-12-24] MEDS: PREGABALIN 75 MG CAP PO SCH ×2 (08:39→21:58)
[2016-12-24] MEDS: FOLIC ACID-VIT B COMPLEX-VIT C 1 CAP PO SCH (08:39)
[2016-12-24] MEDS: amLODIPine 10 MG TAB PO SCH (08:39)
[2016-12-24 08:50] LABS: Glucose,Whole Blood 107 mg/dL (75-99)
--- NOTE | 2016-12-24 10:03 | P.NPCON ---
History of Present Illness - Reason for Consult end stage renal disease - History of Present Illness Reason for consultation: End-stage renal disease History of present illness: Patient is a 81-year-old male seen in renal consultation for end- stage renal disease. He was recently started on dialysis earlier this month when he was admitted with pneumonia. Patient has been tolerating dialysis well. He was noted to have a productive cough outpost dialysis and was subsequent he sent to the hospital. Currently he is resting in bed. Denies any active chest pain or shortness of breath. Denies any vomiting or diarrhea. He did complete his dialysis yesterday. Hemodynamically he stable. He is afebrile. No other complaints at this time. His appetite is good. Vital signs are stable. General: The patient appeared well nourished and normally developed. HEENT: Head exam is unremarkable. Neck is without jugular venous distension. LUNGS: Lungs are clear to auscultation and percussion. Breath sounds decreased. HEART: Rate and Rhythm are regular. First and second heart sounds normal. No murmurs, rubs or gallops. ABDOMEN: Abdominal exam reveals normal bowel sounds. Non-tender and non- distended. No evidence of peritonitis. EXTREMITITES: Bilateral [id number] amputations noted. Past Medical History Past Medical History: Heart Failure, COPD, Dementia, Diabetes Mellitus, Dialysis , Hypertension, Pneumonia, Renal Disease Additional Past Medical History / Comment(s): Dementia, multiple bouts of sepsis secondary to urine checked infection with infections with gram-negative bacteria, recent septicemia with blood cultures being positive for hemolytic strep., Chronic renal failure, episodic hyperkalemia, diabetes mellitus insulin -dependent, hypertension, chronic bilateral pleural effusion, sacral skin maceration with stage I disease, peripheral vascular disease with bilateral below-knee amputation, COPD, congestion heart failure, frequent urine checked infection, chronic indwelling Norman catheter, dysphagia with previous swallow evaluation did not reveal evidence of penetration or aspiration, anterior abdominal wall hernia, History of Any Multi-Drug Resistant Organisms: MRSA, Other MDRO, VRE Date of last positivie culture/infection: 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 Past Anesthesia/Blood Transfusion Reactions: No Reported Reaction Past Psychological History: Anxiety, Depression Additional Psychological History / Comment(s): Patient is cared for in a family home by his family. Former smoker. No significant history of alcohol or recreational drug use. Smoking Status: Former smoker Past Alcohol Use History: None Reported Past Drug Use History: None Reported - Past Family History Father Family Medical History: Diabetes Mellitus Additional Family Medical History / Comment(s): bleeding ulcer Mother Family Medical History: Dementia Medications and Allergies Home Medications Medication Instructions Recorded Confirmed Type ALPRAZolam [Xanax] 0.25 mg PO BID PRN 11/12/16 12/23/16 History Multivitamins, Thera [Multivitamin] 1 tab PO DAILY 11/12/16 12/23/16 History Pregabalin [Lyrica] 75 mg PO BID 11/12/16 12/23/16 History amLODIPine BESYLATE [Norvasc] 10 mg PO DAILY 11/12/16 12/23/16 History Cholecalciferol [Vitamin D3] 2,000 unit PO DAILY 12/06/16 12/23/16 History Sodium Bicarbonate Tab 650 mg PO BID 12/06/16 12/23/16 History Epoetin Dillon [Procrit] 10,000 unit IV Q14D 12/23/16 12/23/16 History Folic Acid-Vit B Complex-Vit C 1 cap PO DAILY 12/23/16 12/23/16 History [Nephrocaps] Allergies Allergy/AdvReac Type Severity Reaction Status Date / Time daptomycin Allergy Unknown Verified 12/06/16 16:17 Penicillins Allergy Unknown Verified 12/23/16 20:11 Physical Exam Vitals: Vital Signs Temp Pulse Resp BP Pulse Ox 12/24/16 09:00 89 22 119/49 96 12/24/16 08:00 98.4 F 86 21 129/54 99 12/24/16 07:53 83 12/24/16 07:48 100 12/24/16 07:47 80 12/24/16 07:00 85 20 151/62 99 12/24/16 06:00 74 26 H 92/42 100 12/24/16 05:00 80 25 H 120/56 100 12/24/16 04:00 98.5 F 79 20 104/47 100 12/24/16 03:00 80 25 H 119/50 100 12/24/16 02:00 82 21 113/52 100 12/24/16 00:56 98.5 F 86 20 150/69 98 12/23/16 22:44 78 18 156/70 97 Intake and Output 12/23/16 12/24/16 12/24/16 22:59 06:59 14:59 Intake Total 120 Output Total 150 Balance -30 Intake: Intake, IV Titration 120 Amount Sodium Chloride 0.9% 1, 120 000 ml @ 20 mls/hr IV . Q24H [facility] Rx#:[id number] Output: Urine 150 Other: Voiding Method Indwelling Catheter Indwelling Catheter Weight 66.1 kg 66.1 kg 66.1 kg Patient Weight 12/25/16 06:59 Weight 66.1 kg Results - Lab Results Most recent lab results Calcium 7.8 mg/dL (8.4-10.2) L 12/24/16 04:27 Phosphorus 3.4 mg/dL (2.5-4.5) 12/24/16 04:27 Magnesium 1.7 mg/dL (1.6-2.3) 12/24/16 04:27 12/24/16 04:27 12/24/16 04:27 Assessment and Plan Plan: Assessment: #1. End-stage renal disease maintained on hemodialysis on a Sunday schedule via permacath. #2. Pneumonia. #3. Anemia of chronic kidney disease. Rule out iron deficiency. #4. Chronic kidney disease mineral bone disease. #5. Hypokalemia related to dialysis. He also has good urine output. #6. Hypomagnesemia. #7. Insulin-dependent diabetes mellitus. Plan: Replace potassium. 40 mEq today. Replace magnesium. 1 g today. Hemodialysis on Sunday. Check iron studies. Maintain epogen. Nephrocaps daily. Check phosphorus level. Avoid hypotension. To hold antihypertensives for systolic blood pressure less than 120. Thank you for the consultation. I will continue to follow the patient with you during his hospital stay.
[2016-12-24] MEDS: INSULIN LISPRO (humaLOG) 300 UNIT/3 ML VIAL SQ SCH ×4 (10:11→21:57)
[2016-12-24] MEDS: POTASSIUM CHLORIDE 20 MEQ, LIDOCAINE 2% INJ 20 MG in SODIUM CHLORIDE 0.9% 100 ML IVPB SCH ×2 (10:43→11:39)
[2016-12-24 12:37] LABS: % Iron Saturation 12.8 % (20-50)
[2016-12-24 12:38] LABS: Glucose,Whole Blood 144 mg/dL (75-99)
[2016-12-24 12:47] LABS: Hemoglobin A1C 5.3 % (4.2-6.1)
[2016-12-24 13:10] LABS: Glucose,Whole Blood 144 mg/dL (75-99)
--- NOTE | 2016-12-24 15:54 | P.CONS ---
History of Present Illness - Reason for Consult Consult date: 12/24/16 - Chief Complaint Shortness of breath and altered mental status - History of Present Illness Mr. Brayden Negro is a 81-year-old male who presents to [facility] facility with increasing shortness of breath. He also is having worsening of his baseline mental status. The patient's had multiple hospitalizations as of late. He has developed acute and chronic renal failure. And constantly he has been initiated hemodialysis within the last month. It is related to his dialysis center where he appeared to be more short of breath and was concerns to pneumonia as well as volume overload. And because he had altered mental status he was directed to hospital for admission. He was concerned to sepsis and the patient was brought into the intensive care unit. He has somewhat of a poor historian. He does have some baseline dementia although he is very pleasant overall. He does believe that his mother continues to help him in his home setting. Currently he relates that he is not very short of breath. He does have an occasional cough. No significant sputum production is noted. Nursing staff relates that he has been calm and pleasant. Review of Systems HEENT:Denies headache or acute visual change. Denies sinus or mouth discomforts. Denies neck stiffness or pain. Denies significant oral cavity pain. Denies difficulty on swallowing. Lungs: Relates that he does not feel real short of breath. He does have occasional cough no hemoptysis Cardiovascular: Denies significant shortness of breath, chest pain, chest wall pain, orthopnea, dyspnea on exertion, syncope Gastrointestinal:Denies nausea, vomiting, diarrhea, constipation, hematemesis, melena, hematochezia. No no significant change of bowel habit noticed. Musculoskeletal: denies significant myalgias or arthralgias. No new joint swelling. Denies new back pain. Skin: Denies new rash or lesions. No new ulcers or wounds are related.. Neuro: Denies headache or visual change. Chronic weakness. Psychiatric:Denies anxiety or depression. Endocrine: Does complain of fatigue and has had progressive weight loss over time. Past Medical History Past Medical History: Heart Failure, COPD, Dementia, Diabetes Mellitus, Dialysis , Hypertension, Pneumonia, Renal Disease Additional Past Medical History / Comment(s): Dementia, multiple bouts of sepsis secondary to urine checked infection with infections with gram-negative bacteria, recent septicemia with blood cultures being positive for hemolytic strep., Chronic renal failure, episodic hyperkalemia, diabetes mellitus insulin -dependent, hypertension, chronic bilateral pleural effusion, sacral skin maceration with stage I disease, peripheral vascular disease with bilateral below-knee amputation, COPD, congestion heart failure, frequent urine checked infection, chronic indwelling Norman catheter, dysphagia with previous swallow evaluation did not reveal evidence of penetration or aspiration, anterior abdominal wall hernia, History of Any Multi-Drug Resistant Organisms: MRSA, Other MDRO, VRE Year Discovered:: 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 Past Anesthesia/Blood Transfusion Reactions: No Reported Reaction Past Psychological History: Anxiety, Depression Additional Psychological History / Comment(s): Patient is cared for in a family home by his family. Former smoker. No significant history of alcohol or recreational drug use. Smoking Status: Former smoker Past Alcohol Use History: None Reported Past Drug Use History: None Reported - Past Family History Father Family Medical History: Diabetes Mellitus Additional Family Medical History / Comment(s): bleeding ulcer Mother Family Medical History: Dementia Medications and Allergies Home Medications and Allergies Comment(s): Current Medications Albuterol/Ipratropium (Duoneb 0.5 Mg-3 Mg/3 Ml Soln) 3 ml INHALATION RT-QID [facility] Last Admin: 12/24/16 15:35 Dose: 3 ml Alprazolam (Xanax) 0.25 mg PO BID PRN PRN Reason: Anxiety Amlodipine Besylate (Norvasc) 10 mg PO DAILY [facility] Last Admin: 12/24/16 08:39 Dose: 10 mg Calcium Carbonate/Glycine (Tums) 1,000 mg PO BID [facility] Last Admin: 12/24/16 08:38 Dose: 1,000 mg Cholecalciferol (Vitamin D3) 2,000 unit PO DAILY [facility] Last Admin: 12/24/16 08:38 Dose: 2,000 unit Furosemide (Lasix) 40 mg IV Q12HR [facility] Last Admin: 12/24/16 08:38 Dose: 40 mg Sodium Chloride (Saline 0.9%) 1,000 mls @ 20 mls/hr IV .Q24H [facility] Last Admin: 12/23/16 22:51 Dose: 20 mls/hr Insulin Human Lispro (Humalog) 0 unit SQ ACHS [facility] PRN Reason: Protocol Last Admin: 12/24/16 12:37 Dose: 1 unit Multi-Ingredient Ointment (Zinc Oxide 20% Oint) 1 applic TOPICAL BID [facility] Last Admin: 12/24/16 08:39 Dose: 1 applic Multivit/Ca Carb/B Cmplx/FA/Prenat (Nephrocaps) 1 each PO DAILY [facility] Last Admin: 12/24/16 08:39 Dose: 1 each Multivitamins (Theragran) 1 each PO DAILY [facility] Last Admin: 12/24/16 08:39 Dose: 1 each Naloxone HCl (Narcan) 0.2 mg IV Q2M PRN PRN Reason: Opioid Reversal Non-Formulary Medication (Epoetin Dillon) 10,000 unit IV Q14D [facility] Pregabalin (Lyrica) 75 mg PO BID [facility] Last Admin: 12/24/16 08:39 Dose: 75 mg Sodium Bicarbonate (Sodium Bicarbonate Tab) 650 mg PO BID [facility] Last Admin: 12/24/16 08:38 Dose: 650 mg Home Medications Medication Instructions Recorded Confirmed Type ALPRAZolam [Xanax] 0.25 mg PO BID PRN 11/12/16 12/23/16 History Multivitamins, Thera [Multivitamin] 1 tab PO DAILY 11/12/16 12/23/16 History Pregabalin [Lyrica] 75 mg PO BID 11/12/16 12/23/16 History amLODIPine BESYLATE [Norvasc] 10 mg PO DAILY 11/12/16 12/23/16 History Cholecalciferol [Vitamin D3] 2,000 unit PO DAILY 12/06/16 12/23/16 History Sodium Bicarbonate Tab 650 mg PO BID 12/06/16 12/23/16 History Epoetin Dillon [Procrit] 10,000 unit IV Q14D 12/23/16 12/23/16 History Folic Acid-Vit B Complex-Vit C 1 cap PO DAILY 12/23/16 12/23/16 History [Nephrocaps] Allergies Allergy/AdvReac Type Severity Reaction Status Date / Time daptomycin Allergy Unknown Verified 12/06/16 16:17 Penicillins Allergy Unknown Verified 12/23/16 20:11 Physical Exam Vitals: Vital Signs Temp Pulse Resp BP Pulse Ox 12/24/16 15:37 73 12/24/16 12:00 98.4 F 84 20 107/44 95 12/24/16 11:49 82 12/24/16 11:41 86 12/24/16 11:00 76 25 H 107/44 98 12/24/16 10:00 80 20 85/37 98 12/24/16 09:00 89 22 119/49 96 12/24/16 08:00 98.4 F 86 21 129/54 99 12/24/16 07:53 83 12/24/16 07:48 100 12/24/16 07:47 80 12/24/16 07:00 85 20 151/62 99 12/24/16 06:00 74 26 H 92/42 100 12/24/16 05:00 80 25 H 120/56 100 12/24/16 04:00 98.5 F 79 20 104/47 100 12/24/16 03:00 80 25 H 119/50 100 12/24/16 02:00 82 21 113/52 100 12/24/16 00:56 98.5 F 86 20 150/69 98 12/23/16 22:44 78 18 156/70 97 Intake and Output 12/24/16 12/24/16 12/24/16 06:59 14:59 22:59 Intake Total 120 Output Total 150 300 Balance -30 -300 Intake: Intake, IV Titration 120 Amount Sodium Chloride 0.9% 1, 120 000 ml @ 20 mls/hr IV . Q24H [facility] Rx#:[id number] Output: Urine 150 300 Other: Voiding Method Indwelling Catheter Indwelling Catheter Weight 66.1 kg 66.1 kg Patient Weight 12/25/16 06:59 Weight 66.1 kg On the exam Mr. Brayden Negro is a pleasant woman who is much more awake alert and described the time of his admission. He is afebrile at this time. HEENT exam: Is also begin nasal oral lesions the neck was supple without significant lymphadenopathy or palpable thyromegaly. Lungs: Good bilateral air entry with a few basilar crackles being heard no dullness was noted. Heart:Regular rate and rhythm with an audible S1-S2 no history soft S4 without distinct murmur click or rub. Abdomen positive bowel sounds soft nontender without palpable masses or organomegaly no guarding or rebound. Extremities the bilaterally below the knee amputation residual limb are evaluated without edema or lesions. Neurologically: Patient is awake and alert interactive upon stimulation his speech is understandable but does have poor quality of content. Upon questioning he does state that his mother cares for his Norman catheter. Skin: The residual limbs are without evidence of lesions. There is evidence of the pressure ulceration to the coccyx and buttocks that is stage III at this point in time. There is not a large amount of necrosis however. There is only minimal drainage. And is not tender to manipulation. Please see the nursing photography for measurement. However the Norman catheter has caused be complete splaying of the penis right to its base of the scrotum. There is evidence of significant irritation to that tissue likely from some leakage of the urine around the catheter. There is evidence of a possible uroma into the scrotum itself. Which is not tender Results CBC & Chem 7: 12/24/16 04:27 12/24/16 04:27 Labs: Abnormal Lab Results - Last 24 Hours (Table) 12/24/16 12/24/16 12/24/16 Range/Units 00:55 04:27 04:27 WBC 12.4 H (3.8-10.6) k/uL RBC 2.47 L (4.30-5.90) m/uL Hgb 7.4 L (13.0-17.5) gm/dL Hct 23.4 L (39.0-53.0) % RDW 15.7 H (11.5-15.5) % Neutrophils # 10.4 H (1.3-7.7) k/uL Lymphocytes # 0.9 L (1.0-4.8) k/uL Potassium 3.1 L (3.5-5.1) mmol/L Creatinine 2.00 H (0.66-1.25) mg/dL Glucose 119 H (74-99) mg/dL POC Glucose (mg/dL) 142 H (75-99) mg/dL Calcium 7.8 L (8.4-10.2) mg/dL Iron (49-181) ug/dL TIBC (261-462) ug/dL % Saturation (20-50) % Ferritin (18-464) ng/mL Total Protein 5.1 L (6.3-8.2) g/dL Albumin 2.2 L (3.5-5.0) g/dL 12/24/16 12/24/16 12/24/16 Range/Units 04:27 08:47 12:36 WBC (3.8-10.6) k/uL RBC (4.30-5.90) m/uL Hgb (13.0-17.5) gm/dL Hct (39.0-53.0) % RDW (11.5-15.5) % Neutrophils # (1.3-7.7) k/uL Lymphocytes # (1.0-4.8) k/uL Potassium (3.5-5.1) mmol/L Creatinine (0.66-1.25) mg/dL Glucose (74-99) mg/dL POC Glucose (mg/dL) 107 H 144 H (75-99) mg/dL Calcium (8.4-10.2) mg/dL Iron 17 L (49-181) ug/dL TIBC 133 L (261-462) ug/dL % Saturation 12.8 L (20-50) % Ferritin 1630 H (18-464) ng/mL Total Protein (6.3-8.2) g/dL Albumin (3.5-5.0) g/dL 12/24/16 Range/Units 13:08 WBC (3.8-10.6) k/uL RBC (4.30-5.90) m/uL Hgb (13.0-17.5) gm/dL Hct (39.0-53.0) % RDW (11.5-15.5) % Neutrophils # (1.3-7.7) k/uL Lymphocytes # (1.0-4.8) k/uL Potassium (3.5-5.1) mmol/L Creatinine (0.66-1.25) mg/dL Glucose (74-99) mg/dL POC Glucose (mg/dL) 144 H (75-99) mg/dL Calcium (8.4-10.2) mg/dL Iron (49-181) ug/dL TIBC (261-462) ug/dL % Saturation (20-50) % Ferritin (18-464) ng/mL Total Protein (6.3-8.2) g/dL Albumin (3.5-5.0) g/dL Laboratory Results WBC 12.4 k/uL (3.8-10.6) H 12/24/16 04:27 RBC 2.47 m/uL (4.30-5.90) L 12/24/16 04:27 Hgb 7.4 gm/dL (13.0-17.5) L 12/24/16 04:27 Hct 23.4 % (39.0-53.0) L 12/24/16 04:27 MCV 95.0 fL (80.0-100.0) 12/24/16 04:27 MCH 30.2 pg (25.0-35.0) 12/24/16 04:27 MCHC 31.8 g/dL (31.0-37.0) 12/24/16 04:27 RDW 15.7 % (11.5-15.5) H 12/24/16 04:27 Plt Count 236 k/uL (150-450) D 12/24/16 04:27 Neutrophils % 84 % 12/24/16 04:27 Lymphocytes % 7 % 12/24/16 04:27 Monocytes % 5 % 12/24/16 04:27 Eosinophils % 0 % 12/24/16 04:27 Basophils % 1 % 12/24/16 04:27 Neutrophils # 10.4 k/uL (1.3-7.7) H 12/24/16 04:27 Lymphocytes # 0.9 k/uL (1.0-4.8) L 12/24/16 04:27 Monocytes # 0.6 k/uL (0-1.0) 12/24/16 04:27 Eosinophils # 0.0 k/uL (0-0.7) 12/24/16 04:27 Basophils # 0.1 k/uL (0-0.2) 12/24/16 04:27 Hypochromasia Slight 12/24/16 04:27 Sodium 139 mmol/L (137-145) 12/24/16 04:27 Potassium 3.1 mmol/L (3.5-5.1) L 12/24/16 04:27 Chloride 103 mmol/L (98-107) 12/24/16 04:27 Carbon Dioxide 25 mmol/L (22-30) 12/24/16 04:27 Anion Gap 11 mmol/L 12/24/16 04:27 BUN 12 mg/dL (9-20) 12/24/16 04:27 Creatinine 2.00 mg/dL (0.66-1.25) H 12/24/16 04:27 Est GFR (MDRD) Af Amer 39 (>60 ml/min/1.73 sqM) 12/24/16 04:27 Est GFR (MDRD) Non-Af 32 (>60 ml/min/1.73 sqM) 12/24/16 04:27 Glucose 119 mg/dL (74-99) H 12/24/16 04:27 POC Glucose (mg/dL) 144 mg/dL (75-99) H 12/24/16 13:08 POC Glu [employer] ID 12/24/16 13:[address] Glu mg/dL 105 mg/dL 12/24/16 04:23 Hemoglobin A1c 5.3 % (4.2-6.1) 12/24/16 04:23 Plasma Lactic Acid Geovani 0.9 mmol/L (0.7-2.0) 12/23/16 20:10 Calcium 7.8 mg/dL (8.4-10.2) L 12/24/16 04:27 Phosphorus 3.6 mg/dL (2.5-4.5) 12/24/16 11:03 Magnesium 1.7 mg/dL (1.6-2.3) 12/24/16 04:27 Iron 17 ug/dL (49-181) L 12/24/16 04:27 TIBC 133 ug/dL (261-462) L 12/24/16 04:27 % Saturation 12.8 % (20-50) L 12/24/16 04:27 Ferritin 1630 ng/mL (18-464) H 12/24/16 04:27 Total Bilirubin 0.4 mg/dL (0.2-1.3) 12/24/16 04:27 AST 19 U/L (17-59) 12/24/16 04:27 ALT 30 U/L (21-72) 12/24/16 04:27 Alkaline Phosphatase 110 U/L (38-126) 12/24/16 04:27 Total Protein 5.1 g/dL (6.3-8.2) L 12/24/16 04:27 Albumin 2.2 g/dL (3.5-5.0) L 12/24/16 04:27 Microbiology 12/23/16 20:10 Blood Blood Culture Gram Stain - Preliminary 12/23/16 20:10 Blood Blood Culture - Preliminary Assessment and Plan (1) Right lower lobe pneumonia Narrative/Plan: Pleasant 81-year-old male who presents the hospital after being evaluated at dialysis Center reappeared to be short of breath and more confused. Because of this he was transferred to the emergency center and admitted. With concerns to sepsis, pneumonia and needs for hemodialysis he was admitted to hospital. The patient's chest x-ray has been evaluated with potential for right lower lobe infiltrate however the possibility of volume overload was also noted. It is time he is comfortable. He is not coughing significantly. His fever has improved. There is evidence of the blood cultures are positive at this time with gram- positive cocci. He has ALLERGIES to daptomycin and penicillin. With his history he has had alpha strep and beta strep and his blood. In klebsiella and Enterobacter in his urine. With this Ceftaroline will be initiated and follow blood cultures requested. He has on appropriate mattress. There is notation of a pressure ulceration to his coccyx and buttocks. The optifoam dressing is in place. Patient is tolerating it well. Nutritional status will be evaluated and supplemented as needed. Status: Acute (2) Bacteremia due to Gram-positive bacteria Status: Acute (3) Chronic renal failure, stage 5 Status: Acute
[2016-12-24 16:59] LABS: Glucose,Whole Blood 130 mg/dL (75-99)
[2016-12-24 21:26] LABS: Glucose,Whole Blood 149 mg/dL (75-99)
[2016-12-24] MEDS: SODIUM CHLORIDE 0.9% 1,000 ML IV SCH (21:58)
[2016-12-24] MEDS: SODIUM CHLORIDE 0.9% IVPB SCH (21:59)
[2016-12-24] MEDS: CEFTAROLINE FOSAMIL IVPB SCH (21:59)
[2016-12-25 07:38] LABS: Glucose,Whole Blood 111 mg/dL (75-99)
[2016-12-25] MEDS: IPRATROPIUM-ALBUTEROL 3 ML NEB INHALATION SCH ×4 (07:59→20:05)
[2016-12-25] MEDS: SODIUM CHLORIDE 0.9% IVPB SCH ×2 (08:27→21:44)
[2016-12-25] MEDS: CEFTAROLINE FOSAMIL IVPB SCH ×2 (08:27→21:44)
[2016-12-25] MEDS: amLODIPine 10 MG TAB PO SCH (08:28)
[2016-12-25] MEDS: SODIUM BICARBONATE TAB 650 MG TAB PO SCH ×2 (08:28→22:28)
[2016-12-25] MEDS: CHOLECALCIFEROL 1,000 UNIT TAB PO SCH (08:28)
[2016-12-25] MEDS: CALCIUM CARBONATE 500 MG CHEWABLE PO SCH ×2 (08:28→22:28)
[2016-12-25] MEDS: MULTIVITAMINS, THERA 1 EACH TAB PO SCH (08:28)
[2016-12-25] MEDS: FUROSEMIDE 10 MG/ML 4 ML VIAL IV SCH ×2 (08:28→22:00)
[2016-12-25] MEDS: PREGABALIN 75 MG CAP PO SCH ×2 (08:28→22:28)
[2016-12-25] MEDS: FOLIC ACID-VIT B COMPLEX-VIT C 1 CAP PO SCH (08:29)
[2016-12-25] MEDS: INSULIN LISPRO (humaLOG) 300 UNIT/3 ML VIAL SQ SCH ×4 (08:29→21:39)
[2016-12-25] MEDS: ZINC OXIDE 20% OINT 28.4 GM TUBE TOPICAL SCH ×2 (08:30→21:40)
--- NOTE | 2016-12-25 09:41 | HP ---
DATE OF ADMISSION: 12/23/2016 PRESENTING COMPLAINT: Cough. HISTORY OF PRESENTING COMPLAINT: This is an 81-year-old patient who was just discharged from hospital on 12/19/2016 after a protracted. Was sent here from [facility]. Patient on last admission had a right lower lobe pneumonia with a possible parapneumonic effusion. Also had advancing kidney disease. Patient then had hemodialysis, catheter placed and started on hemodialysis. Patient's other chronic stable medical conditions include chronic obstructive pulmonary disease, Alzheimer's dementia, hypertension, diabetes mellitus type 2, chronic Norman cath and the patient has a known stage II sacral decubitus ulcer. Patient was noted to have a fever at the facility, bouts of coughing and blood cultures came back positive. Seen by Dr. Sanders and placed on IV ceftaroline. Patient is on hemodialysis. REVIEW OF SYSTEMS: CONSTITUTIONAL: Tired. HEENT: None. RESPIRATORY: As above. CARDIOVASCULAR: None. GASTROINTESTINAL: None. GENITOURINARY: None. DERMATOLOGICAL: Stage II decubitus ulcer. LYMPHATICS: None. PSYCHIATRY: Slightly confused. NEUROLOGICAL: None. PAST MEDICAL HISTORY: 1. Recent right lower lobe pneumonia, parapneumonic effusion. 2. End stage kidney disease on hemodialysis. 3. COPD. 4. Alzheimer's dementia. 5. Hypertension. 6. Diabetes mellitus type 2. 7. Chronic urinary outflow obstruction. 8. Chronic anemia. 9. Stage II sacral decubitus ulcer. 10. Peripheral artery disease with bilateral below knee amputation. Patient's prior infectious history includes MRSA, VRE, pseudomonas infection. PAST SURGICAL HISTORY: Bowel resection, hernia repair, bilateral below-knee amputation, abdominal surgery with bowel resection. SOCIAL HISTORY: The patient is currently in the E[facility]. Did smoke in the past. No alcohol history. FAMILY HISTORY: Diabetes mellitus type 2. HOME MEDICATIONS: Norvasc 10 mg a day, zinc oxide 20% application topical b.i.d., sodium bicarbonate 650 mg b.i.d., Lyrica 75 mg t.i.d., multivitamin 1 tablet p.o. daily, Nephrocaps 1 capsule daily, Procrit 10,000 units IV every 14 days, vitamin D3 2000 units p.o. daily, TUMS 1000 mg p.o. b.i.d., Xanax 0.25 p.o. b.i.d. p.r.n. ALLERGIES: ALDACTONE, PENICILLIN. On examination, temperature 98.4, pulse 80, respirations 21, blood pressure 120/54, pulse ox 99% on 2 liters GENERAL APPEARANCE: Average build, tired appearing, lying in bed. EYES: Pupils equal. Conjunctivae normal. HEENT: External appearance of nose and ears normal. Oral cavity with dry mucous membrane. NECK: JVD not raised. Mass not palpable. RESPIRATORY: Effort normal. Decreased breath sounds on the right side base. CARDIOVASCULAR: First and second sounds normal. No edema. ABDOMEN: Soft, nontender. Liver and spleen not palpable. LYMPHATIC: No lymph node palpable in neck or axillae. PSYCHIATRY: Patient answering simple questions. INVESTIGATIONS: White count 12.4. hemoglobin 7.4. Potassium 3.1, BUN 12, creatinine 2.0 The patient's white count was 4.8 on 12/17/2016. Patient blood culture growing gram-positive cocci in clusters. ASSESSMENT: 1. This is a patient who presents now with a sepsis-like picture with positive blood cultures growing gram-positive cocci clusters. It may be noted that the patient recently had a hemodialysis catheter placed. There is also a question about right lower lobe pneumonia and patient was recently treated for the same. 2. End-stage kidney disease on hemodialysis. 3. Chronic obstructive pulmonary disease in an ex-smoker. 4. Alzheimer's dementia, late onset, no behavioral changes. 5. Essential hypertension. 6. Diabetes mellitus type 2, chronically on medication. 7. 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 8. Acute delirium from sepsis from above, big change from his baseline when he left from here. 9. Stage II sacral decubitus ulcer, present on admission. PLAN: Patient was put on IV ceftaroline. Home medications are resumed. Nephrology and ID were consulted. No family is at the bedside. Overall prognosis is guarded.
[2016-12-25] MEDS ORDERED: VANCOMYCIN 1,000 MG in SODIUM CHLORIDE 0.9% 250 ML IVPB STA (10:26)
--- NOTE | 2016-12-25 11:03 | P.PN ---
Subjective Patient is seen in follow-up for end-stage renal disease. He was recently started on hemodialysis last week and is maintained on a Sunday schedule. He has a permacath in place. He presented with a persistent cough. Currently resting in bed. Denies any chest shortness of breath. No vomiting or diarrhea. Vital signs are stable. General: The patient appeared well nourished and normally developed. HEENT: Head exam is unremarkable. Neck is without jugular venous distension. LUNGS: Lungs are clear to auscultation and percussion. Breath sounds decreased. HEART: Rate and Rhythm are regular. First and second heart sounds normal. No murmurs, rubs or gallops. ABDOMEN: Abdominal exam reveals normal bowel sounds. Non-tender and non- distended. No evidence of peritonitis. EXTREMITITES: No clubbing, cyanosis, or edema. Bilateral [id number] amputations noted. Objective - Vital Signs Vital signs: Vital Signs Temp 97.1 F L 12/25/16 07:00 Pulse 68 12/25/16 08:15 Resp 17 12/25/16 08:00 BP 122/63 12/25/16 07:00 Pulse Ox 96 12/25/16 08:02 Intake & Output 12/24/16 12/25/16 12/25/16 18:59 06:59 18:59 Intake Total 530 Output Total 300 500 Balance -300 30 Weight 66.1 kg 66.1 kg Intake: IV 280 Sodium Chloride 0.9% 1, 280 000 ml @ 20 mls/hr IV . Q24H [facility] Rx#:[id number] Intake, IV Titration 250 Amount Ceftaroline Fosamil 200 250 mg In Sodium Chloride 0.9 % 250 ml @ 250 mls/hr IVPB Q12HR [facility] Rx#: [id number] Output: Urine 300 500 Other: Voiding Method Indwelling Catheter Indwelling Catheter Indwelling Catheter - Labs CBC & Chem 7: 12/24/16 04:27 12/24/16 19:09 Labs: Abnormal Lab Results - Last 24 Hours (Table) 12/24/16 12/24/16 12/24/16 Range/Units 04:27 11:03 12:36 Potassium (3.5-5.1) mmol/L POC Glucose (mg/dL) 144 H (75-99) mg/dL Iron 17 L (49-181) ug/dL TIBC 133 L (261-462) ug/dL % Saturation 12.8 L (20-50) % Ferritin 1630 H (18-464) ng/mL Prealbumin 8 L (18-36) mg/dL 12/24/16 12/24/16 12/24/16 Range/Units 13:08 16:56 19:09 Potassium 3.3 L (3.5-5.1) mmol/L POC Glucose (mg/dL) 144 H 130 H (75-99) mg/dL Iron (49-181) ug/dL TIBC (261-462) ug/dL % Saturation (20-50) % Ferritin (18-464) ng/mL Prealbumin (18-36) mg/dL 12/24/16 12/25/16 Range/Units 21:24 07:36 Potassium (3.5-5.1) mmol/L POC Glucose (mg/dL) 149 H 111 H (75-99) mg/dL Iron (49-181) ug/dL TIBC (261-462) ug/dL % Saturation (20-50) % Ferritin (18-464) ng/mL Prealbumin (18-36) mg/dL Assessment and Plan Plan: Assessment: #1. End-stage renal disease maintained on hemodialysis on a Sunday schedule via permacath. #2. Pneumonia. #3. Anemia of chronic kidney disease. High ferritin levels noted. #4. Chronic kidney disease mineral bone disease. #5. Hypokalemia related to dialysis. He also has good urine output. #6. Hypomagnesemia. #7. Insulin-dependent diabetes mellitus. #8. MRSA bacteremia. Plan: Hemodialysis on Sunday. Maintain epogen. Nephrocaps daily. Antibiotics per infectious disease recommendations. Follow-up cultures. Will discuss with infectious disease if dialysis catheter needs to be discontinued. Avoid hypotension. To hold antihypertensives for systolic blood pressure less than 120.
[2016-12-25 12:21] LABS: Glucose,Whole Blood 133 mg/dL (75-99)
--- NOTE | 2016-12-25 12:58 | CDI ---
In responding to this query, please exercise your independent professional judgment. The [facility] Coding Staff and Clinical Documentation Specialists appreciate your assistance in clarifying documentation, maintaining compliance with coding guidelines, accurately documenting patients condition and capturing severity of illness. The fact that a question is asked does not imply that any particular answer is desired or expected. Communication forms are a method of clarifying documentation and are not made part of the Legal Health Record. Thank you in advance for your clarification. Last Revision, September 2015 Sara Rmasay [address] [facility] [place] [address] Documentation Clarification Form Date: 12/25/2016 12:45:00 PM From: Lance Peter, RN, BSN, CDI Admit Date: 12/23/2016 9:41:00 PM Patient Name: Brayden Negro Visit Number: [id number] Dr. Zhao Dixon: "Acute delirium from sepsis (big change from baseline mentation)" is documented in the H&P. History/Risk factors: 81 yo male with history of CHF, Alzheimer's dementia, ESRD on HD, DM, COPD with recent hospitalization for PNA. He has a chronic indwelling buenrostro for urinary outflow obstruction. Presents with stage II sacral decub. Clinical Indicators: Labs: blood cultures + for MRSA, WBC: 12.4 CXR: COPD w/ bilateral infiltrates and pleural effusion (PNA vs CHF is suspected) Treatment: Teflaro q12 Consults: ID, pulmonary and nephrology Other: recent HD catheter placed In your professional opinion, can you please clarify the specific type of encephalopathy (if appropriate)? Metabolic Encephalopathy Septic Encephalopathy Toxic Encephalopathy Other, please specify Unable to determine Please document in your progress notes and discharge summary in order to capture severity of illness and risk of mortality. Include clinical findings that support your diagnosis. FYI: Press F11 to launch patient chart. Place X here if this finding has no clinical significance, is not applicable or if you are not able to provide any additional documentation. MTDD
[2016-12-25 17:13] LABS: Glucose,Whole Blood 126 mg/dL (75-99)
--- NOTE | 2016-12-25 17:37 | P.CNPUL ---
History of Present Illness Consult date: 12/25/16 Reason for consult: pneumonia History of present illness: 81-year-old male who presents to Hospital from extended Care facility with increasing shortness of breath. He also is having worsening of his baseline mental status. The patient's had multiple hospitalizations as of late. He has developed acute and chronic renal failure. And constantly he has been initiated hemodialysis within the last month. Patient has a left subclavian permacath in place. It is related to his dialysis center where he appeared to be more short of breath and was concerns to pneumonia as well as volume overload. And because he had altered mental status he was directed to hospital for admission. He was concerned to sepsis.The patient was admitted to the hospital for further evaluation. The preliminary blood cultures are showing gram-positive cocci and is presumed or presumptive MRSA. For that reason, the patient was started on IV Teflaro. Note that the patient is ALLERGIC to daptomycin and vancomycin from previous hospitalizations. Currently is hemodynamically stable. He is afebrile. He is still confused. He has sacral decubitus ulceration stage II and we are applying zinc oxide and OptiForm to the involved area. The dialysis exit site is clean and intact at this point. ID is on the case. In terms of his breathing, there is always a concern of this patient potentially having aspiration versus hospital-acquired pneumonia. Nevertheless, I reviewed the chest x-ray which shows only small atelectatic changes/effusion the lung bases bilaterally. Dialysis catheter is in place. He has no cough or sputum production. No signs of any respiratory distress. Affect the patient is on room air oxygen for now. Past Medical History Past Medical History: Heart Failure, COPD, Dementia, Diabetes Mellitus, Dialysis , Hypertension, Pneumonia, Renal Disease Additional Past Medical History / Comment(s): Dementia, multiple bouts of sepsis secondary to urine checked infection with infections with gram-negative bacteria, recent septicemia with blood cultures being positive for hemolytic strep., Chronic renal failure, episodic hyperkalemia, diabetes mellitus insulin -dependent, hypertension, chronic bilateral pleural effusion, sacral skin maceration with stage I disease, peripheral vascular disease with bilateral below-knee amputation, COPD, congestion heart failure, frequent urine checked infection, chronic indwelling Norman catheter, dysphagia with previous swallow evaluation did not reveal evidence of penetration or aspiration, anterior abdominal wall hernia, History of Any Multi-Drug Resistant Organisms: MRSA, Other MDRO, VRE Date of last positivie culture/infection: 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 Past Anesthesia/Blood Transfusion Reactions: No Reported Reaction Past Psychological History: Anxiety, Depression Additional Psychological History / Comment(s): Patient is cared for in a family home by his family. Former smoker. No significant history of alcohol or recreational drug use. Smoking Status: Former smoker Past Alcohol Use History: None Reported Past Drug Use History: None Reported - Past Family History Father Family Medical History: Diabetes Mellitus Additional Family Medical History / Comment(s): bleeding ulcer Mother Family Medical History: Dementia Medications and Allergies Home Medications Medication Instructions Recorded Confirmed Type ALPRAZolam [Xanax] 0.25 mg PO BID PRN 11/12/16 12/23/16 History Multivitamins, Thera [Multivitamin] 1 tab PO DAILY 11/12/16 12/23/16 History Pregabalin [Lyrica] 75 mg PO BID 11/12/16 12/23/16 History amLODIPine BESYLATE [Norvasc] 10 mg PO DAILY 11/12/16 12/23/16 History Cholecalciferol [Vitamin D3] 2,000 unit PO DAILY 12/06/16 12/23/16 History Sodium Bicarbonate Tab 650 mg PO BID 12/06/16 12/23/16 History Epoetin Dillon [Procrit] 10,000 unit IV Q14D 12/23/16 12/25/16 History Folic Acid-Vit B Complex-Vit C 1 cap PO DAILY 12/23/16 12/23/16 History [Nephrocaps] Allergies Allergy/AdvReac Type Severity Reaction Status Date / Time daptomycin Allergy Unknown Verified 12/06/16 16:17 Penicillins Allergy Unknown Verified 12/23/16 20:11 Physical Exam Vitals: Vital Signs Temp Pulse Pulse Resp BP BP Pulse Ox 12/25/16 15:50 76 12/25/16 15:44 18 12/25/16 15:39 72 12/25/16 15:00 98.8 F 78 18 122/58 97 12/25/16 11:50 72 12/25/16 11:37 72 12/25/16 08:15 68 12/25/16 08:02 68 96 12/25/16 08:00 17 12/25/16 07:00 97.1 F L 69 16 122/63 99 12/24/16 23:00 97.8 F 75 17 119/60 96 12/24/16 22:00 76 22 101/42 100 12/24/16 21:00 74 20 100 12/24/16 20:00 98.4 F 76 99/40 88 L 12/24/16 19:43 78 12/24/16 19:33 78 12/24/16 19:00 70 24 99/40 92 L 12/24/16 18:00 72 18 96/43 94 L Intake and Output 12/25/16 12/25/16 12/25/16 06:59 14:59 22:59 Intake Total 220 Output Total 200 200 Balance 20 -200 Intake: IV 220 Sodium Chloride 0.9% 1, 220 000 ml @ 20 mls/hr IV . Q24H [facility] Rx#:[id number] Output: Urine 200 200 Other: Voiding Method Indwelling Catheter Indwelling Catheter Indwelling Catheter # Bowel Movements 1 Weight 66.1 kg Patient Weight 12/26/16 06:59 Weight 66.1 kg Alerts awake yet confused. No signs of any respiratory distress.Head exam was generally normal. There was no scleral icterus or corneal arcus. Mucous membranes were moist.Neck was supple and without jugular venous distension, thyromegaly, or carotid bruits. Carotids were easily palpable bilaterally. There was no adenopathy. The patient is edentulous. No thrush. The site of the left internal jugular vein permacath is clean and intact.Lungs were clear to auscultation and percussion, and with normal diaphragmatic excursion. No wheezes or rales were noted. Cardiac exam revealed the PMI to be normally situated and sized. The rhythm was regular and no extrasystoles were noted during several minutes of auscultation. The first and second heart sounds were normal and physiologic splitting of the second heart sound was noted. There were no murmurs, rubs, clicks, or gallops. Abdomen is soft and there is scars of previous surgery over the anterior abdominal wall and the patient has not and anterior abdominal wall hernia which is very easily palpated. Extremities are showing no the amputation bilaterally. Sacrum the patient has stage II to 3 decubitus ulceration. Results - Laboratory Findings CBC and BMP: 12/24/16 04:27 12/24/16 19:09 Abnormal lab findings: Abnormal Labs 12/24/16 12/24/16 12/24/16 00:55 04:27 04:27 WBC 12.4 H RBC 2.47 L Hgb 7.4 L Hct 23.4 L RDW 15.7 H Neutrophils # 10.4 H Lymphocytes # 0.9 L Potassium 3.1 L Creatinine 2.00 H Glucose 119 H POC Glucose (mg/dL) 142 H Calcium 7.8 L Iron TIBC % Saturation Ferritin Total Protein 5.1 L Albumin 2.2 L Prealbumin 12/24/16 12/24/16 12/24/16 04:27 08:47 11:03 WBC RBC Hgb Hct RDW Neutrophils # Lymphocytes # Potassium Creatinine Glucose POC Glucose (mg/dL) 107 H Calcium Iron 17 L TIBC 133 L % Saturation 12.8 L Ferritin 1630 H Total Protein Albumin Prealbumin 8 L 12/24/16 12/24/16 12/24/16 12:36 13:08 16:56 WBC RBC Hgb Hct RDW Neutrophils # Lymphocytes # Potassium Creatinine Glucose POC Glucose (mg/dL) 144 H 144 H 130 H Calcium Iron TIBC % Saturation Ferritin Total Protein Albumin Prealbumin 12/24/16 12/24/16 12/25/16 19:09 21:24 07:36 WBC RBC Hgb Hct RDW Neutrophils # Lymphocytes # Potassium 3.3 L Creatinine Glucose POC Glucose (mg/dL) 149 H 111 H Calcium Iron TIBC % Saturation Ferritin Total Protein Albumin Prealbumin 12/25/16 12/25/16 12:16 17:10 WBC RBC Hgb Hct RDW Neutrophils # Lymphocytes # Potassium Creatinine Glucose POC Glucose (mg/dL) 133 H 126 H Calcium Iron TIBC % Saturation Ferritin Total Protein Albumin Prealbumin - Diagnostic Findings Chest x-ray: image reviewed Assessment and Plan Plan: Assessment 1 Sepsis with gram-positive bacteremia and the patient has presumptive MRSA currently on IV Teflaro. Exact source for the MRSA septicemia is not clear and for suspected to be either from skin and another potential source would be the dialysis catheter. In terms of his lungs, the patient has small better pleural effusion and there is no tonic-clonic and oriented radiographic evidence of pneumonia at this point 2 diminished level of consciousness secondary to sepsis 3 dementia with chronic confusion 4 recurrent bouts of sepsis mainly due to recurrent urine tract infections and the patient has had multiple gram-negative infections and VRE infection so the urine 5 chronic renal failure and the patient was recently started on dialysis 6 diabetes mellitus 7 stage II to 3 sacral decubitus ulceration 8 peripheral vascular disease severe with bilateral below-knee amputation 9 chronic indwelling Norman catheter in place 10 congestion heart failure 11 anterior abdominal wall hernia 12 chronic anemia Plan Continue IV Teflaro. Awaiting further cultures and sensitivities. ID is on the case. Assess the patient's oxygenation on room air and discontinue oxygen therapy as long as saturation remains above 90%. Watch for any aspiration. Note that the patient has been checked for aspiration pneumonias in the past and he checked negative for that. We'll continue to follow make further recommendations based on his progress.
--- NOTE | 2016-12-25 18:55 | P.PN ---
Subjective Principal diagnosis: Shortness of breath and altered mental status Mr. Brayden Negro is a 81-year-old male who presents to Hospital Care facility with increasing shortness of breath. He also is having worsening of his baseline mental status. The patient's had multiple hospitalizations as of late. He has developed acute and chronic renal failure. And constantly he has been initiated hemodialysis within the last month. It is related to his dialysis center where he appeared to be more short of breath and was concerns to pneumonia as well as volume overload. And because he had altered mental status he was directed to hospital for admission. He was concerned to sepsis and the patient was brought into the intensive care unit. He has somewhat of a poor historian. He does have some baseline dementia although he is very pleasant overall. He does believe that his mother continues to help him in his home setting. Currently he relates that he is not very short of breath. He does have an occasional cough. No significant sputum production is noted. Nursing staff relates that he has been calm and pleasant. Doing somewhat better today. Although remains a poor historian. Objective - Vital Signs Vital signs: Vital Signs Temp 98.8 F 12/25/16 15:00 Pulse 76 12/25/16 15:50 Resp 18 12/25/16 15:44 BP 122/58 12/25/16 15:00 Pulse Ox 97 12/25/16 15:00 Intake & Output 12/24/16 12/25/16 12/25/16 18:59 06:59 18:59 Intake Total 530 Output Total 300 500 200 Balance -300 30 -200 Weight 66.1 kg 66.1 kg Intake: IV 280 Sodium Chloride 0.9% 1, 280 000 ml @ 20 mls/hr IV . Q24H [facility] Rx#:[id number] Intake, IV Titration 250 Amount Ceftaroline Fosamil 200 250 mg In Sodium Chloride 0.9 % 250 ml @ 250 mls/hr IVPB Q12HR [facility] Rx#: [id number] Output: Urine 300 500 200 Other: Voiding Method Indwelling Catheter Indwelling Catheter Indwelling Catheter # Bowel Movements 1 - Exam On the exam Mr. Brayden Negro is a pleasant woman who is much more awake alert and described the time of his admission. He is afebrile at this time. HEENT exam: Is also begin nasal oral lesions the neck was supple without significant lymphadenopathy or palpable thyromegaly. Lungs: Good bilateral air entry with a few basilar crackles being heard no dullness was noted. Heart:Regular rate and rhythm with an audible S1-S2 no history soft S4 without distinct murmur click or rub. Abdomen positive bowel sounds soft nontender without palpable masses or organomegaly no guarding or rebound. Extremities the bilaterally below the knee amputation residual limb are evaluated without edema or lesions. Neurologically: Patient is awake and alert interactive upon stimulation his speech is understandable but does have poor quality of content. Upon questioning he does state that his mother cares for his Norman catheter. Skin: The residual limbs are without evidence of lesions. There is evidence of the pressure ulceration to the coccyx and buttocks that is stage III at this point in time. There is not a large amount of necrosis however. There is only minimal drainage. And is not tender to manipulation. Please see the nursing photography for measurement. However the Norman catheter has caused be complete splaying of the penis right to its base of the scrotum. There is evidence of significant irritation to that tissue likely from some leakage of the urine around the catheter. There is evidence of a possible uroma into the scrotum itself. Which is not tender - Labs CBC & Chem 7: 12/24/16 04:27 12/24/16 19:09 Labs: Abnormal Lab Results - Last 24 Hours (Table) 12/24/16 12/24/16 12/25/16 Range/Units 19:09 21:24 07:36 Potassium 3.3 L (3.5-5.1) mmol/L POC Glucose (mg/dL) 149 H 111 H (75-99) mg/dL 12/25/16 12/25/16 Range/Units 12:16 17:10 Potassium (3.5-5.1) mmol/L POC Glucose (mg/dL) 133 H 126 H (75-99) mg/dL Microbiology - Last 24 Hours (Table) 12/24/16 16:30 Blood Culture Gram Stain - Preliminary Blood 12/24/16 16:30 Blood Culture - Preliminary Blood Laboratory Results WBC 12.4 k/uL (3.8-10.6) H 12/24/16 04:27 RBC 2.47 m/uL (4.30-5.90) L 12/24/16 04:27 Hgb 7.4 gm/dL (13.0-17.5) L 12/24/16 04:27 Hct 23.4 % (39.0-53.0) L 12/24/16 04:27 MCV 95.0 fL (80.0-100.0) 12/24/16 04:27 MCH 30.2 pg (25.0-35.0) 12/24/16 04:27 MCHC 31.8 g/dL (31.0-37.0) 12/24/16 04:27 RDW 15.7 % (11.5-15.5) H 12/24/16 04:27 Plt Count 236 k/uL (150-450) D 12/24/16 04:27 Neutrophils % 84 % 12/24/16 04:27 Lymphocytes % 7 % 12/24/16 04:27 Monocytes % 5 % 12/24/16 04:27 Eosinophils % 0 % 12/24/16 04:27 Basophils % 1 % 12/24/16 04:27 Neutrophils # 10.4 k/uL (1.3-7.7) H 12/24/16 04:27 Lymphocytes # 0.9 k/uL (1.0-4.8) L 12/24/16 04:27 Monocytes # 0.6 k/uL (0-1.0) 12/24/16 04:27 Eosinophils # 0.0 k/uL (0-0.7) 12/24/16 04:27 Basophils # 0.1 k/uL (0-0.2) 12/24/16 04:27 Hypochromasia Slight 12/24/16 04:27 Sodium 139 mmol/L (137-145) 12/24/16 04:27 Potassium 3.3 mmol/L (3.5-5.1) L 12/24/16 19:09 Chloride 103 mmol/L (98-107) 12/24/16 04:27 Carbon Dioxide 25 mmol/L (22-30) 12/24/16 04:27 Anion Gap 11 mmol/L 12/24/16 04:27 BUN 12 mg/dL (9-20) 12/24/16 04:27 Creatinine 2.00 mg/dL (0.66-1.25) H 12/24/16 04:27 Est GFR (MDRD) Af Amer 39 (>60 ml/min/1.73 sqM) 12/24/16 04:27 Est GFR (MDRD) Non-Af 32 (>60 ml/min/1.73 sqM) 12/24/16 04:27 Glucose 119 mg/dL (74-99) H 12/24/16 04:27 POC Glucose (mg/dL) 126 mg/dL (75-99) H 12/25/16 17:10 POC Glu Director Of Primary Sofia Hogan 12/25/16 17:[address] Glu mg/dL 105 mg/dL 12/24/16 04:23 Hemoglobin A1c 5.3 % (4.2-6.1) 12/24/16 04:23 Plasma Lactic Acid Geovani 0.9 mmol/L (0.7-2.0) 12/23/16 20:10 Calcium 7.8 mg/dL (8.4-10.2) L 12/24/16 04:27 Phosphorus 3.6 mg/dL (2.5-4.5) 12/24/16 11:03 Magnesium 1.7 mg/dL (1.6-2.3) 12/24/16 04:27 Iron 17 ug/dL (49-181) L 12/24/16 04:27 TIBC 133 ug/dL (261-462) L 12/24/16 04:27 % Saturation 12.8 % (20-50) L 12/24/16 04:27 Ferritin 1630 ng/mL (18-464) H 12/24/16 04:27 Total Bilirubin 0.4 mg/dL (0.2-1.3) 12/24/16 04:27 AST 19 U/L (17-59) 12/24/16 04:27 ALT 30 U/L (21-72) 12/24/16 04:27 Alkaline Phosphatase 110 U/L (38-126) 12/24/16 04:27 Total Protein 5.1 g/dL (6.3-8.2) L 12/24/16 04:27 Albumin 2.2 g/dL (3.5-5.0) L 12/24/16 04:27 Prealbumin 8 mg/dL (18-36) L 12/24/16 11:03 Microbiology 12/24/16 16:30 Blood Blood Culture Gram Stain - Preliminary 12/24/16 16:30 Blood Blood Culture - Preliminary 12/23/16 20:10 Blood Blood Culture Gram Stain - Preliminary 12/23/16 20:10 Blood Blood Culture - Preliminary Presumptive MRSA 12/23/16 20:10 Blood Blood Culture - Preliminary Assessment and Plan (1) Right lower lobe pneumonia Narrative/Plan: Pleasant 81-year-old male who presents the hospital after being evaluated at dialysis Center reappeared to be short of breath and more confused. Because of this he was transferred to the emergency center and admitted. With concerns to sepsis, pneumonia and needs for hemodialysis he was admitted to hospital. The patient's chest x-ray has been evaluated with potential for right lower lobe infiltrate however the possibility of volume overload was also noted. It is time he is comfortable. He is not coughing significantly. His fever has improved. There is evidence of the blood cultures are positive at this time with gram- positive cocci. He has ALLERGIES to daptomycin and penicillin. With his history of multiple pathogens in the past Ceftaroline was chosen. Coverage for staph including MRSA, strep in his prior gram-negative organisms. The follow up blood cultures are also positive at this point in time. Original blood cultures are pulmonary positive for MRSA. With this would continue to Ceftaroline however if he continue to have positive blood cultures will be concerned to infection of his hemodialysis catheter. He has an appropriate mattress. There is pressure ulceration to his coccyx and buttocks. The optifoam dressing is in place. Patient is tolerating it well. Nutritional status is very poor as noted by his very low pre-albumin. This will impact his ability to heal his wound and recover from infection Status: Acute (2) Bacteremia due to Gram-positive bacteria Status: Acute (3) Chronic renal failure, stage 5 Status: Acute
[2016-12-25] MEDS ORDERED: DARBEPOETIN ALFA 25 MCG/0.42 ML SYRINGE IV SCH (21:00)
[2016-12-25 21:04] LABS: Glucose,Whole Blood 217 mg/dL (75-99)
[2016-12-25] MEDS: SODIUM CHLORIDE 0.9% 1,000 ML IV SCH (21:37)
--- NOTE | 2016-12-25 22:20 | PN ---
DATE OF SERVICE: 12/25/2016 PRESENTING COMPLAINT: Positive blood cultures. INTERVAL HISTORY: This is a patient with multiple medical problems, admitted yet again with positive blood cultures growing MRSA. The source could be from the decubitus on the skin or dialysis catheter. Pneumonia was a possibility. Patient is more perky today. Did eat his breakfast. Two daughters at the bedside. Review of systems done for constitutional, cardiovascular, GI, pulmonary; relevant findings as above. Current medications reviewed and include IV ceftaroline. On examination, temperature 97.1, pulse 69, respirations 16, blood pressure 122/63, pulse ox 99% on 2 liters. GENERAL APPEARANCE: Lying in bed, far more awake. EYES: Pupils equal. Conjunctivae normal. NECK: JVD not raised. Mass not palpable. RESPIRATORY: Effort normal. LUNGS: Slightly decreased breath sounds at the right base. CARDIOVASCULAR: First and second sounds normal. No edema. ABDOMEN: Soft. Liver and spleen not palpable. PSYCHIATRY: Awake, answering questions. EXTREMITIES: Bilateral below-knee amputation. INVESTIGATIONS: Blood cultures of 12/23/showing presumptive MRSA. ASSESSMENT: 1. This is a patient who presented with sepsis-like picture with positive blood cultures growing MRSA, source could be hemodialysis catheter or probably from his decubitus of the lower back. 2. End-stage kidney disease on hemodialysis. 3. Chronic obstructive pulmonary disease in an ex-smoker. 4. Alzheimer's dementia, late onset. 5. Essential hypertension. 6. Diabetes mellitus, type 2, chronically on medication. 7. 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 8. Acute delirium with metabolic encephalopathy from sepsis, present on admission. 9. Stage II sacral decubitus ulcer, present on admission. PLAN: Continue current medication and treatment plan. Care was discussed with the family at the bedside. ( ) infection from the dialysis catheter and ( ) of the blood and that could itself be a problem.
[2016-12-26 06:56] LABS: Glucose,Whole Blood 117 mg/dL (75-99)
[2016-12-26] MEDS: IPRATROPIUM-ALBUTEROL 3 ML NEB INHALATION SCH ×4 (07:05→19:03)
[2016-12-26] MEDS: CEFTAROLINE FOSAMIL IVPB SCH ×2 (08:04→20:07)
[2016-12-26] MEDS: SODIUM CHLORIDE 0.9% IVPB SCH ×2 (08:04→20:07)
[2016-12-26] MEDS: INSULIN LISPRO (humaLOG) 300 UNIT/3 ML VIAL SQ SCH ×4 (08:04→21:10)
[2016-12-26] MEDS: SODIUM BICARBONATE TAB 650 MG TAB PO SCH ×2 (08:05→20:08)
[2016-12-26] MEDS: PREGABALIN 75 MG CAP PO SCH ×2 (08:05→20:08)
[2016-12-26] MEDS: amLODIPine 10 MG TAB PO SCH (08:05)
[2016-12-26] MEDS: FUROSEMIDE 10 MG/ML 4 ML VIAL IV SCH ×2 (08:05→20:08)
[2016-12-26] MEDS: CALCIUM CARBONATE 500 MG CHEWABLE PO SCH ×2 (08:05→20:08)
[2016-12-26] MEDS: FOLIC ACID-VIT B COMPLEX-VIT C 1 CAP PO SCH (08:05)
[2016-12-26] MEDS: CHOLECALCIFEROL 1,000 UNIT TAB PO SCH (08:05)
[2016-12-26] MEDS: ZINC OXIDE 20% OINT 28.4 GM TUBE TOPICAL SCH ×2 (08:06→21:10)
[2016-12-26] MEDS: MULTIVITAMINS, THERA 1 EACH TAB PO SCH (08:06)
--- NOTE | 2016-12-26 10:50 | P.PN ---
Subjective Patient is seen in follow-up for end-stage renal disease. He was recently started on hemodialysis last week and is maintained on a Sunday schedule. He has a permacath in place. He presented with a persistent cough. Currently resting in bed. Denies any chest shortness of breath. No vomiting or diarrhea. Blood cultures have been positive for MRSA. Vital signs are stable. General: The patient appeared well nourished and normally developed. HEENT: Head exam is unremarkable. Neck is without jugular venous distension. LUNGS: Lungs are clear to auscultation and percussion. Breath sounds decreased. HEART: Rate and Rhythm are regular. First and second heart sounds normal. No murmurs, rubs or gallops. ABDOMEN: Abdominal exam reveals normal bowel sounds. Non-tender and non- distended. No evidence of peritonitis. EXTREMITITES: No clubbing, cyanosis, or edema. Bilateral [id number] amputations noted. Objective - Vital Signs Vital signs: Vital Signs Temp 96.4 F L 12/26/16 07:00 Pulse 68 12/26/16 07:15 Resp 16 12/26/16 07:00 BP 154/67 12/26/16 07:00 Pulse Ox 94 L 12/26/16 07:00 Intake & Output 12/25/16 12/26/16 12/26/16 18:59 06:59 18:59 Output Total 200 475 Balance -200 -475 Weight 66.1 kg 51 kg Output: Urine 200 475 Other: Voiding Method Indwelling Catheter Indwelling Catheter Indwelling Catheter # Voids 1 # Bowel Movements 1 - Labs CBC & Chem 7: 12/24/16 04:27 12/24/16 19:09 Labs: Abnormal Lab Results - Last 24 Hours (Table) 12/25/16 12/25/16 12/25/16 Range/Units 12:16 17:10 21:01 POC Glucose (mg/dL) 133 H 126 H 217 H (75-99) mg/dL 12/26/16 Range/Units 06:55 POC Glucose (mg/dL) 117 H (75-99) mg/dL Microbiology - Last 24 Hours (Table) 12/24/16 16:30 Blood Culture Gram Stain - Preliminary Blood Blood Culture - Preliminary Presumptive MRSA 12/24/16 19:09 Blood Culture - Preliminary Blood No Growth after 24 hours 12/24/16 16:30 Blood Culture - Preliminary Blood Assessment and Plan Plan: Assessment: #1. End-stage renal disease maintained on hemodialysis on a Sunday schedule via permacath. #2. Pneumonia. #3. Anemia of chronic kidney disease. High ferritin levels noted. #4. Chronic kidney disease mineral bone disease. #5. Hypokalemia related to dialysis. He also has good urine output. #6. Hypomagnesemia. #7. Insulin-dependent diabetes mellitus. #8. MRSA bacteremia. Plan: Hemodialysis today. Maintain aranesp. Nephrocaps daily. Antibiotics per infectious disease recommendations - dialysis catheter may be discontinued after dialysis today from nephrology standpoint if presumed to be the source of infection. Follow-up cultures. Avoid hypotension. To hold antihypertensives for systolic blood pressure less than 120.
[2016-12-26 12:09] LABS: Glucose,Whole Blood 154 mg/dL (75-99)
--- NOTE | 2016-12-26 16:19 | P.PN ---
Subjective This is a very pleasant 81-year-old gentleman who was admitted here on [facility] from [facility] in extended care facility with complaints of increasing shortness of breath and worsening mental status. The patient has had multiple repeated hospitalizations for the same. He had developed acute on chronic renal failure. He has been initiated on hemodialysis within the last month. His blood cultures were positive for presumed MRSA infection. He was initiated on IV Teflaro. The patient is ALLERGIC to daptomycin and vancomycin from previous hospitalizations. Infectious diseases on the case. He was seen and evaluated yesterday by Dr. Don who felt the patient has most likely been having issues with aspiration versus hospital-acquired pneumonia. Currently he is seen on the regular medical floor. He is awake and alert in no acute distress. He is maintaining good O2 saturations in the 90s on room air. Currently afebrile. Objective - Vital Signs Vital signs: Vital Signs Temp 97.9 F 12/26/16 15:00 Pulse 54 L 12/26/16 15:00 Resp 14 12/26/16 15:00 BP 126/62 12/26/16 15:00 Pulse Ox 93 L 12/26/16 15:00 Intake & Output 12/25/16 12/26/16 12/26/16 18:59 06:59 18:59 Output Total 200 475 Balance -200 -475 Weight 66.1 kg 51 kg Output: Urine 200 475 Other: Voiding Method Indwelling Catheter Indwelling Catheter Indwelling Catheter # Voids 1 # Bowel Movements 1 - Exam GENERAL EXAM: Alert, confused to time and place, comfortable in no apparent distress. HEAD: Normocephalic. EYES: Normal reaction of pupils, equal size. NOSE: Clear with pink turbinates. THROAT: No erythema or exudates. NECK: No masses, no JVD. Left jugular vein permacath exit site is clean and dry. CHEST: No chest wall deformity. LUNGS: Equal air entry with no crackles, wheeze, rhonchi or dullness. CVS: S1 and S2 normal with no audible mumurs, regular rhythm. ABDOMEN: Soft, evidence of previous surgery over the anterior abdominal wall, normal bowel sounds, no guarding or rigidity. Skin: There is a stage II to 3 decubitus ulcer on the sacrum. Extremities: There is trace peripheral edema. Peripheral pulses are intact. Bilateral below the knee amputations - Labs CBC & Chem 7: 12/24/16 04:27 12/24/16 19:09 Labs: Abnormal Lab Results - Last 24 Hours (Table) 12/25/16 12/25/16 12/26/16 Range/Units 17:10 21:01 06:55 POC Glucose (mg/dL) 126 H 217 H 117 H (75-99) mg/dL 12/26/16 Range/Units 12:07 POC Glucose (mg/dL) 154 H (75-99) mg/dL Microbiology - Last 24 Hours (Table) 12/24/16 16:30 Blood Culture Gram Stain - Preliminary Blood Blood Culture - Preliminary Presumptive MRSA 12/24/16 19:09 Blood Culture - Preliminary Blood No Growth after 24 hours 12/24/16 16:30 Blood Culture - Preliminary Blood Assessment and Plan Plan: Impression: #1 Acute sepsis with gram-positive bacteremia and the patient has presumed active MRSA, currently on IV Teflaro. Exact source of MRSA septicemia is unclear possibly related to open skin and/or dialysis catheter. The pulmonary standpoint he has small bilateral pleural effusions but no acute pulmonary process at this point. No clear evidence of pneumonia. #2 Diminished level of consciousness secondary to sepsis, improved. #3 Dementia with chronic confusion. #4 Recurrent bouts of sepsis mainly due to recurrent urinary tract infections and the patient has had multiple gram-negative infections and VRE in the past. #5 Chronic renal failure with persistent was recently started on hemodialysis. #6 Diabetes mellitus. #7 Stage II to III sacral decubitus ulceration. #8 Peripheral vascular disease with, severe with bilateral below the knee amputations. #9 Chronic indwelling Norman catheter. #10 Congestive heart failure. #11 Anterior abdominal wall hernia. #12 Chronic anemia. Plan: The patient was seen and evaluated by Dr. Don. The patient remains stable from the pulmonary standpoint and is oxygenating well at saturations in the 90s on room air. He remains on aspiration precautions. We'll continue with bronchodilators. He remains on antibiotics in the form of ceftaroline. We will continue to follow make further recommendations based on his clinical status.
[2016-12-26 16:55] LABS: Glucose,Whole Blood 117 mg/dL (75-99)
[2016-12-26] MEDS: SODIUM CHLORIDE 0.9% 1,000 ML IV SCH (20:09)
[2016-12-26 21:14] LABS: Glucose,Whole Blood 158 mg/dL (75-99)
--- NOTE | 2016-12-26 21:58 | P.PN ---
Subjective Principal diagnosis: Shortness of breath and altered mental status Mr. Brayden Negro is a 81-year-old male who presents to [facility] facility with increasing shortness of breath. He also is having worsening of his baseline mental status. The patient's had multiple hospitalizations as of late. He has developed acute and chronic renal failure. And constantly he has been initiated hemodialysis within the last month. It is related to his dialysis center where he appeared to be more short of breath and was concerns to pneumonia as well as volume overload. And because he had altered mental status he was directed to hospital for admission. He was concerned to sepsis and the patient was brought into the intensive care unit. He has somewhat of a poor historian. He does have some baseline dementia although he is very pleasant overall. He does believe that his mother continues to help him in his home setting. Currently he relates that he is not very short of breath. He does have an occasional cough. No significant sputum production is noted. Nursing staff relates that he has been calm and pleasant. Doing somewhat better today. Although remains a poor historian. Objective - Vital Signs Vital signs: Vital Signs Temp 97.9 F 12/26/16 15:00 Pulse 54 L 12/26/16 15:00 Resp 14 12/26/16 15:00 BP 126/62 12/26/16 15:00 Pulse Ox 93 L 12/26/16 15:00 Intake & Output 12/26/16 12/26/16 12/27/16 06:59 18:59 06:59 Output Total 475 500 Balance -475 -500 Weight 51 kg Output: Urine 475 500 Other: Voiding Method Indwelling Catheter Indwelling Catheter # Voids 1 - Exam On the exam Mr. Brayden Negro is a pleasant woman who is much more awake alert and described the time of his admission. He is afebrile at this time. HEENT exam: Is also begin nasal oral lesions the neck was supple without significant lymphadenopathy or palpable thyromegaly. Lungs: Good bilateral air entry with a few basilar crackles being heard no dullness was noted. Heart:Regular rate and rhythm with an audible S1-S2 no history soft S4 without distinct murmur click or rub. Abdomen positive bowel sounds soft nontender without palpable masses or organomegaly no guarding or rebound. Extremities the bilaterally below the knee amputation residual limb are evaluated without edema or lesions. Neurologically: Patient is awake and alert interactive upon stimulation his speech is understandable but does have poor quality of content. Upon questioning he does state that his mother cares for his Norman catheter. Skin: The residual limbs are without evidence of lesions. There is evidence of the pressure ulceration to the coccyx and buttocks that is stage III at this point in time. There is not a large amount of necrosis however. There is only minimal drainage. And is not tender to manipulation. Please see the nursing photography for measurement. However the Norman catheter has caused be complete splaying of the penis right to its base of the scrotum. There is evidence of significant irritation to that tissue likely from some leakage of the urine around the catheter. There is evidence of a possible uroma into the scrotum itself. Which is not tender - Labs CBC & Chem 7: 12/24/16 04:27 12/24/16 19:09 Labs: Abnormal Lab Results - Last 24 Hours (Table) 12/26/16 12/26/16 12/26/16 Range/Units 06:55 12:07 16:53 POC Glucose (mg/dL) 117 H 154 H 117 H (75-99) mg/dL 12/26/16 Range/Units 20:50 POC Glucose (mg/dL) 158 H (75-99) mg/dL Microbiology - Last 24 Hours (Table) 12/24/16 19:09 Blood Culture - Preliminary Blood No Growth after 48 hours 12/24/16 16:30 Blood Culture Gram Stain - Preliminary Blood Blood Culture - Preliminary Presumptive MRSA 12/24/16 16:30 Blood Culture - Preliminary Blood Laboratory Results WBC 12.4 k/uL (3.8-10.6) H 12/24/16 04:27 RBC 2.47 m/uL (4.30-5.90) L 12/24/16 04:27 Hgb 7.4 gm/dL (13.0-17.5) L 12/24/16 04:27 Hct 23.4 % (39.0-53.0) L 12/24/16 04:27 MCV 95.0 fL (80.0-100.0) 12/24/16 04:27 MCH 30.2 pg (25.0-35.0) 12/24/16 04:27 MCHC 31.8 g/dL (31.0-37.0) 12/24/16 04:27 RDW 15.7 % (11.5-15.5) H 12/24/16 04:27 Plt Count 236 k/uL (150-450) D 12/24/16 04:27 Neutrophils % 84 % 12/24/16 04:27 Lymphocytes % 7 % 12/24/16 04:27 Monocytes % 5 % 12/24/16 04:27 Eosinophils % 0 % 12/24/16 04:27 Basophils % 1 % 12/24/16 04:27 Neutrophils # 10.4 k/uL (1.3-7.7) H 12/24/16 04:27 Lymphocytes # 0.9 k/uL (1.0-4.8) L 12/24/16 04:27 Monocytes # 0.6 k/uL (0-1.0) 12/24/16 04:27 Eosinophils # 0.0 k/uL (0-0.7) 12/24/16 04:27 Basophils # 0.1 k/uL (0-0.2) 12/24/16 04:27 Hypochromasia Slight 12/24/16 04:27 Sodium 139 mmol/L (137-145) 12/24/16 04:27 Potassium 3.3 mmol/L (3.5-5.1) L 12/24/16 19:09 Chloride 103 mmol/L (98-107) 12/24/16 04:27 Carbon Dioxide 25 mmol/L (22-30) 12/24/16 04:27 Anion Gap 11 mmol/L 12/24/16 04:27 BUN 12 mg/dL (9-20) 12/24/16 04:27 Creatinine 2.00 mg/dL (0.66-1.25) H 12/24/16 04:27 Est GFR (MDRD) Af Amer 39 (>60 ml/min/1.73 sqM) 12/24/16 04:27 Est GFR (MDRD) Non-Af 32 (>60 ml/min/1.73 sqM) 12/24/16 04:27 Glucose 119 mg/dL (74-99) H 12/24/16 04:27 POC Glucose (mg/dL) 158 mg/dL (75-99) H 12/26/16 20:50 POC Glu Top Stop Attacher ID Sue Carpenter 12/26/16 20:[address] Glu mg/dL 105 mg/dL 12/24/16 04:23 Hemoglobin A1c 5.3 % (4.2-6.1) 12/24/16 04:23 Plasma Lactic Acid Geovani 0.9 mmol/L (0.7-2.0) 12/23/16 20:10 Calcium 7.8 mg/dL (8.4-10.2) L 12/24/16 04:27 Phosphorus 3.6 mg/dL (2.5-4.5) 12/24/16 11:03 Magnesium 1.7 mg/dL (1.6-2.3) 12/24/16 04:27 Iron 17 ug/dL (49-181) L 12/24/16 04:27 TIBC 133 ug/dL (261-462) L 12/24/16 04:27 % Saturation 12.8 % (20-50) L 12/24/16 04:27 Ferritin 1630 ng/mL (18-464) H 12/24/16 04:27 Total Bilirubin 0.4 mg/dL (0.2-1.3) 12/24/16 04:27 AST 19 U/L (17-59) 12/24/16 04:27 ALT 30 U/L (21-72) 12/24/16 04:27 Alkaline Phosphatase 110 U/L (38-126) 12/24/16 04:27 Total Protein 5.1 g/dL (6.3-8.2) L 12/24/16 04:27 Albumin 2.2 g/dL (3.5-5.0) L 12/24/16 04:27 Prealbumin 8 mg/dL (18-36) L 12/24/16 11:03 Microbiology 12/24/16 19:09 Blood Blood Culture - Preliminary No Growth after 48 hours 12/24/16 16:30 Blood Blood Culture Gram Stain - Preliminary 12/24/16 16:30 Blood Blood Culture - Preliminary Presumptive MRSA 12/23/16 20:10 Blood Blood Culture Gram Stain - Final 12/23/16 20:10 Blood Blood Culture - Final Methicillin resist S. aureus 12/24/16 16:30 Blood Blood Culture - Preliminary 12/23/16 20:10 Blood Blood Culture - Preliminary Assessment and Plan (1) Right lower lobe pneumonia Narrative/Plan: Pleasant 81-year-old male who presents the hospital after being evaluated at dialysis Center reappeared to be short of breath and more confused. Because of this he was transferred to the emergency center and admitted. With concerns to sepsis, pneumonia and needs for hemodialysis he was admitted to hospital. The patient's chest x-ray has been evaluated with potential for right lower lobe infiltrate however the possibility of volume overload was also noted. It is time he is comfortable. He is not coughing significantly. His fever has improved. There is evidence of the blood cultures are positive at this time with gram- positive cocci. He has ALLERGIES to daptomycin and penicillin. With his history of multiple pathogens in the past Ceftaroline was chosen. Coverage for staph including MRSA, strep in his prior gram-negative organisms. The follow up blood cultures are also positive at this point in time. Original blood cultures are pulmonary positive for MRSA. With this would continue to Ceftaroline . One of the follow-up blood cultures is positive for a similar pathogen. Further blood cultures are requested. If further blood cultures are coming back as positive will need to consider removal of his hemodialysis catheter. He has an appropriate mattress. There is pressure ulceration to his coccyx and buttocks. The optifoam dressing is in place. Patient is tolerating it well. Nutritional status is very poor as noted by his very low pre-albumin. This will impact his ability to heal his wound and recover from infection Status: Acute (2) Bacteremia due to Gram-positive bacteria Status: Acute (3) Chronic renal failure, stage 5 Status: Acute
[2016-12-27 07:33] LABS: Glucose,Whole Blood 180 mg/dL (75-99)
[2016-12-27] MEDS: IPRATROPIUM-ALBUTEROL 3 ML NEB INHALATION SCH ×4 (08:16→19:31)
[2016-12-27] MEDS: INSULIN LISPRO (humaLOG) 300 UNIT/3 ML VIAL SQ SCH ×4 (08:30→21:43)
[2016-12-27] MEDS: FOLIC ACID-VIT B COMPLEX-VIT C 1 CAP PO SCH (08:32)
[2016-12-27] MEDS: CHOLECALCIFEROL 1,000 UNIT TAB PO SCH (08:32)
[2016-12-27] MEDS: CALCIUM CARBONATE 500 MG CHEWABLE PO SCH ×2 (08:32→21:41)
[2016-12-27] MEDS: amLODIPine 10 MG TAB PO SCH (08:32)
[2016-12-27] MEDS: ZINC OXIDE 20% OINT 28.4 GM TUBE TOPICAL SCH ×2 (08:33→21:42)
[2016-12-27] MEDS: MULTIVITAMINS, THERA 1 EACH TAB PO SCH (08:33)
[2016-12-27] MEDS: PREGABALIN 75 MG CAP PO SCH ×2 (08:33→21:41)
[2016-12-27] MEDS: FUROSEMIDE 10 MG/ML 4 ML VIAL IV SCH ×2 (08:33→21:42)
[2016-12-27] MEDS: SODIUM BICARBONATE TAB 650 MG TAB PO SCH ×2 (08:33→21:42)
[2016-12-27] MEDS: CEFTAROLINE FOSAMIL IVPB SCH ×2 (08:35→21:46)
[2016-12-27] MEDS: SODIUM CHLORIDE 0.9% IVPB SCH ×2 (08:35→21:46)
[2016-12-27 08:50] LABS: Potassium 3.9 mmol/L (3.5-5.1)
[2016-12-27 09:03] LABS: Aty Lym Flag Slight; CHCM 31.1; HCT 25.8 % (39.0-53.0); HDW 3.31; Hypochromasia Moderate; MCH 29.1 pg (25.0-35.0); MCV 93.9 fL (80.0-100.0); Mean Platelet Volume 7.9; RBC 2.75 m/uL (4.30-5.90); RDW 15.4 % (11.5-15.5); WBC 4.8 k/uL (3.8-10.6); WBC (Perox) 4.53
[2016-12-27 10:25] LABS: Add Differential Manual Differential
[2016-12-27 10:31] LABS: Nucleated Red Blood Cells 0 /100 WBC (0-0)
[2016-12-27 10:39] LABS: Manual Review Performed; Total Cells Counted 200
[2016-12-27] MEDS ORDERED: LIDOCAINE 1% INJ 10MG/ML (20 ML MDV) SQ ONE (12:09)
--- NOTE | 2016-12-27 12:36 | P.PCN ---
Date of Procedure: 12/27/16 Preoperative Diagnosis: infected left IJ tunneled dialysis catheter Postoperative Diagnosis: same Procedure(s) Performed: removal of tunneled dialysis catheter Anesthesia: local Surgeon: Radha Marshall Pathology: other (catheter tip sent for culture) Condition: stable Disposition: no change Indications for Procedure: infected dialysis catheter Description of Procedure: After sterile prep and drape of the left neck and chest, the area overlying the catheter exit site and cuff were infiltrated with 8cc of 1% lidocaine. Sutures at exit site were removed and the catheter was removed in its entirety by applying downward pressure. Hemostasis assured with manual pressure. Dry dressing placed. Tip set for culture.
[2016-12-27 12:44] LABS: Glucose,Whole Blood 111 mg/dL (75-99)
--- NOTE | 2016-12-27 16:04 | PN ---
Patient is seen for followup for end-stage renal disease. He was recently started on dialysis and patient was noted to have MRSA bacteremia; therefore his Perm-A-Cath will be removed today. At this time his potassium is stable at 3.9 and we can continue to monitor him. Once blood cultures are consistently negative, we can place another Perm-A-Cath. On examination, patient is comfortable. Blood pressure is 156/65, heart rate 77 per minute. He is afebrile. EXAMINATION OF THE HEART: S1 and S2. EXAMINATION OF THE LUNGS: Bilateral breath sounds are heard. ABDOMEN: Soft, nontender. Examination of lower extremities shows bilateral below-knee amputations. DRUMS TEACHER exam is grossly intact. Labs show potassium 3.9, sodium 143; hemoglobin 8.0. ASSESSMENT: 1. End-stage renal disease, on hemodialysis, status post dialysis yesterday. We will discontinue the Perm-A-Cath today in view of persistent bacteremia, and once blood cultures are consistently negative, we will place another dialysis catheter. 2. Methicillin-resistant Staphylococcus aureus bacteremia. Source is likely dialysis catheter. 3. Bilateral below-knee amputations. 4. Anemia of chronic disease; high ferritin levels; currently maintained on Aranesp. PLAN: Repeat labs in a.m. Continue to monitor renal function. We replace dialysis catheter when blood cultures remain negative.
[2016-12-27 17:16] LABS: Glucose,Whole Blood 149 mg/dL (75-99)
[2016-12-27 21:03] LABS: Glucose,Whole Blood 236 mg/dL (75-99)
--- NOTE | 2016-12-27 21:35 | PN ---
DATE OF SERVICE: 12/27/2016 PRESENTING COMPLAINT: Positive blood cultures. INTERVAL HISTORY: This patient on hemodialysis with positive blood cultures growing MRSA. Had hemodialysis catheter removed today. Comfortable. Did tolerate his diet. Lying in bed. Was hemodialyzed yesterday. Review of systems done for constitutional, cardiovascular, GI, pulmonary; relevant findings as above. Current medications are reviewed that include IV ceftaroline. On examination, temperature 98.4, pulse 71, respiration 16, blood pressure 140/71, pulse ox 95% on 2 liters. GENERAL APPEARANCE: Lying in bed, awake, comfortable. EYES: Pupils equal. Conjunctivae normal. NECK: JVD not raised. Mass not palpable. Respiratory effort normal. LUNGS: Decreased breath sounds. CARDIOVASCULAR: First and second sounds normal. No edema. ABDOMEN: Soft, nontender. Liver and spleen not palpable. PSYCHIATRY: Awake answering simple questions. EXTREMITIES: Bilateral below-knee amputation. INVESTIGATIONS: White count 4.8, hemoglobin 8, potassium 3.9, BUN 24, creatinine 4.23. ASSESSMENT: 1. Sepsis-like picture with positive blood culture, growing Methicillin-resistant Staph aureus, likely source hemodialysis catheter, removed today Now is being sent off for catheter tip has been sent off. 2. End-stage kidney disease on hemodialysis. 3. Chronic obstructive pulmonary disease in an ex-smoker. 4. Alzheimer's dementia, late onset. 5. Essential hypertension. 6. Type 2 diabetes mellitus, chronically on medication. 7. Chronic urinary outflow obstruction. 8. Patient has got a chronic Norman catheter. 9. Acute delirium with metabolic encephalopathy present on admission, from sepsis. 10. Stage II sacral decubitus ulcer, present on admission. PLAN: Continue current medication and treatment plan. Will follow.
--- NOTE | 2016-12-27 21:41 | PN ---
DATE OF SERVICE: 12/26/2016 PRESENTING COMPLAINT: Positive blood cultures. INTERVAL HISTORY: This patient was seen by me yesterday on 12/26/2016. This patient had hemodialysis. Blood cultures growing positive for MRSA. Source could be from decubitus on the lower back or the dialysis catheter. Pneumonia is felt to be less likely. Patient is comfortable, awake, talking and is having his meals. Review of systems done for constitutional, cardiovascular, GI, pulmonary; relevant findings as above. Current medications are reviewed. On examination, temperature 97.9, pulse 84, respirations 14, blood pressure 120/72, pulse ox 93% on room air. GENERAL APPEARANCE: Propped up in bed; awake comfortable. EYES: Pupils equal. Conjunctivae normal. NECK: JVD not raised. Mass not palpable. RESPIRATORY: Effort normal. LUNGS: There are decreased breath sounds. CARDIOVASCULAR: First and second sounds normal. No edema. ABDOMEN: Soft, nontender Liver and spleen not palpable. PSYCHIATRY: Awake, answering questions. EXTREMITIES: Bilateral below-knee amputation. INVESTIGATIONS: Accu-Cheks are noted. Blood cultures positive. ASSESSMENT: 1. Sepsis-like picture with positive blood cultures growing methicillin-resistant Staphylococcus aureus. Source could be the hemodialysis catheter or the decubitus ulcer on the lower back. 2. End-stage kidney disease on hemodialysis. 3. Chronic obstructive pulmonary disease in an ex-smoker. 4. Alzheimer dementia, late onset. 5. Essential hypertension. 6. Diabetes mellitus type 2, chronically on medication. 7. 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 8. Acute delirium with metabolic encephalopathy with sepsis, present on admission, now improved. 9. Stage II sacral decubitus ulcer, presented with patient. PLAN: Continue current medication, treatment plan. If cultures remain positive, then the dialysis catheter may need to be removed.
[2016-12-27] MEDS: SODIUM CHLORIDE 0.9% 1,000 ML IV SCH (21:42)
--- NOTE | 2016-12-27 23:33 | P.PN ---
Subjective Principal diagnosis: Shortness of breath and altered mental status Mr. Brayden Negro is a 81-year-old male who [facility] with increasing shortness of breath. He also is having worsening of his baseline mental status. The patient's had multiple hospitalizations as of late. He has developed acute and chronic renal failure. And constantly he has been initiated hemodialysis within the last month. It is related to his dialysis center where he appeared to be more short of breath and was concerns to pneumonia as well as volume overload. And because he had altered mental status he was directed to hospital for admission. He was concerned to sepsis and the patient was brought into the intensive care unit. He has somewhat of a poor historian. He does have some baseline dementia although he is very pleasant overall. He does believe that his mother continues to help him in his home setting. Currently he relates that he is not very short of breath. He does have an occasional cough. No significant sputum production is noted. Nursing staff relates that he has been calm and pleasant. Awake and comfortable ate some of his dinner Objective - Vital Signs Vital signs: Vital Signs Temp 98.4 F 12/27/16 15:00 Pulse 71 12/27/16 15:00 Resp 16 12/27/16 15:00 BP 148/71 12/27/16 15:00 Pulse Ox 95 12/27/16 15:00 Intake & Output 12/27/16 12/27/16 12/28/16 06:59 18:59 06:59 Intake Total 200 Output Total 800 500 Balance -600 -500 Weight 49.5 kg Intake: Oral 200 Output: Urine 800 500 Uretheral (Norman) 400 Other: Voiding Method Indwelling Catheter Indwelling Catheter # Voids 2 # Bowel Movements 2 0 - Exam On the exam Mr. Brayden Negro is a pleasant woman who is much more awake alert and described the time of his admission. He is afebrile at this time. HEENT exam: Is also begin nasal oral lesions the neck was supple without significant lymphadenopathy or palpable thyromegaly. Lungs: Good bilateral air entry with a few basilar crackles being heard no dullness was noted. Heart:Regular rate and rhythm with an audible S1-S2 no history soft S4 without distinct murmur click or rub. Abdomen positive bowel sounds soft nontender without palpable masses or organomegaly no guarding or rebound. Extremities the bilaterally below the knee amputation residual limb are evaluated without edema or lesions. Neurologically: Patient is awake and alert interactive upon stimulation his speech is understandable but does have poor quality of content. Upon questioning he does state that his mother cares for his Norman catheter. Skin: The residual limbs are without evidence of lesions. There is evidence of the pressure ulceration to the coccyx and buttocks that is stage III at this point in time. There is not a large amount of necrosis however. There is only minimal drainage. And is not tender to manipulation. Please see the nursing photography for measurement. However the Norman catheter has caused be complete splaying of the penis right to its base of the scrotum. There is evidence of significant irritation to that tissue likely from some leakage of the urine around the catheter. There is evidence of a possible uroma into the scrotum itself. Which is not tender The hemodialysis catheter is now removed without bleeding - Labs CBC & Chem 7: 12/27/16 07:57 12/27/16 07:57 Labs: Abnormal Lab Results - Last 24 Hours (Table) 12/27/16 12/27/16 12/27/16 Range/Units 07:32 07:57 07:57 RBC 2.75 L (4.30-5.90) m/uL Hgb 8.0 L (13.0-17.5) gm/dL Hct 25.8 L (39.0-53.0) % Chloride 108 H (98-107) mmol/L BUN 24 H (9-20) mg/dL Creatinine 4.23 H (0.66-1.25) mg/dL Glucose 154 H (74-99) mg/dL POC Glucose (mg/dL) 180 H (75-99) mg/dL 12/27/16 12/27/16 12/27/16 Range/Units 12:42 17:15 21:01 RBC (4.30-5.90) m/uL Hgb (13.0-17.5) gm/dL Hct (39.0-53.0) % Chloride (98-107) mmol/L BUN (9-20) mg/dL Creatinine (0.66-1.25) mg/dL Glucose (74-99) mg/dL POC Glucose (mg/dL) 111 H 149 H 236 H (75-99) mg/dL Microbiology - Last 24 Hours (Table) 12/26/16 19:50 Blood Culture Gram Stain - Preliminary Blood 12/26/16 19:50 Blood Culture - Preliminary Blood No Growth after 24 hours 12/26/16 19:50 Blood Culture - Preliminary Blood No Growth after 24 hours 12/24/16 19:09 Blood Culture - Preliminary Blood No Growth after 72 hours 12/27/16 12:15 Catheter Tip Culture - Preliminary Catheter Tip 12/24/16 16:30 Blood Culture Gram Stain - Final Blood Blood Culture - Final Methicillin resist S. aureus Laboratory Results WBC 4.8 k/uL (3.8-10.6) 12/27/16 07:57 RBC 2.75 m/uL (4.30-5.90) L 12/27/16 07:57 Hgb 8.0 gm/dL (13.0-17.5) L 12/27/16 07:57 Hct 25.8 % (39.0-53.0) L 12/27/16 07:57 MCV 93.9 fL (80.0-100.0) 12/27/16 07:57 MCH 29.1 pg (25.0-35.0) 12/27/16 07:57 MCHC 31.0 g/dL (31.0-37.0) 12/27/16 07:57 RDW 15.4 % (11.5-15.5) 12/27/16 07:57 Plt Count 284 k/uL (150-450) 12/27/16 07:57 Neutrophils % 84 % 12/24/16 04:27 Neutrophils % (Manual) 55.5 % 12/27/16 07:57 Lymphocytes % 7 % 12/24/16 04:27 Lymphocytes % (Manual) 25.0 % 12/27/16 07:57 Monocytes % 5 % 12/24/16 04:27 Monocytes % (Manual) 9.0 % 12/27/16 07:57 Eosinophils % 0 % 12/24/16 04:27 Eosinophils % (Manual) 8.0 % 12/27/16 07:57 Basophils % 1 % 12/24/16 04:27 Basophils % (Manual) 0.5 % 12/27/16 07:57 Metamyelocytes % 1.0 % 12/27/16 07:57 Myelocytes % 1.0 % 12/27/16 07:57 Neutrophils # 10.4 k/uL (1.3-7.7) H 12/24/16 04:27 Neutrophils # (Manual) 2.7 k/uL (1.3-7.7) 12/27/16 07:57 Lymphocytes # 0.9 k/uL (1.0-4.8) L 12/24/16 04:27 Lymphocytes # (Manual) 1.2 k/uL (1.0-4.8) 12/27/16 07:57 Monocytes # 0.6 k/uL (0-1.0) 12/24/16 04:27 Monocytes # (Manual) 0.4 k/uL (0-1.0) 12/27/16 07:57 Eosinophils # 0.0 k/uL (0-0.7) 12/24/16 04:27 Eosinophils # (Manual) 0.4 k/uL (0-0.7) 12/27/16 07:57 Basophils # 0.1 k/uL (0-0.2) 12/24/16 04:27 Basophils # (Manual) 0.0 k/uL (0-0.2) 12/27/16 07:57 Nucleated RBCs 0 /100 WBC (0-0) 12/27/16 07:57 Manual Slide Review Performed 12/27/16 07:57 Hypochromasia Moderate 12/27/16 07:57 Sodium 143 mmol/L (137-145) 12/27/16 07:57 Potassium 3.9 mmol/L (3.5-5.1) 12/27/16 07:57 Chloride 108 mmol/L (98-107) H 12/27/16 07:57 Carbon Dioxide 25 mmol/L (22-30) 12/27/16 07:57 Anion Gap 10 mmol/L 12/27/16 07:57 BUN 24 mg/dL (9-20) H 12/27/16 07:57 Creatinine 4.23 mg/dL (0.66-1.25) H 12/27/16 07:57 Est GFR (MDRD) Af Amer 16 (>60 ml/min/1.73 sqM) 12/27/16 07:57 Est GFR (MDRD) Non-Af 14 (>60 ml/min/1.73 sqM) 12/27/16 07:57 Glucose 154 mg/dL (74-99) H 12/27/16 07:57 POC Glucose (mg/dL) 236 mg/dL (75-99) H 12/27/16 21:01 POC Glu Food Bagging Machine Operator ID Abbi Smith 12/27/16 21:[address] Glu mg/dL 105 mg/dL 12/24/16 04:23 Hemoglobin A1c 5.3 % (4.2-6.1) 12/24/16 04:23 Plasma Lactic Acid Geovani 0.9 mmol/L (0.7-2.0) 12/23/16 20:10 Calcium 9.0 mg/dL (8.4-10.2) 12/27/16 07:57 Phosphorus 3.6 mg/dL (2.5-4.5) 12/24/16 11:03 Magnesium 1.7 mg/dL (1.6-2.3) 12/24/16 04:27 Iron 17 ug/dL (49-181) L 12/24/16 04:27 TIBC 133 ug/dL (261-462) L 12/24/16 04:27 % Saturation 12.8 % (20-50) L 12/24/16 04:27 Ferritin 1630 ng/mL (18-464) H 12/24/16 04:27 Total Bilirubin 0.4 mg/dL (0.2-1.3) 12/24/16 04:27 AST 19 U/L (17-59) 12/24/16 04:27 ALT 30 U/L (21-72) 12/24/16 04:27 Alkaline Phosphatase 110 U/L (38-126) 12/24/16 04:27 Total Protein 5.1 g/dL (6.3-8.2) L 12/24/16 04:27 Albumin 2.2 g/dL (3.5-5.0) L 12/24/16 04:27 Prealbumin 8 mg/dL (18-36) L 12/24/16 11:03 Microbiology 12/26/16 19:50 Blood Blood Culture Gram Stain - Preliminary 12/26/16 19:50 Blood Blood Culture - Preliminary No Growth after 24 hours 12/26/16 19:50 Blood Blood Culture - Preliminary No Growth after 24 hours 12/24/16 19:09 Blood Blood Culture - Preliminary No Growth after 72 hours 12/27/16 12:15 Catheter Tip Catheter Tip Culture - Preliminary 12/24/16 16:30 Blood Blood Culture Gram Stain - Final 12/24/16 16:30 Blood Blood Culture - Final Methicillin resist S. aureus 12/23/16 20:10 Blood Blood Culture Gram Stain - Final 12/23/16 20:10 Blood Blood Culture - Final Methicillin resist S. aureus 12/24/16 16:30 Blood Blood Culture - Preliminary 12/23/16 20:10 Blood Blood Culture - Preliminary Assessment and Plan (1) Right lower lobe pneumonia Narrative/Plan: Pleasant 81-year-old male who presents the hospital after being evaluated at dialysis Center reappeared to be short of breath and more confused. Because of this he was transferred to the emergency center and admitted. With concerns to sepsis, pneumonia and needs for hemodialysis he was admitted to hospital. The patient's chest x-ray has been evaluated with potential for right lower lobe infiltrate however the possibility of volume overload was also noted. It is time he is comfortable. He is not coughing significantly. His fever has improved. There is evidence of the blood cultures are positive at this time with gram- positive cocci. He has ALLERGIES to daptomycin and penicillin. With his history of multiple pathogens in the past Ceftaroline was chosen. Coverage for staph including MRSA, strep in his prior gram-negative organisms. The follow up blood cultures are also positive at this point in time. Original blood cultures are pulmonary positive for MRSA. With this would continue to Ceftaroline . the follow-up cultures were all positive consequently the The hemodialysis catheter has been removed and he tolerated it well He has an appropriate mattress. There is pressure ulceration to his coccyx and buttocks. The optifoam dressing is in place. Patient is tolerating it well. Nutritional status is very poor as noted by his very low pre-albumin. This will impact his ability to heal his wound and recover from infection He will need 4-6 weeks of antibiotic therapy if the current aggressive course of therapy is to continue. Once the bacteria clears from the blood stream will need some type of IV access to receive ongoing antibiotic therapy. Biggest concern would be to hemodialysis and whether that is a further option in the future. Status: Acute (2) Bacteremia due to Gram-positive bacteria Status: Acute (3) Chronic renal failure, stage 5 Status: Acute
[2016-12-28 07:13] LABS: Glucose,Whole Blood 114 mg/dL (75-99)
[2016-12-28] MEDS: INSULIN LISPRO (humaLOG) 300 UNIT/3 ML VIAL SQ SCH ×5 (07:30→21:43)
[2016-12-28] MEDS: FUROSEMIDE 10 MG/ML 4 ML VIAL IV SCH ×2 (08:14→21:33)
[2016-12-28] MEDS: CEFTAROLINE FOSAMIL IVPB SCH ×2 (08:15→21:32)
[2016-12-28] MEDS: CALCIUM CARBONATE 500 MG CHEWABLE PO SCH ×2 (08:15→21:43)
[2016-12-28] MEDS: FOLIC ACID-VIT B COMPLEX-VIT C 1 CAP PO SCH (08:15)
[2016-12-28] MEDS: PREGABALIN 75 MG CAP PO SCH ×2 (08:15→21:44)
[2016-12-28] MEDS: amLODIPine 10 MG TAB PO SCH (08:15)
[2016-12-28] MEDS: SODIUM BICARBONATE TAB 650 MG TAB PO SCH ×2 (08:15→21:44)
[2016-12-28] MEDS: ZINC OXIDE 20% OINT 28.4 GM TUBE TOPICAL SCH ×2 (08:15→21:44)
[2016-12-28] MEDS: MULTIVITAMINS, THERA 1 EACH TAB PO SCH (08:15)
[2016-12-28] MEDS: SODIUM CHLORIDE 0.9% IVPB SCH ×2 (08:15→21:32)
[2016-12-28] MEDS: CHOLECALCIFEROL 1,000 UNIT TAB PO SCH (08:15)
[2016-12-28] MEDS: IPRATROPIUM-ALBUTEROL 3 ML NEB INHALATION SCH ×4 (08:22→19:52)
[2016-12-28 11:24] LABS: Glucose,Whole Blood 171 mg/dL (75-99)
[2016-12-28 11:24] LABS: Glucose,Whole Blood 148 mg/dL (75-99)
--- NOTE | 2016-12-28 14:54 | PN ---
Patient is seen for followup for end-stage renal disease. His Perm-A-cath was removed yesterday secondary to persistent bacteremia. Currently, patient is sitting up, comfortable, not in any acute distress. Blood pressure is 148/70, heart rate 76 per minute. He is afebrile. Examination of the heart S1 and S2. Examination of the lungs, bilateral breath sounds are heard. No significant crackles or wheezing is heard. Abdomen is soft, nontender. 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 Labs from yesterday show a potassium of 3.9, sodium 143, hemoglobin is 8.0 g/dL. ASSESSMENT: 1. End-stage renal disease on hemodialysis, status post removal of IJ Perm-A-Cath secondary to persistent bacteremia. Patient does not need dialysis today. We will repeat his labs tomorrow. Blood cultures from 12/26 is still positive for methicillin-resistant Staphylococcus aureus. Blood cultures will be repeated again today. Continue to maintain patient on Ceftaroline. He is being followed by Infectious Disease. 2. Hypertension, controlled. 3. Status post bilateral below-knee amputation. 4. Anemia of chronic disease, maintained on Aranesp. PLAN: No need for hemodialysis today. Repeat blood cultures today and repeat labs in a.m. Will continue to monitor closely for need for renal replacement therapy on a daily basis.
[2016-12-28 17:02] LABS: Glucose,Whole Blood 111 mg/dL (75-99)
--- NOTE | 2016-12-28 20:01 | PN ---
DATE OF SERVICE: 12/28/2016 PRESENTING COMPLAINT: Positive blood cultures. INTERVAL HISTORY: This is a patient who is on hemodialysis with positive blood cultures growing MRSA. Hemodialysis catheter was removed yesterday. Patient is comfortable in bed, tolerating some diet. Last hemodialysis was yesterday. Review of systems done for constitutional, cardiovascular, GI, pulmonary; relevant findings as above. Current medications include IV ceftaroline. On examination, temperature 96.3, pulse 54, respirations 16, blood pressure 140/70, pulse ox 97% on 2 liters. GENERAL APPEARANCE: Sitting up in bed, comfortable. EYES: Pupils equal. Conjunctivae normal. NECK: JVD not raised. Mass not palpable. RESPIRATORY: Effort normal. LUNGS: Diminished breath sounds. CARDIOVASCULAR: First and second sounds normal. No edema. ABDOMEN: Soft, nontender. Liver and spleen not palpable. PSYCHIATRY: Awake, answering simple questions. EXTREMITIES: Bilateral below-knee amputation. DERMATOLOGIC: Sacral decubitus present. INVESTIGATIONS: Accu-Cheks are noted. ASSESSMENT: 1. Sepsis from positive blood cultures growing methicillin resistant staphylococcus aureus, likely source is hemodialysis catheter which was removed yesterday. Repeat cultures are pending. 2. End-stage kidney disease, on hemodialysis. 3. Chronic obstructive pulmonary disease in an ex-smoker. 4. Alzheimer's dementia, late onset. 5. Essential hypertension. 6. Diabetes mellitus, type 2, chronically on medication. 7. 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 8. Acute delirium with metabolic encephalopathy, present at admission from sepsis, now improved. 9. Stage II sacral decubitus ulcer, present on admission. PLAN: I spoke to the daughter at length on the phone. She is concerned about further hemodialysis. Did talk about several aspects. Did say that the blood cultures need to be negative before we can put a catheter back in and because of his decubitus ulcers and overall weakened immunity he is of course at high risk of infection yet again. This will be finally determined by Dr. Sanders and Dr. Dickerson. I did leave a message with Dr. Dickerson, to talk to the daughter more on this. Labs will be followed. Total time spent today was about 40 minutes with over 20 minutes of discussion.
[2016-12-28 20:36] LABS: Glucose,Whole Blood 139 mg/dL (75-99)
--- NOTE | 2016-12-28 21:08 | P.PN ---
Subjective Principal diagnosis: Shortness of breath and altered mental status Mr. Brayden Negro is a 81-year-old male who [facility] to [facility] with increasing shortness of breath. He also is having worsening of his baseline mental status. The patient's had multiple hospitalizations as of late. He has developed acute and chronic renal failure. And constantly he has been initiated hemodialysis within the last month. It is related to his dialysis center where he appeared to be more short of breath and was concerns to pneumonia as well as volume overload. And because he had altered mental status he was directed to hospital for admission. He was concerned to sepsis and the patient was brought into the intensive care unit. He has somewhat of a poor historian. He does have some baseline dementia although he is very pleasant overall. He does believe that his mother continues to help him in his home setting. Currently he relates that he is not very short of breath. He does have an occasional cough. No significant sputum production is noted. Nursing staff relates that he has been calm and pleasant. Awake and comfortable ate better today Objective - Vital Signs Vital signs: Vital Signs Temp 97.8 F 12/28/16 14:45 Pulse 72 12/28/16 15:41 Resp 20 12/28/16 14:45 BP 132/60 12/28/16 14:45 Pulse Ox 98 12/28/16 14:45 Intake & Output 12/28/16 12/28/16 12/29/16 06:59 18:59 06:59 Intake Total 410 Output Total 650 400 Balance -650 10 Weight 56.5 kg Intake: IV 160 Sodium Chloride 0.9% 1, 160 000 ml @ 20 mls/hr IV . Q24H COLIN Rx#:[id number] Intake, IV Titration 250 Amount Ceftaroline Fosamil 200 250 mg In Sodium Chloride 0.9 % 250 ml @ 250 mls/hr IVPB Q12HR COLIN Rx#: [id number] Output: Urine 650 400 Other: Voiding Method Indwelling Catheter Indwelling Catheter Indwelling Catheter # Voids 1 # Bowel Movements 1 1 - Exam On the exam Mr. Brayden Negro is a pleasant woman who is much more awake alert and described the time of his admission. He is afebrile at this time. HEENT exam: Is also begin nasal oral lesions the neck was supple without significant lymphadenopathy or palpable thyromegaly. Lungs: Good bilateral air entry with a few basilar crackles being heard no dullness was noted. Heart:Regular rate and rhythm with an audible S1-S2 no history soft S4 without distinct murmur click or rub. Abdomen positive bowel sounds soft nontender without palpable masses or organomegaly no guarding or rebound. Extremities the bilaterally below the knee amputation residual limb are evaluated without edema or lesions. Neurologically: Patient is awake and alert interactive upon stimulation his speech is understandable but does have poor quality of content. Upon questioning he does state that his mother cares for his Norman catheter. Skin: The residual limbs are without evidence of lesions. There is evidence of the pressure ulceration to the coccyx and buttocks that is stage III at this point in time. There is not a large amount of necrosis however. There is only minimal drainage. And is not tender to manipulation. Please see the nursing photography for measurement. However the Norman catheter has caused be complete splaying of the penis right to its base of the scrotum. There is evidence of significant irritation to that tissue likely from some leakage of the urine around the catheter. There is evidence of a possible uroma into the scrotum itself. Which is not tender The hemodialysis catheter is now removed without bleeding - Labs CBC & Chem 7: 12/27/16 07:57 12/27/16 07:57 Labs: Abnormal Lab Results - Last 24 Hours (Table) 12/28/16 12/28/16 12/28/16 Range/Units 07:11 11:12 11:13 POC Glucose (mg/dL) 114 H 171 H 148 H (75-99) mg/dL 12/28/16 12/28/16 Range/Units 17:00 20:34 POC Glucose (mg/dL) 111 H 139 H (75-99) mg/dL Microbiology - Last 24 Hours (Table) 12/27/16 12:15 Catheter Tip Culture - Preliminary Catheter Tip 12/26/16 19:50 Blood Culture Gram Stain - Preliminary Blood Blood Culture - Preliminary Presumptive MRSA 12/26/16 19:50 Blood Culture - Preliminary Blood No Growth after 24 hours 12/26/16 19:50 Blood Culture - Preliminary Blood No Growth after 24 hours 12/24/16 19:09 Blood Culture - Preliminary Blood No Growth after 72 hours Laboratory Results WBC 4.8 k/uL (3.8-10.6) 12/27/16 07:57 RBC 2.75 m/uL (4.30-5.90) L 12/27/16 07:57 Hgb 8.0 gm/dL (13.0-17.5) L 12/27/16 07:57 Hct 25.8 % (39.0-53.0) L 12/27/16 07:57 MCV 93.9 fL (80.0-100.0) 12/27/16 07:57 MCH 29.1 pg (25.0-35.0) 12/27/16 07:57 MCHC 31.0 g/dL (31.0-37.0) 12/27/16 07:57 RDW 15.4 % (11.5-15.5) 12/27/16 07:57 Plt Count 284 k/uL (150-450) 12/27/16 07:57 Neutrophils % 84 % 12/24/16 04:27 Neutrophils % (Manual) 55.5 % 12/27/16 07:57 Lymphocytes % 7 % 12/24/16 04:27 Lymphocytes % (Manual) 25.0 % 12/27/16 07:57 Monocytes % 5 % 12/24/16 04:27 Monocytes % (Manual) 9.0 % 12/27/16 07:57 Eosinophils % 0 % 12/24/16 04:27 Eosinophils % (Manual) 8.0 % 12/27/16 07:57 Basophils % 1 % 12/24/16 04:27 Basophils % (Manual) 0.5 % 12/27/16 07:57 Metamyelocytes % 1.0 % 12/27/16 07:57 Myelocytes % 1.0 % 12/27/16 07:57 Neutrophils # 10.4 k/uL (1.3-7.7) H 12/24/16 04:27 Neutrophils # (Manual) 2.7 k/uL (1.3-7.7) 12/27/16 07:57 Lymphocytes # 0.9 k/uL (1.0-4.8) L 12/24/16 04:27 Lymphocytes # (Manual) 1.2 k/uL (1.0-4.8) 12/27/16 07:57 Monocytes # 0.6 k/uL (0-1.0) 12/24/16 04:27 Monocytes # (Manual) 0.4 k/uL (0-1.0) 12/27/16 07:57 Eosinophils # 0.0 k/uL (0-0.7) 12/24/16 04:27 Eosinophils # (Manual) 0.4 k/uL (0-0.7) 12/27/16 07:57 Basophils # 0.1 k/uL (0-0.2) 12/24/16 04:27 Basophils # (Manual) 0.0 k/uL (0-0.2) 12/27/16 07:57 Nucleated RBCs 0 /100 WBC (0-0) 12/27/16 07:57 Manual Slide Review Performed 12/27/16 07:57 Hypochromasia Moderate 12/27/16 07:57 Sodium 143 mmol/L (137-145) 12/27/16 07:57 Potassium 3.9 mmol/L (3.5-5.1) 12/27/16 07:57 Chloride 108 mmol/L (98-107) H 12/27/16 07:57 Carbon Dioxide 25 mmol/L (22-30) 12/27/16 07:57 Anion Gap 10 mmol/L 12/27/16 07:57 BUN 24 mg/dL (9-20) H 12/27/16 07:57 Creatinine 4.23 mg/dL (0.66-1.25) H 12/27/16 07:57 Est GFR (MDRD) Af Amer 16 (>60 ml/min/1.73 sqM) 12/27/16 07:57 Est GFR (MDRD) Non-Af 14 (>60 ml/min/1.73 sqM) 12/27/16 07:57 Glucose 154 mg/dL (74-99) H 12/27/16 07:57 POC Glucose (mg/dL) 139 mg/dL (75-99) H 12/28/16 20:34 POC Glu Infant Room Teacher ID Abbi Smith 12/28/16 20:[address] Glu mg/dL 105 mg/dL 12/24/16 04:23 Hemoglobin A1c 5.3 % (4.2-6.1) 12/24/16 04:23 Plasma Lactic Acid Geovani 0.9 mmol/L (0.7-2.0) 12/23/16 20:10 Calcium 9.0 mg/dL (8.4-10.2) 12/27/16 07:57 Phosphorus 3.6 mg/dL (2.5-4.5) 12/24/16 11:03 Magnesium 1.7 mg/dL (1.6-2.3) 12/24/16 04:27 Iron 17 ug/dL (49-181) L 12/24/16 04:27 TIBC 133 ug/dL (261-462) L 12/24/16 04:27 % Saturation 12.8 % (20-50) L 12/24/16 04:27 Ferritin 1630 ng/mL (18-464) H 12/24/16 04:27 Total Bilirubin 0.4 mg/dL (0.2-1.3) 12/24/16 04:27 AST 19 U/L (17-59) 12/24/16 04:27 ALT 30 U/L (21-72) 12/24/16 04:27 Alkaline Phosphatase 110 U/L (38-126) 12/24/16 04:27 Total Protein 5.1 g/dL (6.3-8.2) L 12/24/16 04:27 Albumin 2.2 g/dL (3.5-5.0) L 12/24/16 04:27 Prealbumin 8 mg/dL (18-36) L 12/24/16 11:03 Microbiology 12/27/16 12:15 Catheter Tip Catheter Tip Culture - Preliminary 12/26/16 19:50 Blood Blood Culture Gram Stain - Preliminary 12/26/16 19:50 Blood Blood Culture - Preliminary Presumptive MRSA 12/26/16 19:50 Blood Blood Culture - Preliminary No Growth after 24 hours 12/26/16 19:50 Blood Blood Culture - Preliminary No Growth after 24 hours 12/24/16 19:09 Blood Blood Culture - Preliminary No Growth after 72 hours 12/24/16 16:30 Blood Blood Culture Gram Stain - Final 12/24/16 16:30 Blood Blood Culture - Final Methicillin resist S. aureus 12/23/16 20:10 Blood Blood Culture Gram Stain - Final 12/23/16 20:10 Blood Blood Culture - Final Methicillin resist S. aureus 12/24/16 16:30 Blood Blood Culture - Preliminary 12/23/16 20:10 Blood Blood Culture - Preliminary Assessment and Plan (1) Right lower lobe pneumonia Narrative/Plan: Pleasant 81-year-old male who presents the hospital after being evaluated at dialysis Center reappeared to be short of breath and more confused. Because of this he was transferred to the emergency center and admitted. With concerns to sepsis, pneumonia and needs for hemodialysis he was admitted to hospital. The patient's chest x-ray has been evaluated with potential for right lower lobe infiltrate however the possibility of volume overload was also noted. It is time he is comfortable. He is not coughing significantly. His fever has improved. There is evidence of the blood cultures are positive at this time with gram- positive cocci. He has ALLERGIES to daptomycin and penicillin. With his history of multiple pathogens in the past Ceftaroline was chosen. Coverage for staph including MRSA, strep in his prior gram-negative organisms. The follow up blood cultures are also positive at this point in time. Original blood cultures are pulmonary positive for MRSA. With this would continue to Ceftaroline . the follow-up cultures were all positive consequently the The hemodialysis catheter has been removed and he tolerated it well He has an appropriate mattress. There is pressure ulceration to his coccyx and buttocks. The optifoam dressing is in place. Patient is tolerating it well. Nutritional status is very poor as noted by his very low pre-albumin. This will impact his ability to heal his wound and recover from infection He will need 4-6 weeks of antibiotic therapy if the current aggressive course of therapy is to continue. Once the bacteria clears from the blood stream will need some type of IV access to receive ongoing antibiotic therapy. Biggest concern would be to hemodialysis and whether that is a further option in the future. Ideally dialysis would not continue. Status: Acute (2) Bacteremia due to Gram-positive bacteria Status: Acute (3) Chronic renal failure, stage 5 Status: Acute
[2016-12-28] MEDS: SODIUM CHLORIDE 0.9% 1,000 ML IV SCH (21:45)
[2016-12-29] MEDS: BACITRACIN 500 UNIT/GM OINT 28.4 GM TUBE TOPICAL SCH ×2 (06:12→08:45)
[2016-12-29 07:49] LABS: Glucose,Whole Blood 126 mg/dL (75-99)
[2016-12-29] MEDS: IPRATROPIUM-ALBUTEROL 3 ML NEB INHALATION SCH ×4 (07:49→20:24)
[2016-12-29 08:39] LABS: Calcium 8.6 mg/dL (8.4-10.2); Potassium 3.9 mmol/L (3.5-5.1)
[2016-12-29] MEDS: CALCIUM CARBONATE 500 MG CHEWABLE PO SCH ×2 (08:45→20:30)
[2016-12-29] MEDS: amLODIPine 10 MG TAB PO SCH (08:45)
[2016-12-29] MEDS: PREGABALIN 75 MG CAP PO SCH ×2 (08:45→20:31)
[2016-12-29] MEDS: CHOLECALCIFEROL 1,000 UNIT TAB PO SCH (08:45)
[2016-12-29] MEDS: FOLIC ACID-VIT B COMPLEX-VIT C 1 CAP PO SCH (08:45)
[2016-12-29] MEDS: SODIUM BICARBONATE TAB 650 MG TAB PO SCH ×2 (08:45→20:30)
[2016-12-29] MEDS: SODIUM CHLORIDE 0.9% IVPB SCH ×2 (08:45→21:16)
[2016-12-29] MEDS: FUROSEMIDE 10 MG/ML 4 ML VIAL IV SCH ×2 (08:45→21:17)
[2016-12-29] MEDS: CEFTAROLINE FOSAMIL IVPB SCH ×2 (08:45→21:16)
[2016-12-29] MEDS: MULTIVITAMINS, THERA 1 EACH TAB PO SCH (08:45)
[2016-12-29] MEDS: ZINC OXIDE 20% OINT 28.4 GM TUBE TOPICAL SCH ×2 (08:46→21:04)
[2016-12-29] MEDS: INSULIN LISPRO (humaLOG) 300 UNIT/3 ML VIAL SQ SCH ×4 (08:46→22:27)
[2016-12-29 12:40] LABS: Glucose,Whole Blood 203 mg/dL (75-99)
[2016-12-29 17:13] LABS: Glucose,Whole Blood 173 mg/dL (75-99)
[2016-12-29] MEDS: ALPRAZolam 0.25 MG TAB PO PRN (17:51)
--- NOTE | 2016-12-29 18:23 | P.PN ---
Subjective Principal diagnosis: Shortness of breath and altered mental status Mr. Brayden Negro is a 81-year-old male who [facility] with increasing shortness of breath. He also is having worsening of his baseline mental status. The patient's had multiple hospitalizations as of late. He has developed acute and chronic renal failure. And constantly he has been initiated hemodialysis within the last month. It is related to his dialysis center where he appeared to be more short of breath and was concerns to pneumonia as well as volume overload. And because he had altered mental status he was directed to hospital for admission. He was concerned to sepsis and the patient was brought into the intensive care unit. He has somewhat of a poor historian. He does have some baseline dementia although he is very pleasant overall. He does believe that his mother continues to help him in his home setting. Currently he relates that he is not very short of breath. He does have an occasional cough. No significant sputum production is noted. Nursing staff relates that he has been calm and pleasant. Awake and comfortable ate better today Objective - Vital Signs Vital signs: Vital Signs Temp 97.1 F L 12/29/16 14:58 Pulse 74 12/29/16 14:58 Resp 91 H 12/29/16 14:58 BP 131/81 12/29/16 14:58 Pulse Ox 91 L 12/29/16 14:58 Intake & Output 12/28/16 12/29/16 12/29/16 18:59 06:59 18:59 Intake Total 410 Output Total 400 750 500 Balance 10 -750 -500 Weight 66.5 kg 66.5 kg Intake: IV 160 Sodium Chloride 0.9% 1, 160 000 ml @ 20 mls/hr IV . Q24H [facility] Rx#:[id number] Intake, IV Titration 250 Amount Ceftaroline Fosamil 200 250 mg In Sodium Chloride 0.9 % 250 ml @ 250 mls/hr IVPB Q12HR COLIN Rx#: [id number] Output: Urine 400 750 500 Other: Voiding Method Indwelling Catheter Indwelling Catheter # Voids 1 # Bowel Movements 1 1 - Exam On the exam Mr. Brayden Negro is a pleasant woman who is much more awake alert and described the time of his admission. He is afebrile at this time. HEENT exam: Is also begin nasal oral lesions the neck was supple without significant lymphadenopathy or palpable thyromegaly. Lungs: Good bilateral air entry with a few basilar crackles being heard no dullness was noted. Heart:Regular rate and rhythm with an audible S1-S2 no history soft S4 without distinct murmur click or rub. Abdomen positive bowel sounds soft nontender without palpable masses or organomegaly no guarding or rebound. Extremities the bilaterally below the knee amputation residual limb are evaluated without edema or lesions. Neurologically: Patient is awake and alert interactive upon stimulation his speech is understandable but does have poor quality of content. Upon questioning he does state that his mother cares for his Norman catheter. Skin: The residual limbs are without evidence of lesions. There is evidence of the pressure ulceration to the coccyx and buttocks that is stage III at this point in time. There is not a large amount of necrosis however. There is only minimal drainage. And is not tender to manipulation. Please see the nursing photography for measurement. However the Norman catheter has caused be complete splaying of the penis right to its base of the scrotum. There is evidence of significant irritation to that tissue likely from some leakage of the urine around the catheter. There is evidence of a possible uroma into the scrotum itself. Which is not tender The hemodialysis catheter is now removed without bleeding - Labs CBC & Chem 7: 12/27/16 07:57 12/29/16 07:51 Labs: Abnormal Lab Results - Last 24 Hours (Table) 12/28/16 12/29/16 12/29/16 Range/Units 20:34 07:46 07:51 Sodium 146 H (137-145) mmol/L Chloride 110 H (98-107) mmol/L BUN 27 H (9-20) mg/dL Creatinine 5.58 H* (0.66-1.25) mg/dL Glucose 129 H (74-99) mg/dL POC Glucose (mg/dL) 139 H 126 H (75-99) mg/dL 12/29/16 12/29/16 Range/Units 12:38 17:11 Sodium (137-145) mmol/L Chloride (98-107) mmol/L BUN (9-20) mg/dL Creatinine (0.66-1.25) mg/dL Glucose (74-99) mg/dL POC Glucose (mg/dL) 203 H 173 H (75-99) mg/dL Microbiology - Last 24 Hours (Table) 12/28/16 13:46 Blood Culture - Preliminary Blood No Growth after 24 hours 12/26/16 19:50 Blood Culture Gram Stain - Final Blood Blood Culture - Final Methicillin resist S. aureus 12/26/16 19:50 Blood Culture - Preliminary Blood No Growth after 48 hours 12/26/16 19:50 Blood Culture - Preliminary Blood No Growth after 48 hours 12/24/16 19:09 Blood Culture - Preliminary Blood No Growth after 96 hours Assessment and Plan (1) Right lower lobe pneumonia Narrative/Plan: Pleasant 81-year-old male who presents the hospital after being evaluated at dialysis Center reappeared to be short of breath and more confused. Because of this he was transferred to the emergency center and admitted. With concerns to sepsis, pneumonia and needs for hemodialysis he was admitted to hospital. The patient's chest x-ray has been evaluated with potential for right lower lobe infiltrate however the possibility of volume overload was also noted. It is time he is comfortable. He is not coughing significantly. His fever has improved. There is evidence of the blood cultures are positive at this time with gram- positive cocci. He has ALLERGIES to daptomycin and penicillin. With his history of multiple pathogens in the past Ceftaroline was chosen. Coverage for staph including MRSA, strep in his prior gram-negative organisms. The follow up blood cultures are also positive at this point in time. Original blood cultures are pulmonary positive for MRSA. With this would continue to Ceftaroline . the follow-up cultures were all positive consequently the The hemodialysis catheter has been removed and he tolerated it well He has an appropriate mattress. There is pressure ulceration to his coccyx and buttocks. The optifoam dressing is in place. Patient is tolerating it well. Nutritional status is very poor as noted by his very low pre-albumin. This will impact his ability to heal his wound and recover from infection He will need 4-6 weeks of antibiotic therapy if the current aggressive course of therapy is to continue. Once the bacteria clears from the blood stream will need some type of IV access to receive ongoing antibiotic therapy.Ceftaroline chosen given the Vanco EDENILSON of2 Biggest concern would be to hemodialysis and whether that is a further option in the future. Ideally dialysis would not continue. Status: Acute (2) Bacteremia due to Gram-positive bacteria Status: Acute (3) Chronic renal failure, stage 5 Status: Acute
--- NOTE | 2016-12-29 18:54 | PN ---
Patient is seen for follow-up for end-stage renal disease. He is currently being treated for bacteremia, which is MRSA bacteremia, most likely catheter related. Perm-A-Cath was discontinued on Sunday. Blood cultures were drawn yesterday and they are negative thus far. Patient is being assessed on a daily basis and at this time he does not need dialysis yet. He does have good urine output and his electrolytes are fairly stable. On examination, blood pressure is 131/81, heart rate 74 per minute. He is afebrile. Examination of the heart S1 and S2. Examination of the lungs: Bilateral breath sounds are heard. ABDOMEN: Soft, nontender. 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 Labs show serum creatinine 5.58, sodium 146, potassium 3.9. ASSESSMENT: 1. End-stage renal disease on hemodialysis, which is currently on hold. Patient was last dialyzed on 12/26/2016. So far he is stable in terms of his labs and volume status. We are awaiting the final blood cultures from yesterday and if they remain negative then we will plan on a Perm-A-Cath either Sunday or over the weekend. 2. 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 3. Metabolic acidosis maintained on sodium bicarb. 4. Chronic kidney disease, bone mineral disorder. 5. Anemia of chronic disease, maintained on ( ). PLAN: Follow up on blood cultures tomorrow. Repeat labs in a.m. Encourage increased oral intake.
--- NOTE | 2016-12-29 20:50 | PN ---
DATE OF SERVICE: 12/29/2016 PRESENTING COMPLAINT: Positive blood cultures. INTERVAL HISTORY: This is a patient who was recently just started on hemodialysis. Presented with sepsis picture with positive blood culture growing MRSA. Hemodialysis catheter had to be removed. Last hemodialysis was 2 days ago. Lying in bed, comfortable. Did tolerate his diet. Review of systems done for constitutional, cardiovascular, GI, pulmonary; relevant findings as above. Current medications include IV ceftaroline. On examination, temperature 97.1, pulse 74, respiration 16, blood pressure 130/81, pulse 91% on 2 liters. GENERAL APPEARANCE: Lying in bed, comfortable, awake. EYES: Pupils equal. Conjunctivae normal. NECK: JVD not raised. Mass not palpable. RESPIRATORY: effort normal. LUNGS: Diminished breath sounds. CARDIOVASCULAR: First and second sounds normal. No edema. ABDOMEN: Soft, and nontender. Liver and spleen not palpable. PSYCHIATRY: Awake, answering questions. EXTREMITIES: Bilateral below-knee amputation. Skin: Decubitus ulcer, present. INVESTIGATIONS: BUN 27, creatinine 5.38. ASSESSMENT: 1. Sepsis from positive blood cultures growing Methicillin-resistant Staph aureus, likely source hemodialysis catheter which was removed two days ago. 2. End-stage kidney disease on hemodialysis. 3. Chronic obstructive pulmonary disease in an ex-smoker. 4. Alzheimer's dementia, late onset type. 5. Essential hypertension. 6. Diabetes mellitus type 2, chronically on medication. 7. Chronic urine outflow obstruction, patient with chronic Norman catheter. 8. Acute delirium with metabolic encephalopathy, present on admission, from sepsis now improved. 9. Stage II sacral decubitus ulcer, present on admission. PLAN: Continue current medication and treatment plan. The dilemma will be of course about when to put the dialysis catheter back. Patient's blood cultures are still positive for methicillin-resistant Staphylococcus aureus from 12/26/2016. Catheter tip cultures pending. I did speak to the patient although yesterday and did convey the message to Dr. Dickerson. Overall prognosis is guarded.
[2016-12-29 21:48] LABS: Glucose,Whole Blood 205 mg/dL (75-99)
[2016-12-29] MEDS: SODIUM CHLORIDE 0.9% 1,000 ML IV SCH (22:30)
[2016-12-30] MEDS ORDERED: INFLUENZA VACCINE (3YR+) 60 MCG/0.5 ML SYRINGE IM ONE (06:24)
[2016-12-30] MEDS ORDERED: PNEUMOCOCCAL VACC-PNEUMOVAX 23 25 MCG/0.5 ML VIAL IM ONE (06:24)
[2016-12-30 07:29] LABS: Glucose,Whole Blood 103 mg/dL (75-99)
[2016-12-30] MEDS: INSULIN LISPRO (humaLOG) 300 UNIT/3 ML VIAL SQ SCH ×4 (07:56→22:14)
[2016-12-30] MEDS: SODIUM BICARBONATE TAB 650 MG TAB PO SCH ×2 (07:59→22:13)
[2016-12-30] MEDS: amLODIPine 10 MG TAB PO SCH (08:00)
[2016-12-30] MEDS: CEFTAROLINE FOSAMIL IVPB SCH ×2 (08:00→22:13)
[2016-12-30] MEDS: SODIUM CHLORIDE 0.9% IVPB SCH ×2 (08:00→22:13)
[2016-12-30] MEDS: FUROSEMIDE 10 MG/ML 4 ML VIAL IV SCH ×2 (08:00→22:13)
[2016-12-30] MEDS: CALCIUM CARBONATE 500 MG CHEWABLE PO SCH ×2 (08:00→22:13)
[2016-12-30] MEDS: PREGABALIN 75 MG CAP PO SCH ×2 (08:00→22:13)
[2016-12-30] MEDS: FOLIC ACID-VIT B COMPLEX-VIT C 1 CAP PO SCH (08:00)
[2016-12-30] MEDS: MULTIVITAMINS, THERA 1 EACH TAB PO SCH (08:00)
[2016-12-30] MEDS: CHOLECALCIFEROL 1,000 UNIT TAB PO SCH (08:00)
[2016-12-30 12:13] LABS: Glucose,Whole Blood 123 mg/dL (75-99)
[2016-12-30] MEDS: IPRATROPIUM-ALBUTEROL 3 ML NEB INHALATION SCH ×3 (12:42→19:23)
--- NOTE | 2016-12-30 14:33 | PN ---
Patient is seen for followup for end-stage renal disease. He is currently without any access for dialysis secondary to persistent MRSA bacteremia for which his left IJ Perm-A-Cath was removed. Repeat blood cultures were done on 12/28/2016 and so far there is no growth. Catheter tip also shows no growth thus far. On examination, blood pressure is 128/69, heart rate 59 per minute. The patient is afebrile. EXAMINATION OF THE HEART: S1 and S2. EXAMINATION OF THE LUNGS: Bilateral breath sounds are heard. ABDOMEN: Soft, nontender. Examination of the lower extremities shows bilateral BKA. Labs are not available from today. ASSESSMENT: 1. End-stage renal disease on hemodialysis, currently without any access secondary to persistent methicillin-resistant Staphylococcus aureus bacteremia and removal of left IJ Perm-A-Cath. Blood cultures from 12/28 have been negative thus far. We can still wait another day and repeat labs tomorrow. So far patient does not need dialysis. 2. Status post bilateral below knee amputation. 3. Chronic obstructive pulmonary disease. 4. Stage II sacral decub. PLAN: Repeat labs in a.m. and continue to follow up on blood cultures. We can place the Perm-A-Cath on Sunday with arrangement for dialysis on Sunday as well.
[2016-12-30 16:57] LABS: Glucose,Whole Blood 165 mg/dL (75-99)
[2016-12-30] MEDS: BACITRACIN 500 UNIT/GM OINT 28.4 GM TUBE TOPICAL SCH (17:46)
[2016-12-30] MEDS: ZINC OXIDE 20% OINT 28.4 GM TUBE TOPICAL SCH ×2 (17:49→22:15)
[2016-12-30 21:41] LABS: Glucose,Whole Blood 87 mg/dL (75-99)
[2016-12-30] MEDS: SODIUM CHLORIDE 0.9% 1,000 ML IV SCH (22:14)
[2016-12-31 07:52] LABS: Glucose,Whole Blood 118 mg/dL (75-99)
[2016-12-31] MEDS: IPRATROPIUM-ALBUTEROL 3 ML NEB INHALATION SCH ×4 (08:03→20:15)
[2016-12-31] MEDS: INSULIN LISPRO (humaLOG) 300 UNIT/3 ML VIAL SQ SCH ×4 (09:52→20:50)
[2016-12-31] MEDS: FOLIC ACID-VIT B COMPLEX-VIT C 1 CAP PO SCH (09:53)
[2016-12-31] MEDS: MULTIVITAMINS, THERA 1 EACH TAB PO SCH (09:53)
[2016-12-31] MEDS: CALCIUM CARBONATE 500 MG CHEWABLE PO SCH ×2 (09:53→20:40)
[2016-12-31] MEDS: amLODIPine 10 MG TAB PO SCH (09:53)
[2016-12-31] MEDS: PREGABALIN 75 MG CAP PO SCH ×2 (09:53→20:41)
[2016-12-31] MEDS: SODIUM BICARBONATE TAB 650 MG TAB PO SCH ×2 (09:54→20:41)
[2016-12-31] MEDS: SODIUM CHLORIDE 0.9% IVPB SCH ×2 (09:54→20:41)
[2016-12-31] MEDS: FUROSEMIDE 10 MG/ML 4 ML VIAL IV SCH ×2 (09:54→20:41)
[2016-12-31] MEDS: ZINC OXIDE 20% OINT 28.4 GM TUBE TOPICAL SCH ×2 (09:54→20:42)
[2016-12-31] MEDS: BACITRACIN 500 UNIT/GM OINT 28.4 GM TUBE TOPICAL SCH (09:54)
[2016-12-31] MEDS: CEFTAROLINE FOSAMIL IVPB SCH ×2 (09:54→20:41)
[2016-12-31 10:03] LABS: Calcium 8.5 mg/dL (8.4-10.2)
[2016-12-31 11:35] LABS: Anisocytosis Slight; Basophils # (A) 0.1 k/uL (0-0.2); Basophils % (A) 1 %; Eosinophils # (A) 0.4 k/uL (0-0.7); Eosinophils % (A) 6 %; HCT 28.5 % (39.0-53.0); HDW 3.19; HGB 8.5 gm/dL (13.0-17.5); Hypochromasia Marked; Luc # (Auto) 0.29; Luc % (Auto) 4; Lymphocytes # (A) 1.4 k/uL (1.0-4.8); Lymphocytes % (A) 21 %; MCH 29.2 pg (25.0-35.0); MCV 97.3 fL (80.0-100.0); Macrocytosis Slight; Monocytes # (A) 0.5 k/uL (0-1.0); Monocytes % (A) 8 %; Neutrophils % (A) 60 %; RBC 2.93 m/uL (4.30-5.90); WBC 6.6 k/uL (3.8-10.6); WBC (Perox) 6.86
--- NOTE | 2016-12-31 11:36 | PN ---
DATE OF SERVICE: 12/30/2016 PRESENTING COMPLAINT: Positive blood cultures. INTERVAL HISTORY: This patient was seen by me this afternoon. This patient recently started on hemodialysis, presented with sepsis picture and positive blood culture with MRSA, hemodialysis catheter was removed. Patient is lying in bed, comfortable, tolerating his diet. Review of systems done for constitutional, cardiovascular, GI, pulmonary; relevant findings as above. Current medications include IV ceftaroline. On examination, temperature 99.8, pulse 73, respirations 16, blood pressure 131/64, pulse ox 93% on 2 L. GENERAL APPEARANCE: Propped up in bed, comfortable. EYES: Pupils equal, conjunctivae normal. NECK: JVD not raised. Mass not palpable. Respiratory effort normal. LUNGS: Slightly decreased breath sounds. CARDIOVASCULAR: First and second sounds normal. No edema. ABDOMEN: Soft, nontender. Liver and spleen not palpable. SKIN: Decubitus ulcer present. EXTREMITIES: Bilateral below-knee amputation. INVESTIGATIONS: Accu-Cheks are noted. Patient catheter tip culture is pending. Repeat blood culture from 12/28/2016 is pending. ASSESSMENT: 1. Sepsis with positive blood cultures growing methicillin-resistant Staphylococcus aureus, likely associated with hemodialysis catheter tip for which cultures are pending. 2. End-stage kidney disease on hemodialysis 3. Chronic obstructive pulmonary disease in an ex-smoker. 4. Alzheimer's dementia, late onset type. 5. Hypertension. 6. Diabetes mellitus type 2, chronically on medication. 7. Chronic urine outflow obstruction. Patient has chronic Norman catheter. 8. Acute delirium with metabolic encephalopathy present on admission from sepsis, now improved. 9. Stage II sacral decubitus ulcer, present on admission. PLAN: Continue medication and treatment. If cultures remain negative, patient may get a dialysis catheter back on Sunday. No family is present at the bedside.
[2016-12-31 12:20] LABS: Glucose,Whole Blood 130 mg/dL (75-99)
[2016-12-31] MEDS: CHOLECALCIFEROL 1,000 UNIT TAB PO SCH (13:08)
[2016-12-31 17:27] LABS: Glucose,Whole Blood 130 mg/dL (75-99)
--- NOTE | 2016-12-31 17:28 | PN ---
Patient is seen for followup for end-stage renal disease. Currently he is maintained without an access and his daily labs have been fairly stable. Creatinine is up to 6.3 mg/dL, potassium is at 4. Patient has been comfortable. His blood cultures, so far from the second have been negative. On examination, blood pressure is 136/66, heart rate 74 per minute. Patient is afebrile. Examination of the heart, S1 and S2. Examination of the lungs, bilateral breath sounds are heard. Abdomen is soft, nontender. 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 Labs show sodium 148, potassium 4.0, BUN 43, serum creatinine 6.3. Hemoglobin 8.5 g/dL. ASSESSMENT: 1. End-stage renal disease on hemodialysis, currently without an access. We will most likely place the Perm-A-Cath tomorrow. His blood cultures have been negative for 72 hours. Patient will be dialyzed tomorrow if his catheter is placed in the morning. 2. Anemia of chronic disease, maintained on Aranesp. 3. Methicillin-resistant Staphylococcus aureus bacteremia with repeat blood cultures, currently negative on the second. 4. Mild hypernatremia. Patient is encouraged to increase his oral fluid intake. PLAN: Will contact Vascular Surgery for Perm-A-Cath placement tomorrow and I will arrange for hemodialysis tomorrow as well.
[2016-12-31 21:06] LABS: Glucose,Whole Blood 136 mg/dL (75-99)
[2016-12-31] MEDS: SODIUM CHLORIDE 0.9% 1,000 ML IV SCH (22:21)
[2017-01-01 07:25] LABS: Glucose,Whole Blood 179 mg/dL (75-99)
--- NOTE | 2017-01-01 07:42 | PN ---
DATE OF SERVICE: 12/31/2016 PRESENTING COMPLAINT: Positive blood cultures. INTERVAL HISTORY: This patient was recently started on hemodialysis, presented with sepsis picture. Positive blood cultures growing MRSA. Hemodialysis catheter was removed. Patient's comfortable lying in bed, tolerating his meals. Review of systems done for constitutional, cardiovascular, GI, pulmonary, relative findings as above. Current medications include IV ceftaroline. On examination, temperature 97.8, pulse 69, respiration 16, blood pressure 130/69, pulse ox 97% on 2 liters. GENERAL APPEARANCE: Sitting up, propped in bed, awake. EYES: Pupils equal, conjunctivae normal. NECK: JVD not raised. Mass not palpable. RESPIRATORY: Effort normal. LUNGS: Slightly decreased breath sounds. CARDIOVASCULAR: First and second sounds normal. No edema. ABDOMEN: Soft, nontender. Liver and spleen not palpable. SKIN: Decubitus ulcer on the lower back. EXTREMITIES: Bilateral below-knee amputation. INVESTIGATIONS: White count 6.6, hemoglobin 8.5, potassium 4.0, BUN 43, creatinine 6.30. Patient's dialysis catheter tip culture is pending. Blood cultures from 12/28/16 negative ( ). Positive blood cultures from 12/26/2016 growing MRSA. ASSESSMENT: 1. Sepsis with positive blood cultures growing Methicillin-resistant Staph aureus likely associated with hemodialysis catheter tip that was not being removed. 2. End-stage kidney disease on hemodialysis. 3. Chronic obstructive pulmonary disease in an ex-smoker. 4. Alzheimer's dementia, late onset type. 5. Essential hypertension. 6. Diabetes mellitus type 2, chronically on medication. 7. Chronic urine outflow obstruction, the patient has a chronic Norman catheter. 8. Acute delirium with metabolic encephalopathy, present on admission from sepsis now resolved. 9. Stage II sacral decubitus ulcer, present on admission. PLAN: Continue current medication and treatment plan. If blood cultures remain negative, patient should have a new dialysis catheter placed hopefully on Sunday so that dialysis can be resumed.
[2017-01-01] MEDS: IPRATROPIUM-ALBUTEROL 3 ML NEB INHALATION SCH ×4 (08:03→19:48)
[2017-01-01] MEDS: CHOLECALCIFEROL 1,000 UNIT TAB PO SCH (08:47)
[2017-01-01] MEDS: MULTIVITAMINS, THERA 1 EACH TAB PO SCH (08:47)
[2017-01-01] MEDS: CEFTAROLINE FOSAMIL IVPB SCH ×2 (08:47→22:38)
[2017-01-01] MEDS: CALCIUM CARBONATE 500 MG CHEWABLE PO SCH ×2 (08:47→22:32)
[2017-01-01] MEDS: amLODIPine 10 MG TAB PO SCH (08:47)
[2017-01-01] MEDS: SODIUM CHLORIDE 0.9% IVPB SCH ×2 (08:47→22:38)
[2017-01-01] MEDS: PREGABALIN 75 MG CAP PO SCH ×2 (08:47→22:33)
[2017-01-01] MEDS: FOLIC ACID-VIT B COMPLEX-VIT C 1 CAP PO SCH (08:47)
[2017-01-01] MEDS: SODIUM BICARBONATE TAB 650 MG TAB PO SCH ×2 (08:47→22:33)
[2017-01-01] MEDS: FUROSEMIDE 10 MG/ML 4 ML VIAL IV SCH ×2 (08:48→22:32)
[2017-01-01] MEDS: INSULIN LISPRO (humaLOG) 300 UNIT/3 ML VIAL SQ SCH ×4 (08:48→22:33)
[2017-01-01] MEDS: BACITRACIN 500 UNIT/GM OINT 28.4 GM TUBE TOPICAL SCH (08:48)
[2017-01-01] MEDS: ZINC OXIDE 20% OINT 28.4 GM TUBE TOPICAL SCH ×2 (09:01→22:34)
[2017-01-01 09:33] LABS: INR 1.1 (<1.1); Prothrombin Time 11.4 sec (9.0-12.0)
[2017-01-01 10:10] LABS: Potassium 4.1 mmol/L (3.5-5.1)
[2017-01-01 12:20] LABS: Glucose,Whole Blood 157 mg/dL (75-99)
--- NOTE | 2017-01-01 12:49 | P.PN ---
Progress Note - Text 81 old dialysis patient patient has history of dementia, history of chronic or failure, patient has a bilateral amputee today I was called in for placement of dialysis catheter patient has a dementia and refusing dialysis catheter placement patient is very restless and patient O2 saturations is in the 80s 6 L of Oxygen Patient Is Very Noncooperative I Have Discussed with the Daughter They Want Us to Replace the Dialysis Catheter since Patient Is Very Unstable from a Respiratory Point of View We like to Place This under Care Of Anesthesia and We'll Discuss with Nephrology and We Arrange for Placement of the Dialysis Catheter
[2017-01-01] MEDS: ONDANSETRON 4 MG/2 ML VIAL IVP PRN (14:40)
[2017-01-01 16:48] LABS: Glucose,Whole Blood 153 mg/dL (75-99)
--- NOTE | 2017-01-01 19:05 | P.PN ---
Subjective Principal diagnosis: Shortness of breath and altered mental status Mr. Brayden Negro is a 81-year-old male who [facility] with increasing shortness of breath. He also is having worsening of his baseline mental status. The patient's had multiple hospitalizations as of late. He has developed acute and chronic renal failure. And constantly he has been initiated hemodialysis within the last month. It is related to his dialysis center where he appeared to be more short of breath and was concerns to pneumonia as well as volume overload. And because he had altered mental status he was directed to hospital for admission. He was concerned to sepsis and the patient was brought into the intensive care unit. He has somewhat of a poor historian. He does have some baseline dementia although he is very pleasant overall. He does believe that his mother continues to help him in his home setting. Currently he relates that he is not very short of breath. He does have an occasional cough. No significant sputum production is noted. Nursing staff relates that he has been calm and pleasant. Awake and comfortable improve nutrition today Objective - Vital Signs Vital signs: Vital Signs Temp 97.0 F L 01/01/17 15:00 Pulse 67 01/01/17 15:00 Resp 16 01/01/17 16:00 BP 119/55 01/01/17 15:00 Pulse Ox 91 L 01/01/17 15:00 Intake & Output 01/01/17 01/01/17 01/02/17 06:59 18:59 06:59 Intake Total 820 Output Total 600 200 Balance 220 -200 Weight 52 kg 52 kg Intake: Oral 820 Output: Urine 600 200 Other: Voiding Method Indwelling Catheter Indwelling Catheter # Bowel Movements 1 2 - Exam On the exam Mr. Brayden Negro is a pleasant woman who is much more awake alert and described the time of his admission. He is afebrile at this time. HEENT exam: Is also begin nasal oral lesions the neck was supple without significant lymphadenopathy or palpable thyromegaly. Lungs: Good bilateral air entry with a few basilar crackles being heard no dullness was noted. Heart:Regular rate and rhythm with an audible S1-S2 no history soft S4 without distinct murmur click or rub. Abdomen positive bowel sounds soft nontender without palpable masses or organomegaly no guarding or rebound. Extremities the bilaterally below the knee amputation residual limb are evaluated without edema or lesions. Neurologically: Patient is awake and alert interactive upon stimulation his speech is understandable but does have poor quality of content. Upon questioning he does state that his mother cares for his Norman catheter. Skin: The residual limbs are without evidence of lesions. There is evidence of the pressure ulceration to the coccyx and buttocks that is stage III at this point in time. There is not a large amount of necrosis however. There is only minimal drainage. And is not tender to manipulation. Please see the nursing photography for measurement. However the Norman catheter has caused be complete splaying of the penis right to its base of the scrotum. There is evidence of significant irritation to that tissue likely from some leakage of the urine around the catheter. There is evidence of a possible uroma into the scrotum itself. Which is not tender The hemodialysis catheter is now removed without bleeding - Labs CBC & Chem 7: 12/31/16 09:05 01/01/17 09:15 Labs: Abnormal Lab Results - Last 24 Hours (Table) 12/31/16 01/01/17 01/01/17 Range/Units 20:46 07:22 09:15 Sodium 149 H (137-145) mmol/L Chloride 113 H (98-107) mmol/L BUN 48 H (9-20) mg/dL Creatinine 6.48 H* (0.66-1.25) mg/dL Glucose 182 H (74-99) mg/dL POC Glucose (mg/dL) 136 H 179 H (75-99) mg/dL Calcium 8.0 L (8.4-10.2) mg/dL 01/01/17 01/01/17 Range/Units 12:15 16:39 Sodium (137-145) mmol/L Chloride (98-107) mmol/L BUN (9-20) mg/dL Creatinine (0.66-1.25) mg/dL Glucose (74-99) mg/dL POC Glucose (mg/dL) 157 H 153 H (75-99) mg/dL Calcium (8.4-10.2) mg/dL Microbiology - Last 24 Hours (Table) 12/28/16 13:46 Blood Culture - Preliminary Blood No Growth after 96 hours 12/27/16 12:15 Catheter Tip Culture - Final Catheter Tip Presumptive Staph aureus Diphtheroid species 12/26/16 19:50 Blood Culture - Preliminary Blood No Growth after 120 hours 12/26/16 19:50 Blood Culture - Preliminary Blood No Growth after 120 hours Assessment and Plan (1) Right lower lobe pneumonia Narrative/Plan: Pleasant 81-year-old male who presents the hospital after being evaluated at dialysis Center reappeared to be short of breath and more confused. Because of this he was transferred to the emergency center and admitted. With concerns to sepsis, pneumonia and needs for hemodialysis he was admitted to hospital. The patient's chest x-ray has been evaluated with potential for right lower lobe infiltrate however the possibility of volume overload was also noted. It is time he is comfortable. He is not coughing significantly. His fever has improved. There is evidence of the blood cultures are positive at this time with gram- positive cocci. He has ALLERGIES to daptomycin and penicillin. With his history of multiple pathogens in the past Ceftaroline was chosen. Coverage for staph including MRSA, strep in his prior gram-negative organisms. The follow up blood cultures are also positive at this point in time. Original blood cultures are pulmonary positive for MRSA. With this would continue to Ceftaroline . the follow-up cultures were all positive consequently the The hemodialysis catheter has been removed and he tolerated it well He has an appropriate mattress. There is pressure ulceration to his coccyx and buttocks. The optifoam dressing would not stay in place and constantly zinc cream is being utilized Nutritional status is very poor as noted by his very low pre-albumin. This will impact his ability to heal his wound and recover from infection He will need 4-6 weeks of antibiotic therapy if the current aggressive course of therapy is to continue. Once the bacteria clears from the blood stream will need some type of IV access to receive ongoing antibiotic therapy. Ceftaroline chosen given the Vanco ED[place] of2 Biggest concern would be to hemodialysis and whether that is a further option in the future. Ideally dialysis would not continue. This is discussed with the daughters who are present. There appears to be some mild discourse between the 2 is for overall plans. The daughter who is the power of deputy prosecuting attorney still would like to have everything attempted. This time I discussed that the father has had significant complication from his hemodialysis. His quality of life is poor. He will have ongoing difficulties in further dialysis is only short-term answer at this time. Consideration for hospice. Status: Acute (2) Bacteremia due to Gram-positive bacteria Status: Acute (3) Chronic renal failure, stage 5 Status: Acute
[2017-01-01 20:38] LABS: Glucose,Whole Blood 146 mg/dL (75-99)
[2017-01-01] MEDS: SODIUM CHLORIDE 0.9% 1,000 ML IV SCH (22:38)
[2017-01-02 07:15] LABS: Glucose,Whole Blood 170 mg/dL (75-99)
--- NOTE | 2017-01-02 07:29 | PN ---
DATE OF SERVICE: 01/01/2017 INTERVAL HISTORY: Mr. Negro is an 81-year-old male with a past medical history of heart failure, COPD, dementia, diabetes mellitus and end-stage renal disease on hemodialysis, admitted to the hospital with sepsis. Blood cultures positive for MRSA and the source of infection was thought to be hemodialysis catheter that was removed. Patient blood cultures have been growing MRSA. The patient's dialysis catheter was removed and repeat blood cultures have been negative. Also the decision was made to put in a Perm-A-Cath for dialysis access. Today the patient was taken to get the catheter placed, but after he was taken to the OR patient refused the procedure. The patient is aware of his situation but his daughter is his health care proxy who makes decisions for him. Patient's daughter insists that he get the dialysis catheter, but the patient is not willing to get it. The patient is just coming back from the procedure and he seems to be very agitated. He states that he does not want to be getting the catheter. REVIEW OF SYSTEMS: CONSTITUTIONAL: He does not complain of any fever, chills, or rigors. RESPIRATORY: No cough. No difficulty in breathing. Patient states that he does not want to be in the hospital and is depressed about his situation. Patient's medications have been reviewed. He is on Xanax, Norvasc, ( ) ointment, TUMs, ceftaroline, vitamin D3, Aranesp, Lasix, sliding scale insulin, multivitamin, Nephrocaps, Lyrica, Zofran, sodium bicarbonate tablets. On examination, patient's vital signs temperature 97, heart rate 67, respiratory rate 16, blood pressure 119/55, saturating at 91% on 2 liters of nasal cannula. GENERAL APPEARANCE: Patient is elderly male, lying in bed, appears to be anxious. EYES: Pupils, round, and reactive to light. NECK: No JVD. CARDIOVASCULAR: S1, S2 heard. RESPIRATORY: Decreased breath sounds in all lung horn. SKIN: Sacral decubitus ulcer on the lower back. EXTREMITIES: Bilateral below the knee amputation. Patient's labs: Sodium 149, potassium 4.1, chloride 113, bicarb 24, BUN 48, creatinine 6.48. ASSESSMENT AND PLAN: 1. Sepsis secondary to infection from the hemodialysis catheter. Blood culture growing methicillin-resistant Staphylococcus aureus, status post removal. 2. End-stage renal disease hemodialysis. 3. Chronic obstructive pulmonary disease in an ex-smoker. 4. Alzheimer's dementia late onset type. 5. Essential hypertension. 6. Type 2 diabetes mellitus. 7. Chronic urinary outflow obstruction. Patient is on Norman catheter. 8. Acute delirium with metabolic encephalopathy. That has resolved currently. 9. Stage II sacral decubitus ulcers present on admission. PLAN: Continue the patient on ceftaroline for his MRSA infection, but currently the patient does not have dialysis access and so if he has to be dialyzed, he needs catheter placed. The patient is refusing the procedure, but his daughter insists that he get the procedure. Dr. James is on board and said he would try to put in a catheter again tomorrow morning. Further recommendations depending on the progress of the patient.
[2017-01-02] MEDS: FUROSEMIDE 10 MG/ML 4 ML VIAL IV SCH ×2 (07:50→22:13)
[2017-01-02] MEDS: INSULIN LISPRO (humaLOG) 300 UNIT/3 ML VIAL SQ SCH ×4 (07:50→22:07)
[2017-01-02] MEDS: SODIUM CHLORIDE 0.9% IVPB SCH ×2 (07:50→22:13)
[2017-01-02] MEDS: CEFTAROLINE FOSAMIL IVPB SCH ×2 (07:50→22:13)
[2017-01-02] MEDS: BACITRACIN 500 UNIT/GM OINT 28.4 GM TUBE TOPICAL SCH (07:51)
[2017-01-02] MEDS: ZINC OXIDE 20% OINT 28.4 GM TUBE TOPICAL SCH ×2 (07:52→22:14)
[2017-01-02] MEDS: IPRATROPIUM-ALBUTEROL 3 ML NEB INHALATION SCH ×4 (09:53→19:28)
[2017-01-02] MEDS: CALCIUM CARBONATE 500 MG CHEWABLE PO SCH ×2 (10:11→22:13)
[2017-01-02] MEDS: SODIUM BICARBONATE TAB 650 MG TAB PO SCH ×2 (10:11→22:13)
[2017-01-02] MEDS: CHOLECALCIFEROL 1,000 UNIT TAB PO SCH (10:11)
[2017-01-02] MEDS: PREGABALIN 75 MG CAP PO SCH ×2 (10:11→22:13)
[2017-01-02] MEDS: amLODIPine 10 MG TAB PO SCH (10:11)
[2017-01-02] MEDS: MULTIVITAMINS, THERA 1 EACH TAB PO SCH (10:11)
[2017-01-02] MEDS: FOLIC ACID-VIT B COMPLEX-VIT C 1 CAP PO SCH (10:11)
[2017-01-02 12:42] LABS: Glucose,Whole Blood 96 mg/dL (75-99)
[2017-01-02] MEDS ORDERED: KETAMINE 10 MG/ML 20 ML VIAL ONE (14:21)
[2017-01-02] MEDS ORDERED: LIDOCAINE 2% INJ 20 MG/ML SQ ONE ×2 (14:39→14:47)
--- NOTE | 2017-01-02 15:07 | P.PCN ---
Description of Procedure: Procedure note Diagnoses is acute chronic renal failure Procedure is to 2 times CM dialysis catheter left internal jugular approach Procedure this patient brought to the [facility] left-sided chest was prepped and draped applied in the usual manner 1% lidocaine for infected infarcted neck and chest area ultrasound-guided micropuncture introduced to the left internal jugular vein micropuncture guidewire was passed check i under fluoroscopy 4- Yakut dilator advanced on top of the guidewire then tunnel was created through the tunnel be brought to the to the neck32 centimeter catheter dilator advanced on the top of the guidewire then sheath was advanced to the top of the guidewire through the sheath we introduced a dialysis catheter tip of the catheter was at superior vena cava and atrium sheath was removed flushed with heparin saline and Hep-Lock catheter was secured fifth 3-0 nylon and 3-0 Vicryl dressing applied patient tolerated the procedure well
[2017-01-02] MEDS ORDERED: IV FLUID CONTINUATION 1,000 ML IV ONE (15:21)
--- NOTE | 2017-01-02 15:38 | IR ---
EXAMINATION TYPE: IR cvc insert central tunneled DATE OF EXAM: 01/02/2017 3:28 PM COMPARISON: NONE HISTORY: Renal failure Fluoroscopy was applied to the referring clinician.
--- NOTE | 2017-01-02 16:14 | XR ---
EXAMINATION TYPE: XR chest 1V portable DATE OF EXAM: 01/02/2017 3:59 PM Comparison: 12/24/2016 Clinical History: 81-year-old male line placement Findings: Heart is upper limits of normal in size. Diffuse vascular and interstitial prominence with perihilar densities and right mid and lower lung opacity as well as small left pleural effusion. Left IJ double lumen hemodialysis catheter is present with tips in the mid SVC. Impression: Findings suggest fluid overload with pulmonary edema. [id number] right and small left pleural effusions with adjacent atelectasis.
[2017-01-02 17:05] LABS: Glucose,Whole Blood 105 mg/dL (75-99)
--- NOTE | 2017-01-02 19:47 | P.PN ---
Subjective Principal diagnosis: Shortness of breath and altered mental status Mr. Brayden Negro is a 81-year-old male who [facility] to [facility] with increasing shortness of breath. He also is having worsening of his baseline mental status. The patient's had multiple hospitalizations as of late. He has developed acute and chronic renal failure. And constantly he has been initiated hemodialysis within the last month. It is related to his dialysis center where he appeared to be more short of breath and was concerns to pneumonia as well as volume overload. And because he had altered mental status he was directed to hospital for admission. He was concerned to sepsis and the patient was brought into the intensive care unit. He has somewhat of a poor historian. He does have some baseline dementia although he is very pleasant overall. He does believe that his mother continues to help him in his home setting. Currently he relates that he is not very short of breath. He does have an occasional cough. No significant sputum production is noted. Nursing staff relates that he has been calm and pleasant. Awake and comfortable improve nutrition today Dialysis catheter was placed today into the right subclavian area. Objective - Vital Signs Vital signs: Vital Signs Temp 97.4 F L 01/02/17 16:05 Pulse 63 01/02/17 16:05 Resp 16 01/02/17 16:05 BP 118/60 01/02/17 16:30 Pulse Ox 96 01/02/17 16:05 Intake & Output 01/02/17 01/02/17 01/03/17 06:59 18:59 06:59 Intake Total 580 Output Total 200 700 Balance 380 -700 Weight 52 kg Intake: Oral 580 Output: Urine 200 700 Other: Voiding Method Indwelling Catheter Indwelling Catheter - Exam On the exam Mr. Brayden Negro is a pleasant woman who is much more awake alert and described the time of his admission. He is afebrile at this time. HEENT exam: Is also begin nasal oral lesions the neck was supple without significant lymphadenopathy or palpable thyromegaly. Lungs: Good bilateral air entry with a few basilar crackles being heard no dullness was noted. Heart:Regular rate and rhythm with an audible S1-S2 no history soft S4 without distinct murmur click or rub. Abdomen positive bowel sounds soft nontender without palpable masses or organomegaly no guarding or rebound. Extremities the bilaterally below the knee amputation residual limb are evaluated without edema or lesions. Neurologically: Patient is awake and alert interactive upon stimulation his speech is understandable but does have poor quality of content. Upon questioning he does state that his mother cares for his Norman catheter. Skin: The residual limbs are without evidence of lesions. There is evidence of the pressure ulceration to the coccyx and buttocks that is stage III at this point in time. There is not a large amount of necrosis however. There is only minimal drainage. And is not tender to manipulation. Please see the nursing photography for measurement. However the Nomran catheter has caused be complete splaying of the penis right to its base of the scrotum. There is evidence of significant irritation to that tissue likely from some leakage of the urine around the catheter. There is evidence of a possible uroma into the scrotum itself. Which is not tender The prior site of the dialysis catheter left anterior chest wall without purulence. New site is more internal jugular and is without erythema or tenderness. - Labs CBC & Chem 7: 12/31/16 09:05 01/01/17 09:15 Labs: Abnormal Lab Results - Last 24 Hours (Table) 01/01/17 01/02/17 01/02/17 Range/Units 20:17 07:13 17:03 POC Glucose (mg/dL) 146 H 170 H 105 H (75-99) mg/dL Microbiology - Last 24 Hours (Table) 12/28/16 13:46 Blood Culture - Preliminary Blood No Growth after 120 hours 12/26/16 19:50 Blood Culture - Final Blood No Growth after 144 hours 12/26/16 19:50 Blood Culture - Final Blood No Growth after 144 hours 12/27/16 12:15 Catheter Tip Culture - Final Catheter Tip Presumptive Staph aureus Diphtheroid species Laboratory Results WBC 6.6 k/uL (3.8-10.6) 12/31/16 09:05 RBC 2.93 m/uL (4.30-5.90) L 12/31/16 09:05 Hgb 8.5 gm/dL (13.0-17.5) L 12/31/16 09:05 Hct 28.5 % (39.0-53.0) L 12/31/16 09:05 MCV 97.3 fL (80.0-100.0) 12/31/16 09:05 MCH 29.2 pg (25.0-35.0) 12/31/16 09:05 MCHC 30.0 g/dL (31.0-37.0) L 12/31/16 09:05 RDW 17.0 % (11.5-15.5) H 12/31/16 09:05 Plt Count 323 k/uL (150-450) 12/31/16 09:05 Neutrophils % 60 % 12/31/16 09:05 Neutrophils % (Manual) 55.5 % 12/27/16 07:57 Lymphocytes % 21 % 12/31/16 09:05 Lymphocytes % (Manual) 25.0 % 12/27/16 07:57 Monocytes % 8 % 12/31/16 09:05 Monocytes % (Manual) 9.0 % 12/27/16 07:57 Eosinophils % 6 % 12/31/16 09:05 Eosinophils % (Manual) 8.0 % 12/27/16 07:57 Basophils % 1 % 12/31/16 09:05 Basophils % (Manual) 0.5 % 12/27/16 07:57 Metamyelocytes % 1.0 % 12/27/16 07:57 Myelocytes % 1.0 % 12/27/16 07:57 Neutrophils # 4.0 k/uL (1.3-7.7) 12/31/16 09:05 Neutrophils # (Manual) 2.7 k/uL (1.3-7.7) 12/27/16 07:57 Lymphocytes # 1.4 k/uL (1.0-4.8) 12/31/16 09:05 Lymphocytes # (Manual) 1.2 k/uL (1.0-4.8) 12/27/16 07:57 Monocytes # 0.5 k/uL (0-1.0) 12/31/16 09:05 Monocytes # (Manual) 0.4 k/uL (0-1.0) 12/27/16 07:57 Eosinophils # 0.4 k/uL (0-0.7) 12/31/16 09:05 Eosinophils # (Manual) 0.4 k/uL (0-0.7) 12/27/16 07:57 Basophils # 0.1 k/uL (0-0.2) 12/31/16 09:05 Basophils # (Manual) 0.0 k/uL (0-0.2) 12/27/16 07:57 Nucleated RBCs 0 /100 WBC (0-0) 12/27/16 07:57 Manual Slide Review Performed 12/27/16 07:57 Hypochromasia Marked 12/31/16 09:05 Anisocytosis Slight 12/31/16 09:05 Macrocytosis Slight 12/31/16 09:05 PT 11.4 sec (9.0-12.0) 01/01/17 09:15 INR 1.1 (<1.1) 01/01/17 09:15 Sodium 149 mmol/L (137-145) H 01/01/17 09:15 Potassium 4.1 mmol/L (3.5-5.1) 01/01/17 09:15 Chloride 113 mmol/L (98-107) H 01/01/17 09:15 Carbon Dioxide 24 mmol/L (22-30) 01/01/17 09:15 Anion Gap 12 mmol/L 01/01/17 09:15 BUN 48 mg/dL (9-20) H 01/01/17 09:15 Creatinine 6.48 mg/dL (0.66-1.25) H* 01/01/17 09:15 Est GFR (MDRD) Af Amer 10 (>60 ml/min/1.73 sqM) 01/01/17 09:15 Est GFR (MDRD) Non-Af 8 (>60 ml/min/1.73 sqM) 01/01/17 09:15 Glucose 182 mg/dL (74-99) H 01/01/17 09:15 POC Glucose (mg/dL) 105 mg/dL (75-99) H 01/02/17 17:03 POC Glu Vending Machine Assembler ID Felicity Joseph 01/02/17 17:[address] Glu mg/dL 105 mg/dL 12/24/16 04:23 Hemoglobin A1c 5.3 % (4.2-6.1) 12/24/16 04:23 Plasma Lactic Acid Geovani 0.9 mmol/L (0.7-2.0) 12/23/16 20:10 Calcium 8.0 mg/dL (8.4-10.2) L 01/01/17 09:15 Phosphorus 3.6 mg/dL (2.5-4.5) 12/24/16 11:03 Magnesium 1.7 mg/dL (1.6-2.3) 12/24/16 04:27 Iron 17 ug/dL (49-181) L 12/24/16 04:27 TIBC 133 ug/dL (261-462) L 12/24/16 04:27 % Saturation 12.8 % (20-50) L 12/24/16 04:27 Ferritin 1630 ng/mL (18-464) H 12/24/16 04:27 Total Bilirubin 0.4 mg/dL (0.2-1.3) 12/24/16 04:27 AST 19 U/L (17-59) 12/24/16 04:27 ALT 30 U/L (21-72) 12/24/16 04:27 Alkaline Phosphatase 110 U/L (38-126) 12/24/16 04:27 Total Protein 5.1 g/dL (6.3-8.2) L 12/24/16 04:27 Albumin 2.2 g/dL (3.5-5.0) L 12/24/16 04:27 Prealbumin 8 mg/dL (18-36) L 12/24/16 11:03 Microbiology 12/28/16 13:46 Blood Blood Culture - Preliminary No Growth after 120 hours 12/26/16 19:50 Blood Blood Culture - Final No Growth after 144 hours 12/26/16 19:50 Blood Blood Culture - Final No Growth after 144 hours 12/27/16 12:15 Catheter Tip Catheter Tip Culture - Final Presumptive Staph aureus Diphtheroid species 12/24/16 19:09 Blood Blood Culture - Final No Growth after 144 hours 12/26/16 19:50 Blood Blood Culture Gram Stain - Final 12/26/16 19:50 Blood Blood Culture - Final Methicillin resist S. aureus 12/24/16 16:30 Blood Blood Culture Gram Stain - Final 12/24/16 16:30 Blood Blood Culture - Final Methicillin resist S. aureus 12/23/16 20:10 Blood Blood Culture Gram Stain - Final 12/23/16 20:10 Blood Blood Culture - Final Methicillin resist S. aureus 12/24/16 16:30 Blood Blood Culture - Preliminary 12/23/16 20:10 Blood Blood Culture - Preliminary Assessment and Plan (1) Right lower lobe pneumonia Narrative/Plan: Pleasant 81-year-old male who presents the hospital after being evaluated at dialysis Center reappeared to be short of breath and more confused. Because of this he was transferred to the emergency center and admitted. With concerns to sepsis, pneumonia and needs for hemodialysis he was admitted to hospital. The patient's chest x-ray has been evaluated with potential for right lower lobe infiltrate however the possibility of volume overload was also noted. It is time he is comfortable. He is not coughing significantly. His fever has improved. There is evidence of the blood cultures are positive at this time with gram- positive cocci. He has ALLERGIES to daptomycin and penicillin. With his history of multiple pathogens in the past Ceftaroline was chosen. Coverage for staph including MRSA, strep in his prior gram-negative organisms. The follow up blood cultures are also positive at this point in time. Original blood cultures are pulmonary positive for MRSA. With this would continue to Ceftaroline . the follow-up cultures were all positive consequently the The hemodialysis catheter has been removed and he tolerated it well He has an appropriate mattress. There is pressure ulceration to his coccyx and buttocks. The optifoam dressing would not stay in place and constantly zinc cream is being utilized Nutritional status is very poor as noted by his very low pre-albumin. This will impact his ability to heal his wound and recover from infection He will need 4-6 weeks of antibiotic therapy if the current aggressive course of therapy is to continue. Once the bacteria clears from the blood stream will need some type of IV access to receive ongoing antibiotic therapy. Ceftaroline chosen given the Vanco [place] of2 Biggest concern would be to hemodialysis . A dialysis catheter was placed today. We'll be continuing dialysis in the near future. We'll need as noted a course of IV antibiotic therapy. Given that the infections with his hemodialysis catheter. The time of his discharge with his improvement would be able to complete his course of antibiotic therapy with vancomycin. Status: Acute (2) Bacteremia due to Gram-positive bacteria Status: Acute (3) Chronic renal failure, stage 5 Status: Acute
--- NOTE | 2017-01-02 20:32 | PN ---
Patient is seen for followup for end-stage renal disease. He is scheduled for PermCath placement today. Yesterday it was attempted, but patient was quite unstable and was not able to lie flat. Therefore, the procedure was not attempted. On examination today, the patient is sitting up in bed. His daughters are present at bedside. Blood pressure is 135/70, heart rate 66 per minute. He is afebrile. HEART: S1 and S2. LUNGS: Decreased breath sounds at the bases. Minimal basal crackles are heard. Abdomen is soft, nontender. Lower extremities show bilateral BKA. Labs show sodium 149, potassium 4.1, serum creatinine 6.48. ASSESSMENT: 1. End-stage renal disease on hemodialysis and patient will be dialyzed after his catheter is placed. 2. Methicillin-resistant Staphylococcus aureus status post removal of left internal jugular PermCath. 3. Peripheral vascular disease with bilateral below-knee amputation. PLAN: Hemodialysis today and will likely repeat dialysis in a.m. as well.
[2017-01-02 20:53] LABS: Glucose,Whole Blood 118 mg/dL (75-99)
[2017-01-02] MEDS: ALPRAZolam 0.25 MG TAB PO PRN (22:13)
[2017-01-02] MEDS: SODIUM CHLORIDE 0.9% 1,000 ML IV SCH (22:18)
[2017-01-03 07:07] LABS: Glucose,Whole Blood 93 mg/dL (75-99)
[2017-01-03] MEDS: INSULIN LISPRO (humaLOG) 300 UNIT/3 ML VIAL SQ SCH ×4 (07:54→21:32)
[2017-01-03] MEDS: FUROSEMIDE 10 MG/ML 4 ML VIAL IV SCH ×2 (07:55→21:31)
[2017-01-03] MEDS: PREGABALIN 75 MG CAP PO SCH ×2 (07:55→21:32)
[2017-01-03] MEDS: CEFTAROLINE FOSAMIL IVPB SCH (07:55)
[2017-01-03] MEDS: SODIUM CHLORIDE 0.9% IVPB SCH (07:55)
[2017-01-03] MEDS: FOLIC ACID-VIT B COMPLEX-VIT C 1 CAP PO SCH (07:55)
[2017-01-03] MEDS: SODIUM BICARBONATE TAB 650 MG TAB PO SCH ×2 (07:55→21:32)
[2017-01-03] MEDS: ZINC OXIDE 20% OINT 28.4 GM TUBE TOPICAL SCH ×2 (07:56→21:32)
[2017-01-03] MEDS: MULTIVITAMINS, THERA 1 EACH TAB PO SCH (07:57)
[2017-01-03] MEDS: BACITRACIN 500 UNIT/GM OINT 28.4 GM TUBE TOPICAL SCH (07:57)
[2017-01-03] MEDS: CHOLECALCIFEROL 1,000 UNIT TAB PO SCH (07:57)
[2017-01-03] MEDS: CALCIUM CARBONATE 500 MG CHEWABLE PO SCH ×2 (07:58→21:31)
--- NOTE | 2017-01-03 09:19 | PN ---
DATE OF SERVICE: 01/02/2017 INTERVAL HISTORY: Mr. Negro is an 81-year-old male with a past medical history of heart failure, COPD, dementia, diabetes mellitus and end-stage renal disease on hemodialysis admitted to the hospital with sepsis. Patient's blood cultures have been positive for MRSA and source of infection was identified as his hemodialysis catheter that was removed. Repeat blood cultures were negative. The patient is currently continued on antibiotics as per Dr. Tommy PROCTOR recommendations. Eventually the plan was to put in Perm-A-Cath for dialysis access, but patient refused the procedure yesterday. The patient's daughter insisted that we put in the catheter as she is caregiver for him and so the patient did receive the Perm-A-Cath today. Patient is coming back from the procedure and he is comfortably sleeping. On waking him up, he states that he is sleepy and wants to go back to sleep. Review of systems could not be done as the patient is very sleepy as he just came back from the procedure. Patient's medications DuoNeb, Xanax, Norvasc, bacitracin, Tums, ceftaroline, Vitamin D3, Aranesp, Lasix, sliding scale of insulin, multivitamin, Nephrocaps, Theragran, Narcan, Zofran, Lyrica and sodium bicarbonate. The patient's vital signs: Temperature is 97.4, heart rate 63, respiratory rate 16, blood pressure 115/72, saturating at 96% on 2 L of nasal cannula. On examination, the patient an elderly male, cachectic, lying in bed, appears to be in no acute distress. HEAD: Atraumatic. Normocephalic. He is edentulous. NECK: No JVD. CARDIAC: S1 and S2 heard. LUNGS: Bilateral breath sounds are positive with few basilar crackles. ABDOMEN: Soft. Bowel sounds positive. No palpable masses. EXTREMITIES: Bilaterally below the knee amputation. NEUROLOGICAL: The patient is awake and alert, but states sleepy and fell asleep quickly as he just came back from the procedure. SKIN: Patient has stage III sacral decubitus ulcer which is nontender. PATIENT'S LABS: White count of 6.6, hemoglobin 8.5, platelets 323. Sodium 149, potassium 4.1, chloride 113, bicarb 24, BUN 48, creatinine 6.48. ASSESSMENT AND PLAN: 1. Sepsis secondary to infection from hemodialysis catheter, status post removal of it. Blood cultures growing methicillin-resistant Staphylococcus aureus and he has been on the ceftaroline. Patient did get a new [id number]-J-Apqy today. 2. End-stage renal disease on hemodialysis. 3. Chronic obstructive pulmonary disease in an ex-smoker. 4. Alzheimer's dementia, late onset type. 5. Essential hypertension. 6. Type 2 diabetes mellitus. 7. Chronic urinary outflow obstruction. Patient is on Norman catheter. 8. Acute delirium secondary to metabolic encephalopathy, resolved. 9. Stage II to III sacral decubitus ulcer, that is present on admission. 10. Protein calorie malnutrition severe, came in with a body mass index of 16. PLAN: Plan is to continue the patient on antibiotics in the form of ceftaroline as per ID recommendations. Patient receive a Thill-S-Wcjh today for dialysis access. Overall picture is that patient has very poor prognosis, but his daughter insists that we do everything possible for him even though after we explained to her multiple times that the prognosis is poor. As per the nursing staff report, ( ) seems to have secondary gain taking care of her father ( ), but I did not technically talk with the patient's daughter. Overall prognosis is guarded. Further recommendations depending on the progress of the patient.
[2017-01-03] MEDS: IPRATROPIUM-ALBUTEROL 3 ML NEB INHALATION SCH ×4 (09:38→19:39)
[2017-01-03 10:19] LABS: Anisocytosis Slight; Basophils % (A) 1 %; CH 29.1; CHCM 30.5; Eosinophils # (A) 0.2 k/uL (0-0.7); Eosinophils % (A) 3 %; HCT 26.2 % (39.0-53.0); HDW 3.33; Hypochromasia Marked; Luc # (Auto) 0.21; Luc % (Auto) 3; Lymphocytes # (A) 1.7 k/uL (1.0-4.8); Lymphocytes % (A) 24 %; MCH 29.3 pg (25.0-35.0); MCHC 30.5 g/dL (31.0-37.0); Macrocytosis Slight; Monocytes # (A) 0.4 k/uL (0-1.0); Monocytes % (A) 6 %; Neutrophils # (A) 4.5 k/uL (1.3-7.7); Neutrophils % (A) 64 %; RBC 2.73 m/uL (4.30-5.90); RDW 17.3 % (11.5-15.5); WBC 6.9 k/uL (3.8-10.6); WBC (Perox) 7.07
[2017-01-03] MEDS: amLODIPine 10 MG TAB PO SCH (10:40)
[2017-01-03 10:43] LABS: Potassium 3.8 mmol/L (3.5-5.1); Total Bilirubin 0.4 mg/dL (0.2-1.3); Total Protein 5.3 g/dL (6.3-8.2)
[2017-01-03 11:43] LABS: Glucose,Whole Blood 114 mg/dL (75-99)
[2017-01-03] MEDS ORDERED: HEPARIN SODIUM,PORCINE 5,000 UNIT/ML 1 ML VIAL ONE (12:10)
[2017-01-03] MEDS ORDERED: diphenhydrAMINE 50 MG/ML 1 ML VIAL IVP PRN (14:47)
[2017-01-03 17:05] LABS: Glucose,Whole Blood 103 mg/dL (75-99)
--- NOTE | 2017-01-03 19:02 | PN ---
Patient is seen for followup for end-stage renal disease. He is scheduled for hemodialysis today and possible discharge after dialysis. On examination, patient is comfortable. Blood pressure 125/63, heart rate 68 per minute. He is afebrile. Examination shows decreased breath sounds, bilateral bases, with crackles heard in the bases. Abdomen is soft, nontender. Heart sounds are heard. 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 Labs show potassium 3.8, sodium 145. Hemoglobin 8.0. ASSESSMENT: 1. End-stage renal disease, on hemodialysis on a Sunday, , Sunday schedule as outpatient. 2. Methicillin-resistant Staphylococcus aureus bacteremia, status post removal of IJ Perm-A-Cath with reinsertion once blood cultures were negative. The new catheter was placed yesterday on 12/02/2016. 3. Volume overload. PLAN: Hemodialysis today. Patient will be dialyzed again tomorrow as outpatient.
[2017-01-03] MEDS ORDERED: IV VANCOMYCIN PER PHARMACY 1 EACH MISC MISCELLANE PRN (19:08)
--- NOTE | 2017-01-03 19:08 | P.PN ---
Subjective Principal diagnosis: Shortness of breath and altered mental status Mr. Brayden Negro is a 81-year-old male who [facility] with increasing shortness of breath. He also is having worsening of his baseline mental status. The patient's had multiple hospitalizations as of late. He has developed acute and chronic renal failure. And constantly he has been initiated hemodialysis within the last month. It is related to his dialysis center where he appeared to be more short of breath and was concerns to pneumonia as well as volume overload. And because he had altered mental status he was directed to hospital for admission. He was concerned to sepsis and the patient was brought into the intensive care unit. He has somewhat of a poor historian. He does have some baseline dementia although he is very pleasant overall. He does believe that his mother continues to help him in his home setting. Currently he relates that he is not very short of breath. He does have an occasional cough. No significant sputum production is noted. Nursing staff relates that he has been calm and pleasant. Awake and comfortable improve nutrition today Dialysis catheter was placed into the right subclavian area with first course of hemodialysis his creatinine has gone from 6.48-4.46. Dialysis planned today.. Objective - Vital Signs Vital signs: Vital Signs Temp 98.9 F 01/03/17 15:00 Pulse 72 01/03/17 15:00 Resp 20 01/03/17 15:00 BP 133/61 01/03/17 15:00 Pulse Ox 95 01/03/17 15:00 Intake & Output 01/03/17 01/03/17 01/04/17 06:59 18:59 06:59 Output Total 175 Balance -175 Weight 68 kg Output: Urine 175 Other: Voiding Method Indwelling Catheter Indwelling Catheter # Voids 1 # Bowel Movements 1 - Exam On the exam Mr. Brayden Negro is a pleasant woman who is much more awake alert and described the time of his admission. He is afebrile at this time. HEENT exam: Is also begin nasal oral lesions the neck was supple without significant lymphadenopathy or palpable thyromegaly. Lungs: Good bilateral air entry with a few basilar crackles being heard no dullness was noted. Heart:Regular rate and rhythm with an audible S1-S2 no history soft S4 without distinct murmur click or rub. Abdomen positive bowel sounds soft nontender without palpable masses or organomegaly no guarding or rebound. Extremities the bilaterally below the knee amputation residual limb are evaluated without edema or lesions. Neurologically: Patient is awake and alert interactive upon stimulation his speech is understandable but does have poor quality of content. Upon questioning he does state that his mother cares for his Norman catheter. Skin: The residual limbs are without evidence of lesions. There is evidence of the pressure ulceration to the coccyx and buttocks that is stage III at this point in time. There is not a large amount of necrosis however. There is only minimal drainage. And is not tender to manipulation. Please see the nursing photography for measurement. However the Norman catheter has caused be complete splaying of the penis right to its base of the scrotum. There is evidence of significant irritation to that tissue likely from some leakage of the urine around the catheter. There is evidence of a possible uroma into the scrotum itself. Which is not tender The prior site of the dialysis catheter left anterior chest wall without purulence. New site is more internal jugular and is without erythema or tenderness. - Labs CBC & Chem 7: 01/03/17 09:49 01/03/17 09:49 Labs: Abnormal Lab Results - Last 24 Hours (Table) 01/02/17 01/03/17 01/03/17 Range/Units 20:51 09:49 09:49 RBC 2.73 L (4.30-5.90) m/uL Hgb 8.0 L (13.0-17.5) gm/dL Hct 26.2 L (39.0-53.0) % MCHC 30.5 L (31.0-37.0) g/dL RDW 17.3 H (11.5-15.5) % Chloride 110 H (98-107) mmol/L BUN 32 H (9-20) mg/dL Creatinine 4.46 H (0.66-1.25) mg/dL Glucose 125 H (74-99) mg/dL POC Glucose (mg/dL) 118 H (75-99) mg/dL Calcium 7.0 L (8.4-10.2) mg/dL Total Protein 5.3 L (6.3-8.2) g/dL Albumin 2.3 L (3.5-5.0) g/dL 01/03/17 01/03/17 Range/Units 11:42 17:03 RBC (4.30-5.90) m/uL Hgb (13.0-17.5) gm/dL Hct (39.0-53.0) % MCHC (31.0-37.0) g/dL RDW (11.5-15.5) % Chloride (98-107) mmol/L BUN (9-20) mg/dL Creatinine (0.66-1.25) mg/dL Glucose (74-99) mg/dL POC Glucose (mg/dL) 114 H 103 H (75-99) mg/dL Calcium (8.4-10.2) mg/dL Total Protein (6.3-8.2) g/dL Albumin (3.5-5.0) g/dL Microbiology - Last 24 Hours (Table) 12/28/16 13:46 Blood Culture - Final Blood No Growth after 144 hours Laboratory Results WBC 6.9 k/uL (3.8-10.6) 01/03/17 09:49 RBC 2.73 m/uL (4.30-5.90) L 01/03/17 09:49 Hgb 8.0 gm/dL (13.0-17.5) L 01/03/17 09:49 Hct 26.2 % (39.0-53.0) L 01/03/17 09:49 MCV 96.0 fL (80.0-100.0) 01/03/17 09:49 MCH 29.3 pg (25.0-35.0) 01/03/17 09:49 MCHC 30.5 g/dL (31.0-37.0) L 01/03/17 09:49 RDW 17.3 % (11.5-15.5) H 01/03/17 09:49 Plt Count 185 k/uL (150-450) 01/03/17 09:49 Neutrophils % 64 % 01/03/17 09:49 Neutrophils % (Manual) 55.5 % 12/27/16 07:57 Lymphocytes % 24 % 01/03/17 09:49 Lymphocytes % (Manual) 25.0 % 12/27/16 07:57 Monocytes % 6 % 01/03/17 09:49 Monocytes % (Manual) 9.0 % 12/27/16 07:57 Eosinophils % 3 % 01/03/17 09:49 Eosinophils % (Manual) 8.0 % 12/27/16 07:57 Basophils % 1 % 01/03/17 09:49 Basophils % (Manual) 0.5 % 12/27/16 07:57 Metamyelocytes % 1.0 % 12/27/16 07:57 Myelocytes % 1.0 % 12/27/16 07:57 Neutrophils # 4.5 k/uL (1.3-7.7) 01/03/17 09:49 Neutrophils # (Manual) 2.7 k/uL (1.3-7.7) 12/27/16 07:57 Lymphocytes # 1.7 k/uL (1.0-4.8) 01/03/17 09:49 Lymphocytes # (Manual) 1.2 k/uL (1.0-4.8) 12/27/16 07:57 Monocytes # 0.4 k/uL (0-1.0) 01/03/17 09:49 Monocytes # (Manual) 0.4 k/uL (0-1.0) 12/27/16 07:57 Eosinophils # 0.2 k/uL (0-0.7) 01/03/17 09:49 Eosinophils # (Manual) 0.4 k/uL (0-0.7) 12/27/16 07:57 Basophils # 0.0 k/uL (0-0.2) 01/03/17 09:49 Basophils # (Manual) 0.0 k/uL (0-0.2) 12/27/16 07:57 Nucleated RBCs 0 /100 WBC (0-0) 12/27/16 07:57 Manual Slide Review Performed 12/27/16 07:57 Hypochromasia Marked 01/03/17 09:49 Anisocytosis Slight 01/03/17 09:49 Macrocytosis Slight 01/03/17 09:49 PT 11.4 sec (9.0-12.0) 01/01/17 09:15 INR 1.1 (<1.1) 01/01/17 09:15 Sodium 145 mmol/L (137-145) 01/03/17 09:49 Potassium 3.8 mmol/L (3.5-5.1) 01/03/17 09:49 Chloride 110 mmol/L (98-107) H 01/03/17 09:49 Carbon Dioxide 25 mmol/L (22-30) 01/03/17 09:49 Anion Gap 10 mmol/L 01/03/17 09:49 BUN 32 mg/dL (9-20) H 01/03/17 09:49 Creatinine 4.46 mg/dL (0.66-1.25) H 01/03/17 09:49 Est GFR (MDRD) Af Amer 15 (>60 ml/min/1.73 sqM) 01/03/17 09:49 Est GFR (MDRD) Non-Af 13 (>60 ml/min/1.73 sqM) 01/03/17 09:49 Glucose 125 mg/dL (74-99) H 01/03/17 09:49 POC Glucose (mg/dL) 103 mg/dL (75-99) H 01/03/17 17:03 POC Glu Unit Nurse ID Felicity Joseph 01/03/17 17:[address] Glu mg/dL 105 mg/dL 12/24/16 04:23 Hemoglobin A1c 5.3 % (4.2-6.1) 12/24/16 04:23 Plasma Lactic Acid Geovani 0.9 mmol/L (0.7-2.0) 12/23/16 20:10 Calcium 7.0 mg/dL (8.4-10.2) L 01/03/17 09:49 Phosphorus 3.6 mg/dL (2.5-4.5) 12/24/16 11:03 Magnesium 1.7 mg/dL (1.6-2.3) 12/24/16 04:27 Iron 17 ug/dL (49-181) L 12/24/16 04:27 TIBC 133 ug/dL (261-462) L 12/24/16 04:27 % Saturation 12.8 % (20-50) L 12/24/16 04:27 Ferritin 1630 ng/mL (18-464) H 12/24/16 04:27 Total Bilirubin 0.4 mg/dL (0.2-1.3) 01/03/17 09:49 AST 18 U/L (17-59) 01/03/17 09:49 ALT 31 U/L (21-72) 01/03/17 09:49 Alkaline Phosphatase 84 U/L (38-126) 01/03/17 09:49 Total Protein 5.3 g/dL (6.3-8.2) L 01/03/17 09:49 Albumin 2.3 g/dL (3.5-5.0) L 01/03/17 09:49 Prealbumin 8 mg/dL (18-36) L 12/24/16 11:03 Microbiology 12/28/16 13:46 Blood Blood Culture - Final No Growth after 144 hours 12/26/16 19:50 Blood Blood Culture - Final No Growth after 144 hours 12/26/16 19:50 Blood Blood Culture - Final No Growth after 144 hours 12/27/16 12:15 Catheter Tip Catheter Tip Culture - Final Presumptive Staph aureus Diphtheroid species 12/24/16 19:09 Blood Blood Culture - Final No Growth after 144 hours 12/26/16 19:50 Blood Blood Culture Gram Stain - Final 12/26/16 19:50 Blood Blood Culture - Final Methicillin resist S. aureus 12/24/16 16:30 Blood Blood Culture Gram Stain - Final 12/24/16 16:30 Blood Blood Culture - Final Methicillin resist S. aureus 12/23/16 20:10 Blood Blood Culture Gram Stain - Final 12/23/16 20:10 Blood Blood Culture - Final Methicillin resist S. aureus 12/24/16 16:30 Blood Blood Culture - Preliminary 12/23/16 20:10 Blood Blood Culture - Preliminary Assessment and Plan (1) Right lower lobe pneumonia Narrative/Plan: Pleasant 81-year-old male who presents the hospital after being evaluated at dialysis Center reappeared to be short of breath and more confused. Because of this he was transferred to the emergency center and admitted. With concerns to sepsis, pneumonia and needs for hemodialysis he was admitted to hospital. The patient's chest x-ray has been evaluated with potential for right lower lobe infiltrate however the possibility of volume overload was also noted. It is time he is comfortable. He is not coughing significantly. His fever has improved. There is evidence of the blood cultures are positive at this time with gram- positive cocci. He has ALLERGIES to daptomycin and penicillin. With his history of multiple pathogens in the past Ceftaroline was chosen. Coverage for staph including MRSA, strep in his prior gram-negative organisms. The follow up blood cultures are also positive at this point in time. Original blood cultures are pulmonary positive for MRSA. With this would continue to Ceftaroline . the follow-up cultures were all positive consequently the The hemodialysis catheter has been removed and he tolerated it well He has an appropriate mattress. There is pressure ulceration to his coccyx and buttocks. The optifoam dressing would not stay in place and constantly zinc cream is being utilized Nutritional status is very poor as noted by his very low pre-albumin. This will impact his ability to heal his wound and recover from infection He will need 4-6 weeks of antibiotic therapy if the current aggressive course of therapy is to continue. Once the bacteria clears from the blood stream will need some type of IV access to receive ongoing antibiotic therapy. Ceftaroline chosen given the Vanco EDENILSON of2 follow blood culture shows an EDENILSON of 1 for the vancomycin. Biggest concern would be to hemodialysis . A dialysis catheter was placed Dialysis today again for session did improve uremia We'll need as noted a course of IV antibiotic therapy. Given that the infections with his hemodialysis catheter. The time of his discharge with his improvement would be able to complete his course of antibiotic therapy with vancomycin. Status: Acute (2) Bacteremia due to Gram-positive bacteria Status: Acute (3) Chronic renal failure, stage 5 Status: Acute
[2017-01-03] MEDS ORDERED: VANCOMYCIN 1,250 MG in SODIUM CHLORIDE 0.9% 250 ML IVPB STA (19:36)
[2017-01-03 21:26] LABS: Glucose,Whole Blood 100 mg/dL (75-99)
[2017-01-03] MEDS: SODIUM CHLORIDE 0.9% 1,000 ML IV SCH (22:17)
[2017-01-04 07:44] LABS: Glucose,Whole Blood 87 mg/dL (75-99)
[2017-01-04] MEDS: INSULIN LISPRO (humaLOG) 300 UNIT/3 ML VIAL SQ SCH ×4 (07:46→21:34)
[2017-01-04] MEDS: BACITRACIN 500 UNIT/GM OINT 28.4 GM TUBE TOPICAL SCH (07:47)
[2017-01-04] MEDS: SODIUM BICARBONATE TAB 650 MG TAB PO SCH ×3 (07:52→21:49)
[2017-01-04] MEDS: FUROSEMIDE 10 MG/ML 4 ML VIAL IV SCH ×2 (07:52→23:18)
[2017-01-04] MEDS: CALCIUM CARBONATE 500 MG CHEWABLE PO SCH ×4 (07:52→21:50)
[2017-01-04] MEDS: PREGABALIN 75 MG CAP PO SCH ×3 (07:52→21:49)
[2017-01-04] MEDS: FOLIC ACID-VIT B COMPLEX-VIT C 1 CAP PO SCH (07:53)
[2017-01-04] MEDS: CHOLECALCIFEROL 1,000 UNIT TAB PO SCH (07:53)
[2017-01-04] MEDS: amLODIPine 10 MG TAB PO SCH (07:53)
[2017-01-04] MEDS: ZINC OXIDE 20% OINT 28.4 GM TUBE TOPICAL SCH ×2 (07:53→21:51)
[2017-01-04] MEDS: MULTIVITAMINS, THERA 1 EACH TAB PO SCH (07:53)
[2017-01-04] MEDS ORDERED: HEPARIN SODIUM,PORCINE 5,000 UNIT/ML 1 ML VIAL ONE (08:00)
--- NOTE | 2017-01-04 08:05 | DS ---
DATE OF ADMISSION: 12/23/2016 DATE OF DISCHARGE: Patient is an 81-year-old with history of heart failure, COPD, dementia, diabetes mellitus, and patient is admitted for MRSA bacteremia secondary to hemodialysis catheter which was removed and patient had Permacath placed. The patient is clinically doing well and patient will be discharged today. Patient was seen and examined on the day of discharge. Vitals are stable. PHYSICAL EXAMINATION: GENERAL: The patient is alert and oriented x3, not in any acute distress. Well developed, well nourished. HEENT: Pupils are round and equally reacting to light. EOMI. No scleral icterus. No conjunctival pallor. Normocephalic, atraumatic. No pharyngeal erythema. No thyromegaly. CARDIOVASCULAR: S1 and S2 present. No murmurs, rubs, or gallops. PULMONARY: Chest is clear to auscultation, no wheezing or crackles. ABDOMEN: Soft, nontender, nondistended, normoactive bowel sounds. No palpable organomegaly. MUSCULOSKELETAL: No joint swelling or deformity. EXTREMITIES: No significant change. Patient has amputations. NEUROLOGICAL: Gross neurological examination did not reveal any focal deficits. SKIN: No rashes. ASSESSMENT AND PLAN: 1. Sepsis and bacteremia secondary to infected hemodialysis catheter, which was removed and patient had a Permacath. 2. End-stage renal disease on hemodialysis. 3. Chronic obstructive pulmonary disease without any acute exacerbation. 4. Alzheimer's dementia. 5. Essential hypertension. 6. Type 2 diabetes mellitus. 7. Delirium. 8. Stage II to III sacral decubitus ulcers for which patient needs local wound care. ID evaluated the patient. 9. Moderate to severe protein calorie malnutrition. Patient will be discharged today to home with home care as per family request. The patient will follow with Dr. Luis Fernando Bhatia in about 3 to 7 days. Activity as tolerated. Renal diet. Spent greater than 35 minutes in total discharge process. Please refer to my depart summary for further details of discharge medications.
[2017-01-04] MEDS: IPRATROPIUM-ALBUTEROL 3 ML NEB INHALATION SCH ×4 (08:19→19:33)
[2017-01-04 10:58] VITALS: BMI 18.6
[2017-01-04 12:18] LABS: Glucose,Whole Blood 114 mg/dL (75-99)
--- NOTE | 2017-01-04 13:39 | P.PN ---
Subjective Patient is seen in follow-up for end-stage renal disease. He is maintained on hemodialysis on a Sunday schedule. Patient developed MRSA bacteremia and a permacath was discontinued. He received a new permacath this admission. Currently resting in bed. Denies any chest pain or shortness of breath. No active complaints. Vital signs are stable. General: The patient appeared well nourished and normally developed. HEENT: Head exam is unremarkable. Neck is without jugular venous distension. LUNGS: Lungs are clear to auscultation and percussion. Breath sounds decreased. HEART: Rate and Rhythm are regular. First and second heart sounds normal. No murmurs, rubs or gallops. ABDOMEN: Abdominal exam reveals normal bowel sounds. Non-tender and non- distended. No evidence of peritonitis. EXTREMITITES: No clubbing, cyanosis, or edema. Below the knee amputations noted. Objective - Vital Signs Vital signs: Vital Signs Temp 97 F L 01/04/17 07:00 Pulse 67 01/04/17 07:00 Resp 18 01/04/17 07:00 BP 141/65 01/04/17 07:00 Pulse Ox 90 L 01/04/17 07:00 Intake & Output 01/03/17 01/04/17 01/04/17 18:59 06:59 18:59 Intake Total 1070 Balance 1070 Weight 59 kg 59 kg Intake: IV 320 Sodium Chloride 0.9% 1, 320 000 ml @ 20 mls/hr IV . Q24H [facility] Rx#:[id number] Intake, IV Titration 750 Amount Ceftaroline Fosamil 200 250 mg In Sodium Chloride 0.9 % 250 ml @ 250 mls/hr IVPB Q12HR [facility] Rx#: [id number] Vancomycin 1,250 mg In 500 Sodium Chloride 0.9% 250 ml @ 125 mls/hr IVPB ONCE [facility] Rx#:[id number] Other: Voiding Method Indwelling Catheter Indwelling Catheter Indwelling Catheter # Bowel Movements 1 1 1 - Labs CBC & Chem 7: 01/03/17 09:49 01/03/17 09:49 Labs: Abnormal Lab Results - Last 24 Hours (Table) 01/03/17 01/03/17 01/04/17 Range/Units 17:03 21:20 12:17 POC Glucose (mg/dL) 103 H 100 H 114 H (75-99) mg/dL Microbiology - Last 24 Hours (Table) 12/28/16 13:46 Blood Culture - Final Blood No Growth after 144 hours Assessment and Plan Plan: Assessment: #1. End-stage renal disease maintained on hemodialysis on a Sunday schedule via permacath. #2. MRSA bacteremia. Initial permacath was removed and a new permacath was placed once cultures remained negative. #3. Chronic kidney disease mineral bone disease. #4. Anemia of chronic kidney disease. #5. Diabetes mellitus. Plan: Hemodialysis today with goal 1 L ultrafiltration. Maintain Aranesp. Antibiotics per infectious disease recommendations. Currently on IV vancomycin. Awaits discharge.
[2017-01-04 17:11] LABS: Glucose,Whole Blood 90 mg/dL (75-99)
[2017-01-04 21:00] LABS: Glucose,Whole Blood 78 mg/dL (75-99)
--- NOTE | 2017-01-04 21:32 | P.PN ---
Subjective Principal diagnosis: Shortness of breath and altered mental status Mr. Brayden Negro is a 81-year-old male who [facility] with increasing shortness of breath. He also is having worsening of his baseline mental status. The patient's had multiple hospitalizations as of late. He has developed acute and chronic renal failure. And constantly he has been initiated hemodialysis within the last month. It is related to his dialysis center where he appeared to be more short of breath and was concerns to pneumonia as well as volume overload. And because he had altered mental status he was directed to hospital for admission. He was concerned to sepsis and the patient was brought into the intensive care unit. He has somewhat of a poor historian. He does have some baseline dementia although he is very pleasant overall. He does believe that his mother continues to help him in his home setting. Currently he relates that he is not very short of breath. He does have an occasional cough. No significant sputum production is noted. Nursing staff relates that he has been calm and pleasant. Awake and comfortable improve nutrition today Dialysis catheter was placed into the right subclavian area with first course of hemodialysis his creatinine has gone from 6.48-4.46. Dialysis planned today.. Objective - Vital Signs Vital signs: Vital Signs Temp 97.6 F 01/04/17 15:00 Pulse 67 01/04/17 15:00 Resp 18 01/04/17 19:18 BP 109/54 01/04/17 15:00 Pulse Ox 91 L 01/04/17 15:00 Intake & Output 01/04/17 01/04/17 01/05/17 06:59 18:59 06:59 Intake Total 1070 Output Total 500 Balance 1070 -500 Weight 59 kg 59 kg Intake: IV 320 Sodium Chloride 0.9% 1, 320 000 ml @ 20 mls/hr IV . Q24H [facility] Rx#:[id number] Intake, IV Titration 750 Amount Ceftaroline Fosamil 200 250 mg In Sodium Chloride 0.9 % 250 ml @ 250 mls/hr IVPB Q12HR [facility] Rx#: [id number] Vancomycin 1,250 mg In 500 Sodium Chloride 0.9% 250 ml @ 125 mls/hr IVPB ONCE [facility] Rx#:[id number] Output: Urine 500 Other: Voiding Method Indwelling Catheter Indwelling Catheter Indwelling Catheter # Bowel Movements 1 1 - Exam On the exam Mr. Brayden Negro is a pleasant woman who is much more awake alert and described the time of his admission. He is afebrile at this time. HEENT exam: Is also begin nasal oral lesions the neck was supple without significant lymphadenopathy or palpable thyromegaly. Lungs: Good bilateral air entry with a few basilar crackles being heard no dullness was noted. Heart:Regular rate and rhythm with an audible S1-S2 no history soft S4 without distinct murmur click or rub. Abdomen positive bowel sounds soft nontender without palpable masses or organomegaly no guarding or rebound. Extremities the bilaterally below the knee amputation residual limb are evaluated without edema or lesions. Neurologically: Patient is awake and alert interactive upon stimulation his speech is understandable but does have poor quality of content. Upon questioning he does state that his mother cares for his Norman catheter. Skin: The residual limbs are without evidence of lesions. There is evidence of the pressure ulceration to the coccyx and buttocks that is stage III at this point in time. There is not a large amount of necrosis however. There is only minimal drainage. And is not tender to manipulation. Please see the nursing photography for measurement. However the Norman catheter has caused be complete splaying of the penis right to its base of the scrotum. There is evidence of significant irritation to that tissue likely from some leakage of the urine around the catheter. There is evidence of a possible uroma into the scrotum itself. Which is not tender The prior site of the dialysis catheter left anterior chest wall without purulence. New site is more internal jugular and is without erythema or tenderness. - Labs CBC & Chem 7: 01/03/17 09:49 01/03/17 09:49 Labs: Abnormal Lab Results - Last 24 Hours (Table) 01/04/17 Range/Units 12:17 POC Glucose (mg/dL) 114 H (75-99) mg/dL Laboratory Results WBC 6.9 k/uL (3.8-10.6) 01/03/17 09:49 RBC 2.73 m/uL (4.30-5.90) L 01/03/17 09:49 Hgb 8.0 gm/dL (13.0-17.5) L 01/03/17 09:49 Hct 26.2 % (39.0-53.0) L 01/03/17 09:49 MCV 96.0 fL (80.0-100.0) 01/03/17 09:49 MCH 29.3 pg (25.0-35.0) 01/03/17 09:49 MCHC 30.5 g/dL (31.0-37.0) L 01/03/17 09:49 RDW 17.3 % (11.5-15.5) H 01/03/17 09:49 Plt Count 185 k/uL (150-450) 01/03/17 09:49 Neutrophils % 64 % 01/03/17 09:49 Neutrophils % (Manual) 55.5 % 12/27/16 07:57 Lymphocytes % 24 % 01/03/17 09:49 Lymphocytes % (Manual) 25.0 % 12/27/16 07:57 Monocytes % 6 % 01/03/17 09:49 Monocytes % (Manual) 9.0 % 12/27/16 07:57 Eosinophils % 3 % 01/03/17 09:49 Eosinophils % (Manual) 8.0 % 12/27/16 07:57 Basophils % 1 % 01/03/17 09:49 Basophils % (Manual) 0.5 % 12/27/16 07:57 Metamyelocytes % 1.0 % 12/27/16 07:57 Myelocytes % 1.0 % 12/27/16 07:57 Neutrophils # 4.5 k/uL (1.3-7.7) 01/03/17 09:49 Neutrophils # (Manual) 2.7 k/uL (1.3-7.7) 12/27/16 07:57 Lymphocytes # 1.7 k/uL (1.0-4.8) 01/03/17 09:49 Lymphocytes # (Manual) 1.2 k/uL (1.0-4.8) 12/27/16 07:57 Monocytes # 0.4 k/uL (0-1.0) 01/03/17 09:49 Monocytes # (Manual) 0.4 k/uL (0-1.0) 12/27/16 07:57 Eosinophils # 0.2 k/uL (0-0.7) 01/03/17 09:49 Eosinophils # (Manual) 0.4 k/uL (0-0.7) 12/27/16 07:57 Basophils # 0.0 k/uL (0-0.2) 01/03/17 09:49 Basophils # (Manual) 0.0 k/uL (0-0.2) 12/27/16 07:57 Nucleated RBCs 0 /100 WBC (0-0) 12/27/16 07:57 Manual Slide Review Performed 12/27/16 07:57 Hypochromasia Marked 01/03/17 09:49 Anisocytosis Slight 01/03/17 09:49 Macrocytosis Slight 01/03/17 09:49 PT 11.4 sec (9.0-12.0) 01/01/17 09:15 INR 1.1 (<1.1) 01/01/17 09:15 Sodium 145 mmol/L (137-145) 01/03/17 09:49 Potassium 3.8 mmol/L (3.5-5.1) 01/03/17 09:49 Chloride 110 mmol/L (98-107) H 01/03/17 09:49 Carbon Dioxide 25 mmol/L (22-30) 01/03/17 09:49 Anion Gap 10 mmol/L 01/03/17 09:49 BUN 32 mg/dL (9-20) H 01/03/17 09:49 Creatinine 4.46 mg/dL (0.66-1.25) H 01/03/17 09:49 Est GFR (MDRD) Af Amer 15 (>60 ml/min/1.73 sqM) 01/03/17 09:49 Est GFR (MDRD) Non-Af 13 (>60 ml/min/1.73 sqM) 01/03/17 09:49 Glucose 125 mg/dL (74-99) H 01/03/17 09:49 POC Glucose (mg/dL) 78 mg/dL (75-99) 01/04/17 20:49 POC Glu [place] Albina Price 01/04/17 20:[address] Glu mg/dL 105 mg/dL 12/24/16 04:23 Hemoglobin A1c 5.3 % (4.2-6.1) 12/24/16 04:23 Plasma Lactic Acid Geovani 0.9 mmol/L (0.7-2.0) 12/23/16 20:10 Calcium 7.0 mg/dL (8.4-10.2) L 01/03/17 09:49 Phosphorus 3.6 mg/dL (2.5-4.5) 12/24/16 11:03 Magnesium 1.7 mg/dL (1.6-2.3) 12/24/16 04:27 Iron 17 ug/dL (49-181) L 12/24/16 04:27 TIBC 133 ug/dL (261-462) L 12/24/16 04:27 % Saturation 12.8 % (20-50) L 12/24/16 04:27 Ferritin 1630 ng/mL (18-464) H 12/24/16 04:27 Total Bilirubin 0.4 mg/dL (0.2-1.3) 01/03/17 09:49 AST 18 U/L (17-59) 01/03/17 09:49 ALT 31 U/L (21-72) 01/03/17 09:49 Alkaline Phosphatase 84 U/L (38-126) 01/03/17 09:49 Total Protein 5.3 g/dL (6.3-8.2) L 01/03/17 09:49 Albumin 2.3 g/dL (3.5-5.0) L 01/03/17 09:49 Prealbumin 8 mg/dL (18-36) L 12/24/16 11:03 Microbiology 12/28/16 13:46 Blood Blood Culture - Final No Growth after 144 hours 12/26/16 19:50 Blood Blood Culture - Final No Growth after 144 hours 12/26/16 19:50 Blood Blood Culture - Final No Growth after 144 hours 12/27/16 12:15 Catheter Tip Catheter Tip Culture - Final Presumptive Staph aureus Diphtheroid species 12/24/16 19:09 Blood Blood Culture - Final No Growth after 144 hours 12/26/16 19:50 Blood Blood Culture Gram Stain - Final 12/26/16 19:50 Blood Blood Culture - Final Methicillin resist S. aureus 12/24/16 16:30 Blood Blood Culture Gram Stain - Final 12/24/16 16:30 Blood Blood Culture - Final Methicillin resist S. aureus 12/23/16 20:10 Blood Blood Culture Gram Stain - Final 12/23/16 20:10 Blood Blood Culture - Final Methicillin resist S. aureus 12/24/16 16:30 Blood Blood Culture - Preliminary 12/23/16 20:10 Blood Blood Culture - Preliminary Assessment and Plan (1) Right lower lobe pneumonia Narrative/Plan: Pleasant 81-year-old male who presents the hospital after being evaluated at dialysis Center reappeared to be short of breath and more confused. Because of this he was transferred to the emergency center and admitted. With concerns to sepsis, pneumonia and needs for hemodialysis he was admitted to hospital. The patient's chest x-ray has been evaluated with potential for right lower lobe infiltrate however the possibility of volume overload was also noted. It is time he is comfortable. He is not coughing significantly. His fever has improved. There is evidence of the blood cultures are positive at this time with gram- positive cocci. He has ALLERGIES to daptomycin and penicillin. With his history of multiple pathogens in the past Ceftaroline was chosen. Coverage for staph including MRSA, strep in his prior gram-negative organisms. The follow up blood cultures are also positive at this point in time. Original blood cultures are pulmonary positive for MRSA. With this would continue to Ceftaroline . the follow-up cultures were all positive consequently the The hemodialysis catheter has been removed and he tolerated it well He has an appropriate mattress. There is pressure ulceration to his coccyx and buttocks. The optifoam dressing would not stay in place and constantly zinc cream is being utilized Nutritional status is very poor as noted by his very low pre-albumin. This will impact his ability to heal his wound and recover from infection He will need 4-6 weeks of antibiotic therapy if the current aggressive course of therapy is to continue. Once the bacteria clears from the blood stream will need some type of IV access to receive ongoing antibiotic therapy. Ceftaroline chosen given the Vanco EDENILSON of2, follow blood culture shows an EDENILSON of 1 for the vancomycin. Biggest concern would be to hemodialysis . A dialysis catheter was placed Dialysis was performed yesterday follow blood work is in process to determine the effect on his uremia We'll need as noted a course of IV antibiotic therapy. Given that the infections with his hemodialysis catheter. The time of his discharge with his improvement would be able to complete his course of antibiotic therapy with vancomycin Status: Acute (2) Bacteremia due to Gram-positive bacteria Status: Acute (3) Chronic renal failure, stage 5 Status: Acute
[2017-01-04] MEDS: ONDANSETRON 4 MG/2 ML VIAL IVP PRN (23:18)
[2017-01-04] MEDS: SODIUM CHLORIDE 0.9% 1,000 ML IV SCH (23:22)
[2017-01-05 07:43] LABS: Glucose,Whole Blood 83 mg/dL (75-99)
[2017-01-05] MEDS: INSULIN LISPRO (humaLOG) 300 UNIT/3 ML VIAL SQ SCH ×4 (08:23→22:02)
[2017-01-05 08:55] LABS: Calcium 7.1 mg/dL (8.4-10.2); Potassium 3.5 mmol/L (3.5-5.1)
[2017-01-05] MEDS: amLODIPine 10 MG TAB PO SCH (09:04)
[2017-01-05] MEDS: BACITRACIN 500 UNIT/GM OINT 28.4 GM TUBE TOPICAL SCH (09:05)
[2017-01-05] MEDS: CHOLECALCIFEROL 1,000 UNIT TAB PO SCH (09:05)
[2017-01-05] MEDS: CALCIUM CARBONATE 500 MG CHEWABLE PO SCH ×2 (09:05→20:44)
[2017-01-05] MEDS: SODIUM BICARBONATE TAB 650 MG TAB PO SCH ×2 (09:06→20:45)
[2017-01-05] MEDS: FUROSEMIDE 10 MG/ML 4 ML VIAL IV SCH ×2 (09:06→21:33)
[2017-01-05] MEDS: FOLIC ACID-VIT B COMPLEX-VIT C 1 CAP PO SCH (09:06)
[2017-01-05] MEDS: PREGABALIN 75 MG CAP PO SCH ×2 (09:06→20:45)
[2017-01-05] MEDS: MULTIVITAMINS, THERA 1 EACH TAB PO SCH (09:06)
[2017-01-05] MEDS: ZINC OXIDE 20% OINT 28.4 GM TUBE TOPICAL SCH ×2 (09:07→22:45)
--- NOTE | 2017-01-05 09:18 | DS ---
DATE OF ADMISSION: 12/23/2016 DATE OF DISCHARGE: The patient is an 81-year-old patient who was discharged yesterday. Because of the family concerns, the patient ended up staying in the hospital because of which I ( ) to evaluate the patient. No significant change in physical exam compared to yesterday. Please refer to my dictation from discharge summary from yesterday for further details of discharge and consider that discharge summary as progress note considering that patient ended up staying in the hospital.
[2017-01-05] MEDS: IPRATROPIUM-ALBUTEROL 3 ML NEB INHALATION SCH ×4 (09:22→19:16)
[2017-01-05 13:13] LABS: Glucose,Whole Blood 114 mg/dL (75-99)
[2017-01-05] MEDS ORDERED: VANCOMYCIN 1,250 MG in SODIUM CHLORIDE 0.9% 250 ML IVPB ONE (15:00)
--- NOTE | 2017-01-05 16:10 | PN ---
Patient is seen for followup for end-stage renal disease. Patient is maintained on a Sunday, , Sunday schedule as outpatient. He was admitted to the hospital with MRSA bacteremia. His Perm-A-Cath was removed and then replaced once all the cultures were negative. Volume status has improved with hemodialysis and there are plans for discharge today. On examination, blood pressure is 139/63, heart rate 66 per minute. Patient is afebrile. Examination shows bilateral BKA. Breath sounds are decreased at the bases. Heart sounds are heard. Abdomen is soft, nontender. Labs show potassium 3.5, sodium 142. ASSESSMENT: 1. End-stage renal disease, on hemodialysis on a Sunday, , Sunday schedule as outpatient. 2. Methicillin-resistant Staphylococcus aureus bacteremia, status post removal of Perm-A-Cath and reinsertion of Perm-A-Cath once blood cultures were negative. Currently maintained on vancomycin. 3. Volume overload, now improved. PLAN: Patient can be discharged. He will follow up for dialysis as outpatient tomorrow.
--- NOTE | 2017-01-05 17:05 | P.PN ---
Subjective Principal diagnosis: Shortness of breath and altered mental status Mr. Brayden Negro is a 81-year-old male who [facility] with increasing shortness of breath. He also is having worsening of his baseline mental status. The patient's had multiple hospitalizations as of late. He has developed acute and chronic renal failure. And constantly he has been initiated hemodialysis within the last month. It is related to his dialysis center where he appeared to be more short of breath and was concerns to pneumonia as well as volume overload. And because he had altered mental status he was directed to hospital for admission. He was concerned to sepsis and the patient was brought into the intensive care unit. He has somewhat of a poor historian. He does have some baseline dementia although he is very pleasant overall. He does believe that his mother continues to help him in his home setting. Currently he relates that he is not very short of breath. He does have an occasional cough. No significant sputum production is noted. Nursing staff relates that he has been calm and pleasant. Awake and comfortable improve nutrition today Dialysis catheter was placed into the right subclavian area with first course of hemodialysis his creatinine has gone from 6.48-2.65. Dialysis planned tomorrow Objective - Vital Signs Vital signs: Vital Signs Temp 97.4 F L 01/05/17 07:00 Pulse 66 01/05/17 07:00 Resp 19 01/05/17 07:00 BP 139/63 01/05/17 07:00 Pulse Ox 97 01/05/17 07:00 Intake & Output 01/04/17 01/05/17 01/05/17 18:59 06:59 18:59 Intake Total 320 Output Total 500 Balance -500 320 Weight 59 kg 62.5 kg Intake: IV 320 Sodium Chloride 0.9% 1, 320 000 ml @ 20 mls/hr IV . Q24H [facility] Rx#:[id number] Output: Urine 500 Other: Voiding Method Indwelling Catheter Indwelling Catheter Indwelling Catheter # Bowel Movements 1 - Exam On the exam Mr. Brayden Negro is a pleasant woman who is much more awake alert and described the time of his admission. He is afebrile at this time. HEENT exam: Is also begin nasal oral lesions the neck was supple without significant lymphadenopathy or palpable thyromegaly. Lungs: Good bilateral air entry with a few basilar crackles being heard no dullness was noted. Heart:Regular rate and rhythm with an audible S1-S2 no history soft S4 without distinct murmur click or rub. Abdomen positive bowel sounds soft nontender without palpable masses or organomegaly no guarding or rebound. Extremities the bilaterally below the knee amputation residual limb are evaluated without edema or lesions. Neurologically: Patient is awake and alert interactive upon stimulation his speech is understandable but does have poor quality of content. Upon questioning he does state that his mother cares for his Norman catheter. He is a bit more confused today. Skin: The residual limbs are without evidence of lesions. There is evidence of the pressure ulceration to the coccyx and buttocks that is stage III at this point in time. There is not a large amount of necrosis however. There is only minimal drainage. And is not tender to manipulation. Please see the nursing photography for measurement. However the Norman catheter has caused be complete splaying of the penis right to its base of the scrotum. There is evidence of significant irritation to that tissue likely from some leakage of the urine around the catheter. There is evidence of a possible uroma into the scrotum itself. Which is not tender The prior site of the dialysis catheter left anterior chest wall without purulence. New site is more internal jugular and is without erythema or tenderness. - Labs CBC & Chem 7: 01/03/17 09:49 01/05/17 07:40 Labs: Abnormal Lab Results - Last 24 Hours (Table) 01/05/17 01/05/17 Range/Units 07:40 13:04 Creatinine 2.65 H (0.66-1.25) mg/dL POC Glucose (mg/dL) 114 H (75-99) mg/dL Calcium 7.1 L (8.4-10.2) mg/dL Laboratory Results WBC 6.9 k/uL (3.8-10.6) 01/03/17 09:49 RBC 2.73 m/uL (4.30-5.90) L 01/03/17 09:49 Hgb 8.0 gm/dL (13.0-17.5) L 01/03/17 09:49 Hct 26.2 % (39.0-53.0) L 01/03/17 09:49 MCV 96.0 fL (80.0-100.0) 01/03/17 09:49 MCH 29.3 pg (25.0-35.0) 01/03/17 09:49 MCHC 30.5 g/dL (31.0-37.0) L 01/03/17 09:49 RDW 17.3 % (11.5-15.5) H 01/03/17 09:49 Plt Count 185 k/uL (150-450) 01/03/17 09:49 Neutrophils % 64 % 01/03/17 09:49 Neutrophils % (Manual) 55.5 % 12/27/16 07:57 Lymphocytes % 24 % 01/03/17 09:49 Lymphocytes % (Manual) 25.0 % 12/27/16 07:57 Monocytes % 6 % 01/03/17 09:49 Monocytes % (Manual) 9.0 % 12/27/16 07:57 Eosinophils % 3 % 01/03/17 09:49 Eosinophils % (Manual) 8.0 % 12/27/16 07:57 Basophils % 1 % 01/03/17 09:49 Basophils % (Manual) 0.5 % 12/27/16 07:57 Metamyelocytes % 1.0 % 12/27/16 07:57 Myelocytes % 1.0 % 12/27/16 07:57 Neutrophils # 4.5 k/uL (1.3-7.7) 01/03/17 09:49 Neutrophils # (Manual) 2.7 k/uL (1.3-7.7) 12/27/16 07:57 Lymphocytes # 1.7 k/uL (1.0-4.8) 01/03/17 09:49 Lymphocytes # (Manual) 1.2 k/uL (1.0-4.8) 12/27/16 07:57 Monocytes # 0.4 k/uL (0-1.0) 01/03/17 09:49 Monocytes # (Manual) 0.4 k/uL (0-1.0) 12/27/16 07:57 Eosinophils # 0.2 k/uL (0-0.7) 01/03/17 09:49 Eosinophils # (Manual) 0.4 k/uL (0-0.7) 12/27/16 07:57 Basophils # 0.0 k/uL (0-0.2) 01/03/17 09:49 Basophils # (Manual) 0.0 k/uL (0-0.2) 12/27/16 07:57 Nucleated RBCs 0 /100 WBC (0-0) 12/27/16 07:57 Manual Slide Review Performed 12/27/16 07:57 Hypochromasia Marked 01/03/17 09:49 Anisocytosis Slight 01/03/17 09:49 Macrocytosis Slight 01/03/17 09:49 PT 11.4 sec (9.0-12.0) 01/01/17 09:15 INR 1.1 (<1.1) 01/01/17 09:15 Sodium 142 mmol/L (137-145) 01/05/17 07:40 Potassium 3.5 mmol/L (3.5-5.1) 01/05/17 07:40 Chloride 105 mmol/L (98-107) 01/05/17 07:40 Carbon Dioxide 27 mmol/L (22-30) 01/05/17 07:40 Anion Gap 10 mmol/L 01/05/17 07:40 BUN 13 mg/dL (9-20) 01/05/17 07:40 Creatinine 2.65 mg/dL (0.66-1.25) H 01/05/17 07:40 Est GFR (MDRD) Af Amer 28 (>60 ml/min/1.73 sqM) 01/05/17 07:40 Est GFR (MDRD) Non-Af 23 (>60 ml/min/1.73 sqM) 01/05/17 07:40 Glucose 88 mg/dL (74-99) 01/05/17 07:40 POC Glucose (mg/dL) 114 mg/dL (75-99) H 01/05/17 13:04 POC Glu [employer] ID Zoie Bright 01/05/17 13:[address] Glu mg/dL 105 mg/dL 12/24/16 04:23 Hemoglobin A1c 5.3 % (4.2-6.1) 12/24/16 04:23 Plasma Lactic Acid Geovani 0.9 mmol/L (0.7-2.0) 12/23/16 20:10 Calcium 7.1 mg/dL (8.4-10.2) L 01/05/17 07:40 Phosphorus 3.6 mg/dL (2.5-4.5) 12/24/16 11:03 Magnesium 1.7 mg/dL (1.6-2.3) 12/24/16 04:27 Iron 17 ug/dL (49-181) L 12/24/16 04:27 TIBC 133 ug/dL (261-462) L 12/24/16 04:27 % Saturation 12.8 % (20-50) L 12/24/16 04:27 Ferritin 1630 ng/mL (18-464) H 12/24/16 04:27 Total Bilirubin 0.4 mg/dL (0.2-1.3) 01/03/17 09:49 AST 18 U/L (17-59) 01/03/17 09:49 ALT 31 U/L (21-72) 01/03/17 09:49 Alkaline Phosphatase 84 U/L (38-126) 01/03/17 09:49 Total Protein 5.3 g/dL (6.3-8.2) L 01/03/17 09:49 Albumin 2.3 g/dL (3.5-5.0) L 01/03/17 09:49 Prealbumin 8 mg/dL (18-36) L 12/24/16 11:03 Random Vancomycin 14.4 ug/mL 01/05/17 07:40 Microbiology 12/28/16 13:46 Blood Blood Culture - Final No Growth after 144 hours 12/26/16 19:50 Blood Blood Culture - Final No Growth after 144 hours 12/26/16 19:50 Blood Blood Culture - Final No Growth after 144 hours 12/27/16 12:15 Catheter Tip Catheter Tip Culture - Final Presumptive Staph aureus Diphtheroid species 12/24/16 19:09 Blood Blood Culture - Final No Growth after 144 hours 12/26/16 19:50 Blood Blood Culture Gram Stain - Final 12/26/16 19:50 Blood Blood Culture - Final Methicillin resist S. aureus 12/24/16 16:30 Blood Blood Culture Gram Stain - Final 12/24/16 16:30 Blood Blood Culture - Final Methicillin resist S. aureus 12/23/16 20:10 Blood Blood Culture Gram Stain - Final 12/23/16 20:10 Blood Blood Culture - Final Methicillin resist S. aureus 12/24/16 16:30 Blood Blood Culture - Preliminary 12/23/16 20:10 Blood Blood Culture - Preliminary Assessment and Plan (1) Right lower lobe pneumonia Narrative/Plan: Pleasant 81-year-old male who presents the hospital after being evaluated at dialysis Center reappeared to be short of breath and more confused. Because of this he was transferred to the emergency center and admitted. With concerns to sepsis, pneumonia and needs for hemodialysis he was admitted to hospital. The patient's chest x-ray has been evaluated with potential for right lower lobe infiltrate however the possibility of volume overload was also noted. It is time he is comfortable. He is not coughing significantly. His fever has improved. There is evidence of the blood cultures are positive at this time with gram- positive cocci. He has ALLERGIES to daptomycin and penicillin. With his history of multiple pathogens in the past Ceftaroline was chosen. Coverage for staph including MRSA, strep in his prior gram-negative organisms. The follow up blood cultures are also positive at this point in time. Original blood cultures are pulmonary positive for MRSA. With this would continue to Ceftaroline . the follow-up cultures were all positive consequently the The hemodialysis catheter has been removed and he tolerated it well He has an appropriate mattress. There is pressure ulceration to his coccyx and buttocks. The optifoam dressing would not stay in place and constantly zinc cream is being utilized Nutritional status is very poor as noted by his very low pre-albumin. This will impact his ability to heal his wound and recover from infection He will need 28 days of antibiotic therapy if the current aggressive course of therapy is to continue. blood culture shows an EDENILSON of 1, and vancomycin therapy is planned to complete his course of therapy. Biggest concern would be to hemodialysis . A dialysis catheter was placed Dialysis has been performed follow up blood work revealed evidence of the improvement of his uremia We'll need as noted a course of IV antibiotic therapy. Given that the infections with his hemodialysis catheter. The time of his discharge with his improvement would be able to complete his course of antibiotic therapy with vancomycin Status: Acute (2) Bacteremia due to Gram-positive bacteria Status: Acute (3) Chronic renal failure, stage 5 Status: Acute
[2017-01-05 17:19] LABS: Glucose,Whole Blood 100 mg/dL (75-99)
[2017-01-05 21:59] LABS: Glucose,Whole Blood 104 mg/dL (75-99)
[2017-01-05] MEDS: SODIUM CHLORIDE 0.9% 1,000 ML IV SCH (23:18)
[2017-01-06 08:07] LABS: Calcium 7.1 mg/dL (8.4-10.2); Potassium 3.4 mmol/L (3.5-5.1)
[2017-01-06 08:46] LABS: Glucose,Whole Blood 110 mg/dL (75-99)
[2017-01-06] MEDS: INSULIN LISPRO (humaLOG) 300 UNIT/3 ML VIAL SQ SCH ×3 (08:52→17:25)
[2017-01-06] MEDS: PREGABALIN 75 MG CAP PO SCH ×2 (08:52→20:10)
[2017-01-06] MEDS: CALCIUM CARBONATE 500 MG CHEWABLE PO SCH (08:52)
[2017-01-06] MEDS: MULTIVITAMINS, THERA 1 EACH TAB PO SCH (08:53)
[2017-01-06] MEDS: FUROSEMIDE 10 MG/ML 4 ML VIAL IV SCH (08:53)
[2017-01-06] MEDS: SODIUM BICARBONATE TAB 650 MG TAB PO SCH (08:53)
[2017-01-06] MEDS: CHOLECALCIFEROL 1,000 UNIT TAB PO SCH (08:53)
[2017-01-06] MEDS: amLODIPine 10 MG TAB PO SCH (08:53)
[2017-01-06] MEDS: FOLIC ACID-VIT B COMPLEX-VIT C 1 CAP PO SCH (08:53)
[2017-01-06] MEDS: BACITRACIN 500 UNIT/GM OINT 28.4 GM TUBE TOPICAL SCH (08:54)
[2017-01-06] MEDS: ZINC OXIDE 20% OINT 28.4 GM TUBE TOPICAL SCH (08:55)
--- NOTE | 2017-01-06 09:47 | P.PN ---
Subjective doing well. d/c today. Objective - Vital Signs Vital signs: Vital Signs Temp 97.9 F 01/06/17 07:00 Pulse 65 01/06/17 07:00 Resp 16 01/06/17 07:00 BP 138/64 01/06/17 07:00 Pulse Ox 97 01/06/17 07:00 Intake & Output 01/05/17 01/06/17 01/06/17 18:59 06:59 18:59 Intake Total 600 600 Output Total 200 200 Balance -200 400 600 Intake: Oral 600 600 Output: Urine 200 200 Uretheral (Norman) 100 Other: Voiding Method Indwelling Catheter Indwelling Catheter # Bowel Movements 1 - Constitutional General appearance: Present: cooperative, no acute distress - Respiratory Respiratory: bilateral: CTA - Cardiovascular Rhythm: regular Heart sounds: normal: S1, S2 - Gastrointestinal General gastrointestinal: Present: normal bowel sounds, soft - Labs CBC & Chem 7: 01/03/17 09:49 01/06/17 07:19 Labs: Abnormal Lab Results - Last 24 Hours (Table) 01/05/17 01/05/17 01/05/17 Range/Units 13:04 17:17 21:55 Potassium (3.5-5.1) mmol/L Chloride (98-107) mmol/L BUN (9-20) mg/dL Creatinine (0.66-1.25) mg/dL Glucose (74-99) mg/dL POC Glucose (mg/dL) 114 H 100 H 104 H (75-99) mg/dL Calcium (8.4-10.2) mg/dL 01/06/17 01/06/17 Range/Units 07:19 07:26 Potassium 3.4 L (3.5-5.1) mmol/L Chloride 108 H (98-107) mmol/L BUN 21 H (9-20) mg/dL Creatinine 3.51 H (0.66-1.25) mg/dL Glucose 109 H (74-99) mg/dL POC Glucose (mg/dL) 110 H (75-99) mg/dL Calcium 7.1 L (8.4-10.2) mg/dL Assessment and Plan Plan: Assessment/Plan Assessment: #1. End-stage renal disease maintained on hemodialysis on a Sunday schedule via permacath. --dialyze today prior to discharge. #2. MRSA bacteremia. Initial permacath was removed and a new permacath was placed. --Outpatient Abx per ID. #3. Chronic kidney disease mineral bone disease. #4. Anemia of chronic kidney disease. #5. Diabetes mellitus.
[2017-01-06 11:32] LABS: Glucose,Whole Blood 153 mg/dL (75-99)
[2017-01-06] MEDS: IPRATROPIUM-ALBUTEROL 3 ML NEB INHALATION SCH ×2 (12:01→16:51)
[2017-01-06 15:28] VITALS: BP 130/64; PULSE 66; RESP 18; TEMP 97
[2017-01-06] MEDS ORDERED: HEPARIN SODIUM,PORCINE 5,000 UNIT/ML 1 ML VIAL ONE (16:00)
[2017-01-06 17:11] LABS: Glucose,Whole Blood 107 mg/dL (75-99)
--- NOTE | 2017-01-06 22:02 | DS ---
DATE OF ADMISSION: 12/23/2016 DATE OF DISCHARGE: 01/06/2017 Patient is an 81-year-old with history of heart failure, COPD, dementia, diabetes mellitus, and patient is admitted for MRSA bacteremia secondary to hemodialysis catheter which was removed and patient had PermCath placed. The patient is clinically doing well and patient will be discharged today. Patient was seen and examined on the day of discharge. Vitals are stable. PHYSICAL EXAMINATION: GENERAL: The patient is alert and oriented x3, not in any acute distress. Well developed, well nourished. HEENT: Pupils are round and equally reacting to light. EOMI. No scleral icterus. No conjunctival pallor. Normocephalic, atraumatic. No pharyngeal erythema. No thyromegaly. CARDIOVASCULAR: S1 and S2 present. No murmurs, rubs, or gallops. PULMONARY: Chest is clear to auscultation, no wheezing or crackles. ABDOMEN: Soft, nontender, nondistended, normoactive bowel sounds. No palpable organomegaly. MUSCULOSKELETAL: No joint swelling or deformity. EXTREMITIES: No significant change. Patient has amputations. NEUROLOGICAL: Gross neurological examination did not reveal any focal deficits. SKIN: No rashes. ASSESSMENT AND PLAN: 1. Sepsis and bacteremia secondary to infected hemodialysis catheter, which was removed and patient had a PermCath. 2. End-stage renal disease on hemodialysis. 3. Chronic obstructive pulmonary disease without any acute exacerbation. 4. Alzheimer's dementia. 5. Essential hypertension. 6. Type 2 diabetes mellitus. 7. Delirium. 8. Stage II to III sacral decubitus ulcers for which patient needs local wound care. ID evaluated the patient. 9. Moderate to severe protein calorie malnutrition. Patient will be discharged today to home with home care as per family request. The patient will follow with Dr. Luis Fernando Bhatia in about 3 to 7 days. Activity as tolerated. Renal diet. Spent greater than 35 minutes in total discharge process. Please refer to my depart summary for further details of discharge medications.
== END 2017-01-06 20:19 | disposition home health service (06) | DRG 314 ==
LOC: EC 19:44 → 6SEL 21:41 → 6ICU 22:06 → 4MS4W 12-24 22:47
PROVIDERS: ADMIT Hospitalist; ATTEND Hospitalist
PROC: 5A1D60Z (ICD-10-PCS; 2016-12-26)
PROC: 05PYX3Z Removal of Infusion Device from Upper Vein, External Approach (ICD-10-PCS; principal; 2016-12-27)
PROC: 05HN33Z Insertion of Infusion Device into Left Internal Jugular Vein, Percutaneous Approach (ICD-10-PCS; 2017-01-02 14:24)
DX: T82.7XXA Infection and inflammatory reaction due to other cardiac and vascular devices, implants and grafts, initial encounter (principal); N18.6 End stage renal disease; A41.02 Sepsis due to Methicillin resistant Staphylococcus aureus; E43 Unspecified severe protein-calorie malnutrition; G93.41 Metabolic encephalopathy; J18.9 Pneumonia, unspecified organism; L89.153 Pressure ulcer of sacral region, stage 3; L89.303 Pressure ulcer of unspecified buttock, stage 3; E87.0 Hyperosmolality and hypernatremia; J44.0 Chronic obstructive pulmonary disease with (acute) lower respiratory infection; E87.2 Acidosis; Z68.1 Body mass index [BMI] 19.9 or less, adult; E11.22 Type 2 diabetes mellitus with diabetic chronic kidney disease; I50.9 Heart failure, unspecified; D63.1 Anemia in chronic kidney disease; E83.42 Hypomagnesemia; E87.6 Hypokalemia; F02.80 Dementia in other diseases classified elsewhere, unspecified severity, without behavioral disturbance, psychotic disturbance, mood disturbance, and anxiety; I10 Essential (primary) hypertension; K43.9 Ventral hernia without obstruction or gangrene; N13.9 Obstructive and reflux uropathy, unspecified; F32.9 Major depressive disorder, single episode, unspecified; F41.9 Anxiety disorder, unspecified; E11.51 Type 2 diabetes mellitus with diabetic peripheral angiopathy without gangrene; R13.10 Dysphagia, unspecified; G30.1 Alzheimer's disease with late onset; E83.9 Disorder of mineral metabolism, unspecified; Z99.2 Dependence on renal dialysis; Z89.512 Acquired absence of left leg below knee; Z89.511 Acquired absence of right leg below knee; Z87.891 Personal history of nicotine dependence; Z87.440 Personal history of urinary (tract) infections; Z88.0 Allergy status to penicillin; Z88.1 Allergy status to other antibiotic agents; Z79.899 Other long term (current) drug therapy; Z86.14 Personal history of Methicillin resistant Staphylococcus aureus infection; Y83.8 Other surgical procedures as the cause of abnormal reaction of the patient, or of later complication, without mention of misadventure at the time of the procedure
CPT/HCPCS: 36415; 36558; 71010; 76937; 77001; 80048; 80053; 80202; 82728; 83036; 83540; 83550; 83605; 83735; 84100; 84132; 84134; 85025; 85610; 87040; 87070; 87077; 87186; 90935; 94640; 94760; 99285

== ENCOUNTER 2017-01-28 18:16 | Inpatient (IN) | payer MEDICARE, OTHER ==
[2017-01-28] MEDS ORDERED: IPRATROPIUM-ALBUTEROL 3 ML NEB INHALATION STA (18:26)
--- NOTE | 2017-01-28 18:31 | ED ---
General Adult HPI - General Stated complaint: FREDRICK Time Seen by Provider: 01/28/17 18:20 Source: patient, EMS, RN notes reviewed Mode of arrival: EMS Limitations: altered mental status, physical limitation - History of Present Illness Initial comments: Patient is an 81-year-old male presenting to the emergency department with difficulty breathing. Patient is nonverbal at this time and provides no further history. EMS states patient was recently in the hospital with pneumonia. Patient did provide some simple answers to EMS. Unclear onset. Patient does reportedly have a history of COPD. - Related Data Home Medications Medication Instructions Recorded Confirmed Pregabalin [Lyrica] 75 mg PO BID 11/12/16 01/28/17 Cholecalciferol [Vitamin D3] 2,000 unit PO DAILY 12/06/16 01/28/17 Sodium Bicarbonate Tab 650 mg PO BID 12/06/16 01/28/17 ALPRAZolam [Xanax] 0.25 mg PO Q12H PRN 01/28/17 01/28/17 Folic Acid-Vit B Complex-Vit C 1 cap PO DAILY 01/28/17 01/28/17 [Nephrocaps] INSULIN LISPRO (humaLOG) [HumaLOG] See Protocol SQ ACHS 01/28/17 01/28/17 Loperamide HCl [Loperamide] 4 mg PO Q6H PRN 01/28/17 01/28/17 Vancomycin 750 mg IVPB MOWEFR 01/28/17 01/28/17 Previous Rx's Medication Instructions Recorded amLODIPine BESYLATE [Norvasc] 5 mg PO DAILY #0 01/03/17 Allergies Allergy/AdvReac Type Severity Reaction Status Date / Time cephalexin [From Keflex] Allergy Unknown Verified 01/28/17 18:30 daptomycin Allergy Unknown Verified 01/28/17 18:30 mirtazapine [From Remeron] Allergy Unknown Verified 01/28/17 18:30 Penicillins Allergy Unknown Verified 01/28/17 18:30 Review of Systems ROS Statement: Those systems with pertinent positive or pertinent negative responses have been documented in the HPI. ROS Other: All systems not noted in ROS Statement are negative. Limitations: ROS unobtainable due to patients medical condition Past Medical History Past Medical History: Heart Failure, COPD, Dementia, Diabetes Mellitus, Dialysis , Hypertension, Pneumonia, Renal Disease Additional Past Medical History / Comment(s): Dementia, multiple bouts of sepsis secondary to urine checked infection with infections with gram-negative bacteria, recent septicemia with blood cultures being positive for hemolytic strep., Chronic renal failure, episodic hyperkalemia, diabetes mellitus insulin -dependent, hypertension, chronic bilateral pleural effusion, sacral skin maceration with stage I disease, peripheral vascular disease with bilateral below-knee amputation, COPD, congestion heart failure, frequent urine checked infection, chronic indwelling Norman catheter, dysphagia with previous swallow evaluation did not reveal evidence of penetration or aspiration, anterior abdominal wall hernia, History of Any Multi-Drug Resistant Organisms: MRSA, Other MDRO, VRE Date of last positivie culture/infection: 12/26/16 MRSA-Blood; 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 Past Anesthesia/Blood Transfusion Reactions: No Reported Reaction Past Psychological History: Anxiety, Depression Additional Psychological History / Comment(s): Patient is cared for in a family home by his family. Former smoker. No significant history of alcohol or recreational drug use. Smoking Status: Former smoker Past Alcohol Use History: None Reported Past Drug Use History: None Reported - Past Family History Father Family Medical History: Diabetes Mellitus Additional Family Medical History / Comment(s): bleeding ulcer Mother Family Medical History: Dementia General Exam Limitations: altered mental status, physical limitation General appearance: obtunded Head exam: Present: atraumatic Eye exam: Present: normal appearance, PERRL ENT exam: Present: normal oropharynx, other (Patient did have some sort of material in his mouth that appeared similar to food and was removed.) Neck exam: Present: normal inspection Respiratory exam: Present: rales Cardiovascular Exam: Present: regular rate, normal rhythm GI/Abdominal exam: Present: soft, hernia. Absent: tenderness Extremities exam: Present: other (Bilateral amputation) Neurological exam: Present: other (Does not follow commands. Does not answer questions. Questionable gag reflex.) Expanded Eye Response: (2) open to pain Motor Response: (4) withdraws to pain Verbal Response: incomprehensible sounds Psychiatric exam: Present: normal affect, normal mood Skin exam: Absent: rash Course Vital Signs 01/28/17 01/28/17 01/28/17 18:43 18:50 18:57 Temperature Pulse Rate 80 66 59 L Respiratory 16 16 Rate Blood Pressure 103/53 109/56 Blood Pressure [Right Arm] O2 Sat by Pulse 96 90 L Oximetry 01/28/17 01/28/17 01/28/17 19:00 19:38 19:40 Temperature 91.1 F L Pulse Rate 66 Respiratory 14 Rate Blood Pressure Blood Pressure 60/37 [Right Arm] O2 Sat by Pulse Oximetry 01/28/17 01/28/17 20:17 20:41 Temperature Pulse Rate Respiratory 16 18 Rate Blood Pressure Blood Pressure 76/50 119/56 [Right Arm] O2 Sat by Pulse 97 Oximetry - Reevaluation(s) Reevaluation #1: 01/28/17 18:52 Patient seemed to be somewhat more drowsy. Questionable gag reflex. Patient was intubated for respiratory support and airway protection. 01/28/17 20:07 Patient reexamined. Blood pressure starting to improve again following fluids. 01/28/17 20:08 Patient does meet sepsis criteria, severe sepsis diagnosed at 2007. IV antibiotics and fluid boluses provided. 01/28/17 21:10 Patient reexamined. Blood pressure is improved. Family now present and are updated. Case discussed in detail with Dr. Xiao, who will admit for Dr. Bhatia. He is covering for Dr. león. Case also discussed in detail with Dr. Anaya, who will consult for critical care. EKG Findings - EKG Comments: EKG Findings:: Sinus rhythm at 59. QRS 104. QT 504. QTC 498. Normal axis. Nonspecific ST changes. Normal QRS. Premature ventricular complex. Procedures - Intubation Time Out Performed: Yes Sedative: Versed Paralytic: Succinylcholine Laryngoscope: Taylor Size: 3 ET Tube Size: 8 Tube Placement Confirmation: visualized tube passing through cords, equal breath sounds bilaterally, confirmation by capnometry Patient Tolerated Procedure: well Intubation Complications: none Medical Decision Making - Lab Data Result diagrams: 01/28/17 18:30 01/28/17 18:30 Lab Results 01/28/17 01/28/17 01/28/17 Range/Units 18:30 18:30 18:30 WBC 18.9 H (3.8-10.6) k/uL RBC 3.12 L (4.30-5.90) m/uL Hgb 9.4 L (13.0-17.5) gm/dL Hct 30.7 L (39.0-53.0) % MCV 98.4 (80.0-100.0) fL MCH 30.3 (25.0-35.0) pg MCHC 30.8 L (31.0-37.0) g/dL RDW 18.1 H (11.5-15.5) % Plt Count 196 (150-450) k/uL Neutrophils % (Manual) 33.0 % Lymphocytes % (Manual) 48.0 % Monocytes % (Manual) 7.0 % Eosinophils % (Manual) 10.0 % Basophils % (Manual) 2.0 % Neutrophils # (Manual) 6.2 (1.3-7.7) k/uL Lymphocytes # (Manual) 9.1 H (1.0-4.8) k/uL Monocytes # (Manual) 1.3 H (0-1.0) k/uL Eosinophils # (Manual) 1.9 H (0-0.7) k/uL Basophils # (Manual) 0.4 H (0-0.2) k/uL Nucleated RBCs 0 (0-0) /100 WBC Manual Slide Review Performed Hypochromasia Marked Anisocytosis Slight Macrocytosis Slight PT (9.0-12.0) sec INR (<1.1) APTT (22.0-30.0) sec Sample Site ABG pH (7.35-7.45) ABG pCO2 (35-45) mmHg ABG pO2 (83-108) mmHg ABG HCO3 (21-25) mmol/L ABG Total CO2 (19-24) mmol/L ABG O2 Saturation (94-97) % ABG Base Excess mmol/L FiO2 % Sodium 143 (137-145) mmol/L Potassium 2.9 L* (3.5-5.1) mmol/L Chloride 101 (98-107) mmol/L Carbon Dioxide 33 H (22-30) mmol/L Anion Gap 9 mmol/L BUN 23 H (9-20) mg/dL Creatinine 3.45 H (0.66-1.25) mg/dL Est GFR (MDRD) Af Amer 21 (>60 ml/min/1.73 sqM) Est GFR (MDRD) Non-Af 17 (>60 ml/min/1.73 sqM) Glucose 145 H (74-99) mg/dL Calcium 8.6 (8.4-10.2) mg/dL Total Bilirubin 0.4 (0.2-1.3) mg/dL AST 26 (17-59) U/L ALT 29 (21-72) U/L Alkaline Phosphatase 107 (38-126) U/L Total Creatine Kinase 51 L (55-170) U/L CK-MB (CK-2) 2.7 H* (0.0-2.4) ng/mL CK-MB (CK-2) Rel Index 5.3 Troponin I 0.104 H* (0.000-0.034) ng/mL NT-Pro-B Natriuret Pep pg/mL Total Protein 6.1 L (6.3-8.2) g/dL Albumin 2.8 L (3.5-5.0) g/dL Urine Color Urine Appearance (Clear) Urine pH (5.0-8.0) Ur Specific Dewitt (1.001-1.035) Urine Protein (Negative) Urine Glucose (UA) (Negative) Urine Ketones (Negative) Urine Blood (Negative) Urine Nitrate (Negative) Urine Bilirubin (Negative) Urine Urobilinogen (<2.0) mg/dL Ur Leukocyte Esterase (Negative) Urine RBC (0-5) /hpf Urine WBC (0-5) /hpf Urine WBC Clumps (None) /hpf Urine Bacteria (None) /hpf Urine Mucus (None) /hpf 01/28/17 01/28/17 01/28/17 Range/Units 18:30 18:30 19:20 WBC (3.8-10.6) k/uL RBC (4.30-5.90) m/uL Hgb (13.0-17.5) gm/dL Hct (39.0-53.0) % MCV (80.0-100.0) fL MCH (25.0-35.0) pg MCHC (31.0-37.0) g/dL RDW (11.5-15.5) % Plt Count (150-450) k/uL Neutrophils % (Manual) % Lymphocytes % (Manual) % Monocytes % (Manual) % Eosinophils % (Manual) % Basophils % (Manual) % Neutrophils # (Manual) (1.3-7.7) k/uL Lymphocytes # (Manual) (1.0-4.8) k/uL Monocytes # (Manual) (0-1.0) k/uL Eosinophils # (Manual) (0-0.7) k/uL Basophils # (Manual) (0-0.2) k/uL Nucleated RBCs (0-0) /100 WBC Manual Slide Review Hypochromasia Anisocytosis Macrocytosis PT 9.8 (9.0-12.0) sec INR 1.0 (<1.1) APTT 27.2 (22.0-30.0) sec Sample Site RRAD ABG pH 7.38 (7.35-7.45) ABG pCO2 47 H (35-45) mmHg ABG pO2 228 H (83-108) mmHg ABG HCO3 27 H (21-25) mmol/L ABG Total CO2 29 H (19-24) mmol/L ABG O2 Saturation 100.0 H (94-97) % ABG Base Excess 2.6 mmol/L FiO2 100 % Sodium (137-145) mmol/L Potassium (3.5-5.1) mmol/L Chloride (98-107) mmol/L Carbon Dioxide (22-30) mmol/L Anion Gap mmol/L BUN (9-20) mg/dL Creatinine (0.66-1.25) mg/dL Est GFR (MDRD) Af Amer (>60 ml/min/1.73 sqM) Est GFR (MDRD) Non-Af (>60 ml/min/1.73 sqM) Glucose (74-99) mg/dL Calcium (8.4-10.2) mg/dL Total Bilirubin (0.2-1.3) mg/dL AST (17-59) U/L ALT (21-72) U/L Alkaline Phosphatase (38-126) U/L Total Creatine Kinase (55-170) U/L CK-MB (CK-2) (0.0-2.4) ng/mL CK-MB (CK-2) Rel Index Troponin I (0.000-0.034) ng/mL NT-Pro-B Natriuret Pep 23866 pg/mL Total Protein (6.3-8.2) g/dL Albumin (3.5-5.0) g/dL Urine Color Urine Appearance (Clear) Urine pH (5.0-8.0) Ur Specific Dewitt (1.001-1.035) Urine Protein (Negative) Urine Glucose (UA) (Negative) Urine Ketones (Negative) Urine Blood (Negative) Urine Nitrate (Negative) Urine Bilirubin (Negative) Urine Urobilinogen (<2.0) mg/dL Ur Leukocyte Esterase (Negative) Urine RBC (0-5) /hpf Urine WBC (0-5) /hpf Urine WBC Clumps (None) /hpf Urine Bacteria (None) /hpf Urine Mucus (None) /hpf 01/28/17 Range/Units 19:37 WBC (3.8-10.6) k/uL RBC (4.30-5.90) m/uL Hgb (13.0-17.5) gm/dL Hct (39.0-53.0) % MCV (80.0-100.0) fL MCH (25.0-35.0) pg MCHC (31.0-37.0) g/dL RDW (11.5-15.5) % Plt Count (150-450) k/uL Neutrophils % (Manual) % Lymphocytes % (Manual) % Monocytes % (Manual) % Eosinophils % (Manual) % Basophils % (Manual) % Neutrophils # (Manual) (1.3-7.7) k/uL Lymphocytes # (Manual) (1.0-4.8) k/uL Monocytes # (Manual) (0-1.0) k/uL Eosinophils # (Manual) (0-0.7) k/uL Basophils # (Manual) (0-0.2) k/uL Nucleated RBCs (0-0) /100 WBC Manual Slide Review Hypochromasia Anisocytosis Macrocytosis PT (9.0-12.0) sec INR (<1.1) APTT (22.0-30.0) sec Sample Site ABG pH (7.35-7.45) ABG pCO2 (35-45) mmHg ABG pO2 (83-108) mmHg ABG HCO3 (21-25) mmol/L ABG Total CO2 (19-24) mmol/L ABG O2 Saturation (94-97) % ABG Base Excess mmol/L FiO2 % Sodium (137-145) mmol/L Potassium (3.5-5.1) mmol/L Chloride (98-107) mmol/L Carbon Dioxide (22-30) mmol/L Anion Gap mmol/L BUN (9-20) mg/dL Creatinine (0.66-1.25) mg/dL Est GFR (MDRD) Af Amer (>60 ml/min/1.73 sqM) Est GFR (MDRD) Non-Af (>60 ml/min/1.73 sqM) Glucose (74-99) mg/dL Calcium (8.4-10.2) mg/dL Total Bilirubin (0.2-1.3) mg/dL AST (17-59) U/L ALT (21-72) U/L Alkaline Phosphatase (38-126) U/L Total Creatine Kinase (55-170) U/L CK-MB (CK-2) (0.0-2.4) ng/mL CK-MB (CK-2) Rel Index Troponin I (0.000-0.034) ng/mL NT-Pro-B Natriuret Pep pg/mL Total Protein (6.3-8.2) g/dL Albumin (3.5-5.0) g/dL Urine Color Light Yellow Urine Appearance Turbid (Clear) Urine pH 8.0 (5.0-8.0) Ur Specific Dewitt 1.007 (1.001-1.035) Urine Protein 2+ H (Negative) Urine Glucose (UA) 1+ H (Negative) Urine Ketones Negative (Negative) Urine Blood Small H (Negative) Urine Nitrate Negative (Negative) Urine Bilirubin Negative (Negative) Urine Urobilinogen <2.0 (<2.0) mg/dL Ur Leukocyte Esterase Large H (Negative) Urine RBC 27 H (0-5) /hpf Urine WBC >182 H (0-5) /hpf Urine WBC Clumps Many H (None) /hpf Urine Bacteria Occasional H (None) /hpf Urine Mucus Rare H (None) /hpf Critical Care Time Critical Care Time: Yes Total Critical Care Time: 35 Disposition Clinical Impression: Severe sepsis, Respiratory failure Disposition: ADMITTED IP TO THIS [facility] Condition: Critical
[2017-01-28] MEDS ORDERED: LORazepam 2 MG/ML SYRINGE IV PRN ×2 (18:50)
[2017-01-28] MEDS ORDERED: SUCCINYLCHOLINE CHLORIDE VIAL 200 MG/10 ML VIAL IV STA (18:50)
[2017-01-28] MEDS ORDERED: IPRATROPIUM-ALBUTEROL 3 ML NEB INHALATION PRN (18:50)
[2017-01-28] MEDS ORDERED: MIDAZOLAM (PF) 1 MG/ML 5 ML VIAL IV STA (18:50)
[2017-01-28] MEDS ORDERED: PROPOFOL 500 MG in EMPTY BAG 1 BAG IV SCH (19:00)
[2017-01-28 19:05] LABS: Anisocytosis Slight; Aty Lym Flag Slight; CH 29.6; CHCM 30.3; HCT 30.7 % (39.0-53.0); HDW 3.28; HGB 9.4 gm/dL (13.0-17.5); Hypochromasia Marked; MCH 30.3 pg (25.0-35.0); MCHC 30.8 g/dL (31.0-37.0); MCV 98.4 fL (80.0-100.0); Macrocytosis Slight; Mean Platelet Volume 7.2; RBC 3.12 m/uL (4.30-5.90); RDW 18.1 % (11.5-15.5); WBC 18.9 k/uL (3.8-10.6); WBC (Perox) 19.53
--- NOTE | 2017-01-28 19:05 | XR ---
EXAMINATION TYPE: XR chest 1V portable DATE OF EXAM: 01/28/2017 6:57 PM COMPARISON: 01/02/2017 HISTORY: Check tube placement. Difficulty breathing. TECHNIQUE: Single frontal view of the chest is obtained. FINDINGS: Endotracheal tube is in good position. There is dual lumen left central venous catheter w ith tip in the superior vena cava. There is no sign of pneumothorax. There is a nasogastric tube that appears in good position. There is pulmonary edema. There is blunting of costophrenic angles. There are chest leads. IMPRESSION: Congestive heart failure with pleural effusions. Pulmonary edema. There is probably no c hange allowing for different position compared to last exam. Endotracheal tube is in good position.
[2017-01-28 19:15] LABS: Partial Thromboplastin Time 27.2 sec (22.0-30.0); Prothrombin Time 9.8 sec (9.0-12.0)
[2017-01-28 19:17] LABS: Calcium 8.6 mg/dL (8.4-10.2); Total Bilirubin 0.4 mg/dL (0.2-1.3); Total Protein 6.1 g/dL (6.3-8.2)
[2017-01-28 19:22] LABS: Potassium 2.9 mmol/L (3.5-5.1)
[2017-01-28 19:28] LABS: Add Differential Manual Differential
[2017-01-28 19:43] LABS: Nucleated Red Blood Cells 0 /100 WBC (0-0); Total Cells Counted 100
[2017-01-28 19:44] LABS: Manual Review Performed
[2017-01-28] MEDS ORDERED: POTASSIUM BICARB-CITRIC ACID 25 MEQ TABLET.EFF PO STA (19:47)
[2017-01-28 19:51] LABS: Creatine Kinase MB 2.7 ng/mL (0.0-2.4); Troponin I 0.104 ng/mL (0.000-0.034)
[2017-01-28 19:54] LABS: Appearance,Urine Turbid (Clear); Bacteria,Urine Occasional /hpf; Bilirubin,Urine Negative (Negative); Glucose,Urine (UA) 1+ (Negative); Ketones,Urine Negative (Negative); Leukocyte Esterase,Urine Large (Negative); Mucus,Urine Rare /hpf; Nitrite,Urine Negative (Negative); Particle Count 91058; Protein,Urine 2+ (Negative); RBC,Urine 27 /hpf (0-5); Specific Gravity,Urine 1.007 (1.001-1.035); UA Billing (MACRO vs. MICRO) MICRO; Urobilinogen,Urine <2.0 mg/dL (<2.0); WBC,Urine >182 /hpf (0-5)
[2017-01-28] MEDS: POTASSIUM CHLORIDE 10 MEQ, LIDOCAINE 2% INJ 10 MG in SODIUM CHLORIDE 0.9% 100 ML IVPB SCH ×2 (20:05→21:18)
[2017-01-28] MEDS ORDERED: SODIUM CHLORIDE 0.9% 1,000 ML IV STA ×2 (20:09)
[2017-01-28] MEDS ORDERED: LEVOFLOXACIN 750MG-D5W PMX 750 MG in DEXTROSE/WATER 1 150ML.BAG IVPB STA (20:11)
[2017-01-28] MEDS ORDERED: MORPHINE SULFATE 4 MG/ML SYRINGE IVP PRN (20:12)
[2017-01-28 20:48] LABS: ABG Base Excess 2.6 mmol/L; ABG HCO3 27 mmol/L (21-25); ABG PCO2 47 mmHg (35-45); ABG PH 7.38 (7.35-7.45); ABG PO2 228 mmHg (83-108); ABG TCO2 29 mmol/L (19-24)
[2017-01-28] MEDS ORDERED: MORPHINE SULFATE 10 MG/ML SYRINGE IV PRN (21:11)
[2017-01-28] MEDS ORDERED: ACETAMINOPHEN TAB 325 MG TAB PO PRN (21:11)
[2017-01-28] MEDS ORDERED: MORPHINE SULFATE 2 MG/ML SYRINGE IV PRN ×2 (21:11)
[2017-01-28] MEDS ORDERED: NALOXONE 0.4 MG/ML 1 ML VIAL IV PRN (21:11)
[2017-01-28] MEDS ORDERED: ACETAMINOPHEN SUPPOSITORY 650 MG SUPP RECTAL PRN (21:11)
[2017-01-28] MEDS ORDERED: MORPHINE SULFATE 4 MG/ML SYRINGE IV PRN ×2 (21:11)
[2017-01-28] MEDS: IPRATROPIUM-ALBUTEROL 3 ML NEB INHALATION SCH ×2 (21:22→23:29)
[2017-01-28] MEDS ORDERED: IV VANCOMYCIN PER PHARMACY 1 EACH MISC MISCELLANE PRN (22:10)
[2017-01-28] MEDS ORDERED: NOREPINEPHRINE 16 MG in SODIUM CHLORIDE 0.9% 250 ML IV SCH (22:15)
[2017-01-28 22:35] LABS: Glucose,Whole Blood 130 mg/dL (75-99)
[2017-01-29] MEDS ORDERED: NOREPINEPHRINE 4 MG in SODIUM CHLORIDE 0.9% 250 ML IV SCH (00:30)
[2017-01-29] MEDS: 0.9% NACL WITH KCL 20 MEQ/L 1,000 ML IV SCH ×2 (01:08→08:21)
[2017-01-29] MEDS: POTASSIUM CHLORIDE 10 MEQ, LIDOCAINE 2% INJ 10 MG in SODIUM CHLORIDE 0.9% 100 ML IVPB SCH (01:14)
[2017-01-29] MEDS: CEFTAROLINE FOSAMIL IVPB SCH ×3 (02:30→21:08)
[2017-01-29] MEDS: SODIUM CHLORIDE 0.9% IVPB SCH ×3 (02:30→21:08)
[2017-01-29] MEDS: IPRATROPIUM-ALBUTEROL 3 ML NEB INHALATION SCH ×7 (03:25→23:07)
[2017-01-29 05:03] LABS: Anisocytosis Slight; Basophils % (A) 0 %; CH 29.5; CHCM 30.2; Eosinophils # (A) 0.1 k/uL (0-0.7); Eosinophils % (A) 1 %; HCT 25.3 % (39.0-53.0); HDW 3.28; Hypochromasia Marked; Luc # (Auto) 0.32; Luc % (Auto) 3; Lymphocytes # (A) 1.4 k/uL (1.0-4.8); Lymphocytes % (A) 12 %; MCH 30.2 pg (25.0-35.0); MCHC 30.6 g/dL (31.0-37.0); MCV 98.6 fL (80.0-100.0); Macrocytosis Slight; Mean Platelet Volume 8.1; Monocytes # (A) 0.4 k/uL (0-1.0); Monocytes % (A) 3 %; Neutrophils # (A) 9.6 k/uL (1.3-7.7); Neutrophils % (A) 81 %; RBC 2.56 m/uL (4.30-5.90); RDW 18.3 % (11.5-15.5); WBC 11.9 k/uL (3.8-10.6); WBC (Perox) 11.82
[2017-01-29 05:16] LABS: HGB 7.7 gm/dL (13.0-17.5)
[2017-01-29 05:20] LABS: Calcium 7.9 mg/dL (8.4-10.2); Magnesium 1.6 mg/dL (1.6-2.3); Potassium 3.7 mmol/L (3.5-5.1); Total Bilirubin 0.3 mg/dL (0.2-1.3); Total Protein 4.8 g/dL (6.3-8.2)
[2017-01-29] MEDS ORDERED: Potassium Replacement Protocol 1 EACH MISC MISCELLANE PRN (05:50)
[2017-01-29] MEDS ORDERED: POTASSIUM CHLORIDE ORAL LIQUID 40 MEQ/30 ML CUP NG-TUBE SCH (06:00)
[2017-01-29 06:29] LABS: Creatine Kinase MB 51.4 ng/mL (0.0-2.4)
[2017-01-29] MEDS ORDERED: PROPOFOL 50 ML IV ONE (06:47)
[2017-01-29] MEDS: PROPOFOL 500 MG in EMPTY BAG 1 BAG IV SCH (06:53)
[2017-01-29 07:17] LABS: Glucose,Whole Blood 160 mg/dL (75-99)
--- NOTE | 2017-01-29 07:29 | XR ---
EXAMINATION TYPE: XR chest 1V portable DATE OF EXAM: 01/29/2017 6:37 AM COMPARISON: 01/28/2017 HISTORY: SOB, Follow Up FINDINGS: Indwelling tubes and catheters are unchanged. No change in hilar and bibasilar infiltrates. Stable appearance of the cardio-mediastinal structures at this time. Pleural effusion unchanged. IMPRESSION: 1. Stable portable chest. Clinical correlation and follow up until resolution is recommended.
[2017-01-29 08:30] LABS: Mis test requested (Blood) PT/INR/PTT
[2017-01-29 09:12] LABS: ABG Base Excess -0.4 mmol/L; ABG HCO3 23 mmol/L (21-25); ABG PCO2 35 mmHg (35-45); ABG PH 7.44 (7.35-7.45); ABG PO2 135 mmHg (83-108); ABG TCO2 24 mmol/L (19-24)
[2017-01-29 09:13] LABS: ABG Oxygen Saturation 99.2 % (94-97)
[2017-01-29] MEDS: HEPARIN SODIUM,PORCINE 5,000 UNIT/ML 1 ML VIAL SQ SCH ×3 (09:25→23:45)
[2017-01-29] MEDS: MAGNESIUM SULFATE-D5W PMX 1 GM in DEXTROSE/WATER 1 100ML.BAG IVPB SCH ×2 (09:25→10:53)
[2017-01-29] MEDS: CHLORHEXIDINE GLUCONATE 15 ML CUP MUCOUS MEM SCH ×2 (09:25→21:08)
[2017-01-29] MEDS: PANTOPRAZOLE 40 MG/10 ML VIAL IV SCH (09:25)
--- NOTE | 2017-01-29 10:54 | P.CNPUL ---
History of Present Illness Consult date: 01/29/17 Reason for consult: dyspnea, hypoxemia, abnormal CXR/CT, other Chief complaint: Altered mental status, dyspnea, respiratory failure History of present illness: This is a 89-year-old gentleman with a history of DIFFICULTY breathing and mental status changes. He was apparently intubated in the emergency room for respiratory failure. His diagnoses included respiratory failure fluid overload and sepsis. She was admitted on January 29. Currently in the ICU. On the ventilator. No additional history can be obtained. He apparently was recently here and discharged on the . At that time he was apparently admitted with a diagnosis of sepsis and recurrent infection. Currently the patient's on the ventilator. He is on the assist control mode rate of 1410 of I am 500 FiO2 40% PEEP of 5 blood gases show pO2 of 135 pCO2 35 patient 0.44. The blood gases are consistent with hyperoxia and a mild respiratory alkalosis. The patient's on an IV appointment 9 with 20 of KCl at 115 mL an hour propofol lower DIP or van at 8 mics per kilogram per minute and appointment 9 IV at 20 mL an hour. We will set is currently off. He is a typical Sunday once a Sunday hemodialysis patient. Chest x-rays reviewed. Endotracheal tube and NG tube look fine. His chest x- rays consistent with fluid overload. Review of Systems ROS unobtainable: due to endotracheal tube Past Medical History Past Medical History: Heart Failure, COPD, Dementia, Diabetes Mellitus, Dialysis , Hypertension, Pneumonia, Renal Disease Additional Past Medical History / Comment(s): Dementia, multiple bouts of sepsis secondary to urine checked infection with infections with gram-negative bacteria, recent septicemia with blood cultures being positive for hemolytic strep., Chronic renal failure, episodic hyperkalemia, diabetes mellitus insulin -dependent, hypertension, chronic bilateral pleural effusion, sacral skin maceration with stage I disease, peripheral vascular disease with bilateral below-knee amputation, COPD, congestion heart failure, frequent urine checked infection, chronic indwelling Norman catheter, dysphagia with previous swallow evaluation did not reveal evidence of penetration or aspiration, anterior abdominal wall hernia, History of Any Multi-Drug Resistant Organisms: MRSA, Other MDRO, VRE Date of last positivie culture/infection: 12/26/16 MRSA-Blood; 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 Past Anesthesia/Blood Transfusion Reactions: No Reported Reaction Past Psychological History: Anxiety, Depression Additional Psychological History / Comment(s): Patient is cared for in a family home by his family. Former smoker. No significant history of alcohol or recreational drug use. Smoking Status: Former smoker Past Alcohol Use History: None Reported Past Drug Use History: None Reported - Past Family History Father Family Medical History: Diabetes Mellitus Additional Family Medical History / Comment(s): bleeding ulcer Mother Family Medical History: Dementia Medications and Allergies Home Medications Medication Instructions Recorded Confirmed Type Pregabalin [Lyrica] 75 mg PO BID 11/12/16 01/28/17 History Cholecalciferol [Vitamin D3] 2,000 unit PO DAILY 12/06/16 01/28/17 History Sodium Bicarbonate Tab 650 mg PO BID 12/06/16 01/28/17 History ALPRAZolam [Xanax] 0.25 mg PO Q12H PRN 01/28/17 01/28/17 History Folic Acid-Vit B Complex-Vit C 1 cap PO DAILY 01/28/17 01/28/17 History [Nephrocaps] INSULIN LISPRO (humaLOG) [HumaLOG] See Protocol SQ ACHS 01/28/17 01/28/17 History Loperamide HCl [Loperamide] 4 mg PO Q6H PRN 01/28/17 01/28/17 History Vancomycin 750 mg IVPB MOWEFR 01/28/17 01/28/17 History Allergies Allergy/AdvReac Type Severity Reaction Status Date / Time cephalexin [From Keflex] Allergy Unknown Verified 01/28/17 18:30 daptomycin Allergy Unknown Verified 01/28/17 18:30 mirtazapine [From Remeron] Allergy Unknown Verified 01/28/17 18:30 Penicillins Allergy Unknown Verified 01/28/17 18:30 Physical Exam Osteopathic Statement: *. No significant issues noted on an osteopathic structural exam other than those noted in the History and Physical/Consult. Vitals: Vital Signs Temp Pulse Pulse Resp BP BP Pulse Ox 01/29/17 10:00 79 22 93/52 93 L 01/29/17 09:30 77 14 119/51 97 01/29/17 09:00 76 13 132/58 99 01/29/17 08:30 83 13 87/43 96 01/29/17 08:12 89 01/29/17 08:00 98.9 F 89 14 144/62 95 01/29/17 07:52 90 01/29/17 07:30 78 56 H 93/45 100 01/29/17 07:00 88 14 85/41 100 01/29/17 06:30 95 28 H 115/54 96 01/29/17 06:00 99.3 F 77 16 111/53 100 01/29/17 05:30 98.6 F 77 14 112/51 100 01/29/17 05:00 77 14 107/52 100 01/29/17 04:30 97.9 F 77 14 108/50 100 01/29/17 04:00 97.8 F 80 14 116/55 100 01/29/17 03:45 84 01/29/17 03:32 69 01/29/17 03:30 97 F L 71 14 109/54 100 01/29/17 03:00 97 F L 70 14 109/49 100 01/29/17 02:30 96.9 F L 71 14 109/50 100 01/29/17 02:00 96.7 F L 71 14 107/51 100 01/29/17 01:30 96.3 F L 71 14 107/51 100 01/29/17 01:00 96 F L 70 14 108/50 100 01/29/17 00:30 97.9 F 70 14 107/52 100 01/29/17 00:00 95.7 F L 69 13 110/54 100 01/28/17 23:48 68 01/28/17 23:45 67 13 101/50 100 01/28/17 23:37 62 01/28/17 23:30 95.7 F L 63 14 83/45 100 01/28/17 23:15 63 14 86/48 100 01/28/17 23:00 95.7 F L 71 18 115/60 87 L 01/28/17 22:46 63 14 82/55 100 01/28/17 22:45 95.5 F L 63 14 115/60 100 01/28/17 22:34 100 01/28/17 22:17 60 14 80/49 100 01/28/17 22:05 94.9 F L 60 14 73/42 98 01/28/17 21:45 61 18 90/50 01/28/17 21:21 95.5 F L 63 115/60 95 01/28/17 21:15 61 18 127/72 97 Intake and Output 01/28/17 01/29/17 01/29/17 22:59 06:59 14:59 Intake Total 78.6 1259.01 440.481 Output Total 0 15 57 Balance 78.6 1244.01 383.481 Intake: Intake, IV Titration 78.6 1259.01 440.481 Amount 0.9% NaCl with KCl 20 Meq 575 345 /l 1,000 ml @ 115 mls/hr IV .Q8H42M [facility] Rx#: [id number] Ceftaroline Fosamil 200 250 mg In Sodium Chloride 0.9 % 250 ml @ 250 mls/hr IVPB Q12HR [facility] Rx#: [id number] Levofloxacin 750Mg-D5w 75 150 Pmx 750 mg In Dextrose/ Water 1 150ml.bag @ 100 mls/hr IVPB [facility] Rx#: [id number] Norepinephrine 16 mg In 3.6 25.2 38.771 Sodium Chloride 0.9% 250 ml @ Titrate IV .Q0M [facility] Rx#:[id number] Norepinephrine 4 mg In 3.6 20 Sodium Chloride 0.9% 250 ml @ Titrate IV .Q0M [facility] Rx#:[id number] Potassium Chloride 10 meq 100 Lidocaine 2% Inj 10 mg In Sodium Chloride 0.9% 100 ml @ 100 mls/hr IVPB Q1HR [facility] Rx#:[id number] Propofol 50 ml As IV .STK 10.9 -[facility] Rx#:[id number] Propofol 500 mg In Empty 0.21 5.81 Bag 1 bag @ Titrate IV . Q0M [facility] Rx#:[id number] Sodium Chloride 0.9% 1, 155 20 000 ml @ 999 mls/hr IV . Q1H1M [facility] Rx#:[id number] Output: Urine 0 15 57 Other: Voiding Method Indwelling Catheter Weight 70 kg 68.2 kg 68.2 kg Patient Weight 01/30/17 06:59 Weight 68.2 kg No acute distress, patient currently sedated on the ventilator. HEENT examination is grossly unremarkable. Mucous membranes are moist. Endotracheal tube and NG tube noted. Neck is supple. Full range of motion. Cardiovascular examination reveals regular rhythm rate. S1 and S2 normal. Lungs reveal some coarse rhonchi. Breath sounds are diminished. Abdomen is soft. Extremities are intact. He is a bilateral amputee. Results - Laboratory Findings CBC and BMP: 01/29/17 04:09 01/29/17 04:09 ABG ABG pH 7.44 (7.35-7.45) 01/29/17 07:40 ABG pCO2 35 mmHg (35-45) 01/29/17 07:40 ABG pO2 135 mmHg (83-108) H 01/29/17 07:40 ABG O2 Saturation 99.2 % (94-97) H 01/29/17 07:40 PT/INR, D-dimer PT sec (9.0-12.0) 01/29/17 04:09 INR (<1.1) 01/29/17 04:09 Abnormal lab findings: Abnormal Labs 01/28/17 01/29/17 01/29/17 22:33 04:09 04:09 WBC 11.9 H RBC 2.56 L Hgb 7.7 L D Hct 25.3 L MCHC 30.6 L RDW 18.3 H Plt Count 139 L Neutrophils # 9.6 H ABG pO2 ABG O2 Saturation Chloride 109 H BUN 24 H Creatinine 3.20 H Glucose 156 H POC Glucose (mg/dL) 130 H Calcium 7.9 L AST 60 H Total Creatine Kinase CK-MB (CK-2) Troponin I Total Protein 4.8 L Albumin 2.1 L 01/29/17 01/29/17 01/29/17 04:09 04:09 06:57 WBC RBC Hgb Hct MCHC RDW Plt Count Neutrophils # ABG pO2 ABG O2 Saturation Chloride BUN Creatinine Glucose POC Glucose (mg/dL) 160 H Calcium AST Total Creatine Kinase 452 H CK-MB (CK-2) 51.4 H* Troponin I 1.710 H* Total Protein Albumin 01/29/17 07:40 WBC RBC Hgb Hct MCHC RDW Plt Count Neutrophils # ABG pO2 135 H ABG O2 Saturation 99.2 H Chloride BUN Creatinine Glucose POC Glucose (mg/dL) Calcium AST Total Creatine Kinase CK-MB (CK-2) Troponin I Total Protein Albumin - Diagnostic Findings Chest x-ray: image reviewed (Chest x-ray meds and labs are all reviewed.) Assessment and Plan (1) Respiratory failure Status: Acute (2) Severe sepsis Status: Acute (3) Chronic renal failure Status: Acute (4) Diabetes Status: Acute (5) Gram-negative sepsis with organ dysfunction Status: Acute (6) Nosocomial pneumonia Status: Acute (7) Proteus mirabilis infection Status: Acute (8) Pseudomonas urinary tract infection Status: Acute (9) Urinary tract infection in male Status: Acute Plan: Plan The patient's doing reasonably well. A couple things will be done. We'll get the patient on some tube feeds. We'll talk to the family about CODE STATUS. Apparently the patient was recently evaluated for PEG tube placement. The patient tidal Lyme we dropped down to 400 mL. We bumped her rate up to 20 or 22 breaths per minute. We'll drop the FiO2 from 40-30%. Medications labs are reviewed. Prognosis is guarded. The patient will probably need dialysis soon. Additional recommendations suggestions are forthcoming. PICC line will be placed. Time with Patient: Greater than 30
[2017-01-29 12:09] LABS: Glucose,Whole Blood 192 mg/dL (75-99)
[2017-01-29] MEDS: INSULIN LISPRO (humaLOG) 300 UNIT/3 ML VIAL SQ SCH ×3 (12:40→23:46)
[2017-01-29] MEDS ORDERED: CISATRACURIUM 2 MG/ML 5 ML VIAL IV ONE (13:18)
[2017-01-29 15:06] LABS: Hemoglobin A1C 4.9 % (4.2-6.1)
[2017-01-29] MEDS: SODIUM CHLORIDE 0.9% 1,000 ML IV SCH (16:38)
--- NOTE | 2017-01-29 16:42 | HP ---
DATE OF ADMISSION: Patient is a 89-year-old who came in with complaints of shortness of breath, found to have pulmonary edema. Patient is hemodialysis-dependent and probably pulmonary edema is related to that. Patient is also found to be septic with fevers. There is a possibility of sepsis as well; that may have contributed to his hypoxic respiratory failure. Patient found to be in hypoxic respiratory failure, subsequently intubated. I saw and evaluated the patient. Patient has had multiple admissions in the past. Patient has a Norman catheter that is at present believed to be the source of infection. Patient had bacteremia in the past with MRSA, because of which patient was started on ceftaroline here. Patient has multiple wounds, for which Infectious Disease was consulted. He is at present intubated, sedated, with RASS score of -2 to -3. Patient continues to be FULL CODE. I have to readdress the code status with the family members. Patient has end-stage renal disease, hemodialysis-dependent; was admitted in the past for his infected dialysis catheter. Patient has now dialysis catheter in the left subclavian. Patient did have leukocytosis, which is improving at present on ceftaroline. Patient is on pressor support. Blood pressure is borderline. REVIEW OF SYSTEMS: Unable to obtain due to his clinical condition. PAST MEDICAL HISTORY: 1. Chronic diastolic dysfunction. 2. COPD. 3. Dementia. 4. Diabetes mellitus. 5. End-stage renal disease, hemodialysis-dependent. 6. Multiple admissions for MRSA bacteremia in the past secondary to infected dialysis catheter. 7. Anxiety. 8. Depression. FAMILY HISTORY: Father had diabetes mellitus. SOCIAL HISTORY: Former smoker. No alcohol abuse or any drug abuse. Mother had dementia. Home medications include: 1. Pregabalin. 2. Cholecalciferol. 3. Sodium bicarbonate. 4. Xanax. 5. Folic acid. 6. Vitamin B. PHYSICAL EXAMINATION: VITAL SIGNS: Temperature 98.5, pulse of 93, respiratory rate of 21. Patient is breathing over the ventilator. Please refer to c 40a crew chief's dictation for further details of vent settings. Blood pressure is 99/48, on pressor support with norepinephrine. GENERAL: Patient is intubated, sedated, calm. HEENT: Pupils are round and equally reacting to light. EOMI. No scleral icterus. No conjunctival pallor. Normocephalic, atraumatic. No pharyngeal erythema. No thyromegaly. CARDIOVASCULAR: S1 and S2 present. No murmurs, rubs, or gallops. PULMONARY: Crackles in the bilateral lung horn were appreciated. No wheezing was appreciated. ABDOMEN: Soft, nontender, nondistended, normoactive bowel sounds. No palpable organomegaly. MUSCULOSKELETAL: No joint swelling or deformity. EXTREMITIES: Bilateral amputations. NEUROLOGICAL: RASS score of -2 to -3. Probably we need to cut down on sedation. SKIN: No rashes. LABORATORY DATA: CBC, CMP are abnormal for elevated WBC count of 18,900, now 11,900, hemoglobin of 7.7. Due to hemodilutory effect, his hemoglobin came down from 9.4. Patient's ABGs: Please refer to c 40a crew chief's dictation. Potassium was low, which was supplemented. Chloride is minimally elevated. Lactic acid was 2, now 1.2. ASSESSMENT AND PLAN: 1. Acute hypoxic respiratory failure secondary to pulmonary edema. Patient barely makes any urine. Patient will need hemodialysis. 2. Septic shock, because of which in spite of pulmonary edema patient ended up getting IV fluids. Patient is intubated at present. Continue with ceftaroline. Infectious Disease was consulted. 3. End-stage renal disease, hemodialysis-dependent, as mentioned above. 4. Type 2 diabetes mellitus. 5. Recent methicillin-resistant Staphylococcus aureus bacteremia and multiple urinary tract infections. Possible sources of sepsis and severe septic shock are: a) urinary tract infection, b) bacteremia again; patient was on vancomycin with hemodialysis. 6. Elevated troponins with some ST-T wave changes, including ST depressions, for which Cardiology was consulted. Patient is at present not on IV heparin. Patient's prognosis is poor. His clinical condition is extremely guarded. Patient still remains FULL CODE as per the daughters.
[2017-01-29] MEDS ORDERED: NOREPINEPHRINE 16 MG in SODIUM CHLORIDE 0.9% 250 ML IV SCH (16:45)
--- NOTE | 2017-01-29 18:08 | P.CONS ---
History of Present Illness - Reason for Consult Consult date: 01/29/17 - Chief Complaint Respiratory failure - History of Present Illness 81-year-old male well-known to the infectious disease service, recently was hospitalized with a bout of pneumonia as well as bacteremia related to his hemodialysis catheter. He has significant sepsis at that time. Dialysis catheter was removed. Sepsis improved in a new catheter was placed in left anterior chest wall. Patient was receiving his course of outpatient intravenous antibiotic therapy. At admission the patient had evidence of respiratory failure required intubation sedation and mechanical ventilation. he was noted to have EKG changes. There is elevated CK and troponins also. Cardiology is following. Patient is comfortable not and vasopressor therapy at this time. Review of Systems ROS unobtainable: due to endotracheal tube Past Medical History Past Medical History: Heart Failure, COPD, Dementia, Diabetes Mellitus, Dialysis , Hypertension, Pneumonia, Renal Disease Additional Past Medical History / Comment(s): Dementia, multiple bouts of sepsis secondary to urine checked infection with infections with gram-negative bacteria, recent septicemia with blood cultures being positive for hemolytic strep., Chronic renal failure, episodic hyperkalemia, diabetes mellitus insulin -dependent, hypertension, chronic bilateral pleural effusion, sacral skin maceration with stage I disease, peripheral vascular disease with bilateral below-knee amputation, COPD, congestion heart failure, frequent urine checked infection, chronic indwelling Norman catheter, dysphagia with previous swallow evaluation did not reveal evidence of penetration or aspiration, anterior abdominal wall hernia, History of Any Multi-Drug Resistant Organisms: MRSA, Other MDRO, VRE Year Discovered:: 12/26/16 MRSA-Blood; 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 Past Anesthesia/Blood Transfusion Reactions: No Reported Reaction Past Psychological History: Anxiety, Depression Additional Psychological History / Comment(s): Patient is cared for in a family home by his family. Former smoker. No significant history of alcohol or recreational drug use. Smoking Status: Former smoker Past Alcohol Use History: None Reported Past Drug Use History: None Reported - Past Family History Father Family Medical History: Diabetes Mellitus Additional Family Medical History / Comment(s): bleeding ulcer Mother Family Medical History: Dementia Medications and Allergies Home Medications and Allergies Comment(s): Current Medications Acetaminophen (Tylenol Suppository) 650 mg RECTAL Q4HR PRN PRN Reason: Fever And/ Or Mild Pain Acetaminophen (Tylenol Tab) 650 mg PO Q4HR PRN PRN Reason: Fever and/or Mild Pain Albuterol/Ipratropium (Duoneb 0.5 Mg-3 Mg/3 Ml Soln) 3 ml INHALATION RT-Q4H [facility] Last Admin: 01/29/17 15:50 Dose: 3 ml Albuterol/Ipratropium (Duoneb 0.5 Mg-3 Mg/3 Ml Soln) 3 ml INHALATION RT-Q2H PRN PRN Reason: Shortness Of Breath Or Wheezing Chlorhexidine Gluconate (Peridex) 15 ml MUCOUS MEM BID [facility] Last Admin: 01/29/17 09:25 Dose: 15 ml Heparin Sodium (Porcine) (Heparin) 5,000 unit SQ Q8HR [facility] Last Admin: 01/29/17 16:38 Dose: 5,000 unit Ceftaroline Fosamil 200 mg/ (Sodium Chloride) 250 mls @ 250 mls/hr IVPB Q12HR [facility] Last Admin: 01/29/17 08:19 Dose: 250 mls/hr Propofol 500 mg/ IV Solution 50 mls @ 0 mls/hr IV .Q0M [facility]; Titrate PRN Reason: Protocol Last Titration: 01/29/17 09:26 Dose: 8 mcg/kg/min, 3.36 mls/hr Sodium Chloride (Saline 0.9%) 1,000 mls @ 50 mls/hr IV .Q20H [facility] Last Admin: 01/29/17 16:38 Dose: 50 mls/hr Norepinephrine Bitartrate 16 (mg/ Sodium Chloride) 266 mls @ 0 mls/hr IV .Q0M [facility]; Titrate PRN Reason: Protocol Insulin Human Lispro (Humalog) 0 unit SQ Q6HR [facility] PRN Reason: Protocol Last Admin: 01/29/17 12:40 Dose: 2 unit Miscellaneous Information (Potassium Per Protocol) 1 each MISCELLANE DAILY PRN ; Protocol PRN Reason: Per Protocol Naloxone HCl (Narcan) 0.2 mg IV Q2M PRN PRN Reason: Opioid Reversal Pantoprazole Sodium (Protonix) 40 mg IV DAILY [facility] Last Admin: 01/29/17 09:25 Dose: 40 mg Sodium Bicarbonate (Sodium Bicarbonate Tab) 650 mg PO BID [facility] Home Medications Medication Instructions Recorded Confirmed Type Pregabalin [Lyrica] 75 mg PO BID 11/12/16 01/28/17 History Cholecalciferol [Vitamin D3] 2,000 unit PO DAILY 12/06/16 01/28/17 History Sodium Bicarbonate Tab 650 mg PO BID 12/06/16 01/28/17 History ALPRAZolam [Xanax] 0.25 mg PO Q12H PRN 01/28/17 01/28/17 History Folic Acid-Vit B Complex-Vit C 1 cap PO DAILY 01/28/17 01/28/17 History [Nephrocaps] INSULIN LISPRO (humaLOG) [HumaLOG] See Protocol SQ ACHS 01/28/17 01/28/17 History Loperamide HCl [Loperamide] 4 mg PO Q6H PRN 01/28/17 01/28/17 History Vancomycin 750 mg IVPB MOWEFR 01/28/17 01/28/17 History Allergies Allergy/AdvReac Type Severity Reaction Status Date / Time cephalexin [From Keflex] Allergy Unknown Verified 01/28/17 18:30 daptomycin Allergy Unknown Verified 01/28/17 18:30 mirtazapine [From Remeron] Allergy Unknown Verified 01/28/17 18:30 Penicillins Allergy Unknown Verified 01/28/17 18:30 Physical Exam Vitals: Vital Signs Temp Pulse Pulse Pulse Resp BP BP 01/29/17 16:11 78 01/29/17 16:00 97.8 F 80 92 92 21 98/47 01/29/17 15:47 77 01/29/17 15:30 76 22 97/45 01/29/17 15:00 80 17 107/46 01/29/17 14:30 84 22 76/45 01/29/17 14:00 88 22 90/45 01/29/17 13:30 90 9 L 101/50 01/29/17 13:00 92 22 95/44 01/29/17 12:30 93 21 99/48 01/29/17 12:00 92 92 92 21 108/48 01/29/17 11:30 98.5 F 79 22 114/54 01/29/17 11:20 82 01/29/17 11:10 71 01/29/17 11:08 98.5 F 92 92 22 99/48 01/29/17 11:00 72 21 88/44 01/29/17 10:30 79 22 95/45 01/29/17 10:00 79 22 93/52 01/29/17 09:30 77 14 119/51 01/29/17 09:00 76 13 132/58 01/29/17 08:30 83 13 87/43 01/29/17 08:12 89 01/29/17 08:00 98.9 F 89 22 144/62 01/29/17 07:52 90 01/29/17 07:30 78 56 H 93/45 01/29/17 07:00 88 14 85/41 01/29/17 06:30 95 28 H 115/54 01/29/17 06:00 99.3 F 77 16 111/53 01/29/17 05:30 98.6 F 77 14 112/51 01/29/17 05:00 77 14 107/52 01/29/17 04:30 97.9 F 77 14 108/50 01/29/17 04:00 97.8 F 80 14 116/55 01/29/17 03:45 84 01/29/17 03:32 69 01/29/17 03:30 97 F L 71 14 109/54 01/29/17 03:00 97 F L 70 14 109/49 01/29/17 02:30 96.9 F L 71 14 109/50 01/29/17 02:00 96.7 F L 71 14 107/51 01/29/17 01:30 96.3 F L 71 14 107/51 01/29/17 01:00 96 F L 70 14 108/50 01/29/17 00:30 97.9 F 70 14 107/52 01/29/17 00:00 95.7 F L 69 13 110/54 01/28/17 23:48 68 01/28/17 23:45 67 13 101/50 01/28/17 23:37 62 01/28/17 23:30 95.7 F L 63 14 83/45 01/28/17 23:15 63 14 86/48 01/28/17 23:00 95.7 F L 71 18 115/60 01/28/17 22:46 63 14 82/55 01/28/17 22:45 95.5 F L 63 14 115/60 01/28/17 22:34 01/28/17 22:17 60 14 80/49 01/28/17 22:05 94.9 F L 60 14 73/42 01/28/17 21:45 61 18 90/50 01/28/17 21:21 95.5 F L 63 115/60 01/28/17 21:15 61 18 127/72 Pulse Ox 01/29/17 16:11 01/29/17 16:00 100 01/29/17 15:47 01/29/17 15:30 94 L 01/29/17 15:00 97 01/29/17 14:30 97 01/29/17 14:00 99 01/29/17 13:30 95 01/29/17 13:00 94 L 01/29/17 12:30 94 L 01/29/17 12:00 94 L 01/29/17 11:30 97 01/29/17 11:20 01/29/17 11:10 01/29/17 11:08 94 L 01/29/17 11:00 96 01/29/17 10:30 95 01/29/17 10:00 93 L 01/29/17 09:30 97 01/29/17 09:00 99 01/29/17 08:30 96 01/29/17 08:12 01/29/17 08:00 96 01/29/17 07:52 01/29/17 07:30 100 01/29/17 07:00 100 01/29/17 06:30 96 01/29/17 06:00 100 01/29/17 05:30 100 01/29/17 05:00 100 01/29/17 04:30 100 01/29/17 04:00 100 01/29/17 03:45 01/29/17 03:32 01/29/17 03:30 100 01/29/17 03:00 100 01/29/17 02:30 100 01/29/17 02:00 100 01/29/17 01:30 100 01/29/17 01:00 100 01/29/17 00:30 100 01/29/17 00:00 100 01/28/17 23:48 01/28/17 23:45 100 01/28/17 23:37 01/28/17 23:30 100 01/28/17 23:15 100 01/28/17 23:00 87 L 01/28/17 22:46 100 01/28/17 22:45 100 01/28/17 22:34 100 01/28/17 22:17 100 01/28/17 22:05 98 01/28/17 21:45 01/28/17 21:21 95 01/28/17 21:15 97 Intake and Output 01/29/17 01/29/17 01/29/17 06:59 14:59 22:59 Intake Total 1259.01 927.481 147.1 Output Total 15 102 30 Balance 1244.01 825.481 117.1 Intake: Intake, IV Titration 1259.01 867.481 72.1 Amount 0.9% NaCl with KCl 20 Meq 575 625 /l 1,000 ml @ 115 mls/hr IV .Q8H42M [facility] Rx#: [id number] Ceftaroline Fosamil 200 250 mg In Sodium Chloride 0.9 % 250 ml @ 250 mls/hr IVPB Q12HR [facility] Rx#: [id number] Levofloxacin 750Mg-D5w 150 Pmx 750 mg In Dextrose/ Water 1 150ml.bag @ 100 mls/hr IVPB ONCE [facility] Rx#: [id number] Magnesium Sulfate-D5w Pmx 100 1 gm In Dextrose/Water 1 100ml.bag @ 100 mls/hr IVPB Q1H [facility] Rx#: [id number] Norepinephrine 16 mg In 25.2 38.771 Sodium Chloride 0.9% 250 ml @ Titrate IV .Q0M [facility] Rx#:[id number] Norepinephrine 4 mg In 3.6 53.8 18.8 Sodium Chloride 0.9% 250 ml @ Titrate IV .Q0M [facility] Rx#:[id number] Potassium Chloride 10 meq 100 Lidocaine 2% Inj 10 mg In Sodium Chloride 0.9% 100 ml @ 100 mls/hr IVPB Q1HR [facility] Rx#:[id number] Propofol 50 ml As IV .STK 24.1 3.3 -[facility] Rx#:[id number] Propofol 500 mg In Empty 0.21 5.81 Bag 1 bag @ Titrate IV . Q0M [facility] Rx#:[id number] Sodium Chloride 0.9% 1, 50 000 ml @ 50 mls/hr IV . Q20H [facility] Rx#:[id number] Sodium Chloride 0.9% 1, 155 20 000 ml @ 999 mls/hr IV . Q1H1M [facility] Rx#:[id number] Tube Feeding 30 45 Other 30 30 Output: Urine 15 102 30 Other: Voiding Method Indwelling Catheter Indwelling Catheter Indwelling Catheter Weight 68.2 kg 68.2 kg 68.2 kg Patient Weight 01/30/17 06:59 Weight 68.2 kg Patient is intubated and sedated. HEENT: Anicteric conjunctiva are pink and moist nasal mucosa grossly intact without significant lesions, there is no thrush. Visualized around the endotracheal tube Neck: The neck is supple without significant lymphadenopathy or thyromegaly. Lungs: There is symmetrical air entry. Basilar crackles are heard. Heart: Irregular with an audible S1 and S2 loud S4 no distinct murmur click or rub Abdomen: Positive bowel sounds soft and nontender without palpable masses or organomegaly. There was no guarding or rebound. Extremities: Extremities have evidence of some generalized edema. He does have evidence of the bilateral below-knee amputation. Residual limbs are without evidence of infection at this time. Please see the nursing photography regarding the pressure ulcerations to the buttocks. Neuro: Sedated and mechanically ventilated Genitalia has evidence of the splayed penis, and some irritation for which zinc cream is applied. Results CBC & Chem 7: 01/29/17 04:09 01/29/17 04:09 Labs: Abnormal Lab Results - Last 24 Hours (Table) 01/28/17 01/29/17 01/29/17 Range/Units 22:33 04:09 04:09 WBC 11.9 H (3.8-10.6) k/uL RBC 2.56 L (4.30-5.90) m/uL Hgb 7.7 L D (13.0-17.5) gm/dL Hct 25.3 L (39.0-53.0) % MCHC 30.6 L (31.0-37.0) g/dL RDW 18.3 H (11.5-15.5) % Plt Count 139 L (150-450) k/uL Neutrophils # 9.6 H (1.3-7.7) k/uL ABG pO2 (83-108) mmHg ABG O2 Saturation (94-97) % Chloride 109 H (98-107) mmol/L BUN 24 H (9-20) mg/dL Creatinine 3.20 H (0.66-1.25) mg/dL Glucose 156 H (74-99) mg/dL POC Glucose (mg/dL) 130 H (75-99) mg/dL Calcium 7.9 L (8.4-10.2) mg/dL AST 60 H (17-59) U/L Total Creatine Kinase (55-170) U/L CK-MB (CK-2) (0.0-2.4) ng/mL Troponin I (0.000-0.034) ng/mL Total Protein 4.8 L (6.3-8.2) g/dL Albumin 2.1 L (3.5-5.0) g/dL 01/29/17 01/29/17 01/29/17 Range/Units 04:09 04:09 06:57 WBC (3.8-10.6) k/uL RBC (4.30-5.90) m/uL Hgb (13.0-17.5) gm/dL Hct (39.0-53.0) % MCHC (31.0-37.0) g/dL RDW (11.5-15.5) % Plt Count (150-450) k/uL Neutrophils # (1.3-7.7) k/uL ABG pO2 (83-108) mmHg ABG O2 Saturation (94-97) % Chloride (98-107) mmol/L BUN (9-20) mg/dL Creatinine (0.66-1.25) mg/dL Glucose (74-99) mg/dL POC Glucose (mg/dL) 160 H (75-99) mg/dL Calcium (8.4-10.2) mg/dL AST (17-59) U/L Total Creatine Kinase 452 H (55-170) U/L CK-MB (CK-2) 51.4 H* (0.0-2.4) ng/mL Troponin I 1.710 H* (0.000-0.034) ng/mL Total Protein (6.3-8.2) g/dL Albumin (3.5-5.0) g/dL 01/29/17 01/29/17 Range/Units 07:40 12:07 WBC (3.8-10.6) k/uL RBC (4.30-5.90) m/uL Hgb (13.0-17.5) gm/dL Hct (39.0-53.0) % MCHC (31.0-37.0) g/dL RDW (11.5-15.5) % Plt Count (150-450) k/uL Neutrophils # (1.3-7.7) k/uL ABG pO2 135 H (83-108) mmHg ABG O2 Saturation 99.2 H (94-97) % Chloride (98-107) mmol/L BUN (9-20) mg/dL Creatinine (0.66-1.25) mg/dL Glucose (74-99) mg/dL POC Glucose (mg/dL) 192 H (75-99) mg/dL Calcium (8.4-10.2) mg/dL AST (17-59) U/L Total Creatine Kinase (55-170) U/L CK-MB (CK-2) (0.0-2.4) ng/mL Troponin I (0.000-0.034) ng/mL Total Protein (6.3-8.2) g/dL Albumin (3.5-5.0) g/dL Laboratory Results WBC 11.9 k/uL (3.8-10.6) H 01/29/17 04:09 RBC 2.56 m/uL (4.30-5.90) L 01/29/17 04:09 Hgb 7.7 gm/dL (13.0-17.5) L D 01/29/17 04:09 Hct 25.3 % (39.0-53.0) L 01/29/17 04:09 MCV 98.6 fL (80.0-100.0) 01/29/17 04:09 MCH 30.2 pg (25.0-35.0) 01/29/17 04:09 MCHC 30.6 g/dL (31.0-37.0) L 01/29/17 04:09 RDW 18.3 % (11.5-15.5) H 01/29/17 04:09 Plt Count 139 k/uL (150-450) L 01/29/17 04:09 Neutrophils % 81 % 01/29/17 04:09 Neutrophils % (Manual) 33.0 % 01/28/17 18:30 Lymphocytes % 12 % 01/29/17 04:09 Lymphocytes % (Manual) 48.0 % 01/28/17 18:30 Monocytes % 3 % 01/29/17 04:09 Monocytes % (Manual) 7.0 % 01/28/17 18:30 Eosinophils % 1 % 01/29/17 04:09 Eosinophils % (Manual) 10.0 % 01/28/17 18:30 Basophils % 0 % 01/29/17 04:09 Basophils % (Manual) 2.0 % 01/28/17 18:30 Neutrophils # 9.6 k/uL (1.3-7.7) H 01/29/17 04:09 Neutrophils # (Manual) 6.2 k/uL (1.3-7.7) 01/28/17 18:30 Lymphocytes # 1.4 k/uL (1.0-4.8) 01/29/17 04:09 Lymphocytes # (Manual) 9.1 k/uL (1.0-4.8) H 01/28/17 18:30 Monocytes # 0.4 k/uL (0-1.0) 01/29/17 04:09 Monocytes # (Manual) 1.3 k/uL (0-1.0) H 01/28/17 18:30 Eosinophils # 0.1 k/uL (0-0.7) 01/29/17 04:09 Eosinophils # (Manual) 1.9 k/uL (0-0.7) H 01/28/17 18:30 Basophils # 0.0 k/uL (0-0.2) 01/29/17 04:09 Basophils # (Manual) 0.4 k/uL (0-0.2) H 01/28/17 18:30 Nucleated RBCs 0 /100 WBC (0-0) 01/28/17 18:30 Manual Slide Review Performed 01/28/17 18:30 Hypochromasia Marked 01/29/17 04:09 Anisocytosis Slight 01/29/17 04:09 Macrocytosis Slight 01/29/17 04:09 PT sec (9.0-12.0) 01/29/17 04:09 INR (<1.1) 01/29/17 04:09 APTT sec (22.0-30.0) 01/29/17 04:09 Sample Site RRAD 01/29/17 07:40 ABG pH 7.44 (7.35-7.45) 01/29/17 07:40 ABG pCO2 35 mmHg (35-45) 01/29/17 07:40 ABG pO2 135 mmHg (83-108) H 01/29/17 07:40 ABG HCO3 23 mmol/L (21-25) 01/29/17 07:40 ABG Total CO2 24 mmol/L (19-24) 01/29/17 07:40 ABG O2 Saturation 99.2 % (94-97) H 01/29/17 07:40 ABG Base Excess -0.4 mmol/L 01/29/17 07:40 FiO2 40 % 01/29/17 07:40 Sodium 142 mmol/L (137-145) 01/29/17 04:09 Potassium 3.7 mmol/L (3.5-5.1) 01/29/17 04:09 Chloride 109 mmol/L (98-107) H 01/29/17 04:09 Carbon Dioxide 25 mmol/L (22-30) 01/29/17 04:09 Anion Gap 8 mmol/L 01/29/17 04:09 BUN 24 mg/dL (9-20) H 01/29/17 04:09 Creatinine 3.20 mg/dL (0.66-1.25) H 01/29/17 04:09 Est GFR (MDRD) Af Amer 23 (>60 ml/min/1.73 sqM) 01/29/17 04:09 Est GFR (MDRD) Non-Af 19 (>60 ml/min/1.73 sqM) 01/29/17 04:09 Glucose 156 mg/dL (74-99) H 01/29/17 04:09 POC Glucose (mg/dL) 192 mg/dL (75-99) H 01/29/17 12:07 POC Glu Importer Exporter ESTHELA Lynn Berrios 01/29/17 12:[address] Glu mg/dL 94 mg/dL 01/29/17 12:08 Hemoglobin A1c 4.9 % (4.2-6.1) 01/29/17 12:08 Plasma Lactic Acid Geovani 1.2 mmol/L (0.7-2.0) 01/29/17 04:09 Calcium 7.9 mg/dL (8.4-10.2) L 01/29/17 04:09 Phosphorus 3.0 mg/dL (2.5-4.5) 01/29/17 04:09 Magnesium 1.6 mg/dL (1.6-2.3) 01/29/17 04:09 Total Bilirubin 0.3 mg/dL (0.2-1.3) 01/29/17 04:09 AST 60 U/L (17-59) H 01/29/17 04:09 ALT 34 U/L (21-72) 01/29/17 04:09 Alkaline Phosphatase 85 U/L (38-126) 01/29/17 04:09 Total Creatine Kinase 452 U/L (55-170) H 01/29/17 04:09 CK-MB (CK-2) 51.4 ng/mL (0.0-2.4) H* 01/29/17 04:09 CK-MB (CK-2) Rel Index 11.4 01/29/17 04:09 Troponin I 1.710 ng/mL (0.000-0.034) H* 01/29/17 04:09 NT-Pro-B Natriuret Pep 27874 pg/mL 01/28/17 18:30 Total Protein 4.8 g/dL (6.3-8.2) L 01/29/17 04:09 Albumin 2.1 g/dL (3.5-5.0) L 01/29/17 04:09 Urine Color Light Yellow 01/28/17 19:37 Urine Appearance Turbid (Clear) 01/28/17 19:37 Urine pH 8.0 (5.0-8.0) 01/28/17 19:37 Ur Specific [place] 1.007 (1.001-1.035) 01/28/17 19:37 Urine Protein 2+ (Negative) H 01/28/17 19:37 Urine Glucose (UA) 1+ (Negative) H 01/28/17 19:37 Urine Ketones Negative (Negative) 01/28/17 19:37 Urine Blood Small (Negative) H 01/28/17 19:37 Urine Nitrate Negative (Negative) 01/28/17 19:37 Urine Bilirubin Negative (Negative) 01/28/17 19:37 Urine Urobilinogen <2.0 mg/dL (<2.0) 01/28/17 19:37 Ur Leukocyte Esterase Large (Negative) H 01/28/17 19:37 Urine RBC 27 /hpf (0-5) H 01/28/17 19:37 Urine WBC >182 /hpf (0-5) H 01/28/17 19:37 Urine WBC Clumps Many /hpf (None) H 01/28/17 19:37 Urine Bacteria Occasional /hpf (None) H 01/28/17 19:37 Urine Mucus Rare /hpf (None) H 01/28/17 19:37 Miscellaneous Test PT/INR/PTT 01/29/17 04:09 Misc Test Result 01/29/17 04:09 Microbiology 01/28/17 19:30 Sputum Gram Stain - Preliminary 01/28/17 19:30 Sputum Sputum Culture - Preliminary 01/28/17 19:37 Urine,Clean Catch Urine Culture - Preliminary Assessment and Plan (1) Respiratory failure Narrative/Plan: 81-year-old male who has complex underlying medical illness with dementia, end-stage renal disease on dialysis, recent bout of sepsis from his dialysis catheter which is being treated with Ceftaroline. Presents to Hospital with respiratory failure requiring intubation and mechanical ventilation. Being followed by pulmonary critical care with alteration of his respiratory settings today. Patient is comfortable at this point in time with current sedation. Is noted patient had a recent bout of sepsis from his hemodialysis catheter is being treated with Ceftaroline. This will continue. However there is concern for the potential of further gram-negative infection and a dose of gentamicin is added. Cultures are in process. There was significant leukocytosis at admission but is showing some improvement. Overall prognosis is very poor. Status: Acute (2) Severe sepsis Status: Acute (3) Chronic indwelling Norman catheter Status: Acute
[2017-01-29 18:20] LABS: Glucose,Whole Blood 151 mg/dL (75-99)
--- NOTE | 2017-01-29 19:57 | CONS ---
DATE OF CONSULTATION: 01/29/2017 REASON FOR CONSULTATION: End-stage renal disease. HISTORY OF PRESENT ILLNESS: Patient is an 81-year-old white male with a history of end-stage renal disease, on hemodialysis on a Sunday, Sunday, Sunday schedule at [place]. He was admitted to the hospital with shortness of breath, not feeling well, and mental status changes. When patient came into the ER he was hypothermic and showed respiratory failure and was eventually intubated. His blood pressure had dropped soon after intubation. Currently he is maintained on FiO2 of 30%. Chest x-ray did not reveal significant pulmonary vascular congestion; however, pleural effusions were noted. The initial chest x-ray prior to intubation did show CHF and pulmonary edema. Currently patient is on Levophed at about 2 mcg. He received IV fluid bolus in the ER; currently maintained on 100 mL/hour of IV fluids. PAST MEDICAL HISTORY: 1. End-stage renal disease. 2. History of recent sepsis and bacteremia with MRSA. 3. Placement of new dialysis catheter prior to discharge on his last visit at the end of November. 4. Peripheral vascular disease. 5. COPD. 6. Chronic indwelling Norman catheter. 7. History of anterior abdominal wall hernia. 8. Type 2 diabetes. 9. Dementia. PAST SURGICAL HISTORY: 1. Bowel resection. 2. Hernia repair. 3. Bilateral BKA. 4. Abdominal surgery. 5. Perm-A-Cath placement. Review of systems cannot be obtained. No ongoing acute bleed is noted. Patient was hypothermic. He has had diarrhea. Medications at home included: 1. Lyrica. 2. Vitamin D3. 3. Xanax. 4. Sodium bicarb. 5. Vitamin C. 6. Loperamide. 7. Amlodipine. ALLERGIES include: 1. KEFLEX. 2. DAPTOMYCIN. 3. REMERON. 4. PENICILLINS. On examination currently, patient is intubated and sedated. He is on the vent. FiO2 is at 30%. He is maintained on 2 mcg of Levophed. Blood pressure is about 111/49, heart rate 70 per minute. Patient is afebrile. EXAMINATION OF THE HEART: S1 and S2. EXAMINATION OF LUNGS: Decreased breath sounds in the bases. ABDOMEN: Soft, nontender. Abdominal wall hernia is noted. 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 [employer]WAY CONTR[employer]LLER exam cannot be performed. Labs show sodium of 142, potassium 3.7, chloride 109, BUN 24, serum creatinine 3.2. Troponin 1.7, which is up from 0.1 initially. ASSESSMENT: 1. End-stage renal disease, on hemodialysis on a Sunday, Sunday, Sunday schedule. Will arrange for hemodialysis tomorrow. Currently patient is stable on the vent. I will also decrease his IV fluids. 2. Anemia with no active bleeding noted. Transfuse 1 unit packed RBCs with dialysis if patient remains hypotensive. 3. Elevated troponin. Rule out cardiac ischemia. 4. History of methicillin-resistant Staphylococcus aureus bacteremia on previous admission. All cultures are currently pending. Patient is maintained on empiric antibiotics in the form of ceftaroline. PLAN: Decrease IV fluids. Hemodialysis in a.m. Possible packed RBC transfusion if patient remains hypotensive. Discontinue the sodium bicarb. Thank you for this consultation. Will continue to follow the patient with you during his hospitalization.
--- NOTE | 2017-01-29 20:52 | CONS ---
DATE OF CONSULTATION: Mr. Negro is an 81-year-old gentleman who is seen for cardiac evaluation. Patient's medical records are reviewed. Patient currently is intubated and is not available to provide the history. History was obtained from the chart. This patient has end-stage renal failure, on hemodialysis; has been admitted with recurrent urinary tract infections, sepsis and respiratory failure. Patient came with shortness of breath, hypoxia, respiratory failure and was intubated last night and has been treated for sepsis and respiratory failure. Patient did not complain of any chest pain. Please refer to the detailed past history in the chart. At present patient is intubated. Blood pressure is 107/46 mmHg, heart rate is per minute. Head/ENT examination is negative. HEART: First and second heart sounds are normal. Lung examination revealed bilateral diminished air entry. Abdomen is soft. EXTREMITIES: Peripheral pulsations are not felt. EKG shows most likely sinus rhythm with first-degree AV block, and intermittent PACs are noted. Patient has borderline elevation in the troponin. FINAL IMPRESSION: This patient is admitted with acute respiratory failure. Patient has a history of end-stage renal failure and multiple admissions for sepsis and infection. Patient's overall prognosis is poor. Patient has a borderline elevation in troponin without any acute EKG changes suggestive of ischemia. This could be secondary to [id number] mismatch. Symptomatic medical therapy is recommended. We will obtain echo and Doppler study to rule out any wall motion abnormality.
[2017-01-29 20:59] LABS: Glucose,Whole Blood 177 mg/dL (75-99)
[2017-01-29] MEDS ORDERED: SODIUM BICARBONATE TAB 650 MG TAB PO SCH (21:00)
[2017-01-29] MEDS ORDERED: LEVOFLOXACIN 750MG-D5W PMX 750 MG in DEXTROSE/WATER 1 150ML.BAG IVPB SCH (21:00)
--- NOTE | 2017-01-29 23:44 | PCN ---
DATE OF PROCEDURE: TRIPLE LUMEN CATHETER PLACEMENT PREOPERATIVE DIAGNOSIS: Administration of fluids and pressors. POSTOPERATIVE DIAGNOSIS: Administration of fluids and pressors. Indication: Hemodynamic monitoring/Intravenous access. A time-out was completed verifying correct patient, procedure, site, positioning, and implant(s) or special equipment if applicable. The patient was placed in a dependent position appropriate for triple lumen catheter placement based on the vein to be cannulated. The patient's right groin was prepped and draped in sterile fashion. 1% Lidocaine was used to anesthetize the surrounding skin area. A triple lumen 9F Cordis catheter was introduced into the common femoral vein using Seldinger technique. The catheter was threaded smoothly over the guidewire and appropriate blood return was obtained. Each lumen of the catheter was evacuated of air and flushed with sterile saline. The catheter was then sutured in place to the skin and a sterile dressing applied. Perfusion to the extremity distal to the point of catheter insertion was checked and found to be adequate. There were no immediate complications. There was good blood return from all 3 ports. The catheter was sutured in place. A sterile dressing was applied by the nurse.
[2017-01-29 23:47] LABS: Glucose,Whole Blood 187 mg/dL (75-99)
[2017-01-30] MEDS: PROPOFOL 500 MG in EMPTY BAG 1 BAG IV SCH ×2 (02:05→07:10)
[2017-01-30] MEDS: IPRATROPIUM-ALBUTEROL 3 ML NEB INHALATION SCH ×6 (03:16→23:52)
[2017-01-30 04:34] LABS: Anisocytosis Slight; Basophils % (A) 0 %; CH 29.7; Eosinophils # (A) 0.2 k/uL (0-0.7); Eosinophils % (A) 3 %; HCT 22.4 % (39.0-53.0); HDW 3.22; Hypochromasia Marked; Luc # (Auto) 0.17; Luc % (Auto) 3; Lymphocytes # (A) 1.6 k/uL (1.0-4.8); Lymphocytes % (A) 24 %; MCH 29.7 pg (25.0-35.0); MCHC 30.7 g/dL (31.0-37.0); MCV 96.9 fL (80.0-100.0); Macrocytosis Slight; Mean Platelet Volume 8.8; Monocytes # (A) 0.3 k/uL (0-1.0); Monocytes % (A) 5 %; Neutrophils # (A) 4.6 k/uL (1.3-7.7); Neutrophils % (A) 67 %; RBC 2.31 m/uL (4.30-5.90); RDW 18.9 % (11.5-15.5); WBC 6.9 k/uL (3.8-10.6); WBC (Perox) 6.64
[2017-01-30 04:38] LABS: HGB 6.9 gm/dL (13.0-17.5)
[2017-01-30 04:39] LABS: INR 1.1 (<1.1); Partial Thromboplastin Time 34.2 sec (22.0-30.0); Prothrombin Time 10.8 sec (9.0-12.0)
[2017-01-30 04:47] LABS: Calcium 7.4 mg/dL (8.4-10.2); Magnesium 2.1 mg/dL (1.6-2.3); Phosphorous 2.6 mg/dL (2.5-4.5); Potassium 4.4 mmol/L (3.5-5.1)
[2017-01-30 04:59] LABS: Anisocytosis Slight; CH 29.6; CHCM 31.1; HCT 22.3 % (39.0-53.0); HDW 3.21; HGB 6.9 gm/dL (13.0-17.5); Hypochromasia Moderate; MCH 29.7 pg (25.0-35.0); MCHC 30.8 g/dL (31.0-37.0); MCV 96.3 fL (80.0-100.0); Macrocytosis Slight; RBC 2.32 m/uL (4.30-5.90); RDW 18.9 % (11.5-15.5); WBC 7.4 k/uL (3.8-10.6)
[2017-01-30 05:23] LABS: ABG Base Excess -1.9 mmol/L; ABG HCO3 21 mmol/L (21-25); ABG PCO2 30 mmHg (35-45); ABG PH 7.47 (7.35-7.45); ABG PO2 120 mmHg (83-108); ABG TCO2 22 mmol/L (19-24)
[2017-01-30] MEDS: HYDROcodone/APAP 5-325MG 1 EACH TAB PO PRN (05:48)
--- NOTE | 2017-01-30 06:39 | XR ---
EXAMINATION TYPE: XR chest 1V DATE OF EXAM: 01/30/2017 6:23 AM CLINICAL HISTORY: Difficulty breathing progress study. TECHNIQUE: Single AP portable upright view of the chest is obtained. COMPARISON: Chest x-ray from one day earlier FINDINGS: An endotracheal tube and orogastric tube are stable in appearance. Cardiac silhouette size is stable and within normal limits with mid to lower lung opacity felt to reflect moderate alveolar edema and/or infiltrates and small to moderate-sized bilateral pleural effusions. Findings stable or slightly improved. Upper lungs remain clear without pneumothorax. Osseous structures are intact. IMPRESSION: Persistent small to moderate-sized bilateral pleural effusions and bilateral mid to lower lung edema and/or infiltrates, stable or slightly improved from one day earlier. Possibly RDS.
[2017-01-30] MEDS: INSULIN LISPRO (humaLOG) 300 UNIT/3 ML VIAL SQ SCH ×3 (07:10→18:25)
[2017-01-30] MEDS: CEFTAROLINE FOSAMIL IVPB SCH ×2 (09:06→20:18)
[2017-01-30] MEDS: CHLORHEXIDINE GLUCONATE 15 ML CUP MUCOUS MEM SCH ×2 (09:06→20:18)
[2017-01-30] MEDS: SODIUM CHLORIDE 0.9% IVPB SCH ×2 (09:06→20:18)
[2017-01-30] MEDS: HEPARIN SODIUM,PORCINE 5,000 UNIT/ML 1 ML VIAL SQ SCH ×2 (09:06→18:25)
[2017-01-30] MEDS: PANTOPRAZOLE 40 MG/10 ML VIAL IV SCH (09:07)
--- NOTE | 2017-01-30 09:54 | ECHOF ---
Referral Reason:positive trops MEASUREMENTS -------- HEIGHT: 152.4 cm WEIGHT: 68.0 kg BP: 94/65 RVIDd: 2.7 cm (< 3.3) IVSd: 1.1 cm (0.6 - 1.1) LVIDd: 4.4 cm (3.9 - 5.3) LVPWd: 1.2 cm (0.6 - 1.1) IVSs: 1.6 cm LVIDs: 2.8 cm LVPWs: 1.3 cm LA Diam: 3.5 cm (2.7 - 3.8) LAESV Index (A-L): 12.94 ml/m Ao Diam: 2.9 cm (2.0 - 3.7) AV Cusp: 1.5 cm (1.5 - 2.6) MV EXCURSION: 13.341 mm (> 18.000) MV EF SLOPE: 74 mm/s (70 - 150) EPSS: 0.7 cm MV E Eduin: 0.91 m/s MV DecT: 154 ms MV A Eduin: 1.15 m/s MV E/A Ratio: 0.79 AV maxP.31 mmHg AV meanP.05 mmHg RAP: 5.00 mmHg RVSP: 21.00 mmHg FINDINGS -------- Sinus rhythm. This was a technically adequate study. The left ventricular size is normal. There is borderline concentric left ventricular hypertrophy. Overall left ventricular systolic function is low-normal with, an EF between 50 - 55 %. The right ventricle is normal in size. Normal LA size by volume 22+/-6 ml/m2. The right atrium is normal in size. Aortic valve is trileaflet and is mildly thickened. There is mild aortic stenosis present. Peak/mean gradient across the Aortic Valve is 23.31mmHg / 13.05mmHg. The mitral valve leaflets are mildly thickened. Mild mitral annular calcification present. Trace tricuspid regurgitation present. Right ventricular systolic pressure is normal at < 35 mmHg. The pulmonic valve was not well visualized. The aortic root size is normal. There is no pericardial effusion. Pleural Effusion with Fibrin. CONCLUSIONS -------- 1. Sinus rhythm. 2. There is mild aortic stenosis present. 3. Peak/mean gradient across the Aortic Valve is 23.31mmHg / 13.05mmHg. 4. The mitral valve leaflets are mildly thickened. 5. Mild mitral annular calcification present. 6. Trace tricuspid regurgitation present. 7. Right ventricular systolic pressure is normal at < 35 mmHg. 8. The pulmonic valve was not well visualized. 9. The aortic root size is normal. 10. There is no pericardial effusion. 11. Pleural Effusion with Fibrin. 12. This was a technically adequate study. 13. The left ventricular size is normal. 14. There is borderline concentric left ventricular hypertrophy. 15. Overall left ventricular systolic function is low-normal with, an EF between 50 - 55 %. 16. The right ventricle is normal in size. 17. Normal LA size by volume 22+/-6 ml/m2. 18. The right atrium is normal in size. 19. Aortic valve is trileaflet and is mildly thickened. REMEDIATION CONSULTANT: Christel Blair RDCS
--- NOTE | 2017-01-30 10:59 | P.PN ---
Subjective Progress note dated 01/30/2017 This is a 81-year-old gentleman that I saw yesterday in consultation. The patient came in with difficulty breathing and mental status changes. He was intubated in the emergency room for respiratory failure. He came in with a diagnosis of respiratory failure fluid overload secondary to his chronic kidney disease and chronic hemodialysis as well as sepsis. He was admitted to the hospital on January 29. Yesterday here in the ICU I put a right femoral vein triple lumen catheter in. He still currently on the ventilator. I did have a chance to talk to his 2 daughters today. He is currently appointment 9 IV at 20 mL an hour the Brovana 15 mics per kilogram per minute levo fed is currently off these received 2 units of PRBCs. Having hemodialysis today. He is getting vital 1.245 with a goal of 45. His vent settings include the assist control mode rate 2210 400 FiO2 30% to be dropped to 25% PEEP of 5. Arterial blood gases show pO2 of 105 pCO2 of 30. 7.47. Gases are consistent with normoactive see me and a mild respiratory alkalosis. After dialysis and after 2 units of blood, we will do a daily eruption of sedation see if the patient is ready for extubation. I did tell the family that should he not show improvement, we will we will be talking about CODE STATUS changes and/or tracheostomy and feeding tube placement down the road. Objective - Vital Signs Vital signs: Vital Signs Temp 98.8 F 01/30/17 09:55 Pulse 73 01/30/17 10:00 Resp 21 01/30/17 10:00 BP 108/53 01/30/17 10:00 Pulse Ox 100 01/30/17 10:00 Intake & Output 01/29/17 01/30/17 01/30/17 18:59 06:59 18:59 Intake Total 1834.740 8982.04 817.22 Output Total 152 69 75 Balance 2584.952 6188.04 742.22 Weight 68.2 kg 68.6 kg 68.6 kg Intake: Intake, IV Titration 1059.181 914.04 457.22 Amount 0.9% NaCl with KCl 20 Meq 625 /l 1,000 ml @ 115 mls/hr IV .Q8H42M [facility] Rx#: [id number] Ceftaroline Fosamil 200 250 250 mg In Sodium Chloride 0.9 % 250 ml @ 250 mls/hr IVPB Q12HR [facility] Rx#: [id number] Magnesium Sulfate-D5w Pmx 100 1 gm In Dextrose/Water 1 100ml.bag @ 100 mls/hr IVPB Q1H [facility] Rx#: [id number] Norepinephrine 16 mg In 38.771 Sodium Chloride 0.9% 250 ml @ Titrate IV .Q0M [facility] Rx#:[id number] Norepinephrine 16 mg In 15.56 0 Sodium Chloride 0.9% 250 ml @ Titrate IV .Q0M [facility] Rx#:[id number] Norepinephrine 4 mg In 80.2 Sodium Chloride 0.9% 250 ml @ Titrate IV .Q0M [facility] Rx#:[id number] Propofol 50 ml As IV .STK 39.4 4.5 11.6 [facility] Rx#:[id number] Propofol 500 mg In Empty 5.81 43.98 25.62 Bag 1 bag @ Titrate IV . Q0M [facility] Rx#:[id number] Sodium Chloride 0.9% 1, 150 600 170 000 ml @ 50 mls/hr IV . Q20H [facility] Rx#:[id number] Sodium Chloride 0.9% 1, 20 000 ml @ 999 mls/hr IV . Q1H1M [facility] Rx#:[id number] Tube Feeding 135 640 270 Blood Product 0 Rc Pheresis 2 As3 Unit 0 [id number] Other 90 60 90 Output: Urine 152 69 75 Other: Voiding Method Indwelling Catheter Indwelling Catheter Indwelling Catheter - Exam No acute distress, patient's sedated and on the ventilator. NG tube and endotracheal tube in place. HEENT examinations unremarkable. Neck supple. Full range of motion. Cardiovascular examination reveals regular rhythm rate. S1-S2 normal. Lungs reveal some coarse rhonchi. Breath sounds are diminished. Some bibasilar crackles. Abdomen soft. Extremities are intact. Bilateral amputee. Right femoral vein site looks good. - Labs CBC & Chem 7: 01/30/17 04:50 01/30/17 04:23 Labs: Abnormal Lab Results - Last 24 Hours (Table) 01/29/17 01/29/17 01/29/17 Range/Units 12:07 18:18 20:58 RBC (4.30-5.90) m/uL Hgb (13.0-17.5) gm/dL Hct (39.0-53.0) % MCHC (31.0-37.0) g/dL RDW (11.5-15.5) % Plt Count (150-450) k/uL APTT (22.0-30.0) sec ABG pH (7.35-7.45) ABG pCO2 (35-45) mmHg ABG pO2 (83-108) mmHg ABG O2 Saturation (94-97) % Chloride (98-107) mmol/L BUN (9-20) mg/dL Creatinine (0.66-1.25) mg/dL Glucose (74-99) mg/dL POC Glucose (mg/dL) 192 H 151 H 177 H (75-99) mg/dL Calcium (8.4-10.2) mg/dL Crossmatch 01/29/17 01/30/17 01/30/17 Range/Units 23:45 04:23 04:23 RBC (4.30-5.90) m/uL Hgb (13.0-17.5) gm/dL Hct (39.0-53.0) % MCHC (31.0-37.0) g/dL RDW (11.5-15.5) % Plt Count (150-450) k/uL APTT 34.2 H (22.0-30.0) sec ABG pH (7.35-7.45) ABG pCO2 (35-45) mmHg ABG pO2 (83-108) mmHg ABG O2 Saturation (94-97) % Chloride 113 H (98-107) mmol/L BUN 27 H (9-20) mg/dL Creatinine 3.63 H (0.66-1.25) mg/dL Glucose 113 H (74-99) mg/dL POC Glucose (mg/dL) 187 H (75-99) mg/dL Calcium 7.4 L (8.4-10.2) mg/dL Crossmatch 01/30/17 01/30/17 01/30/17 Range/Units 04:23 04:50 05:17 RBC 2.31 L 2.32 L (4.30-5.90) m/uL Hgb 6.9 L* 6.9 L* (13.0-17.5) gm/dL Hct 22.4 L 22.3 L (39.0-53.0) % MCHC 30.7 L 30.8 L (31.0-37.0) g/dL RDW 18.9 H 18.9 H (11.5-15.5) % Plt Count 133 L 128 L (150-450) k/uL APTT (22.0-30.0) sec ABG pH 7.47 H (7.35-7.45) ABG pCO2 30 L (35-45) mmHg ABG pO2 120 H (83-108) mmHg ABG O2 Saturation 99.0 H (94-97) % Chloride (98-107) mmol/L BUN (9-20) mg/dL Creatinine (0.66-1.25) mg/dL Glucose (74-99) mg/dL POC Glucose (mg/dL) (75-99) mg/dL Calcium (8.4-10.2) mg/dL Crossmatch 01/30/17 Range/Units 05:36 RBC (4.30-5.90) m/uL Hgb (13.0-17.5) gm/dL Hct (39.0-53.0) % MCHC (31.0-37.0) g/dL RDW (11.5-15.5) % Plt Count (150-450) k/uL APTT (22.0-30.0) sec ABG pH (7.35-7.45) ABG pCO2 (35-45) mmHg ABG pO2 (83-108) mmHg ABG O2 Saturation (94-97) % Chloride (98-107) mmol/L BUN (9-20) mg/dL Creatinine (0.66-1.25) mg/dL Glucose (74-99) mg/dL POC Glucose (mg/dL) (75-99) mg/dL Calcium (8.4-10.2) mg/dL Crossmatch See Detail Assessment and Plan (1) Respiratory failure Status: Acute (2) Severe sepsis Status: Acute (3) Chronic renal failure Status: Acute (4) Diabetes Status: Acute (5) Gram-negative sepsis with organ dysfunction Status: Acute (6) Nosocomial pneumonia Status: Acute (7) Proteus mirabilis infection Status: Acute (8) Pseudomonas urinary tract infection Status: Acute (9) Urinary tract infection in male Status: Acute Plan: Plan The patient's doing reasonably well. A couple things will be done. We'll get the patient on some tube feeds. We'll talk to the family about CODE STATUS. Apparently the patient was recently evaluated for PEG tube placement. The patient tidal Lyme we dropped down to 400 mL. We bumped her rate up to 20 or 22 breaths per minute. We'll drop the FiO2 from 40-30%. Medications labs are reviewed. Prognosis is guarded. The patient will probably need dialysis soon. Additional recommendations suggestions are forthcoming. PICC line will be placed. Plan dated 01/30/2017 I did have a chance to speak to the 2 daughters. The [facility] patient is a full code at the present time. The patient is receiving hemodialysis in 2 units of blood. Afterwards, we'll do the daily eruption of sedation. We'll see if the patient is ready for extubation. I did talk to the family about CODE STATUS changes down the road and/or tracheostomy and PEG tube placement if he does not show improvement. Currently he is off the levo fed. Hopefully the dialysis and that units of blood will improve the situation. He is receiving tube feeds. His gases show very mild respiratory alkalosis. He is normal toxemic. Additional recommendations suggestions are forthcoming. Again prognosis is guarded. Time with Patient: Greater than 30
[2017-01-30 11:08] LABS: Glucose,Whole Blood 138 mg/dL (75-99)
--- NOTE | 2017-01-30 12:43 | CDI ---
In responding to this query, please exercise your independent professional judgment. The [facility] Coding Staff and Clinical Documentation Specialists appreciate your assistance in clarifying documentation, maintaining compliance with coding guidelines, accurately documenting patients condition and capturing severity of illness. The fact that a question is asked does not imply that any particular answer is desired or expected. Communication forms are a method of clarifying documentation and are not made part of the Legal Health Record. Thank you in advance for your clarification. Last Revision, September 2015 Sara Ramsay [address] [facility] [place] [address] Documentation Clarification Form Date: 01/30/2017 12:36:00 PM From: Frances Mayberry CCS, CCDS Admit Date: 01/28/2017 9:11:00 PM Patient Name: Brayden Negro Visit Number: [id number] Discharge Date: Dr. Priscilla Dickerson: A diagnosis of anemia lacks specificity to accurately reflect your patients severity of condition and clarification is needed. Patient history/risk factors: End Stage Renal Disease requiring Hemodialysis. Clinical Indicators: Hemoglobin: 9.4 - 6.9 Hematocrit: 30.7 - 22.3 Treatment: One unit PRBCs transfusied with Hemodialysis In order to capture the severity of condition, please clarify the type of anemia and etiology if known: Acute blood loss anemia Acute on chronic blood loss anemia Chronic blood loss anemia Iron deficiency anemia Hemolytic anemia Drug induced anemia Nutritional anemia Anemia of chronic kidney disease Unable to determine Other, please specify Please document in your progress notes and discharge summary in order to capture severity of illness and risk of mortality. Include clinical findings that support your diagnosis. FYI: Press F11 to launch patient chart. Place X here if this finding has no clinical significance, is not applicable or if you are not able to provide any additional documentation. Thank You. RACHID
[2017-01-30] MEDS ORDERED: HEPARIN SODIUM,PORCINE 5,000 UNIT/ML 1 ML VIAL ONE (13:20)
[2017-01-30 18:02] LABS: ABG Base Excess -0.1 mmol/L; ABG HCO3 23 mmol/L (21-25); ABG PCO2 34 mmHg (35-45); ABG PH 7.45 (7.35-7.45); ABG PO2 85 mmHg (83-108); ABG TCO2 24 mmol/L (19-24)
[2017-01-30 18:22] LABS: Glucose,Whole Blood 158 mg/dL (75-99)
[2017-01-30] MEDS: SODIUM CHLORIDE 0.9% 1,000 ML IV SCH (18:25)
[2017-01-30] MEDS ORDERED: DARBEPOETIN ALFA 40 MCG/0.4 ML SYRINGE SQ SCH (19:30)
--- NOTE | 2017-01-30 20:09 | P.PN ---
Subjective Principal diagnosis: Respiratory failure 81-year-old male well-known to the infectious disease service, recently was hospitalized with a bout of pneumonia as well as bacteremia related to his hemodialysis catheter. He has significant sepsis at that time. Dialysis catheter was removed. Sepsis improved in a new catheter was placed in left anterior chest wall. Patient was receiving his course of outpatient intravenous antibiotic therapy. At admission the patient had evidence of respiratory failure required intubation sedation and mechanical ventilation. he was noted to have EKG changes. There is elevated CK and troponins also. Cardiology is following. Patient is comfortable not and vasopressor therapy at this time. Receiving dialysis and tolerating it well with only minimal hypotension. Receiving 2 units of packed red cells today Objective - Vital Signs Vital signs: Vital Signs Temp 97.7 F 01/30/17 16:30 Pulse 85 01/30/17 19:23 Resp 23 01/30/17 19:00 BP 140/66 01/30/17 19:00 Pulse Ox 100 01/30/17 19:05 Intake & Output 01/30/17 01/30/17 01/31/17 06:59 18:59 06:59 Intake Total 1614.04 2576.996 10 Output Total 69 2617 11 Balance 1545.04 -40.004 -1 Weight 68.6 kg 68.6 kg Intake: Intake, IV Titration 914.04 626.996 10 Amount Ceftaroline Fosamil 200 250 250 mg In Sodium Chloride 0.9 % 250 ml @ 250 mls/hr IVPB Q12HR [facility] Rx#: [id number] Norepinephrine 16 mg In 15.56 8.676 Sodium Chloride 0.9% 250 ml @ Titrate IV .Q0M [facility] Rx#:[id number] Propofol 50 ml As IV .STK 4.5 42.7 [facility] Rx#:[id number] Propofol 500 mg In Empty 43.98 75.62 Bag 1 bag @ Titrate IV . Q0M [facility] Rx#:[id number] Sodium Chloride 0.9% 1, 600 250 10 000 ml @ 10 mls/hr IV . Q24H [facility] Rx#:[id number] Tube Feeding 640 720 Blood Product 930 Rc Pheresis 2 As3 Unit 310 [id number] Rc Pheresis 2 As3 Unit 310 [id number] Other 60 300 Output: Urine 69 217 10 Urine/Stool Mix 1 Other 2400 Other: Voiding Method Indwelling Catheter Indwelling Catheter # Bowel Movements 1 - Exam Patient is intubated and sedated. HEENT: Anicteric conjunctiva are pink and moist nasal mucosa grossly intact without significant lesions, there is no thrush. Visualized around the endotracheal tube Neck: The neck is supple without significant lymphadenopathy or thyromegaly. Lungs: There is symmetrical air entry. Basilar crackles are heard. Heart: Irregular with an audible S1 and S2 loud S4 no distinct murmur click or rub Abdomen: Positive bowel sounds soft and nontender without palpable masses or organomegaly. There was no guarding or rebound. Extremities: Extremities have evidence of some generalized edema. He does have evidence of the bilateral below-knee amputation. Residual limbs are without evidence of infection at this time. Please see the nursing photography regarding the pressure ulcerations to the buttocks. Neuro: Sedated and mechanically ventilated Genitalia has evidence of the splayed penis, and some irritation for which zinc cream is applied. - Labs CBC & Chem 7: 01/30/17 04:50 01/30/17 04:23 Labs: Abnormal Lab Results - Last 24 Hours (Table) 01/29/17 01/29/17 01/30/17 Range/Units 20:58 23:45 04:23 RBC (4.30-5.90) m/uL Hgb (13.0-17.5) gm/dL Hct (39.0-53.0) % MCHC (31.0-37.0) g/dL RDW (11.5-15.5) % Plt Count (150-450) k/uL APTT 34.2 H (22.0-30.0) sec ABG pH (7.35-7.45) ABG pCO2 (35-45) mmHg ABG pO2 (83-108) mmHg ABG O2 Saturation (94-97) % Chloride (98-107) mmol/L BUN (9-20) mg/dL Creatinine (0.66-1.25) mg/dL Glucose (74-99) mg/dL POC Glucose (mg/dL) 177 H 187 H (75-99) mg/dL Calcium (8.4-10.2) mg/dL Crossmatch 01/30/17 01/30/17 01/30/17 Range/Units 04:23 04:23 04:50 RBC 2.31 L 2.32 L (4.30-5.90) m/uL Hgb 6.9 L* 6.9 L* (13.0-17.5) gm/dL Hct 22.4 L 22.3 L (39.0-53.0) % MCHC 30.7 L 30.8 L (31.0-37.0) g/dL RDW 18.9 H 18.9 H (11.5-15.5) % Plt Count 133 L 128 L (150-450) k/uL APTT (22.0-30.0) sec ABG pH (7.35-7.45) ABG pCO2 (35-45) mmHg ABG pO2 (83-108) mmHg ABG O2 Saturation (94-97) % Chloride 113 H (98-107) mmol/L BUN 27 H (9-20) mg/dL Creatinine 3.63 H (0.66-1.25) mg/dL Glucose 113 H (74-99) mg/dL POC Glucose (mg/dL) (75-99) mg/dL Calcium 7.4 L (8.4-10.2) mg/dL Crossmatch 01/30/17 01/30/17 01/30/17 Range/Units 05:17 05:36 11:06 RBC (4.30-5.90) m/uL Hgb (13.0-17.5) gm/dL Hct (39.0-53.0) % MCHC (31.0-37.0) g/dL RDW (11.5-15.5) % Plt Count (150-450) k/uL APTT (22.0-30.0) sec ABG pH 7.47 H (7.35-7.45) ABG pCO2 30 L (35-45) mmHg ABG pO2 120 H (83-108) mmHg ABG O2 Saturation 99.0 H (94-97) % Chloride (98-107) mmol/L BUN (9-20) mg/dL Creatinine (0.66-1.25) mg/dL Glucose (74-99) mg/dL POC Glucose (mg/dL) 138 H (75-99) mg/dL Calcium (8.4-10.2) mg/dL Crossmatch See Detail 01/30/17 01/30/17 Range/Units 17:53 18:19 RBC (4.30-5.90) m/uL Hgb (13.0-17.5) gm/dL Hct (39.0-53.0) % MCHC (31.0-37.0) g/dL RDW (11.5-15.5) % Plt Count (150-450) k/uL APTT (22.0-30.0) sec ABG pH (7.35-7.45) ABG pCO2 34 L (35-45) mmHg ABG pO2 (83-108) mmHg ABG O2 Saturation (94-97) % Chloride (98-107) mmol/L BUN (9-20) mg/dL Creatinine (0.66-1.25) mg/dL Glucose (74-99) mg/dL POC Glucose (mg/dL) 158 H (75-99) mg/dL Calcium (8.4-10.2) mg/dL Crossmatch Laboratory Results WBC 7.4 k/uL (3.8-10.6) 01/30/17 04:50 RBC 2.32 m/uL (4.30-5.90) L 01/30/17 04:50 Hgb 6.9 gm/dL (13.0-17.5) L* 01/30/17 04:50 Hct 22.3 % (39.0-53.0) L 01/30/17 04:50 MCV 96.3 fL (80.0-100.0) 01/30/17 04:50 MCH 29.7 pg (25.0-35.0) 01/30/17 04:50 MCHC 30.8 g/dL (31.0-37.0) L 01/30/17 04:50 RDW 18.9 % (11.5-15.5) H 01/30/17 04:50 Plt Count 128 k/uL (150-450) L 01/30/17 04:50 Neutrophils % 67 % 01/30/17 04:23 Neutrophils % (Manual) 33.0 % 01/28/17 18:30 Lymphocytes % 24 % 01/30/17 04:23 Lymphocytes % (Manual) 48.0 % 01/28/17 18:30 Monocytes % 5 % 01/30/17 04:23 Monocytes % (Manual) 7.0 % 01/28/17 18:30 Eosinophils % 3 % 01/30/17 04:23 Eosinophils % (Manual) 10.0 % 01/28/17 18:30 Basophils % 0 % 01/30/17 04:23 Basophils % (Manual) 2.0 % 01/28/17 18:30 Neutrophils # 4.6 k/uL (1.3-7.7) 01/30/17 04:23 Neutrophils # (Manual) 6.2 k/uL (1.3-7.7) 01/28/17 18:30 Lymphocytes # 1.6 k/uL (1.0-4.8) 01/30/17 04:23 Lymphocytes # (Manual) 9.1 k/uL (1.0-4.8) H 01/28/17 18:30 Monocytes # 0.3 k/uL (0-1.0) 01/30/17 04:23 Monocytes # (Manual) 1.3 k/uL (0-1.0) H 01/28/17 18:30 Eosinophils # 0.2 k/uL (0-0.7) 01/30/17 04:23 Eosinophils # (Manual) 1.9 k/uL (0-0.7) H 01/28/17 18:30 Basophils # 0.0 k/uL (0-0.2) 01/30/17 04:23 Basophils # (Manual) 0.4 k/uL (0-0.2) H 01/28/17 18:30 Nucleated RBCs 0 /100 WBC (0-0) 01/28/17 18:30 Manual Slide Review Performed 01/28/17 18:30 Hypochromasia Moderate 01/30/17 04:50 Anisocytosis Slight 01/30/17 04:50 Macrocytosis Slight 01/30/17 04:50 PT 10.8 sec (9.0-12.0) 01/30/17 04:23 INR 1.1 (<1.1) 01/30/17 04:23 APTT 34.2 sec (22.0-30.0) H 01/30/17 04:23 Sample Site R RADIAL 01/30/17 17:53 ABG pH 7.45 (7.35-7.45) 01/30/17 17:53 ABG pCO2 34 mmHg (35-45) L 01/30/17 17:53 ABG pO2 85 mmHg (83-108) 01/30/17 17:53 ABG HCO3 23 mmol/L (21-25) 03 17:53 ABG Total CO2 24 mmol/L (19-24) 03 17:53 ABG O2 Saturation 97.0 % (94-97) 01/30/17 17:53 ABG Base Excess -0.1 mmol/L 01/30/17 17:53 FiO2 25 % 01/30/17 17:53 Sodium 143 mmol/L (137-145) 01/30/17 04:23 Potassium 4.4 mmol/L (3.5-5.1) 01/30/17 04:23 Chloride 113 mmol/L (98-107) H 01/30/17 04:23 Carbon Dioxide 24 mmol/L (22-30) 01/30/17 04:23 Anion Gap 6 mmol/L 01/30/17 04:23 BUN 27 mg/dL (9-20) H 01/30/17 04:23 Creatinine 3.63 mg/dL (0.66-1.25) H 01/30/17 04:23 Est GFR (MDRD) Af Amer 20 (>60 ml/min/1.73 sqM) 01/30/17 04:23 Est GFR (MDRD) Non-Af 16 (>60 ml/min/1.73 sqM) 01/30/17 04:23 Glucose 113 mg/dL (74-99) H 01/30/17 04:23 POC Glucose (mg/dL) 158 mg/dL (75-99) H 01/30/17 18:19 POC Glu Quality Assurance Auditor ID 01/30/17 18:[address] Glu mg/dL 94 mg/dL 01/29/17 12:08 Hemoglobin A1c 4.9 % (4.2-6.1) 01/29/17 12:08 Plasma Lactic Acid Geovani 1.2 mmol/L (0.7-2.0) 01/29/17 04:09 Calcium 7.4 mg/dL (8.4-10.2) L 01/30/17 04:23 Phosphorus 2.6 mg/dL (2.5-4.5) 01/30/17 04:23 Magnesium 2.1 mg/dL (1.6-2.3) 01/30/17 04:23 Total Bilirubin 0.3 mg/dL (0.2-1.3) 01/29/17 04:09 AST 60 U/L (17-59) H 01/29/17 04:09 ALT 34 U/L (21-72) 01/29/17 04:09 Alkaline Phosphatase 85 U/L (38-126) 01/29/17 04:09 Total Creatine Kinase 452 U/L (55-170) H 01/29/17 04:09 CK-MB (CK-2) 51.4 ng/mL (0.0-2.4) H* 01/29/17 04:09 CK-MB (CK-2) Rel Index 11.4 01/29/17 04:09 Troponin I 1.710 ng/mL (0.000-0.034) H* 01/29/17 04:09 NT-Pro-B Natriuret Pep 61371 pg/mL 01/28/17 18:30 Total Protein 4.8 g/dL (6.3-8.2) L 01/29/17 04:09 Albumin 2.1 g/dL (3.5-5.0) L 01/29/17 04:09 Urine Color Light Yellow 01/28/17 19:37 Urine Appearance Turbid (Clear) 01/28/17 19:37 Urine pH 8.0 (5.0-8.0) 01/28/17 19:37 Ur Specific [place] 1.007 (1.001-1.035) 01/28/17 19:37 Urine Protein 2+ (Negative) H 01/28/17 19:37 Urine Glucose (UA) 1+ (Negative) H 01/28/17 19:37 Urine Ketones Negative (Negative) 01/28/17 19:37 Urine Blood Small (Negative) H 01/28/17 19:37 Urine Nitrate Negative (Negative) 01/28/17 19:37 Urine Bilirubin Negative (Negative) 01/28/17 19:37 Urine Urobilinogen <2.0 mg/dL (<2.0) 01/28/17 19:37 Ur Leukocyte Esterase Large (Negative) H 01/28/17 19:37 Urine RBC 27 /hpf (0-5) H 01/28/17 19:37 Urine WBC >182 /hpf (0-5) H 01/28/17 19:37 Urine WBC Clumps Many /hpf (None) H 01/28/17 19:37 Urine Bacteria Occasional /hpf (None) H 01/28/17 19:37 Urine Mucus Rare /hpf (None) H 01/28/17 19:37 C. difficile Tox (PCR) (Not Detectd) 01/30/17 04:45 Miscellaneous Test PT/INR/PTT 01/29/17 04:09 Misc Test Result 01/29/17 04:09 Blood Type O Positive 01/30/17 05:36 Blood Type Recheck No 01/30/17 05:36 Antibody Screen NEGATIVE 01/30/17 05:36 Crossmatch See Detail 01/30/17 05:36 Spec Expiration Date 02/02/2017 - 2336 01/30/17 05:36 Microbiology 01/28/17 19:30 Sputum Gram Stain - Preliminary 01/28/17 19:30 Sputum Sputum Culture - Preliminary Gram Neg Bacilli 01/28/17 19:37 Urine,Clean Catch Urine Culture - Preliminary Gram Neg Bacilli 01/28/17 19:30 Blood Blood Culture - Preliminary No Growth after 24 hours Assessment and Plan (1) Respiratory failure Narrative/Plan: 81-year-old male who has complex underlying medical illness with dementia, end-stage renal disease on dialysis, recent bout of sepsis from his dialysis catheter which is being treated with Ceftaroline. Presents to Hospital with respiratory failure requiring intubation and mechanical ventilation. Being followed by pulmonary critical care with alteration of his respiratory settings today. Patient is comfortable at this point in time with current sedation. Is noted patient had a recent bout of sepsis from his hemodialysis catheter is being treated with Ceftaroline. This will continue. However there is concern for the potential of further gram-negative infection and a dose of gentamicin is added. Cultures are in process. There was significant leukocytosis at admission that has now resolved. Overall prognosis is very poor. Status: Acute (2) Severe sepsis Status: Acute (3) Chronic indwelling Norman catheter Status: Acute
--- NOTE | 2017-01-30 20:31 | PN ---
Patient is seen for followup for end-stage renal disease. He was admitted to the hospital yesterday and was in respiratory failure. He was eventually intubated. Chest x-ray shows evidence of fluid overload. Patient is currently awake. He is being dialyzed. He had been on Levophed, which was discontinued then restarted at about 2 mcg now. Patient's hemoglobin was significantly low at 6.9. He has been transfused packed RBCs. On examination, blood pressure is 112/54, heart rate 76 per minute. He is afebrile. EXAMINATION OF THE HEART: S1 and S2. EXAMINATION OF LUNGS: Bilateral breath sounds are heard. 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 ABDOMEN: Soft, nontender. Breath sounds are heard bilaterally. Heart sounds are heard. Patient is currently awake. Labs show hemoglobin 6.9, white cell count 7.4. C difficile toxin PCR is negative. Potassium was 4.4. ASSESSMENT: 1. End-stage renal disease, on hemodialysis on a Sunday, Sunday, Sunday schedule as outpatient. We will try to increase UF to about 2 to 2.5 L as tolerated today. Patient will likely need dialysis again tomorrow. Consider extubation post treatment today. 2. Severe anemia with no active bleeding noted, status post packed RBC transfusion. Will also start patient on Aranesp. 3. Urinary tract infection with urine culture growing Gram-negative bacilli. 4. Possible pneumonia with sputum culture growing Gram-negative bacilli as well. PLAN: Transfuse 2 units packed RBCs. Start Aranesp. Repeat dialysis tomorrow.
[2017-01-30 23:43] LABS: Glucose,Whole Blood 107 mg/dL (75-99)
[2017-01-31] MEDS: INSULIN LISPRO (humaLOG) 300 UNIT/3 ML VIAL SQ SCH ×5 (00:42→20:05)
[2017-01-31] MEDS: HEPARIN SODIUM,PORCINE 5,000 UNIT/ML 1 ML VIAL SQ SCH ×3 (00:43→16:36)
[2017-01-31 05:11] LABS: Calcium 7.4 mg/dL (8.4-10.2); Magnesium 1.8 mg/dL (1.6-2.3); Phosphorous 2.5 mg/dL (2.5-4.5); Potassium 4.3 mmol/L (3.5-5.1)
[2017-01-31 05:12] LABS: INR 1.1 (<1.1); Partial Thromboplastin Time 33.3 sec (22.0-30.0); Prothrombin Time 10.9 sec (9.0-12.0)
[2017-01-31] MEDS ORDERED: Magnesium Replacement Protocol 1 EACH MISC MISCELLANE PRN (05:33)
[2017-01-31 05:36] LABS: Anisocytosis Slight; Basophils % (A) 0 %; CH 29.4; CHCM 31.8; Eosinophils # (A) 0.1 k/uL (0-0.7); Eosinophils % (A) 1 %; HCT 29.9 % (39.0-53.0); HDW 3.83; Hypochromasia Moderate; Luc # (Auto) 0.21; Luc % (Auto) 2; Lymphocytes # (A) 1.4 k/uL (1.0-4.8); Lymphocytes % (A) 15 %; MCH 29.5 pg (25.0-35.0); MCHC 31.5 g/dL (31.0-37.0); MCV 93.9 fL (80.0-100.0); Macrocytosis Slight; Monocytes # (A) 0.4 k/uL (0-1.0); Monocytes % (A) 4 %; Neutrophils # (A) 7.5 k/uL (1.3-7.7); Neutrophils % (A) 77 %; Poikilocytosis Slight; RBC 3.18 m/uL (4.30-5.90); RDW 18.4 % (11.5-15.5); WBC 9.7 k/uL (3.8-10.6); WBC (Perox) 10.44
[2017-01-31 05:39] LABS: HGB 9.4 gm/dL (13.0-17.5)
[2017-01-31] MEDS: MAGNESIUM SULFATE-D5W PMX 1 GM in DEXTROSE/WATER 1 100ML.BAG IVPB SCH ×2 (06:23→08:11)
[2017-01-31] MEDS: IPRATROPIUM-ALBUTEROL 3 ML NEB INHALATION SCH ×4 (07:33→20:40)
--- NOTE | 2017-01-31 07:54 | XR ---
EXAMINATION TYPE: XR chest 1V DATE OF EXAM: 01/31/2017 6:36 AM COMPARISON: NONE INDICATION: Respiratory failure TECHNIQUE: Single frontal view of the chest is obtained. FINDINGS: The heart size is normal. The pulmonary vasculature is at the upper limits of normal for size. There is a mild infiltrate at the right base. Small bilateral pleural effusions are present. Double-lumen catheter is present on the left the tips in the superior vena cava region. EKG leads ove rlie the chest. Endotracheal tube and nasogastric tube is been removed. IMPRESSION: 1. Small bilateral pleural effusions mildly increased from prior study. 2. Mild right lower lobe infiltrate. Correlate for atelectasis or pneumonia. 3. Catheter on the left with the tip in superior vena cava region
[2017-01-31] MEDS: PANTOPRAZOLE 40 MG/10 ML VIAL IV SCH (08:17)
[2017-01-31] MEDS: SODIUM CHLORIDE 0.9% IVPB SCH (08:18)
[2017-01-31] MEDS: CEFTAROLINE FOSAMIL IVPB SCH (08:18)
--- NOTE | 2017-01-31 10:18 | P.PN ---
Subjective Progress note dated 01/30/2017 This is a 81-year-old gentleman that I saw yesterday in consultation. The patient came in with difficulty breathing and mental status changes. He was intubated in the emergency room for respiratory failure. He came in with a diagnosis of respiratory failure fluid overload secondary to his chronic kidney disease and chronic hemodialysis as well as sepsis. He was admitted to the hospital on January 29. Yesterday here in the ICU I put a right femoral vein triple lumen catheter in. He still currently on the ventilator. I did have a chance to talk to his 2 daughters today. He is currently appointment 9 IV at 20 mL an hour the Brovana 15 mics per kilogram per minute levo fed is currently off these received 2 units of PRBCs. Having hemodialysis today. He is getting vital 1.245 with a goal of 45. His vent settings include the assist control mode rate 2210 400 FiO2 30% to be dropped to 25% PEEP of 5. Arterial blood gases show pO2 of 105 pCO2 of 30. 7.47. Gases are consistent with normoactive see me and a mild respiratory alkalosis. After dialysis and after 2 units of blood, we will do a daily eruption of sedation see if the patient is ready for extubation. I did tell the family that should he not show improvement, we will we will be talking about CODE STATUS changes and/or tracheostomy and feeding tube placement down the road. Progress note dated 01/31/2017 81-year-old male with a history of a difficulty breathing in mental status changes. He was intubated in the emergency room for respiratory failure. Yesterday, the patient's spontaneous breathing trial 1 very well and is weaning parameters were excellent. He was extubated extubated successfully. I was in contact with the nurse entire time. Her and the respiratory therapist make a decision to extubate based on my recommendations. Currently the patient is on O2 at 2 L. Getting an IV appointment 90 KVO. Hemodialysis as scheduled for today. The patient's chest x-ray shows bilateral fluid in the lungs more the right than on the left side. Certainly his x-rays improved from his initial her admission x-ray. He is awake and alert. Speech pathology is in the room. Him in terms of a swallow evaluation. Objective - Vital Signs Vital signs: Vital Signs Temp 99.0 F 01/31/17 08:00 Pulse 86 01/31/17 10:00 Resp 19 01/31/17 10:00 BP 106/47 01/31/17 10:00 Pulse Ox 97 01/31/17 10:00 Intake & Output 01/30/17 01/31/17 01/31/17 18:59 06:59 18:59 Intake Total 2576.996 450 510 Output Total 2617 271 60 Balance -40.004 179 450 Weight 68.6 kg 73.1 kg Intake: IV 440 160 Sodium Chloride 0.9% 1, 440 160 000 ml @ 10 mls/hr IV . Q24H [facility] Rx#:[id number] Intake, IV Titration 626.996 10 350 Amount Ceftaroline Fosamil 200 250 250 mg In Sodium Chloride 0.9 % 250 ml @ 250 mls/hr IVPB Q12HR [facility] Rx#: [id number] Magnesium Sulfate-D5w Pmx 100 1 gm In Dextrose/Water 1 100ml.bag @ 100 mls/hr IVPB Q1H [facility] Rx#: [id number] Norepinephrine 16 mg In 8.676 Sodium Chloride 0.9% 250 ml @ Titrate IV .Q0M [facility] Rx#:[id number] Propofol 50 ml As IV .STK 42.7 [facility] Rx#:[id number] Propofol 500 mg In Empty 75.62 Bag 1 bag @ Titrate IV . Q0M [facility] Rx#:[id number] Sodium Chloride 0.9% 1, 250 10 000 ml @ 10 mls/hr IV . Q24H [facility] Rx#:[id number] Tube Feeding 720 Blood Product 930 Rc Pheresis 2 As3 Unit 310 [id number] Rc Pheresis 2 As3 Unit 310 [id number] Other 300 Output: Urine 217 270 60 Urine/Stool Mix 1 Other 2400 Other: Voiding Method Indwelling Catheter Indwelling Catheter Indwelling Catheter # Bowel Movements 1 - Exam No acute distress, oriented 3. Nasal O2 in place HEENT examinations unremarkable. Neck supple. Full range of motion. Cardiovascular examination reveals regular rhythm rate. S1-S2 normal. Lungs reveal some coarse rhonchi. Breath sounds are diminished. Some bibasilar crackles. Abdomen soft. Extremities are intact. Bilateral amputee. Right femoral vein site looks good. - Labs CBC & Chem 7: 01/31/17 03:18 01/31/17 03:18 Labs: Abnormal Lab Results - Last 24 Hours (Table) 01/30/17 01/30/17 01/30/17 Range/Units 05:36 11:06 17:53 RBC (4.30-5.90) m/uL Hgb (13.0-17.5) gm/dL Hct (39.0-53.0) % RDW (11.5-15.5) % Plt Count (150-450) k/uL APTT (22.0-30.0) sec ABG pCO2 34 L (35-45) mmHg Chloride (98-107) mmol/L Creatinine (0.66-1.25) mg/dL Glucose (74-99) mg/dL POC Glucose (mg/dL) 138 H (75-99) mg/dL Calcium (8.4-10.2) mg/dL Crossmatch See Detail 01/30/17 01/30/17 01/31/17 Range/Units 18:19 23:41 03:18 RBC (4.30-5.90) m/uL Hgb (13.0-17.5) gm/dL Hct (39.0-53.0) % RDW (11.5-15.5) % Plt Count (150-450) k/uL APTT 33.3 H (22.0-30.0) sec ABG pCO2 (35-45) mmHg Chloride (98-107) mmol/L Creatinine (0.66-1.25) mg/dL Glucose (74-99) mg/dL POC Glucose (mg/dL) 158 H 107 H (75-99) mg/dL Calcium (8.4-10.2) mg/dL Crossmatch 01/31/17 01/31/17 Range/Units 03:18 03:18 RBC 3.18 L (4.30-5.90) m/uL Hgb 9.4 L D (13.0-17.5) gm/dL Hct 29.9 L (39.0-53.0) % RDW 18.4 H (11.5-15.5) % Plt Count 119 L (150-450) k/uL APTT (22.0-30.0) sec ABG pCO2 (35-45) mmHg Chloride 109 H (98-107) mmol/L Creatinine 2.53 H (0.66-1.25) mg/dL Glucose 108 H (74-99) mg/dL POC Glucose (mg/dL) (75-99) mg/dL Calcium 7.4 L (8.4-10.2) mg/dL Crossmatch Assessment and Plan (1) Respiratory failure Status: Acute (2) Severe sepsis Status: Acute (3) Chronic renal failure Status: Acute (4) Diabetes Status: Acute (5) Gram-negative sepsis with organ dysfunction Status: Acute (6) Nosocomial pneumonia Status: Acute (7) Proteus mirabilis infection Status: Acute (8) Pseudomonas urinary tract infection Status: Acute (9) Urinary tract infection in male Status: Acute Plan: Plan The patient's doing reasonably well. A couple things will be done. We'll get the patient on some tube feeds. We'll talk to the family about CODE STATUS. Apparently the patient was recently evaluated for PEG tube placement. The patient tidal [place] we dropped down to 400 mL. We bumped her rate up to 20 or 22 breaths per minute. We'll drop the FiO2 from 40-30%. Medications labs are reviewed. Prognosis is guarded. The patient will probably need dialysis soon. Additional recommendations suggestions are forthcoming. PICC line will be placed. Plan dated 01/30/2017 I did have a chance to speak to the 2 daughters. The [facility] patient is a full code at the present time. The patient is receiving hemodialysis in 2 units of blood. Afterwards, we'll do the daily eruption of sedation. We'll see if the patient is ready for extubation. I did talk to the family about CODE STATUS changes down the road and/or tracheostomy and PEG tube placement if he does not show improvement. Currently he is off the levo fed. Hopefully the dialysis and that units of blood will improve the situation. He is receiving tube feeds. His gases show very mild respiratory alkalosis. He is normal toxemic. Additional recommendations suggestions are forthcoming. Again prognosis is guarded. Plan dated 01/31/2017 The patient's doing well. Was successfully extubated yesterday. We'll continue to follow. Medications labs x-rays are reviewed. Hemodialysis today. The patient can be discharged from the unit either later today or tomorrow. We'll continue to follow. We'll advance diet. No additional recommendations are made. Await recommendations from speech pathology. Time with Patient: Less than 30
[2017-01-31 11:50] LABS: Glucose,Whole Blood 117 mg/dL (75-99)
--- NOTE | 2017-01-31 13:04 | CDI ---
In responding to this query, please exercise your independent professional judgment. The [facility] Coding Staff and Clinical Documentation Specialists appreciate your assistance in clarifying documentation, maintaining compliance with coding guidelines, accurately documenting patients condition and capturing severity of illness. The fact that a question is asked does not imply that any particular answer is desired or expected. Communication forms are a method of clarifying documentation and are not made part of the Legal Health Record. Thank you in advance for your clarification. Last Revision, September [address] [place] [address] Documentation Clarification Form Date: 01/30/2017 12:36:00 PM Resubmitted 01/31/2017 From: Frances Mayberry CCS, CCDS Admit Date: 01/28/2017 9:11:00 PM Patient Name: Brayden Negro Visit Number: [id number] Discharge Date: Dr. Priscilla Dickerson: A diagnosis of anemia lacks specificity to accurately reflect your patients severity of condition and clarification is needed. Patient history/risk factors: End Stage Renal Disease requiring Hemodialysis. Clinical Indicators: Hemoglobin: 9.4 - 6.9 Hematocrit: 30.7 - 22.3 Treatment: One unit PRBCs transfusied with Hemodialysis In order to capture the severity of condition, please clarify the type of anemia and etiology if known: Acute blood loss anemia Acute on chronic blood loss anemia Chronic blood loss anemia Iron deficiency anemia Hemolytic anemia Drug induced anemia Nutritional anemia Anemia of chronic kidney disease Unable to determine Other, please specify Please document in your progress notes and discharge summary in order to capture severity of illness and risk of mortality. Include clinical findings that support your diagnosis. FYI: Press F11 to launch patient chart. Place X here if this finding has no clinical significance, is not applicable or if you are not able to provide any additional documentation. Thank You. RACHID
--- NOTE | 2017-01-31 15:40 | P.PN ---
Subjective Date of service 01/30/2017. Progress note being dictated for Dr. Little. Interval history: This is an 80-year-old gentleman admitted with acute UTI with sepsis, acute hypoxic respiratory failure, end-stage kidney disease, hemodialysis dependent and multiple other medical issues. Receiving hemodialysis currently. Hemoglobin 6.9, receiving 2 units of packed RBCs with dialysis. Maintained on ventilator support with FiO2 at 30%/+.. UTI with gram- negative bacilli, maintained on teflaro. Maintained on 2 mics of Levophed. Chest x-ray reporting persistent small to moderate-sized bilateral pleural effusions, bilateral mid to lower lung edema and/or infiltrates, mildly improved. Afebrile, normal WBC. Objective - Vital Signs Vital signs: Vital Signs Temp 97.7 F 01/30/17 16:30 Pulse 83 01/30/17 18:00 Resp 20 01/30/17 18:00 BP 137/62 01/30/17 18:00 Pulse Ox 94 L 01/30/17 18:00 Intake & Output 01/29/17 01/30/17 01/30/17 18:59 06:59 18:59 Intake Total 7899.638 4031.04 2576.996 Output Total 689 42 0401 Balance 1564.587 6227.04 -40.004 Weight 68.2 kg 68.6 kg 68.6 kg Intake: Intake, IV Titration 1059.181 914.04 626.996 Amount 0.9% NaCl with KCl 20 Meq 625 /l 1,000 ml @ 115 mls/hr IV .Q8H42M [facility] Rx#: [id number] Ceftaroline Fosamil 200 250 250 mg In Sodium Chloride 0.9 % 250 ml @ 250 mls/hr IVPB Q12HR [facility] Rx#: [id number] Magnesium Sulfate-D5w Pmx 100 1 gm In Dextrose/Water 1 100ml.bag @ 100 mls/hr IVPB Q1H [facility] Rx#: [id number] Norepinephrine 16 mg In 38.771 Sodium Chloride 0.9% 250 ml @ Titrate IV .Q0M [facility] Rx#:[id number] Norepinephrine 16 mg In 15.56 8.676 Sodium Chloride 0.9% 250 ml @ Titrate IV .Q0M [facility] Rx#:[id number] Norepinephrine 4 mg In 80.2 Sodium Chloride 0.9% 250 ml @ Titrate IV .Q0M [facility] Rx#:[id number] Propofol 50 ml As IV .STK 39.4 4.5 42.7 -[facility] Rx#:[id number] Propofol 500 mg In Empty 5.81 43.98 75.62 Bag 1 bag @ Titrate IV . Q0M [facility] Rx#:[id number] Sodium Chloride 0.9% 1, 150 600 250 000 ml @ 10 mls/hr IV . Q24H [facility] Rx#:[id number] Sodium Chloride 0.9% 1, 20 000 ml @ 999 mls/hr IV . Q1H1M [facility] Rx#:[id number] Tube Feeding 135 640 720 Blood Product 930 Rc Pheresis 2 As3 Unit 310 [id number] Rc Pheresis 2 As3 Unit 310 [id number] Other 90 60 300 Output: Urine 152 69 217 Other 2400 Other: Voiding Method Indwelling Catheter Indwelling Catheter Indwelling Catheter # Bowel Movements 1 - Exam PHYSICAL EXAM: VITAL SIGNS: As above GENERAL: [Sitting up in bed, sedated, intubated] HEENT: [Pupils equal conjunctiva normal.] NECK: [Supple, no JVD] RESPIRATORY EFFORT:[Normal] LUNGS: Bilateral lungs diminished, fine bibasilar crackles with scattered rhonchi [] CARDIOVASCULAR[regular S1 and S2, positive edema] GI: [Abdomen soft, nontender, positive bowel sounds.] Microbiology 01/28/17 19:30 Sputum Gram Stain - Preliminary 01/28/17 19:30 Sputum Sputum Culture - Preliminary Proteus mirabilis Gram Neg Bacilli 01/28/17 19:37 Urine,Clean Catch Urine Culture - Final Pseudomonas aeruginosa 01/28/17 19:30 Blood Blood Culture - Preliminary No Growth after 48 hours - Labs CBC & Chem 7: 01/31/17 03:18 01/31/17 03:18 Labs: Abnormal Lab Results - Last 24 Hours (Table) 01/29/17 01/29/17 01/30/17 Range/Units 20:58 23:45 04:23 RBC (4.30-5.90) m/uL Hgb (13.0-17.5) gm/dL Hct (39.0-53.0) % MCHC (31.0-37.0) g/dL RDW (11.5-15.5) % Plt Count (150-450) k/uL APTT 34.2 H (22.0-30.0) sec ABG pH (7.35-7.45) ABG pCO2 (35-45) mmHg ABG pO2 (83-108) mmHg ABG O2 Saturation (94-97) % Chloride (98-107) mmol/L BUN (9-20) mg/dL Creatinine (0.66-1.25) mg/dL Glucose (74-99) mg/dL POC Glucose (mg/dL) 177 H 187 H (75-99) mg/dL Calcium (8.4-10.2) mg/dL Crossmatch 01/30/17 01/30/17 01/30/17 Range/Units 04:23 04:23 04:50 RBC 2.31 L 2.32 L (4.30-5.90) m/uL Hgb 6.9 L* 6.9 L* (13.0-17.5) gm/dL Hct 22.4 L 22.3 L (39.0-53.0) % MCHC 30.7 L 30.8 L (31.0-37.0) g/dL RDW 18.9 H 18.9 H (11.5-15.5) % Plt Count 133 L 128 L (150-450) k/uL APTT (22.0-30.0) sec ABG pH (7.35-7.45) ABG pCO2 (35-45) mmHg ABG pO2 (83-108) mmHg ABG O2 Saturation (94-97) % Chloride 113 H (98-107) mmol/L BUN 27 H (9-20) mg/dL Creatinine 3.63 H (0.66-1.25) mg/dL Glucose 113 H (74-99) mg/dL POC Glucose (mg/dL) (75-99) mg/dL Calcium 7.4 L (8.4-10.2) mg/dL Crossmatch 01/30/17 01/30/17 01/30/17 Range/Units 05:17 05:36 11:06 RBC (4.30-5.90) m/uL Hgb (13.0-17.5) gm/dL Hct (39.0-53.0) % MCHC (31.0-37.0) g/dL RDW (11.5-15.5) % Plt Count (150-450) k/uL APTT (22.0-30.0) sec ABG pH 7.47 H (7.35-7.45) ABG pCO2 30 L (35-45) mmHg ABG pO2 120 H (83-108) mmHg ABG O2 Saturation 99.0 H (94-97) % Chloride (98-107) mmol/L BUN (9-20) mg/dL Creatinine (0.66-1.25) mg/dL Glucose (74-99) mg/dL POC Glucose (mg/dL) 138 H (75-99) mg/dL Calcium (8.4-10.2) mg/dL Crossmatch See Detail 01/30/17 01/30/17 Range/Units 17:53 18:19 RBC (4.30-5.90) m/uL Hgb (13.0-17.5) gm/dL Hct (39.0-53.0) % MCHC (31.0-37.0) g/dL RDW (11.5-15.5) % Plt Count (150-450) k/uL APTT (22.0-30.0) sec ABG pH (7.35-7.45) ABG pCO2 34 L (35-45) mmHg ABG pO2 (83-108) mmHg ABG O2 Saturation (94-97) % Chloride (98-107) mmol/L BUN (9-20) mg/dL Creatinine (0.66-1.25) mg/dL Glucose (74-99) mg/dL POC Glucose (mg/dL) 158 H (75-99) mg/dL Calcium (8.4-10.2) mg/dL Crossmatch Assessment and Plan Plan: 1. [Acute hypoxic respiratory failure secondary to pulmonary edema]. 2. [Septic shock, pressor dependent]. 3. [End-stage renal disease on hemodialysis]. 4. [Diabetes mellitus type 2]. 5. [Resent MRSA bacteremia and multiple UTIs; sources of sepsis and septic shock include acute UTI with pseudomonas aeruginosa, acute pneumonia with Proteus mirabilis, gram-negative bacilli, and possible recurrent bacteremia, ]. 6. [Elevated troponins with ST-T wave changes including ST depression, cardiology on consult]. 7. Acute on chronic anemia, status post transfusion of packed RBCs Plan: Continue on current medication regime ,aranesp,monitoring and symptomatic treatment. Pulmonary discussing potential weaning trials status post completion of dialysis. 2 daughters at bedside, addressed CODE STATUS as patient is currently a full code. Tracheostomy and PEG and also discussed. Antibiotics as per infectious disease, continue following cultures closely. Hemodialysis as per nephrology. Prognosis guarded given multiple complex medical issues. The impression and plan of care has been dictated as directed. : I performed a H&P examination of this patient and discussed the same with the dictator. I agree with the dictator's note. Any additional findings/opinions/ etc. will be noted.
--- NOTE | 2017-01-31 15:52 | P.PN ---
Subjective Date of service 01/31/2017. Progress note being dictated for Dr. Little. Interval history: This is an 80-year-old gentleman admitted with acute UTI with sepsis, acute hypoxic respiratory failure, end-stage kidney disease, hemodialysis dependent and multiple other medical issues. Extubated last night , maintaining O2 sats of 96% on 2 L nasal cannula. hemodialysis today. Levophed weaned off. Hemoglobin 9.4 status post transfusion of 2 units of packed RBCs yesterday .Cleared for transfer out of ICU to telemetry unit per silver miner later this afternoon. Bedside swallow evaluation pending. Afebrile , normal WBC. Objective - Vital Signs Vital signs: Vital Signs Temp 99.0 F 01/31/17 08:00 Pulse 86 01/31/17 11:00 Resp 17 01/31/17 11:00 BP 119/53 01/31/17 11:00 Pulse Ox 100 01/31/17 11:00 Intake & Output 01/30/17 01/31/17 01/31/17 18:59 06:59 18:59 Intake Total 2576.996 450 550 Output Total 2617 271 75 Balance -40.004 179 475 Weight 68.6 kg 73.1 kg Intake: IV 440 200 Sodium Chloride 0.9% 1, 440 200 000 ml @ 10 mls/hr IV . Q24H [facility] Rx#:[id number] Intake, IV Titration 626.996 10 350 Amount Ceftaroline Fosamil 200 250 250 mg In Sodium Chloride 0.9 % 250 ml @ 250 mls/hr IVPB Q12HR [facility] Rx#: [id number] Magnesium Sulfate-D5w Pmx 100 1 gm In Dextrose/Water 1 100ml.bag @ 100 mls/hr IVPB Q1H [facility] Rx#: [id number] Norepinephrine 16 mg In 8.676 Sodium Chloride 0.9% 250 ml @ Titrate IV .Q0M [facility] Rx#:[id number] Propofol 50 ml As IV .STK 42.7 [facility] Rx#:[id number] Propofol 500 mg In Empty 75.62 Bag 1 bag @ Titrate IV . Q0M [facility] Rx#:[id number] Sodium Chloride 0.9% 1, 250 10 000 ml @ 10 mls/hr IV . Q24H [facility] Rx#:[id number] Tube Feeding 720 Blood Product 930 Rc Pheresis 2 As3 Unit 310 [id number] Rc Pheresis 2 As3 Unit 310 [id number] Other 300 Output: Urine 217 270 75 Urine/Stool Mix 1 Other 2400 Other: Voiding Method Indwelling Catheter Indwelling Catheter Indwelling Catheter # Bowel Movements 1 - Exam PHYSICAL EXAM: VITAL SIGNS: As above GENERAL: [Sitting up in bed, sedated, intubated] HEENT: [Pupils equal conjunctiva normal.] NECK: [Supple, no JVD] RESPIRATORY EFFORT:[Normal] LUNGS: Bilateral lungs diminished, fine bibasilar crackles with occasional scattered rhonchi CARDIOVASCULAR[regular S1 and S2, positive edema] GI: [Abdomen soft, nontender, positive bowel sounds.] EXT: Bilateral amputee Microbiology 01/28/17 19:30 Sputum Gram Stain - Preliminary 01/28/17 19:30 Sputum Sputum Culture - Preliminary Proteus mirabilis Gram Neg Bacilli 01/28/17 19:37 Urine,Clean Catch Urine Culture - Final Pseudomonas aeruginosa 01/28/17 19:30 Blood Blood Culture - Preliminary No Growth after 48 hours - Labs CBC & Chem 7: 01/31/17 03:18 01/31/17 03:18 Labs: Abnormal Lab Results - Last 24 Hours (Table) 01/30/17 01/30/17 01/30/17 Range/Units 05:36 17:53 18:19 RBC (4.30-5.90) m/uL Hgb (13.0-17.5) gm/dL Hct (39.0-53.0) % RDW (11.5-15.5) % Plt Count (150-450) k/uL APTT (22.0-30.0) sec ABG pCO2 34 L (35-45) mmHg Chloride (98-107) mmol/L Creatinine (0.66-1.25) mg/dL Glucose (74-99) mg/dL POC Glucose (mg/dL) 158 H (75-99) mg/dL Calcium (8.4-10.2) mg/dL Crossmatch See Detail 01/30/17 01/31/17 01/31/17 Range/Units 23:41 03:18 03:18 RBC (4.30-5.90) m/uL Hgb (13.0-17.5) gm/dL Hct (39.0-53.0) % RDW (11.5-15.5) % Plt Count (150-450) k/uL APTT 33.3 H (22.0-30.0) sec ABG pCO2 (35-45) mmHg Chloride 109 H (98-107) mmol/L Creatinine 2.53 H (0.66-1.25) mg/dL Glucose 108 H (74-99) mg/dL POC Glucose (mg/dL) 107 H (75-99) mg/dL Calcium 7.4 L (8.4-10.2) mg/dL Crossmatch 01/31/17 Range/Units 03:18 RBC 3.18 L (4.30-5.90) m/uL Hgb 9.4 L D (13.0-17.5) gm/dL Hct 29.9 L (39.0-53.0) % RDW 18.4 H (11.5-15.5) % Plt Count 119 L (150-450) k/uL APTT (22.0-30.0) sec ABG pCO2 (35-45) mmHg Chloride (98-107) mmol/L Creatinine (0.66-1.25) mg/dL Glucose (74-99) mg/dL POC Glucose (mg/dL) (75-99) mg/dL Calcium (8.4-10.2) mg/dL Crossmatch Assessment and Plan Plan: 1. [Acute hypoxic respiratory failure secondary to pulmonary edema]. 2. [Septic shock, pressor dependent]. 3. [End-stage renal disease on hemodialysis]. 4. [Diabetes mellitus type 2]. 5. [Resent MRSA bacteremia and multiple UTIs; sources of sepsis and septic shock include acute UTI with pseudomonas aeruginosa, acute pneumonia with Proteus mirabilis, gram-negative bacilli, and possible recurrent bacteremia, ]. 6. [Elevated troponins with ST-T wave changes including ST depression, cardiology on consult]. 7. Acute on chronic anemia, status post transfusion of packed RBCs Plan: Continue on current medication regime ,aranesp,monitoring and symptomatic treatment. Antibiotics as per ID. Patient has been cleared for transfer to the ICU later this afternoon per silver miner. Swelling evaluation pending. Further recommendations to follow. The impression and plan of care has been dictated as directed. .: I performed a H&P examination of this patient and discussed the same with the dictator. I agree with the dictator's note. Any additional findings/opinions/ etc. will be noted.
--- NOTE | 2017-01-31 16:06 | PN ---
Patient is seen for follow-up for end-stage renal disease. He was extubated last night after dialysis yesterday. Currently patient is awake, comfortable. He passed his swallowing eval. There is no active bleeding noted. He was transfused 2 units packed RBCs for a hemoglobin of 6.8 g/dL. On examination, blood pressure is 112/48, heart rate 90 per minute. The patient is afebrile. Examination of the heart S1 and S2. Examination of the lungs: Bilateral breath sounds are heard. Decreased breath sounds in bases. Abdomen is soft, nontender with abdominal hernia noted. 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 Labs show sodium 142, potassium 4.3. Hemoglobin 9.4 g/dL. Cultures are growing Pseudomonas in the urine and Proteus in the sputum. ASSESSMENT: 1. End-stage renal disease on hemodialysis on a Sunday, Sunday, Sunday schedule. The patient will be dialyzed again today. 2. Volume overload/congestive heart failure, improved post dialysis and patient is now extubated. 3. Ventilator -dependent respiratory failure secondary to fluid overload and sepsis. 4. Urinary tract infection with urine culture growing Pseudomonas aeruginosa. 5. Sputum positive for Proteus mirabilis, maintained on ceftaroline. 6. Anemia of chronic disease with no active bleeding noted. PLAN: Hemodialysis today. Goal UF of about 2 to 3 liters as tolerated. Hemoglobin dropped from 9.4 to 6.9 g/dL. No obvious explanation for the acute drop. Patient has been transfused packed RBCs. Will continue to maintain him on Aranesp.
[2017-01-31] MEDS: SODIUM CHLORIDE 0.9% 1,000 ML IV SCH (16:36)
[2017-01-31 18:16] LABS: Glucose,Whole Blood 109 mg/dL (75-99)
[2017-01-31 19:54] LABS: Glucose,Whole Blood 142 mg/dL (75-99)
--- NOTE | 2017-01-31 21:08 | P.PN ---
Subjective Principal diagnosis: Respiratory failure 81-year-old male well-known to the infectious disease service, recently was hospitalized with a bout of pneumonia as well as bacteremia related to his hemodialysis catheter. He has significant sepsis at that time. Dialysis catheter was removed. Sepsis improved in a new catheter was placed in left anterior chest wall. Patient was receiving his course of outpatient intravenous antibiotic therapy. At admission the patient had evidence of respiratory failure required intubation sedation and mechanical ventilation. he was noted to have EKG changes. There is elevated CK and troponins also. Cardiology is following. Patient is comfortable has been extubated, ate some lunch and is tolerating dialysis well. Objective - Vital Signs Vital signs: Vital Signs Temp 98.9 F 01/31/17 20:00 Pulse 82 01/31/17 20:00 Resp 20 01/31/17 20:00 BP 117/62 01/31/17 20:00 Pulse Ox 98 01/31/17 20:00 Intake & Output 01/31/17 01/31/17 02/01/17 06:59 18:59 06:59 Intake Total 450 750 Output Total 271 140 Balance 179 610 Weight 73.1 kg Intake: IV 440 400 Sodium Chloride 0.9% 1, 440 400 000 ml @ 10 mls/hr IV . Q24H [facility] Rx#:[id number] Intake, IV Titration 10 350 Amount Ceftaroline Fosamil 200 250 mg In Sodium Chloride 0.9 % 250 ml @ 250 mls/hr IVPB Q12HR [facility] Rx#: [id number] Magnesium Sulfate-D5w Pmx 100 1 gm In Dextrose/Water 1 100ml.bag @ 100 mls/hr IVPB Q1H [facility] Rx#: [id number] Sodium Chloride 0.9% 1, 10 000 ml @ 10 mls/hr IV . Q24H [facility] Rx#:[id number] Output: Urine 270 140 Urine/Stool Mix 1 Other: Voiding Method Indwelling Catheter Indwelling Catheter Indwelling Catheter - Exam Patient is awake and alert, extubated HEENT: Anicteric conjunctiva are pink and moist nasal mucosa grossly intact without significant lesions, there is no thrush. Neck: The neck is supple without significant lymphadenopathy or thyromegaly. Lungs: There is symmetrical air entry. Basilar crackles are heard. Heart: Irregular with an audible S1 and S2 loud S4 no distinct murmur click or rub Abdomen: Positive bowel sounds soft and nontender without palpable masses or organomegaly. There was no guarding or rebound. Extremities: Extremities have evidence of some generalized edema. He does have evidence of the bilateral below-knee amputation. Residual limbs are without evidence of infection at this time. Please see the nursing photography regarding the pressure ulcerations to the buttocks. Neuro: awake and alert able to converse with normal limited content Genitalia has evidence of the splayed penis, and some irritation for which zinc cream is applied. the new irritation to the right distal residual limb, likely abrasion - Labs CBC & Chem 7: 01/31/17 03:18 01/31/17 03:18 Labs: Abnormal Lab Results - Last 24 Hours (Table) 01/30/17 01/31/17 01/31/17 Range/Units 23:41 03:18 03:18 RBC (4.30-5.90) m/uL Hgb (13.0-17.5) gm/dL Hct (39.0-53.0) % RDW (11.5-15.5) % Plt Count (150-450) k/uL APTT 33.3 H (22.0-30.0) sec Chloride 109 H (98-107) mmol/L Creatinine 2.53 H (0.66-1.25) mg/dL Glucose 108 H (74-99) mg/dL POC Glucose (mg/dL) 107 H (75-99) mg/dL Calcium 7.4 L (8.4-10.2) mg/dL 01/31/17 01/31/17 01/31/17 Range/Units 03:18 11:48 18:15 RBC 3.18 L (4.30-5.90) m/uL Hgb 9.4 L D (13.0-17.5) gm/dL Hct 29.9 L (39.0-53.0) % RDW 18.4 H (11.5-15.5) % Plt Count 119 L (150-450) k/uL APTT (22.0-30.0) sec Chloride (98-107) mmol/L Creatinine (0.66-1.25) mg/dL Glucose (74-99) mg/dL POC Glucose (mg/dL) 117 H 109 H (75-99) mg/dL Calcium (8.4-10.2) mg/dL 03/08/17 Range/Units 19:52 RBC (4.30-5.90) m/uL Hgb (13.0-17.5) gm/dL Hct (39.0-53.0) % RDW (11.5-15.5) % Plt Count (150-450) k/uL APTT (22.0-30.0) sec Chloride (98-107) mmol/L Creatinine (0.66-1.25) mg/dL Glucose (74-99) mg/dL POC Glucose (mg/dL) 142 H (75-99) mg/dL Calcium (8.4-10.2) mg/dL Laboratory Results WBC 9.7 k/uL (3.8-10.6) 01/31/17 03:18 RBC 3.18 m/uL (4.30-5.90) L 01/31/17 03:18 Hgb 9.4 gm/dL (13.0-17.5) L D 01/31/17 03:18 Hct 29.9 % (39.0-53.0) L 01/31/17 03:18 MCV 93.9 fL (80.0-100.0) 01/31/17 03:18 MCH 29.5 pg (25.0-35.0) 01/31/17 03:18 MCHC 31.5 g/dL (31.0-37.0) 01/31/17 03:18 RDW 18.4 % (11.5-15.5) H 01/31/17 03:18 Plt Count 119 k/uL (150-450) L 01/31/17 03:18 Neutrophils % 77 % 01/31/17 03:18 Neutrophils % (Manual) 33.0 % 01/28/17 18:30 Lymphocytes % 15 % 01/31/17 03:18 Lymphocytes % (Manual) 48.0 % 01/28/17 18:30 Monocytes % 4 % 01/31/17 03:18 Monocytes % (Manual) 7.0 % 01/28/17 18:30 Eosinophils % 1 % 01/31/17 03:18 Eosinophils % (Manual) 10.0 % 01/28/17 18:30 Basophils % 0 % 01/31/17 03:18 Basophils % (Manual) 2.0 % 01/28/17 18:30 Neutrophils # 7.5 k/uL (1.3-7.7) 01/31/17 03:18 Neutrophils # (Manual) 6.2 k/uL (1.3-7.7) 01/28/17 18:30 Lymphocytes # 1.4 k/uL (1.0-4.8) 01/31/17 03:18 Lymphocytes # (Manual) 9.1 k/uL (1.0-4.8) H 01/28/17 18:30 Monocytes # 0.4 k/uL (0-1.0) 01/31/17 03:18 Monocytes # (Manual) 1.3 k/uL (0-1.0) H 01/28/17 18:30 Eosinophils # 0.1 k/uL (0-0.7) 01/31/17 03:18 Eosinophils # (Manual) 1.9 k/uL (0-0.7) H 01/28/17 18:30 Basophils # 0.0 k/uL (0-0.2) 01/31/17 03:18 Basophils # (Manual) 0.4 k/uL (0-0.2) H 01/28/17 18:30 Nucleated RBCs 0 /100 WBC (0-0) 01/28/17 18:30 Manual Slide Review Performed 01/28/17 18:30 Hypochromasia Moderate 01/31/17 03:18 Poikilocytosis Slight 01/31/17 03:18 Anisocytosis Slight 01/31/17 03:18 Macrocytosis Slight 01/31/17 03:18 PT 10.9 sec (9.0-12.0) 01/31/17 03:18 INR 1.1 (<1.1) 01/31/17 03:18 APTT 33.3 sec (22.0-30.0) H 01/31/17 03:18 Sample Site R RADIAL 01/30/17 17:53 ABG pH 7.45 (7.35-7.45) 01/30/17 17:53 ABG pCO2 34 mmHg (35-45) L 01/30/17 17:53 ABG pO2 85 mmHg (83-108) 01/30/17 17:53 ABG HCO3 23 mmol/L (21-25) 01/30/17 17:53 ABG Total CO2 24 mmol/L (19-24) 01/30/17 17:53 ABG O2 Saturation 97.0 % (94-97) 01/30/17 17:53 ABG Base Excess -0.1 mmol/L 01/30/17 17:53 FiO2 25 % 01/30/17 17:53 Sodium 142 mmol/L (137-145) 01/31/17 03:18 Potassium 4.3 mmol/L (3.5-5.1) 01/31/17 03:18 Chloride 109 mmol/L (98-107) H 01/31/17 03:18 Carbon Dioxide 27 mmol/L (22-30) 01/31/17 03:18 Anion Gap 6 mmol/L 01/31/17 03:18 BUN 17 mg/dL (9-20) 01/31/17 03:18 Creatinine 2.53 mg/dL (0.66-1.25) H 01/31/17 03:18 Est GFR (MDRD) Af Amer 30 (>60 ml/min/1.73 sqM) 01/31/17 03:18 Est GFR (MDRD) Non-Af 24 (>60 ml/min/1.73 sqM) 01/31/17 03:18 Glucose 108 mg/dL (74-99) H 01/31/17 03:18 POC Glucose (mg/dL) 142 mg/dL (75-99) H 01/31/17 19:52 POC Glu Nursing Informatics Analyst Jasmin Cueva 01/31/17 19:[address] Glu mg/dL 94 mg/dL 01/29/17 12:08 Hemoglobin A1c 4.9 % (4.2-6.1) 01/29/17 12:08 Plasma Lactic Acid Geovani 1.2 mmol/L (0.7-2.0) 01/29/17 04:09 Calcium 7.4 mg/dL (8.4-10.2) L 01/31/17 03:18 Phosphorus 2.5 mg/dL (2.5-4.5) 01/31/17 03:18 Magnesium 1.8 mg/dL (1.6-2.3) 01/31/17 03:18 Total Bilirubin 0.3 mg/dL (0.2-1.3) 01/29/17 04:09 AST 60 U/L (17-59) H 01/29/17 04:09 ALT 34 U/L (21-72) 01/29/17 04:09 Alkaline Phosphatase 85 U/L (38-126) 01/29/17 04:09 Total Creatine Kinase 452 U/L (55-170) H 01/29/17 04:09 CK-MB (CK-2) 51.4 ng/mL (0.0-2.4) H* 01/29/17 04:09 CK-MB (CK-2) Rel Index 11.4 01/29/17 04:09 Troponin I 1.710 ng/mL (0.000-0.034) H* 01/29/17 04:09 NT-Pro-B Natriuret Pep 18940 pg/mL 01/28/17 18:30 Total Protein 4.8 g/dL (6.3-8.2) L 01/29/17 04:09 Albumin 2.1 g/dL (3.5-5.0) L 01/29/17 04:09 Urine Color Light Yellow 01/28/17 19:37 Urine Appearance Turbid (Clear) 01/28/17 19:37 Urine pH 8.0 (5.0-8.0) 01/28/17 19:37 Ur Specific [place] 1.007 (1.001-1.035) 01/28/17 19:37 Urine Protein 2+ (Negative) H 01/28/17 19:37 Urine Glucose (UA) 1+ (Negative) H 01/28/17 19:37 Urine Ketones Negative (Negative) 01/28/17 19:37 Urine Blood Small (Negative) H 01/28/17 19:37 Urine Nitrate Negative (Negative) 01/28/17 19:37 Urine Bilirubin Negative (Negative) 01/28/17 19:37 Urine Urobilinogen <2.0 mg/dL (<2.0) 01/28/17 19:37 Ur Leukocyte Esterase Large (Negative) H 01/28/17 19:37 Urine RBC 27 /hpf (0-5) H 01/28/17 19:37 Urine WBC >182 /hpf (0-5) H 01/28/17 19:37 Urine WBC Clumps Many /hpf (None) H 01/28/17 19:37 Urine Bacteria Occasional /hpf (None) H 01/28/17 19:37 Urine Mucus Rare /hpf (None) H 01/28/17 19:37 C. difficile Tox (PCR) (Not Detectd) 01/30/17 04:45 Miscellaneous Test PT/INR/PTT 01/29/17 04:09 Misc Test Result 01/29/17 04:09 Blood Type O Positive 01/30/17 05:36 Blood Type Recheck No 01/30/17 05:36 Antibody Screen NEGATIVE 01/30/17 05:36 Crossmatch See Detail 01/30/17 05:36 Spec Expiration Date 02/02/2017 - 2336 01/30/17 05:36 Microbiology 01/28/17 19:30 Sputum Gram Stain - Preliminary 01/28/17 19:30 Sputum Sputum Culture - Preliminary Proteus mirabilis Gram Neg Bacilli 01/28/17 19:37 Urine,Clean Catch Urine Culture - Final Pseudomonas aeruginosa 01/28/17 19:30 Blood Blood Culture - Preliminary No Growth after 48 hours - Imaging and Cardiology Chest x-ray: image reviewed (Pulmonary vascular accentuation improved from prior exam pleural effusion seen more on the right.) Assessment and Plan (1) Respiratory failure Narrative/Plan: 81-year-old male who has complex underlying medical illness with dementia, end-stage renal disease on dialysis, recent bout of sepsis from his dialysis catheter which is being treated with Ceftaroline. The patient is now had improvement of his status. He has been extubated. He is sitting upright and tolerating his dialysis well without hypotension. He is conversational near his baseline. The urine culture has shown evidence of pseudomonas aeruginosa sputum culture with Proteus mirabilis. Both are susceptible to ceftazidime. The patient's prior catheter related sepsis has now been effectively treated for 4 weeks. No evidence of any ongoing bacteremia this time. Constantly to Ceftaroline is discontinued. We'll plan a 10 day course of ceftazidime for his current gram- negative sepsis from the urinary system. He fortunately is showing some improvement at this time. Tolerating dialysis well. Regardless his overall prognosis remains very poor. Excellent candidate for palliative care. Status: Acute (2) Severe sepsis Status: Acute (3) Chronic indwelling Norman catheter Status: Acute
[2017-01-31 21:44] LABS: Glucose,Whole Blood 89 mg/dL (75-99)
[2017-02-01] MEDS: HEPARIN SODIUM,PORCINE 5,000 UNIT/ML 1 ML VIAL SQ SCH ×3 (00:10→16:31)
[2017-02-01 06:22] LABS: Glucose,Whole Blood 98 mg/dL (75-99)
[2017-02-01] MEDS: INSULIN LISPRO (humaLOG) 300 UNIT/3 ML VIAL SQ SCH ×4 (06:40→21:41)
[2017-02-01 06:44] LABS: Prothrombin Time 10.2 sec (9.0-12.0)
[2017-02-01 06:48] LABS: Calcium 7.8 mg/dL (8.4-10.2); Phosphorous 2.9 mg/dL (2.5-4.5); Potassium 4.2 mmol/L (3.5-5.1)
[2017-02-01 06:53] LABS: Anisocytosis Slight; Basophils # (A) 0.1 k/uL (0-0.2); Basophils % (A) 1 %; CH 29.2; CHCM 29.9; Eosinophils # (A) 0.1 k/uL (0-0.7); Eosinophils % (A) 1 %; HCT 31.5 % (39.0-53.0); HDW 3.58; HGB 9.7 gm/dL (13.0-17.5); Hypochromasia Marked; Luc % (Auto) 4; Lymphocytes # (A) 2.3 k/uL (1.0-4.8); Lymphocytes % (A) 23 %; MCH 30.5 pg (25.0-35.0); MCHC 30.8 g/dL (31.0-37.0); Macrocytosis Slight; Mean Platelet Volume 8.8; Monocytes # (A) 0.5 k/uL (0-1.0); Monocytes % (A) 5 %; Neutrophils # (A) 6.4 k/uL (1.3-7.7); Neutrophils % (A) 66 %; Poikilocytosis Slight; RBC 3.18 m/uL (4.30-5.90); RDW 18.2 % (11.5-15.5); WBC 9.7 k/uL (3.8-10.6); WBC (Perox) 9.15
[2017-02-01 06:57] LABS: MCV 99.1 fL (80.0-100.0)
[2017-02-01] MEDS: IPRATROPIUM-ALBUTEROL 3 ML NEB INHALATION SCH ×4 (08:44→19:38)
[2017-02-01] MEDS: PANTOPRAZOLE 40 MG/10 ML VIAL IV SCH (09:24)
--- NOTE | 2017-02-01 10:31 | P.PN ---
Subjective Progress note dated 01/30/2017 This is a 81-year-old gentleman that I saw yesterday in consultation. The patient came in with difficulty breathing and mental status changes. He was intubated in the emergency room for respiratory failure. He came in with a diagnosis of respiratory failure fluid overload secondary to his chronic kidney disease and chronic hemodialysis as well as sepsis. He was admitted to the hospital on January 29. Yesterday here in the ICU I put a right femoral vein triple lumen catheter in. He still currently on the ventilator. I did have a chance to talk to his 2 daughters today. He is currently appointment 9 IV at 20 mL an hour the Brovana 15 mics per kilogram per minute levo fed is currently off these received 2 units of PRBCs. Having hemodialysis today. He is getting vital 1.245 with a goal of 45. His vent settings include the assist control mode rate 2210 400 FiO2 30% to be dropped to 25% PEEP of 5. Arterial blood gases show pO2 of 105 pCO2 of 30. 7.47. Gases are consistent with normoactive see me and a mild respiratory alkalosis. After dialysis and after 2 units of blood, we will do a daily eruption of sedation see if the patient is ready for extubation. I did tell the family that should he not show improvement, we will we will be talking about CODE STATUS changes and/or tracheostomy and feeding tube placement down the road. Progress note dated 01/31/2017 81-year-old male with a history of a difficulty breathing in mental status changes. He was intubated in the emergency room for respiratory failure. Yesterday, the patient's spontaneous breathing trial 1 very well and is weaning parameters were excellent. He was extubated extubated successfully. I was in contact with the nurse entire time. Her and the respiratory therapist make a decision to extubate based on my recommendations. Currently the patient is on O2 at 2 L. Getting an IV appointment 90 KVO. Hemodialysis as scheduled for today. The patient's chest x-ray shows bilateral fluid in the lungs more the right than on the left side. Certainly his x-rays improved from his initial her admission x-ray. He is awake and alert. Speech pathology is in the room. Him in terms of a swallow evaluation. Progress note dated 02/01/2017 The patient seemed to be doing better. Moved out of the ICU yesterday. Undergoing hemodialysis. The patient's respiratory status has improved. The patient still has a right femoral vein triple lumen catheter in place. Speech pathology is seen the patient. We'll continue to see as needed. Infectious disease is on the case. Objective - Vital Signs Vital signs: Vital Signs Temp 99.0 F 01/31/17 23:36 Pulse 88 02/01/17 08:54 Resp 19 02/01/17 06:42 BP 124/58 02/01/17 04:00 Pulse Ox 95 02/01/17 08:44 Intake & Output 01/31/17 02/01/17 02/01/17 18:59 06:59 18:59 Intake Total 750 110 Output Total 140 Balance 610 110 Weight 69 kg Intake: IV 400 60 Sodium Chloride 0.9% 1, 400 60 000 ml @ 10 mls/hr IV . Q24H [facility] Rx#:[id number] Intake, IV Titration 350 0 Amount Ceftaroline Fosamil 200 250 0 mg In Sodium Chloride 0.9 % 250 ml @ 250 mls/hr IVPB Q12HR [facility] Rx#: [id number] Magnesium Sulfate-D5w Pmx 100 1 gm In Dextrose/Water 1 100ml.bag @ 100 mls/hr IVPB Q1H [facility] Rx#: [id number] Oral 50 Output: Urine 140 Other: Voiding Method Indwelling Catheter Indwelling Catheter - Exam No acute distress, oriented 3. Nasal O2 in place HEENT examinations unremarkable. Neck supple. Full range of motion. Cardiovascular examination reveals regular rhythm rate. S1-S2 normal. Lungs reveal some coarse rhonchi. Breath sounds are diminished. Some bibasilar crackles. Abdomen soft. Extremities are intact. Bilateral amputee. Right femoral vein site looks good. - Labs CBC & Chem 7: 02/01/17 05:31 02/01/17 05:31 Labs: Abnormal Lab Results - Last 24 Hours (Table) 01/31/17 01/31/17 01/31/17 Range/Units 11:48 18:15 19:52 RBC (4.30-5.90) m/uL Hgb (13.0-17.5) gm/dL Hct (39.0-53.0) % MCHC (31.0-37.0) g/dL RDW (11.5-15.5) % Plt Count (150-450) k/uL Creatinine (0.66-1.25) mg/dL POC Glucose (mg/dL) 117 H 109 H 142 H (75-99) mg/dL Calcium (8.4-10.2) mg/dL 02/01/17 02/01/17 Range/Units 05:31 05:31 RBC 3.18 L (4.30-5.90) m/uL Hgb 9.7 L (13.0-17.5) gm/dL Hct 31.5 L (39.0-53.0) % MCHC 30.8 L (31.0-37.0) g/dL RDW 18.2 H (11.5-15.5) % Plt Count 126 L (150-450) k/uL Creatinine 2.00 H (0.66-1.25) mg/dL POC Glucose (mg/dL) (75-99) mg/dL Calcium 7.8 L (8.4-10.2) mg/dL Assessment and Plan (1) Respiratory failure Status: Acute (2) Severe sepsis Status: Acute (3) Chronic renal failure Status: Acute (4) Diabetes Status: Acute (5) Gram-negative sepsis with organ dysfunction Status: Acute (6) Nosocomial pneumonia Status: Acute (7) Proteus mirabilis infection Status: Acute (8) Pseudomonas urinary tract infection Status: Acute (9) Urinary tract infection in male Status: Acute Plan: Plan The patient's doing reasonably well. A couple things will be done. We'll get the patient on some tube feeds. We'll talk to the family about CODE STATUS. Apparently the patient was recently evaluated for PEG tube placement. The patient tidal Lyme we dropped down to 400 mL. We bumped her rate up to 20 or 22 breaths per minute. We'll drop the FiO2 from 40-30%. Medications labs are reviewed. Prognosis is guarded. The patient will probably need dialysis soon. Additional recommendations suggestions are forthcoming. PICC line will be placed. Plan dated 01/30/2017 I did have a chance to speak to the 2 daughters. The [facility] patient is a full code at the present time. The patient is receiving hemodialysis in 2 units of blood. Afterwards, we'll do the daily eruption of sedation. We'll see if the patient is ready for extubation. I did talk to the family about CODE STATUS changes down the road and/or tracheostomy and PEG tube placement if he does not show improvement. Currently he is off the levo fed. Hopefully the dialysis and that units of blood will improve the situation. He is receiving tube feeds. His gases show very mild respiratory alkalosis. He is normal toxemic. Additional recommendations suggestions are forthcoming. Again prognosis is guarded. Plan dated 01/31/2017 The patient's doing well. Was successfully extubated yesterday. We'll continue to follow. Medications labs x-rays are reviewed. Hemodialysis today. The patient can be discharged from the unit either later today or tomorrow. We'll continue to follow. We'll advance diet. No additional recommendations are made. Await recommendations from speech pathology. Next Plan dated 02/01/2017 The patient did well post extubation. Moved out of the ICU yesterday. Speech pathology seen the patient as his infectious disease. We'll sign off and see the patient only as needed. Thank you for your much for allowing me to participate in the care of this patient. I'm happy that the patient did well post respiratory failure. Time with Patient: Less than 30
[2017-02-01 11:59] LABS: Glucose,Whole Blood 91 mg/dL (75-99)
--- NOTE | 2017-02-01 13:06 | P.PN ---
Subjective Patient is seen in follow-up for end-stage renal disease. He is maintained on hemodialysis on a Sunday schedule via a permacath. Currently being treated for pneumonia as well as a urinary tract infection. Hemoglobin today is 9.7. Denies any active chest pain or shortness of breath. Appetite is fair. Vital signs are stable. General: The patient appeared well nourished and normally developed. HEENT: Head exam is unremarkable. Neck is without jugular venous distension. LUNGS: Lungs are clear to auscultation and percussion. Breath sounds decreased. HEART: Rate and Rhythm are regular. First and second heart sounds normal. No murmurs, rubs or gallops. ABDOMEN: Abdominal exam reveals normal bowel sounds. Non-tender and non- distended. No evidence of peritonitis. EXTREMITITES: Bilateral [id number] amputations noted. Objective - Vital Signs Vital signs: Vital Signs Temp 99.7 F H 02/01/17 08:00 Pulse 92 02/01/17 11:54 Resp 20 02/01/17 08:00 BP 106/58 02/01/17 08:00 Pulse Ox 95 02/01/17 08:44 Intake & Output 01/31/17 02/01/17 02/01/17 18:59 06:59 18:59 Intake Total 750 110 Output Total 140 Balance 610 110 Weight 69 kg Intake: IV 400 60 Sodium Chloride 0.9% 1, 400 60 000 ml @ 10 mls/hr IV . Q24H [facility] Rx#:[id number] Intake, IV Titration 350 0 Amount Ceftaroline Fosamil 200 250 0 mg In Sodium Chloride 0.9 % 250 ml @ 250 mls/hr IVPB Q12HR [facility] Rx#: [id number] Magnesium Sulfate-D5w Pmx 100 1 gm In Dextrose/Water 1 100ml.bag @ 100 mls/hr IVPB Q1H [facility] Rx#: [id number] Oral 50 Output: Urine 140 Other: Voiding Method Indwelling Catheter Indwelling Catheter Indwelling Catheter - Labs CBC & Chem 7: 02/01/17 05:31 02/01/17 05:31 Labs: Abnormal Lab Results - Last 24 Hours (Table) 01/31/17 01/31/17 02/01/17 Range/Units 18:15 19:52 05:31 RBC (4.30-5.90) m/uL Hgb (13.0-17.5) gm/dL Hct (39.0-53.0) % MCHC (31.0-37.0) g/dL RDW (11.5-15.5) % Plt Count (150-450) k/uL Creatinine 2.00 H (0.66-1.25) mg/dL POC Glucose (mg/dL) 109 H 142 H (75-99) mg/dL Calcium 7.8 L (8.4-10.2) mg/dL 02/01/17 Range/Units 05:31 RBC 3.18 L (4.30-5.90) m/uL Hgb 9.7 L (13.0-17.5) gm/dL Hct 31.5 L (39.0-53.0) % MCHC 30.8 L (31.0-37.0) g/dL RDW 18.2 H (11.5-15.5) % Plt Count 126 L (150-450) k/uL Creatinine (0.66-1.25) mg/dL POC Glucose (mg/dL) (75-99) mg/dL Calcium (8.4-10.2) mg/dL Assessment and Plan Plan: Assessment: #1. End-stage renal disease maintained on hemodialysis on a Sunday schedule via a permacath. #2. Urinary tract infection with urine culture positive for Pseudomonas. #3. Anemia of chronic kidney disease. Status post 2 units packed red blood cell transfusion yesterday. Hemoglobin 9.7 today. #4. Insulin-dependent diabetes mellitus. #5. Recent MRSA bacteremia related to permacath status post antibiotics. Plan: Hemodialysis tomorrow. Maintain Aranesp. Monitor hemoglobin and transfuse as needed. Antibiotics per infectious disease recommendations.
[2017-02-01] MEDS: SODIUM CHLORIDE 0.9% 1,000 ML IV SCH (16:26)
[2017-02-01 17:03] LABS: Glucose,Whole Blood 102 mg/dL (75-99)
--- NOTE | 2017-02-01 19:36 | PN ---
Patient was admitted. Patient had hypoxic respiratory failure and patient has hypoxic respiratory failure. The patient is extubated a couple of days ago. Patient is clinically doing well. Patient continues to be FULL CODE which is not appropriate and discussion will be done tomorrow regarding his CODE STATUS by Dr. Dempsey as patient's family is not available when I evaluated the patient today. The patient otherwise is clinically doing well at his baseline. Patient's hemoglobin is 9.4 post transfusion. Patient does not have any gastrointestinal bleed. Review of systems unable to obtain due to his clinical condition. PHYSICAL EXAMINATION: VITAL SIGNS: Temperature 98.4, pulse of 88, respiratory rate of 18, blood pressure 117/58, saturating at 98% on 4 liters. GENERAL: The patient is alert. Unable to assess orientation. Patient but does not verbalize much. HEENT: Pupils are round and equally reacting to light. EOMI. No scleral icterus. No conjunctival pallor. Normocephalic, atraumatic. No pharyngeal erythema. No thyromegaly. CARDIOVASCULAR: S1 and S2 present. No murmurs, rubs, or gallops. PULMONARY: Fine bibasilar crackles were appreciated. ABDOMEN: Soft, nontender, nondistended, normoactive bowel sounds. No palpable organomegaly. MUSCULOSKELETAL: No joint swelling or deformity. EXTREMITIES: Bilateral amputee. NEUROLOGICAL: Gross neurological examination did not reveal any focal deficits. SKIN: No rashes. LABORATORY DATA: CBC, CMP no significant abnormality was appreciated except for improving creatinine. ASSESSMENT AND PLAN: 1. Septic shock secondary to urinary tract infection with pseudomonas aeruginosa. Patient also had pneumonia with Proteus mirabilis and other gram-negative bacilli. 2. Acute hypoxic respiratory failure secondary to sepsis and pulmonary edema. 3. End stage renal disease on hemodialysis. 4. Type 2 diabetes mellitus. 5. Mildly elevated troponin secondary to supply and demand mismatch. PLAN: Continue with present medications, antibiotics and possibility of discharge in a day or two to subacute rehabilitation. Patient should be able to be discharged tomorrow to subacute rehab.
--- NOTE | 2017-02-01 20:50 | P.PN ---
Subjective Principal diagnosis: Respiratory failure 81-year-old male well-known to the infectious disease service, recently was hospitalized with a bout of pneumonia as well as bacteremia related to his hemodialysis catheter. He has significant sepsis at that time. Dialysis catheter was removed. Sepsis improved in a new catheter was placed in left anterior chest wall. Patient was receiving his course of outpatient intravenous antibiotic therapy. At admission the patient had evidence of respiratory failure required intubation sedation and mechanical ventilation. he was noted to have EKG changes. There is elevated CK and troponins also. Cardiology is following. Patient is comfortable eating some lunch and is tolerating dialysis well. Objective - Vital Signs Vital signs: Vital Signs Temp 99.1 F 02/01/17 16:00 Pulse 80 02/01/17 19:41 Resp 18 02/01/17 16:00 BP 131/60 02/01/17 16:00 Pulse Ox 95 02/01/17 16:00 Intake & Output 02/01/17 02/01/17 02/02/17 06:59 18:59 06:59 Intake Total 110 50 Output Total 100 Balance 110 -50 Weight 69 kg Intake: IV 60 Sodium Chloride 0.9% 1, 60 000 ml @ 10 mls/hr IV . Q24H [facility] Rx#:[id number] Intake, IV Titration 0 Amount Ceftaroline Fosamil 200 0 mg In Sodium Chloride 0.9 % 250 ml @ 250 mls/hr IVPB Q12HR [facility] Rx#: [id number] Oral 50 50 Output: Urine 100 Other: Voiding Method Indwelling Catheter Indwelling Catheter # Bowel Movements 1 - Exam Patient is awake and alert, extubated HEENT: Anicteric conjunctiva are pink and moist nasal mucosa grossly intact without significant lesions, there is no thrush. Neck: The neck is supple without significant lymphadenopathy or thyromegaly. Lungs: There is symmetrical air entry. Basilar crackles are heard. Heart: Irregular with an audible S1 and S2 loud S4 no distinct murmur click or rub Abdomen: Positive bowel sounds soft and nontender without palpable masses or organomegaly. There was no guarding or rebound. Extremities: Extremities have evidence of some generalized edema. He does have evidence of the bilateral below-knee amputation. Residual limbs are without evidence of infection at this time. Please see the nursing photography regarding the pressure ulcerations to the buttocks. Neuro: awake and alert able to converse with normal limited content Genitalia has evidence of the splayed penis, and some irritation for which zinc cream is applied. the new irritation to the right distal residual limb, likely abrasion - Labs CBC & Chem 7: 02/01/17 05:31 02/01/17 05:31 Labs: Abnormal Lab Results - Last 24 Hours (Table) 02/01/17 02/01/17 02/01/17 Range/Units 05:31 05:31 16:49 RBC 3.18 L (4.30-5.90) m/uL Hgb 9.7 L (13.0-17.5) gm/dL Hct 31.5 L (39.0-53.0) % MCHC 30.8 L (31.0-37.0) g/dL RDW 18.2 H (11.5-15.5) % Plt Count 126 L (150-450) k/uL Creatinine 2.00 H (0.66-1.25) mg/dL POC Glucose (mg/dL) 102 H (75-99) mg/dL Calcium 7.8 L (8.4-10.2) mg/dL Laboratory Results WBC 9.7 k/uL (3.8-10.6) 02/01/17 05:31 RBC 3.18 m/uL (4.30-5.90) L 02/01/17 05:31 Hgb 9.7 gm/dL (13.0-17.5) L 02/01/17 05:31 Hct 31.5 % (39.0-53.0) L 02/01/17 05:31 MCV 99.1 fL (80.0-100.0) D 02/01/17 05:31 MCH 30.5 pg (25.0-35.0) 02/01/17 05:31 MCHC 30.8 g/dL (31.0-37.0) L 02/01/17 05:31 RDW 18.2 % (11.5-15.5) H 02/01/17 05:31 Plt Count 126 k/uL (150-450) L 02/01/17 05:31 Neutrophils % 66 % 02/01/17 05:31 Neutrophils % (Manual) 33.0 % 01/28/17 18:30 Lymphocytes % 23 % 02/01/17 05:31 Lymphocytes % (Manual) 48.0 % 01/28/17 18:30 Monocytes % 5 % 02/01/17 05:31 Monocytes % (Manual) 7.0 % 01/28/17 18:30 Eosinophils % 1 % 02/01/17 05:31 Eosinophils % (Manual) 10.0 % 01/28/17 18:30 Basophils % 1 % 02/01/17 05:31 Basophils % (Manual) 2.0 % 01/28/17 18:30 Neutrophils # 6.4 k/uL (1.3-7.7) 02/01/17 05:31 Neutrophils # (Manual) 6.2 k/uL (1.3-7.7) 01/28/17 18:30 Lymphocytes # 2.3 k/uL (1.0-4.8) 02/01/17 05:31 Lymphocytes # (Manual) 9.1 k/uL (1.0-4.8) H 01/28/17 18:30 Monocytes # 0.5 k/uL (0-1.0) 02/01/17 05:31 Monocytes # (Manual) 1.3 k/uL (0-1.0) H 01/28/17 18:30 Eosinophils # 0.1 k/uL (0-0.7) 02/01/17 05:31 Eosinophils # (Manual) 1.9 k/uL (0-0.7) H 01/28/17 18:30 Basophils # 0.1 k/uL (0-0.2) 02/01/17 05:31 Basophils # (Manual) 0.4 k/uL (0-0.2) H 01/28/17 18:30 Nucleated RBCs 0 /100 WBC (0-0) 01/28/17 18:30 Manual Slide Review Performed 01/28/17 18:30 Hypochromasia Marked 02/01/17 05:31 Poikilocytosis Slight 02/01/17 05:31 Anisocytosis Slight 02/01/17 05:31 Macrocytosis Slight 02/01/17 05:31 PT 10.2 sec (9.0-12.0) 02/01/17 05:31 INR 1.0 (<1.1) 02/01/17 05:31 APTT 23.0 sec (22.0-30.0) 02/01/17 05:31 Sample Site R RADIAL 01/30/17 17:53 ABG pH 7.45 (7.35-7.45) 01/30/17 17:53 ABG pCO2 34 mmHg (35-45) L 01/30/17 17:53 ABG pO2 85 mmHg (83-108) 01/30/17 17:53 ABG HCO3 23 mmol/L (21-25) 01/30/17 17:53 ABG Total CO2 24 mmol/L (19-24) 01/30/17 17:53 ABG O2 Saturation 97.0 % (94-97) 01/30/17 17:53 ABG Base Excess -0.1 mmol/L 01/30/17 17:53 FiO2 25 % 01/30/17 17:53 Sodium 140 mmol/L (137-145) 02/01/17 05:31 Potassium 4.2 mmol/L (3.5-5.1) 02/01/17 05:31 Chloride 107 mmol/L (98-107) 02/01/17 05:31 Carbon Dioxide 23 mmol/L (22-30) 02/01/17 05:31 Anion Gap 10 mmol/L 02/01/17 05:31 BUN 13 mg/dL (9-20) 02/01/17 05:31 Creatinine 2.00 mg/dL (0.66-1.25) H 02/01/17 05:31 Est GFR (MDRD) Af Amer 39 (>60 ml/min/1.73 sqM) 02/01/17 05:31 Est GFR (MDRD) Non-Af 32 (>60 ml/min/1.73 sqM) 02/01/17 05:31 Glucose 94 mg/dL (74-99) 02/01/17 05:31 POC Glucose (mg/dL) 102 mg/dL (75-99) H 02/01/17 16:49 POC Glu Batting Machine Operator Yennifer Kaur 02/01/17 16:[address] Glu mg/dL 94 mg/dL 01/29/17 12:08 Hemoglobin A1c 4.9 % (4.2-6.1) 01/29/17 12:08 Plasma Lactic Acid Geovani 1.2 mmol/L (0.7-2.0) 01/29/17 04:09 Calcium 7.8 mg/dL (8.4-10.2) L 02/01/17 05:31 Phosphorus 2.9 mg/dL (2.5-4.5) 02/01/17 05:31 Magnesium 2.0 mg/dL (1.6-2.3) 02/01/17 05:31 Total Bilirubin 0.3 mg/dL (0.2-1.3) 01/29/17 04:09 AST 60 U/L (17-59) H 01/29/17 04:09 ALT 34 U/L (21-72) 01/29/17 04:09 Alkaline Phosphatase 85 U/L (38-126) 01/29/17 04:09 Total Creatine Kinase 452 U/L (55-170) H 01/29/17 04:09 CK-MB (CK-2) 51.4 ng/mL (0.0-2.4) H* 01/29/17 04:09 CK-MB (CK-2) Rel Index 11.4 01/29/17 04:09 Troponin I 1.710 ng/mL (0.000-0.034) H* 01/29/17 04:09 NT-Pro-B Natriuret Pep 02356 pg/mL 01/28/17 18:30 Total Protein 4.8 g/dL (6.3-8.2) L 01/29/17 04:09 Albumin 2.1 g/dL (3.5-5.0) L 01/29/17 04:09 Urine Color Light Yellow 01/28/17 19:37 Urine Appearance Turbid (Clear) 01/28/17 19:37 Urine pH 8.0 (5.0-8.0) 01/28/17 19:37 Ur Specific [place] 1.007 (1.001-1.035) 01/28/17 19:37 Urine Protein 2+ (Negative) H 01/28/17 19:37 Urine Glucose (UA) 1+ (Negative) H 01/28/17 19:37 Urine Ketones Negative (Negative) 01/28/17 19:37 Urine Blood Small (Negative) H 01/28/17 19:37 Urine Nitrate Negative (Negative) 01/28/17 19:37 Urine Bilirubin Negative (Negative) 01/28/17 19:37 Urine Urobilinogen <2.0 mg/dL (<2.0) 01/28/17 19:37 Ur Leukocyte Esterase Large (Negative) H 01/28/17 19:37 Urine RBC 27 /hpf (0-5) H 01/28/17 19:37 Urine WBC >182 /hpf (0-5) H 01/28/17 19:37 Urine WBC Clumps Many /hpf (None) H 01/28/17 19:37 Urine Bacteria Occasional /hpf (None) H 01/28/17 19:37 Urine Mucus Rare /hpf (None) H 01/28/17 19:37 C. difficile Tox (PCR) (Not Detectd) 01/30/17 04:45 Miscellaneous Test PT/INR/PTT 01/29/17 04:09 Misc Test Result 01/29/17 04:09 Blood Type O Positive 01/30/17 05:36 Blood Type Recheck No 01/30/17 05:36 Antibody Screen NEGATIVE 01/30/17 05:36 Crossmatch See Detail 01/30/17 05:36 Spec Expiration Date 02/02/2017233501/30/17 05:36 Microbiology 01/28/17 19:30 Sputum Gram Stain - Final 01/28/17 19:30 Sputum Sputum Culture - Final Proteus mirabilis Klebsiella oxytoca 01/28/17 19:30 Blood Blood Culture - Preliminary No Growth after 72 hours 01/28/17 19:37 Urine,Clean Catch Urine Culture - Final Pseudomonas aeruginosa Assessment and Plan (1) Respiratory failure Narrative/Plan: 81-year-old male who has complex underlying medical illness with dementia, end-stage renal disease on dialysis, recent bout of sepsis from his dialysis catheter which is being treated with Ceftaroline. The patient is now had improvement of his status. He has been extubated. He is sitting upright and tolerating his dialysis well without hypotension. He is conversational near his baseline. The urine culture has shown evidence of pseudomonas aeruginosa sputum culture with Proteus mirabilis. Both are susceptible to ceftazidime. The patient's prior catheter related sepsis has now been effectively treated for 4 weeks. No evidence of any ongoing bacteremia this time. Constantly to Ceftaroline is discontinued. We'll plan a 10 day course of ceftazidime for his current gram-negative sepsis from the urinary system. He fortunately is showing some improvement at this time. Tolerating dialysis well. Regardless his overall prognosis remains very poor. Excellent candidate for palliative care. Status: Acute (2) Severe sepsis Status: Acute (3) Chronic indwelling Norman catheter Status: Acute
[2017-02-01 21:38] LABS: Glucose,Whole Blood 103 mg/dL (75-99)
[2017-02-02] MEDS: HEPARIN SODIUM,PORCINE 5,000 UNIT/ML 1 ML VIAL SQ SCH ×4 (01:20→23:30)
[2017-02-02] MEDS: HYDROcodone/APAP 5-325MG 1 EACH TAB PO PRN (02:06)
[2017-02-02 06:18] LABS: Glucose,Whole Blood 85 mg/dL (75-99)
[2017-02-02] MEDS: INSULIN LISPRO (humaLOG) 300 UNIT/3 ML VIAL SQ SCH ×4 (06:24→20:48)
[2017-02-02 06:41] LABS: Anisocytosis Slight; Aty Lym Flag Slight; CHCM 30.6; HCT 28.9 % (39.0-53.0); HDW 3.43; Hypochromasia Marked; MCH 29.9 pg (25.0-35.0); MCHC 31.1 g/dL (31.0-37.0); Macrocytosis Slight; Mean Platelet Volume 8.6; Poikilocytosis Slight; RBC 3.01 m/uL (4.30-5.90); RDW 17.5 % (11.5-15.5); WBC 5.2 k/uL (3.8-10.6); WBC (Perox) 5.54
[2017-02-02 07:07] LABS: Magnesium 2.1 mg/dL (1.6-2.3); Phosphorous 3.9 mg/dL (2.5-4.5); Potassium 3.9 mmol/L (3.5-5.1)
[2017-02-02] MEDS: PANTOPRAZOLE 40 MG/10 ML VIAL IV SCH (07:47)
[2017-02-02 08:34] LABS: Add Differential Manual Differential
[2017-02-02 08:39] LABS: Manual Review Performed; Nucleated Red Blood Cells 0 /100 WBC (0-0); Total Cells Counted 100
--- NOTE | 2017-02-02 08:41 | P.PN ---
Subjective Patient is seen in follow-up for end-stage renal disease. He is maintained on hemodialysis on a Sunday schedule via a permacath. Currently being treated for pneumonia as well as a urinary tract infection. Hemoglobin today is 9.0. Denies any active chest pain or shortness of breath. Appetite is fair. Currently undergoing hemodialysis. Vital signs are stable. General: The patient appeared well nourished and normally developed. HEENT: Head exam is unremarkable. Neck is without jugular venous distension. LUNGS: Lungs are clear to auscultation and percussion. Breath sounds decreased. HEART: Rate and Rhythm are regular. First and second heart sounds normal. No murmurs, rubs or gallops. ABDOMEN: Abdominal exam reveals normal bowel sounds. Non-tender and non- distended. No evidence of peritonitis. EXTREMITITES: Bilateral muopr-pwa-[id number] amputations noted. Objective - Vital Signs Vital signs: Vital Signs Temp 98.8 F 02/02/17 08:00 Pulse 83 02/02/17 08:00 Resp 18 02/02/17 08:00 BP 140/66 02/02/17 08:00 Pulse Ox 95 02/02/17 08:00 Intake & Output 02/01/17 02/02/17 02/02/17 18:59 06:59 18:59 Intake Total 50 160 35 Output Total 100 250 Balance -50 -90 35 Weight 69 kg 72 kg Intake: IV 160 35 Invasive Line 5 35 Sodium Chloride 0.9% 1, 160 000 ml @ 10 mls/hr IV . Q24H [facility] Rx#:[id number] Oral 50 Output: Urine 100 250 Other: Voiding Method Indwelling Catheter Indwelling Catheter Indwelling Catheter # Bowel Movements 1 1 - Labs CBC & Chem 7: 02/02/17 05:45 02/02/17 05:45 Labs: Abnormal Lab Results - Last 24 Hours (Table) 02/01/17 02/01/17 02/02/17 Range/Units 16:49 21:36 05:45 RBC (4.30-5.90) m/uL Hgb (13.0-17.5) gm/dL Hct (39.0-53.0) % RDW (11.5-15.5) % Plt Count (150-450) k/uL Chloride 109 H (98-107) mmol/L Carbon Dioxide 20 L (22-30) mmol/L Creatinine 2.87 H (0.66-1.25) mg/dL POC Glucose (mg/dL) 102 H 103 H (75-99) mg/dL Calcium 8.0 L (8.4-10.2) mg/dL 02/02/17 Range/Units 05:45 RBC 3.01 L (4.30-5.90) m/uL Hgb 9.0 L (13.0-17.5) gm/dL Hct 28.9 L (39.0-53.0) % RDW 17.5 H (11.5-15.5) % Plt Count 136 L (150-450) k/uL Chloride (98-107) mmol/L Carbon Dioxide (22-30) mmol/L Creatinine (0.66-1.25) mg/dL POC Glucose (mg/dL) (75-99) mg/dL Calcium (8.4-10.2) mg/dL Assessment and Plan Plan: Assessment: #1. End-stage renal disease maintained on hemodialysis on a Sunday schedule via a permacath. #2. Urinary tract infection with urine culture positive for Pseudomonas. #3. Anemia of chronic kidney disease. Status post 2 units packed red blood cell transfusion yesterday. Hemoglobin 9.0 today. #4. Insulin-dependent diabetes mellitus. #5. Recent MRSA bacteremia related to permacath status post antibiotics. Plan: Currently undergoing hemodialysis with goal 3 L ultrafiltration. Next treatment Sunday. Maintain Aranesp. Monitor hemoglobin and transfuse as needed. Antibiotics per infectious disease recommendations.
[2017-02-02] MEDS: IPRATROPIUM-ALBUTEROL 3 ML NEB INHALATION SCH ×4 (09:59→19:20)
[2017-02-02 11:43] LABS: Glucose,Whole Blood 84 mg/dL (75-99)
[2017-02-02 16:58] LABS: Glucose,Whole Blood 132 mg/dL (75-99)
[2017-02-02] MEDS: SODIUM CHLORIDE 0.9% 1,000 ML IV SCH (17:10)
--- NOTE | 2017-02-02 18:04 | P.PN ---
Subjective Principal diagnosis: Respiratory failure 81-year-old male well-known to the infectious disease service, recently was hospitalized with a bout of pneumonia as well as bacteremia related to his hemodialysis catheter. He has significant sepsis at that time. Dialysis catheter was removed. Sepsis improved in a new catheter was placed in left anterior chest wall. Patient was receiving his course of outpatient intravenous antibiotic therapy. At admission the patient had evidence of respiratory failure required intubation sedation and mechanical ventilation. he was noted to have EKG changes. There is elevated CK and troponins also. Cardiology is following. Patient is comfortable eating some lunch and is tolerating dialysis well. Objective - Vital Signs Vital signs: Vital Signs Temp 96.9 F L 02/02/17 11:40 Pulse 76 02/02/17 12:00 Resp 18 02/02/17 13:00 BP 113/56 02/02/17 11:40 Pulse Ox 95 02/02/17 13:00 Intake & Output 02/01/17 02/02/17 02/02/17 18:59 06:59 18:59 Intake Total 50 160 255 Output Total 100 250 Balance -50 -90 255 Weight 69 kg 72 kg Intake: IV 160 55 Invasive Line 5 55 Sodium Chloride 0.9% 1, 160 000 ml @ 10 mls/hr IV . Q24H [facility] Rx#:[id number] Oral 50 200 Output: Urine 100 250 Other: Voiding Method Indwelling Catheter Indwelling Catheter Indwelling Catheter # Bowel Movements 1 1 1 - Exam Patient is awake and alert, extubated HEENT: Anicteric conjunctiva are pink and moist nasal mucosa grossly intact without significant lesions, there is no thrush. Neck: The neck is supple without significant lymphadenopathy or thyromegaly. Lungs: There is symmetrical air entry. Basilar crackles are heard. Heart: Irregular with an audible S1 and S2 loud S4 no distinct murmur click or rub Abdomen: Positive bowel sounds soft and nontender without palpable masses or organomegaly. There was no guarding or rebound. Extremities: Extremities have evidence of some generalized edema. He does have evidence of the bilateral below-knee amputation. Residual limbs are without evidence of infection at this time. Please see the nursing photography regarding the pressure ulcerations to the buttocks. Neuro: awake and alert able to converse with normal limited content Genitalia has evidence of the splayed penis, and some irritation for which zinc cream is applied. the new irritation to the right distal residual limb, likely abrasion - Labs CBC & Chem 7: 02/02/17 05:45 02/02/17 05:45 Labs: Abnormal Lab Results - Last 24 Hours (Table) 02/01/17 02/02/17 02/02/17 Range/Units 21:36 05:45 05:45 RBC 3.01 L (4.30-5.90) m/uL Hgb 9.0 L (13.0-17.5) gm/dL Hct 28.9 L (39.0-53.0) % RDW 17.5 H (11.5-15.5) % Plt Count 136 L (150-450) k/uL Chloride 109 H (98-107) mmol/L Carbon Dioxide 20 L (22-30) mmol/L Creatinine 2.87 H (0.66-1.25) mg/dL POC Glucose (mg/dL) 103 H (75-99) mg/dL Calcium 8.0 L (8.4-10.2) mg/dL 02/02/17 Range/Units 16:35 RBC (4.30-5.90) m/uL Hgb (13.0-17.5) gm/dL Hct (39.0-53.0) % RDW (11.5-15.5) % Plt Count (150-450) k/uL Chloride (98-107) mmol/L Carbon Dioxide (22-30) mmol/L Creatinine (0.66-1.25) mg/dL POC Glucose (mg/dL) 132 H (75-99) mg/dL Calcium (8.4-10.2) mg/dL Laboratory Results WBC 5.2 k/uL (3.8-10.6) 02/02/17 05:45 RBC 3.01 m/uL (4.30-5.90) L 02/02/17 05:45 Hgb 9.0 gm/dL (13.0-17.5) L 02/02/17 05:45 Hct 28.9 % (39.0-53.0) L 02/02/17 05:45 MCV 96.0 fL (80.0-100.0) 02/02/17 05:45 MCH 29.9 pg (25.0-35.0) 02/02/17 05:45 MCHC 31.1 g/dL (31.0-37.0) 02/02/17 05:45 RDW 17.5 % (11.5-15.5) H 02/02/17 05:45 Plt Count 136 k/uL (150-450) L 02/02/17 05:45 Neutrophils % 66 % 02/01/17 05:31 Neutrophils % (Manual) 66.0 % 02/02/17 05:45 Lymphocytes % 23 % 02/01/17 05:31 Lymphocytes % (Manual) 19.0 % 02/02/17 05:45 Monocytes % 5 % 02/01/17 05:31 Monocytes % (Manual) 9.0 % 02/02/17 05:45 Eosinophils % 1 % 02/01/17 05:31 Eosinophils % (Manual) 4.0 % 02/02/17 05:45 Basophils % 1 % 02/01/17 05:31 Basophils % (Manual) 2.0 % 02/02/17 05:45 Neutrophils # 6.4 k/uL (1.3-7.7) 02/01/17 05:31 Neutrophils # (Manual) 3.4 k/uL (1.3-7.7) 02/02/17 05:45 Lymphocytes # 2.3 k/uL (1.0-4.8) 02/01/17 05:31 Lymphocytes # (Manual) 1.0 k/uL (1.0-4.8) 02/02/17 05:45 Monocytes # 0.5 k/uL (0-1.0) 02/01/17 05:31 Monocytes # (Manual) 0.5 k/uL (0-1.0) 02/02/17 05:45 Eosinophils # 0.1 k/uL (0-0.7) 02/01/17 05:31 Eosinophils # (Manual) 0.2 k/uL (0-0.7) 02/02/17 05:45 Basophils # 0.1 k/uL (0-0.2) 02/01/17 05:31 Basophils # (Manual) 0.1 k/uL (0-0.2) 02/02/17 05:45 Nucleated RBCs 0 /100 WBC (0-0) 02/02/17 05:45 Manual Slide Review Performed 02/02/17 05:45 Hypochromasia Marked 02/02/17 05:45 Poikilocytosis Slight 02/02/17 05:45 Anisocytosis Slight 02/02/17 05:45 Macrocytosis Slight 02/02/17 05:45 PT 10.2 sec (9.0-12.0) 02/01/17 05:31 INR 1.0 (<1.1) 02/01/17 05:31 APTT 23.0 sec (22.0-30.0) 02/01/17 05:31 Sample Site R RADIAL 01/30/17 17:53 ABG pH 7.45 (7.35-7.45) 01/30/17 17:53 ABG pCO2 34 mmHg (35-45) L 01/30/17 17:53 ABG pO2 85 mmHg (83-108) 01/30/17 17:53 ABG HCO3 23 mmol/L (21-25) 01/30/17 17:53 ABG Total CO2 24 mmol/L (19-24) 01/30/17 17:53 ABG O2 Saturation 97.0 % (94-97) 01/30/17 17:53 ABG Base Excess -0.1 mmol/L 01/30/17 17:53 FiO2 25 % 01/30/17 17:53 Sodium 141 mmol/L (137-145) 02/02/17 05:45 Potassium 3.9 mmol/L (3.5-5.1) 02/02/17 05:45 Chloride 109 mmol/L (98-107) H 02/02/17 05:45 Carbon Dioxide 20 mmol/L (22-30) L 02/02/17 05:45 Anion Gap 12 mmol/L 02/02/17 05:45 BUN 19 mg/dL (9-20) 02/02/17 05:45 Creatinine 2.87 mg/dL (0.66-1.25) H 02/02/17 05:45 Est GFR (MDRD) Af Amer 26 (>60 ml/min/1.73 sqM) 02/02/17 05:45 Est GFR (MDRD) Non-Af 21 (>60 ml/min/1.73 sqM) 02/02/17 05:45 Glucose 86 mg/dL (74-99) 02/02/17 05:45 POC Glucose (mg/dL) 132 mg/dL (75-99) H 02/02/17 16:35 POC Glu Data Processing Auditor ID Maryanne Becerra 02/02/17 16:[address] Glu mg/dL 94 mg/dL 01/29/17 12:08 Hemoglobin A1c 4.9 % (4.2-6.1) 01/29/17 12:08 Plasma Lactic Acid Geovani 1.2 mmol/L (0.7-2.0) 01/29/17 04:09 Calcium 8.0 mg/dL (8.4-10.2) L 02/02/17 05:45 Phosphorus 3.9 mg/dL (2.5-4.5) 02/02/17 05:45 Magnesium 2.1 mg/dL (1.6-2.3) 02/02/17 05:45 Total Bilirubin 0.3 mg/dL (0.2-1.3) 01/29/17 04:09 AST 60 U/L (17-59) H 01/29/17 04:09 ALT 34 U/L (21-72) 01/29/17 04:09 Alkaline Phosphatase 85 U/L (38-126) 01/29/17 04:09 Total Creatine Kinase 452 U/L (55-170) H 01/29/17 04:09 CK-MB (CK-2) 51.4 ng/mL (0.0-2.4) H* 01/29/17 04:09 CK-MB (CK-2) Rel Index 11.4 01/29/17 04:09 Troponin I 1.710 ng/mL (0.000-0.034) H* 01/29/17 04:09 NT-Pro-B Natriuret Pep 41438 pg/mL 01/28/17 18:30 Total Protein 4.8 g/dL (6.3-8.2) L 01/29/17 04:09 Albumin 2.1 g/dL (3.5-5.0) L 01/29/17 04:09 Urine Color Light Yellow 01/28/17 19:37 Urine Appearance Turbid (Clear) 01/28/17 19:37 Urine pH 8.0 (5.0-8.0) 01/28/17 19:37 Ur Specific [place] 1.007 (1.001-1.035) 01/28/17 19:37 Urine Protein 2+ (Negative) H 01/28/17 19:37 Urine Glucose (UA) 1+ (Negative) H 01/28/17 19:37 Urine Ketones Negative (Negative) 01/28/17 19:37 Urine Blood Small (Negative) H 01/28/17 19:37 Urine Nitrate Negative (Negative) 01/28/17 19:37 Urine Bilirubin Negative (Negative) 01/28/17 19:37 Urine Urobilinogen <2.0 mg/dL (<2.0) 01/28/17 19:37 Ur Leukocyte Esterase Large (Negative) H 01/28/17 19:37 Urine RBC 27 /hpf (0-5) H 01/28/17 19:37 Urine WBC >182 /hpf (0-5) H 01/28/17 19:37 Urine WBC Clumps Many /hpf (None) H 01/28/17 19:37 Urine Bacteria Occasional /hpf (None) H 01/28/17 19:37 Urine Mucus Rare /hpf (None) H 01/28/17 19:37 C. difficile Tox (PCR) (Not Detectd) 01/30/17 04:45 Miscellaneous Test PT/INR/PTT 01/29/17 04:09 Misc Test Result 01/29/17 04:09 Blood Type O Positive 01/30/17 05:36 Blood Type Recheck No 01/30/17 05:36 Antibody Screen NEGATIVE 01/30/17 05:36 Crossmatch See Detail 01/30/17 05:36 Spec Expiration Date 02/02/2017 3819 01/30/17 05:36 Microbiology 01/28/17 19:30 Blood Blood Culture - Preliminary No Growth after 96 hours 01/28/17 19:30 Sputum Gram Stain - Final 01/28/17 19:30 Sputum Sputum Culture - Final Proteus mirabilis Klebsiella oxytoca 01/28/17 19:37 Urine,Clean Catch Urine Culture - Final Pseudomonas aeruginosa Assessment and Plan (1) Respiratory failure Narrative/Plan: 81-year-old male who has complex underlying medical illness with dementia, end-stage renal disease on dialysis, recent bout of sepsis from his dialysis catheter which is being treated with Ceftaroline. The patient is now had improvement of his status. He has been extubated. He is sitting upright and tolerating his dialysis well without hypotension. He is conversational near his baseline. The urine culture has shown evidence of pseudomonas aeruginosa sputum culture with Proteus mirabilis. Both are susceptible to ceftazidime. The patient's prior catheter related sepsis has now been effectively treated for 4 weeks. No evidence of any ongoing bacteremia this time. Constantly to Ceftaroline is discontinued. We'll plan a 10 day course of ceftazidime for his current gram-negative sepsis from the urinary system. Bg worked with the home care and discharge planners. We'll be able to receive his dose of ceftazidime after hemodialysis over the next 10 days. Home care will supply will take the dialysis center for infusion. He fortunately is showing some improvement at this time. Tolerating dialysis well. Regardless his overall prognosis remains very poor. Excellent candidate for palliative care. Status: Acute (2) Severe sepsis Status: Acute (3) Chronic indwelling Norman catheter Status: Acute
[2017-02-02 20:44] LABS: Glucose,Whole Blood 118 mg/dL (75-99)
--- NOTE | 2017-02-02 22:27 | PN ---
DATE OF SERVICE: 02/02/2017 PRESENTING COMPLAINT: Tired. INTERVAL HISTORY: This is a patient with multiple problems, on hemodialysis, who presented with UTI, sepsis, acute hypoxic respiratory failure; was on the ventilator; was extubated. Patient also was on pressors. Patient did get 2 units of blood. Patient is on a pureed diet. Patient has been noted to be at high risk of aspiration. Patient's 2 daughters are at the bedside. Patient is getting IV ceftazidime. Patient also has a dialysis catheter on the left chest wall. The patient is sitting up, answering simple questions. Per Nursing, patient is hardly eating. Review of systems done for constitutional, cardiovascular, GI, pulmonary; relevant findings as above. Current medications are reviewed that include IV ceftazidime. On examination, temperature 96.9, pulse 56, respiration 16, blood pressure 113/56, pulse ox 95% on 4 L. GENERAL APPEARANCE: Sitting up, awake but tired-appearing. EYES: Pupils equal. Conjunctivae pale. NECK: JVD unable to assess. Respiratory effort normal. LUNGS: Diminished breath sounds. CARDIOVASCULAR: First and second seconds normal. ABDOMEN: Soft, nontender. Liver and spleen not palpable. CHEST WALL: Hemodialysis catheter in the left chest wall. Right groin has got a central line. Extremities show some edema. INVESTIGATIONS: White count 5.2, hemoglobin 9, potassium 3.9. BUN 19, creatinine 2.87. Chest x-ray from day before shows some right lower lobe infiltrate. ASSESSMENT: 1. Acute pneumonia; suspect Gram-negative organism causing severe sepsis on presentation with cultures positive for Proteus mirabilis and Klebsiella oxytoca. 2. Acute urinary tract infection from Pseudomonas aeruginosa, present on admission, probably related to Norman catheter. 3. Septic shock on presentation from above. 4. End-stage kidney disease, on hemodialysis. 5. Chronic obstructive pulmonary disease in an ex-smoker. 6. Alzheimer's dementia, late-onset type, chronic. 7. Diabetes mellitus, type 2. 8. Chronic urine outflow obstruction. Patient has a chronic Norman catheter. 9. Stage II sacral decubitus ulcer, present on admission. 10. Normocytic anemia secondary to chronic kidney disease. 11. Moderate protein-calorie malnutrition with decreased muscle mass. Patient is also becoming edematous and has had poor oral intake. 12. CODE STATUS: FULL. PLAN: I had a lengthy talk with the patient's 2 daughters at the bedside. They want the patient to remain FULL CODE, which I did tell them may be unreasonable. Patient has another 7 days off antibiotics; that is next 3 doses with next hemodialysis. Patient will be moved from one daughter's to the other daughter's home. Also spoke to Rosa, leather case finisher. She will try to get the equipment required at home. I did talk to family at length about patient's overall guarded prognosis, but they wish to keep patient FULL CODE. I did ask Speech Therapy to come back and evaluate patient to see if his diet can be advanced. Total time spent today was about 40 minutes, with over 20 minutes of discussion.
[2017-02-03 03:36] LABS: Glucose,Whole Blood 125 mg/dL (75-99)
[2017-02-03] MEDS ORDERED: NOREPINEPHRINE 4 MG-0.9% NS PMX 250 ML IV ONE (04:19)
[2017-02-03] MEDS: PROPOFOL 500 MG in EMPTY BAG 1 BAG IV SCH ×6 (04:20→23:41)
--- NOTE | 2017-02-03 04:29 | ED ---
Medical Decision Making - Medical Decision Making I was called to the floor for CODE BLUE on a Mr. Negro when I arrived the patient was asystole we did check for pulses were no pulses. We started ACLS protocol patient received 3 epinephrine with intermittent pulse checks in between while CPR was being performed. After the third epi the patient got pulses back and he had a decent pressure and at this point time he was transferred to the ICU. Please look at the code sheet for further details. - Lab Data Result diagrams: 02/02/17 05:45 02/02/17 05:45 Lab Results 01/28/17 01/28/17 01/28/17 Range/Units 18:30 18:30 18:30 WBC 18.9 H (3.8-10.6) k/uL RBC 3.12 L (4.30-5.90) m/uL Hgb 9.4 L (13.0-17.5) gm/dL Hct 30.7 L (39.0-53.0) % MCV 98.4 (80.0-100.0) fL MCH 30.3 (25.0-35.0) pg MCHC 30.8 L (31.0-37.0) g/dL RDW 18.1 H (11.5-15.5) % Plt Count 196 (150-450) k/uL Neutrophils % (Manual) 33.0 % Lymphocytes % (Manual) 48.0 % Monocytes % (Manual) 7.0 % Eosinophils % (Manual) 10.0 % Basophils % (Manual) 2.0 % Neutrophils # (Manual) 6.2 (1.3-7.7) k/uL Lymphocytes # (Manual) 9.1 H (1.0-4.8) k/uL Monocytes # (Manual) 1.3 H (0-1.0) k/uL Eosinophils # (Manual) 1.9 H (0-0.7) k/uL Basophils # (Manual) 0.4 H (0-0.2) k/uL Nucleated RBCs 0 (0-0) /100 WBC Manual Slide Review Performed Hypochromasia Marked Anisocytosis Slight Macrocytosis Slight PT (9.0-12.0) sec INR (<1.1) APTT (22.0-30.0) sec Sample Site ABG pH (7.35-7.45) ABG pCO2 (35-45) mmHg ABG pO2 (83-108) mmHg ABG HCO3 (21-25) mmol/L ABG Total CO2 (19-24) mmol/L ABG O2 Saturation (94-97) % ABG Base Excess mmol/L FiO2 % Sodium 143 (137-145) mmol/L Potassium 2.9 L* (3.5-5.1) mmol/L Chloride 101 (98-107) mmol/L Carbon Dioxide 33 H (22-30) mmol/L Anion Gap 9 mmol/L BUN 23 H (9-20) mg/dL Creatinine 3.45 H (0.66-1.25) mg/dL Est GFR (MDRD) Af Amer 21 (>60 ml/min/1.73 sqM) Est GFR (MDRD) Non-Af 17 (>60 ml/min/1.73 sqM) Glucose 145 H (74-99) mg/dL Plasma Lactic Acid Geovani (0.7-2.0) mmol/L Calcium 8.6 (8.4-10.2) mg/dL Total Bilirubin 0.4 (0.2-1.3) mg/dL AST 26 (17-59) U/L ALT 29 (21-72) U/L Alkaline Phosphatase 107 (38-126) U/L Total Creatine Kinase 51 L (55-170) U/L CK-MB (CK-2) 2.7 H* (0.0-2.4) ng/mL CK-MB (CK-2) Rel Index 5.3 Troponin I 0.104 H* (0.000-0.034) ng/mL NT-Pro-B Natriuret Pep pg/mL Total Protein 6.1 L (6.3-8.2) g/dL Albumin 2.8 L (3.5-5.0) g/dL Urine Color Urine Appearance (Clear) Urine pH (5.0-8.0) Ur Specific [place] (1.001-1.035) Urine Protein (Negative) Urine Glucose (UA) (Negative) Urine Ketones (Negative) Urine Blood (Negative) Urine Nitrate (Negative) Urine Bilirubin (Negative) Urine Urobilinogen (<2.0) mg/dL Ur Leukocyte Esterase (Negative) Urine RBC (0-5) /hpf Urine WBC (0-5) /hpf Urine WBC Clumps (None) /hpf Urine Bacteria (None) /hpf Urine Mucus (None) /hpf 01/28/17 01/28/17 01/28/17 Range/Units 18:30 18:30 18:30 WBC (3.8-10.6) k/uL RBC (4.30-5.90) m/uL Hgb (13.0-17.5) gm/dL Hct (39.0-53.0) % MCV (80.0-100.0) fL MCH (25.0-35.0) pg MCHC (31.0-37.0) g/dL RDW (11.5-15.5) % Plt Count (150-450) k/uL Neutrophils % (Manual) % Lymphocytes % (Manual) % Monocytes % (Manual) % Eosinophils % (Manual) % Basophils % (Manual) % Neutrophils # (Manual) (1.3-7.7) k/uL Lymphocytes # (Manual) (1.0-4.8) k/uL Monocytes # (Manual) (0-1.0) k/uL Eosinophils # (Manual) (0-0.7) k/uL Basophils # (Manual) (0-0.2) k/uL Nucleated RBCs (0-0) /100 WBC Manual Slide Review Hypochromasia Anisocytosis Macrocytosis PT 9.8 (9.0-12.0) sec INR 1.0 (<1.1) APTT 27.2 (22.0-30.0) sec Sample Site ABG pH (7.35-7.45) ABG pCO2 (35-45) mmHg ABG pO2 (83-108) mmHg ABG HCO3 (21-25) mmol/L ABG Total CO2 (19-24) mmol/L ABG O2 Saturation (94-97) % ABG Base Excess mmol/L FiO2 % Sodium (137-145) mmol/L Potassium (3.5-5.1) mmol/L Chloride (98-107) mmol/L Carbon Dioxide (22-30) mmol/L Anion Gap mmol/L BUN (9-20) mg/dL Creatinine (0.66-1.25) mg/dL Est GFR (MDRD) Af Amer (>60 ml/min/1.73 sqM) Est GFR (MDRD) Non-Af (>60 ml/min/1.73 sqM) Glucose (74-99) mg/dL Plasma Lactic Acid Geovani 2.0 (0.7-2.0) mmol/L Calcium (8.4-10.2) mg/dL Total Bilirubin (0.2-1.3) mg/dL AST (17-59) U/L ALT (21-72) U/L Alkaline Phosphatase (38-126) U/L Total Creatine Kinase (55-170) U/L CK-MB (CK-2) (0.0-2.4) ng/mL CK-MB (CK-2) Rel Index Troponin I (0.000-0.034) ng/mL NT-Pro-B Natriuret Pep 01417 pg/mL Total Protein (6.3-8.2) g/dL Albumin (3.5-5.0) g/dL Urine Color Urine Appearance (Clear) Urine pH (5.0-8.0) Ur Specific [place] (1.001-1.035) Urine Protein (Negative) Urine Glucose (UA) (Negative) Urine Ketones (Negative) Urine Blood (Negative) Urine Nitrate (Negative) Urine Bilirubin (Negative) Urine Urobilinogen (<2.0) mg/dL Ur Leukocyte Esterase (Negative) Urine RBC (0-5) /hpf Urine WBC (0-5) /hpf Urine WBC Clumps (None) /hpf Urine Bacteria (None) /hpf Urine Mucus (None) /hpf 01/28/17 01/28/17 Range/Units 19:20 19:37 WBC (3.8-10.6) k/uL RBC (4.30-5.90) m/uL Hgb (13.0-17.5) gm/dL Hct (39.0-53.0) % MCV (80.0-100.0) fL MCH (25.0-35.0) pg MCHC (31.0-37.0) g/dL RDW (11.5-15.5) % Plt Count (150-450) k/uL Neutrophils % (Manual) % Lymphocytes % (Manual) % Monocytes % (Manual) % Eosinophils % (Manual) % Basophils % (Manual) % Neutrophils # (Manual) (1.3-7.7) k/uL Lymphocytes # (Manual) (1.0-4.8) k/uL Monocytes # (Manual) (0-1.0) k/uL Eosinophils # (Manual) (0-0.7) k/uL Basophils # (Manual) (0-0.2) k/uL Nucleated RBCs (0-0) /100 WBC Manual Slide Review Hypochromasia Anisocytosis Macrocytosis PT (9.0-12.0) sec INR (<1.1) APTT (22.0-30.0) sec Sample Site RRAD ABG pH 7.38 (7.35-7.45) ABG pCO2 47 H (35-45) mmHg ABG pO2 228 H (83-108) mmHg ABG HCO3 27 H (21-25) mmol/L ABG Total CO2 29 H (19-24) mmol/L ABG O2 Saturation 100.0 H (94-97) % ABG Base Excess 2.6 mmol/L FiO2 100 % Sodium (137-145) mmol/L Potassium (3.5-5.1) mmol/L Chloride (98-107) mmol/L Carbon Dioxide (22-30) mmol/L Anion Gap mmol/L BUN (9-20) mg/dL Creatinine (0.66-1.25) mg/dL Est GFR (MDRD) Af Amer (>60 ml/min/1.73 sqM) Est GFR (MDRD) Non-Af (>60 ml/min/1.73 sqM) Glucose (74-99) mg/dL Plasma Lactic Acid Geovani (0.7-2.0) mmol/L Calcium (8.4-10.2) mg/dL Total Bilirubin (0.2-1.3) mg/dL AST (17-59) U/L ALT (21-72) U/L Alkaline Phosphatase (38-126) U/L Total Creatine Kinase (55-170) U/L CK-MB (CK-2) (0.0-2.4) ng/mL CK-MB (CK-2) Rel Index Troponin I (0.000-0.034) ng/mL NT-Pro-B Natriuret Pep pg/mL Total Protein (6.3-8.2) g/dL Albumin (3.5-5.0) g/dL Urine Color Light Yellow Urine Appearance Turbid (Clear) Urine pH 8.0 (5.0-8.0) Ur Specific [place] 1.007 (1.001-1.035) Urine Protein 2+ H (Negative) Urine Glucose (UA) 1+ H (Negative) Urine Ketones Negative (Negative) Urine Blood Small H (Negative) Urine Nitrate Negative (Negative) Urine Bilirubin Negative (Negative) Urine Urobilinogen <2.0 (<2.0) mg/dL Ur Leukocyte Esterase Large H (Negative) Urine RBC 27 H (0-5) /hpf Urine WBC >182 H (0-5) /hpf Urine WBC Clumps Many H (None) /hpf Urine Bacteria Occasional H (None) /hpf Urine Mucus Rare H (None) /hpf Disposition Clinical Impression: Severe sepsis, Respiratory failure Disposition: ADMITTED IP TO THIS HOSP Condition: Critical
[2017-02-03] MEDS ORDERED: NOREPINEPHRINE 4 MG in SODIUM CHLORIDE 0.9% 250 ML IV SCH (04:30)
--- NOTE | 2017-02-03 04:47 | XR ---
EXAM: XR Chest, 1 View. CLINICAL HISTORY: Reason: ET placement TECHNIQUE: Frontal view of the chest. COMPARISON: 01/31/17 portable chest FINDINGS: Lungs: There are again findings of CHF including bilateral pleural effusions with obscuration of the left diaphragm and retrocardiac region for which underlying atelectasis or infiltrate cannot be distinguished. Pleural spaces: See above. Heart: Heart size and mediastinal contours are stable. Mediastinum: Stable. Bones: Stable including degenerative changes and slight rightward curvature of the thoracic spine. No acute fracture. Tubes and lines: New ET tube, in satisfactory position. New NG tube, extending into the stomach, side hole below the GE junction, tip not included. Left IJ central venous catheter is unchanged. IMPRESSION: New ET and NG tubes, as above. The balance of the exam is otherwise unchanged, as above.
[2017-02-03 04:55] LABS: Anisocytosis Slight; Basophils # (A) 0.1 k/uL (0-0.2); Basophils % (A) 1 %; CH 28.2; Eosinophils # (A) 0.2 k/uL (0-0.7); Eosinophils % (A) 1 %; HCT 33.6 % (39.0-53.0); HDW 3.11; HGB 9.5 gm/dL (13.0-17.5); Hypochromasia Marked; Luc # (Auto) 0.52; Luc % (Auto) 4; Lymphocytes % (A) 47 %; MCH 29.8 pg (25.0-35.0); MCHC 28.3 g/dL (31.0-37.0); Macrocytosis Marked; Mean Platelet Volume 8.8; Monocytes # (A) 0.4 k/uL (0-1.0); Monocytes % (A) 3 %; Neutrophils # (A) 6.6 k/uL (1.3-7.7); Neutrophils % (A) 45 %; RBC 3.19 m/uL (4.30-5.90); WBC 14.7 k/uL (3.8-10.6); WBC (Perox) 15.05
[2017-02-03 04:59] LABS: MCV 105.2 fL (80.0-100.0)
[2017-02-03] MEDS ORDERED: SODIUM CHLORIDE 0.9% 2,000 ML IV ONE (05:00)
[2017-02-03 05:12] LABS: Calcium 8.1 mg/dL (8.4-10.2)
[2017-02-03 05:23] LABS: ABG Base Excess -7.2 mmol/L; ABG HCO3 17 mmol/L (21-25); ABG PCO2 31 mmHg (35-45); ABG PH 7.37 (7.35-7.45); ABG PO2 204 mmHg (83-108); ABG TCO2 18 mmol/L (19-24)
[2017-02-03 05:24] LABS: Magnesium 2.3 mg/dL (1.6-2.3); Phosphorous 4.2 mg/dL (2.5-4.5); Potassium 4.8 mmol/L (3.5-5.1)
[2017-02-03] MEDS: IPRATROPIUM-ALBUTEROL 3 ML NEB INHALATION SCH ×4 (08:06→19:25)
[2017-02-03] MEDS ORDERED: EPINEPHrine 10 ML SYRINGE (0.1 MG/ML) ONE (08:46)
[2017-02-03] MEDS: INSULIN LISPRO (humaLOG) 300 UNIT/3 ML VIAL SQ SCH ×4 (09:18→21:02)
[2017-02-03] MEDS: NOREPINEPHRINE 16 MG in SODIUM CHLORIDE 0.9% 250 ML IV SCH ×2 (09:23→20:15)
[2017-02-03] MEDS: CHLORHEXIDINE GLUCONATE 15 ML CUP MUCOUS MEM SCH ×2 (09:29→20:13)
[2017-02-03] MEDS: HEPARIN SODIUM,PORCINE 5,000 UNIT/ML 1 ML VIAL SQ SCH ×3 (09:29→23:43)
[2017-02-03] MEDS: PANTOPRAZOLE 40 MG/10 ML VIAL IV SCH (09:29)
--- NOTE | 2017-02-03 11:20 | PN ---
Patient is seen for followup for end-stage renal disease. Early this morning at about 3 a.m. patient apparently had a cardiac arrest. He was intubated and brought into the ICU. He was hypotensive and is now maintained on Levophed at about 24 mcg. He is maintained on FiO2 at 100%. There was some ST elevation noted on his EKG per nursing, but I do not see any troponins or cardiac enzymes recently. Currently, patient is on the vent. FiO2 is at 100% , Levophed about 22mcg. He is getting fluid bolus. Blood pressure is 99/57, heart rate 93 per minute. He is afebrile. EXAMINATION OF THE HEART: S1 and S2. EXAMINATION OF THE LUNGS: Decreased breath sounds in the bases. ABDOMEN: Soft, nontender. 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 WORD PROCESSING SUPERVISOR exam is not performed. Labs are reviewed. Potassium is at 4.8, sodium 143. Hemoglobin 9.5 g/dL. ASSESSMENT: 1. End-stage renal disease on hemodialysis on a Sunday, Sunday, Sunday schedule. Patient did have his dialysis yesterday. Current chest x-ray shows findings of congestive heart failure and some pleural effusion; however, patient is oxygenating on the ventilator. FiO2 remains at 100%. He is quite hypotensive; therefore, we will hold off on any dialysis at this time. 2. Status post cardiac arrest. Check cardiac enzymes, rule out myocardial infarction. 3. Sepsis with the sputum culture growing Proteus and Klebsiella oxytoca and urine culture growing pseudomonas; maintained on antibiotics. 4. Anemia of chronic disease. Currently on Aranesp. 5. Ventilator -dependent respiratory failure. PLAN: Check cardiac enzymes. Continue pressors. No dialysis for now. Overall prognosis is guarded.
[2017-02-03 12:17] LABS: Creatine Kinase MB 8.6 ng/mL (0.0-2.4); Troponin I 27.9 ng/mL (0.000-0.034)
--- NOTE | 2017-02-03 12:34 | P.PN ---
Subjective This is an 81-year-old gentleman admitted back on 01/28/2017 for shortness of breath and altered mental status. He was initially intubated in the emergency room for respiratory failure. His sputum was positive for Proteus and Klebsiella. He had been seen and followed here in the intensive care unit for several days and was successfully extubated and out on the regular selective care unit. His urine cultures were positive for Pseudomonas. Last evening he developed ST segment elevations and subsequent pulseless electrical activity and a cardiopulmonary arrest and was reintubated and placed back here in the intensive care unit. He required approximately 15 minutes of resuscitation prior to developing spontaneous return of circulation. He remains intubated and on the vent with current vent settings of assist control of 22 tidal volume 400 FiO2 50% and a PEEP of 5. Morning blood gases reveal a P O2 of 204, pCO2 31 , pH 7.37. His FiO2 is decreased from 100-50%. He is currently sedated on propofol at 25 mcg/kg/m. He is requiring norepinephrine at 25 mcg/m. He has a 0.9 at 100 MLS per hour. He did receive 2 L IV bolus as well. His chest x-ray does show evidence of bilateral pleural effusions with congestive heart failure. Todays troponin is 27.9. Objective - Vital Signs Vital signs: Vital Signs Temp 99.0 F 02/03/17 09:00 Pulse 96 02/03/17 11:00 Resp 14 02/03/17 11:00 BP 92/61 02/03/17 11:00 Pulse Ox 100 02/03/17 11:00 Intake & Output 02/02/17 02/03/17 02/03/17 18:59 06:59 18:59 Intake Total 265 2002.808 1218.185 Output Total 250 23 Balance 265 0752.027 3515.185 Weight 72 kg Intake: IV 65 1999 1100 Invasive Line 5 65 Sodium Chloride 0.9% 11999 1100 000 ml @ 10 mls/hr IV . Q24H [facility] Rx#:[id number] Intake, IV Titration 2.808 118.185 Amount Norepinephrine 16 mg In 27.293 Sodium Chloride 0.9% 250 ml @ Titrate IV .Q0M [facility] Rx#:[id number] Norepinephrine 4 mg In 41 Sodium Chloride 0.9% 250 ml @ Titrate IV .Q0M [facility] Rx#:[id number] Propofol 500 mg In Empty 2.808 49.892 Bag 1 bag @ Titrate IV . Q0M [facility] Rx#:[id number] Oral 200 Output: Urine 250 23 Other: Voiding Method Indwelling Catheter Indwelling Catheter # Bowel Movements 1 1 - Exam GENERAL EXAM: Sedated, intubated. HEAD: Normocephalic. EYES: Sluggish reaction of pupils, equal size. NOSE: Clear with pink turbinates. THROAT: No erythema or exudates. NECK: No masses, slight JVD. CHEST: No chest wall deformity. Hemodialysis catheter in the left chest. LUNGS: Equal air entry with few scattered rhonchi, crackles in the bases. CVS: S1 and S2 normal with an audible murmur, regular rhythm. ABDOMEN: No hepatosplenomegaly, normal bowel sounds, no guarding or rigidity. Extremities: Right groin central line in place. He has a bilateral below amputee. - Labs CBC & Chem 7: 02/03/17 04:20 02/03/17 04:20 Labs: Abnormal Lab Results - Last 24 Hours (Table) 02/02/17 02/02/17 02/03/17 Range/Units 16:35 20:43 03:34 WBC (3.8-10.6) k/uL RBC (4.30-5.90) m/uL Hgb (13.0-17.5) gm/dL Hct (39.0-53.0) % MCV (80.0-100.0) fL MCHC (31.0-37.0) g/dL RDW (11.5-15.5) % Plt Count (150-450) k/uL Lymphocytes # (1.0-4.8) k/uL ABG pCO2 (35-45) mmHg ABG pO2 (83-108) mmHg ABG HCO3 (21-25) mmol/L ABG Total CO2 (19-24) mmol/L ABG O2 Saturation (94-97) % Chloride (98-107) mmol/L Carbon Dioxide (22-30) mmol/L Creatinine (0.66-1.25) mg/dL Glucose (74-99) mg/dL POC Glucose (mg/dL) 132 H 118 H 125 H (75-99) mg/dL Calcium (8.4-10.2) mg/dL 02/03/17 02/03/17 02/03/17 Range/Units 04:20 04:20 05:11 WBC 14.7 H (3.8-10.6) k/uL RBC 3.19 L (4.30-5.90) m/uL Hgb 9.5 L (13.0-17.5) gm/dL Hct 33.6 L (39.0-53.0) % MCV 105.2 H D (80.0-100.0) fL MCHC 28.3 L (31.0-37.0) g/dL RDW 17.0 H (11.5-15.5) % Plt Count 112 L (150-450) k/uL Lymphocytes # 7.0 H (1.0-4.8) k/uL ABG pCO2 31 L (35-45) mmHg ABG pO2 204 H (83-108) mmHg ABG HCO3 17 L (21-25) mmol/L ABG Total CO2 18 L (19-24) mmol/L ABG O2 Saturation 100.0 H (94-97) % Chloride 112 H (98-107) mmol/L Carbon Dioxide 15 L (22-30) mmol/L Creatinine 2.40 H (0.66-1.25) mg/dL Glucose 122 H (74-99) mg/dL POC Glucose (mg/dL) (75-99) mg/dL Calcium 8.1 L (8.4-10.2) mg/dL Assessment and Plan Plan: Impression: #[address] segment elevation with subsequent cardiopulmonary arrest requiring 15 minutes of resuscitation. #2 Acute hypoxic respiratory failure secondary to above requiring intubation mechanical ventilatory support. #3 Initial presentation of acute respiratory failure requiring intubation and mechanical ventilatory support with successful extubation. #4 Acute pneumonia secondary to Proteus mirabilis and Klebsiella. #5 Acute urinary tract infection secondary to Pseudomonas. #6 Sepsis secondary to above. #7 End-stage renal disease requiring hemodialysis. #8 Alzheimer's dementia. #9 Diabetes mellitus. #10 Poor overall functional performance secondary to the above-mentioned multiple comorbidities. Plan: The patient was seen and evaluated by Dr. Rubi. His chest x-ray labs ABGs were reviewed. He is on appropriate antibiotics in the form of ceftazidime and bronchodilators. The FiO2 will be titrated down while maintaining O2 saturations greater than 90%. We'll repeat his chest x-ray and ABGs in the a.m. Dr. Johnston had another lengthy discussion with the patient's 2 daughters who are at the bedside regarding his overall poor prognosis. They wish to keep the patient a full code for another 24 hours. We did offer to transfer the patient to a tertiary care center however they declined at this time. We will reevaluate the patient again in the a.m. and have further discussions with the daughters.
[2017-02-03 13:24] LABS: Glucose,Whole Blood 140 mg/dL (75-99)
[2017-02-03] MEDS: SODIUM CHLORIDE 0.9% 1,000 ML IV SCH (17:49)
[2017-02-03 18:08] LABS: Glucose,Whole Blood 128 mg/dL (75-99)
--- NOTE | 2017-02-03 19:54 | PN ---
DATE OF SERVICE: 02/03/2017 PRESENTING COMPLAINT: Intubated. INTERVAL HISTORY: This is a patient with multiple problems who is on hemodialysis, initially presented with UTI sepsis, acute hypoxic respiratory failure, was on the ventilator and was extubated. I talked with the family yesterday about trying to make him DNR but they wanted him to be FULL CODE. Last night patient had a cardiac arrest with pulseless electrical activity and then had to be intubated after being coded. Patient has been on IV propofol and Levophed on the ventilator with FiO2 of 50 and PEEP of 5. Earlier Dr. Rubi spoke to the patient's 2 daughters. They wish to keep him FULL CODE. Review of systems cannot be done; patient is intubated. Current medications include IV ceftazidime, IV propofol and Levophed. On examination, temperature 99, pulse 99, respiration 20, blood pressure 92/56, pulse ox 100% on FiO2 of 50%. GENERAL APPEARANCE: Lying in bed, intubated. EYES: Pupils equal. Conjunctivae pale. NECK: JVD unable to assess. Mass not palpable. LUNGS: Diminished breath sounds. CARDIOVASCULAR: First and second sounds, no edema. ABDOMEN: Soft, nontender. Liver and spleen not palpable. CHEST WALL: Hemodialysis catheter on the left side. NEUROLOGICAL: The patient does respond and then dozes off. INVESTIGATIONS: White count 14.7, hemoglobin 9.5. Potassium 4.8. BUN 50, creatinine 2.40, troponin 27.9. ASSESSMENT: 1. Acute cardiac arrest with pulseless electrical activity in a patient with multiple medical problems. 2. Acute pneumonia, suspect gram-negative organism causing severe sepsis on presentation. Cultures positive for Proteus mirabilis and Klebsiella oxytoca. 3. Acute urinary tract infection from Pseudomonas aeruginosa, present on admission related to chronic Norman catheter. 4. Septic shock on presentation from above. 5. End-stage kidney disease on hemodialysis. 6. Chronic obstructive pulmonary disease in an ex-smoker. 7. Alzheimer's dementia, late onset type, chronic. 8. Diabetes mellitus type 2. 9. Chronic urine outflow obstruction. The patient has a chronic Norman catheter. 10. Stage II sacral decubitus ulcer, present on admission. 11. Normocytic anemia secondary to chronic kidney disease. 12. Moderate protein calorie malnutrition with decreased muscle mass. 13. CODE STATUS: FULL CODE. 14. Cardiogenic shock. The patient is on pressor support. 15. Acute hypoxic respiratory failure. Patient being supported by ventilator. PLAN: Prognosis remains very poor. Unfortunately patient remains FULL CODE per the daughters. Dr. Rubi already spoke to them earlier. At this point continue current medication and treatment plan. Will follow.
[2017-02-03 21:03] LABS: Glucose,Whole Blood 115 mg/dL (75-99)
--- NOTE | 2017-02-03 21:05 | P.PN ---
Subjective Principal diagnosis: Respiratory failure 81-year-old male well-known to the infectious disease service, recently was hospitalized with a bout of pneumonia as well as bacteremia related to his hemodialysis catheter. He has significant sepsis at that time. Dialysis catheter was removed. Sepsis improved in a new catheter was placed in left anterior chest wall. Patient was receiving his course of outpatient intravenous antibiotic therapy. At admission the patient had evidence of respiratory failure required intubation sedation and mechanical ventilation. he was noted to have EKG changes. There is elevated CK and troponins also. He eventually improved and was extubated. We'll get the medical floor. Receiving his hemodialysis and plans for completion of his intravenous antibiotic therapy at home for his urinary infection and pulmonary infection. Patient however suffered a cardiopulmonary arrest last night. Appear to be somewhat protracted. Is now back in intensive care unit intubated sedated and mechanically ventilated. The family has been in contact with the critical care team. The futility of the care has been expressed. The family however is struggling to make decisions in his care continues for the moment. Objective - Vital Signs Vital signs: Vital Signs Temp 97.7 F 02/03/17 20:00 Pulse 98 02/03/17 20:00 Resp 22 02/03/17 20:00 BP 100/57 02/03/17 20:00 Pulse Ox 99 02/03/17 20:00 Intake & Output 02/03/17 02/03/17 02/04/17 06:59 18:59 07:59 Intake Total 2002.808 1993.745 248.707 Output Total 250 38 5 Balance 3637.562 8958.745 243.707 Weight 72 kg Intake: IV 1999 1800 10 Sodium Chloride 0.9% 1999 1800 10 000 ml @ 10 mls/hr IV . Q24H [facility] Rx#:[id number] Intake, IV Titration 2.808 193.745 238.707 Amount Norepinephrine 16 mg In 27.293 238.707 Sodium Chloride 0.9% 250 ml @ Titrate IV .Q0M [facility] Rx#:[id number] Norepinephrine 4 mg In 41 Sodium Chloride 0.9% 250 ml @ Titrate IV .Q0M [facility] Rx#:[id number] Propofol 500 mg In Empty 2.808 125.452 Bag 1 bag @ Titrate IV . Q0M [facility] Rx#:[id number] Output: Urine 250 38 5 Other: Voiding Method Indwelling Catheter Indwelling Catheter Indwelling Catheter # Bowel Movements 1 - Exam Patient is Intubated sedated and mechanically ventilated HEENT: Anicteric conjunctiva are pink and moist nasal mucosa grossly intact without significant lesions, there is no thrush. Neck: The neck is supple without significant lymphadenopathy or thyromegaly. Lungs: There is symmetrical air entry. Basilar crackles are heard. Heart: Irregular with an audible S1 and S2 loud S4 no distinct murmur click or rub Abdomen: Positive bowel sounds soft and nontender without palpable masses or organomegaly. There was no guarding or rebound. Extremities: Extremities have evidence of some generalized edema. He does have evidence of the bilateral below-knee amputation. Residual limbs are without evidence of infection at this time. Please see the nursing photography regarding the pressure ulcerations to the buttocks.also has minimal irritation to his legs left patella right distal residual limb with the dressings in place. Neuro: intubated and sedated Genitalia has evidence of the splayed penis, and some irritation for which zinc cream is applied. the new irritation to the right distal residual limb, likely abrasion - Labs CBC & Chem 7: 02/03/17 04:20 02/03/17 04:20 Labs: Abnormal Lab Results - Last 24 Hours (Table) 02/03/17 02/03/17 02/03/17 Range/Units 03:34 04:20 04:20 WBC 14.7 H (3.8-10.6) k/uL RBC 3.19 L (4.30-5.90) m/uL Hgb 9.5 L (13.0-17.5) gm/dL Hct 33.6 L (39.0-53.0) % MCV 105.2 H D (80.0-100.0) fL MCHC 28.3 L (31.0-37.0) g/dL RDW 17.0 H (11.5-15.5) % Plt Count 112 L (150-450) k/uL Lymphocytes # 7.0 H (1.0-4.8) k/uL ABG pCO2 (35-45) mmHg ABG pO2 (83-108) mmHg ABG HCO3 (21-25) mmol/L ABG Total CO2 (19-24) mmol/L ABG O2 Saturation (94-97) % Chloride 112 H (98-107) mmol/L Carbon Dioxide 15 L (22-30) mmol/L Creatinine 2.40 H (0.66-1.25) mg/dL Glucose 122 H (74-99) mg/dL POC Glucose (mg/dL) 125 H (75-99) mg/dL Calcium 8.1 L (8.4-10.2) mg/dL CK-MB (CK-2) (0.0-2.4) ng/mL Troponin I (0.000-0.034) ng/mL 02/03/17 02/03/17 02/03/17 Range/Units 04:20 05:11 13:21 WBC (3.8-10.6) k/uL RBC (4.30-5.90) m/uL Hgb (13.0-17.5) gm/dL Hct (39.0-53.0) % MCV (80.0-100.0) fL MCHC (31.0-37.0) g/dL RDW (11.5-15.5) % Plt Count (150-450) k/uL Lymphocytes # (1.0-4.8) k/uL ABG pCO2 31 L (35-45) mmHg ABG pO2 204 H (83-108) mmHg ABG HCO3 17 L (21-25) mmol/L ABG Total CO2 18 L (19-24) mmol/L ABG O2 Saturation 100.0 H (94-97) % Chloride (98-107) mmol/L Carbon Dioxide (22-30) mmol/L Creatinine (0.66-1.25) mg/dL Glucose (74-99) mg/dL POC Glucose (mg/dL) 140 H (75-99) mg/dL Calcium (8.4-10.2) mg/dL CK-MB (CK-2) 8.6 H* (0.0-2.4) ng/mL Troponin I 27.900 H* (0.000-0.034) ng/mL 02/03/17 Range/Units 18:05 WBC (3.8-10.6) k/uL RBC (4.30-5.90) m/uL Hgb (13.0-17.5) gm/dL Hct (39.0-53.0) % MCV (80.0-100.0) fL MCHC (31.0-37.0) g/dL RDW (11.5-15.5) % Plt Count (150-450) k/uL Lymphocytes # (1.0-4.8) k/uL ABG pCO2 (35-45) mmHg ABG pO2 (83-108) mmHg ABG HCO3 (21-25) mmol/L ABG Total CO2 (19-24) mmol/L ABG O2 Saturation (94-97) % Chloride (98-107) mmol/L Carbon Dioxide (22-30) mmol/L Creatinine (0.66-1.25) mg/dL Glucose (74-99) mg/dL POC Glucose (mg/dL) 128 H (75-99) mg/dL Calcium (8.4-10.2) mg/dL CK-MB (CK-2) (0.0-2.4) ng/mL Troponin I (0.000-0.034) ng/mL Laboratory Results WBC 14.7 k/uL (3.8-10.6) H 02/03/17 04:20 RBC 3.19 m/uL (4.30-5.90) L 02/03/17 04:20 Hgb 9.5 gm/dL (13.0-17.5) L 02/03/17 04:20 Hct 33.6 % (39.0-53.0) L 02/03/17 04:20 MCV 105.2 fL (80.0-100.0) H D 02/03/17 04:20 MCH 29.8 pg (25.0-35.0) 02/03/17 04:20 MCHC 28.3 g/dL (31.0-37.0) L 02/03/17 04:20 RDW 17.0 % (11.5-15.5) H 02/03/17 04:20 Plt Count 112 k/uL (150-450) L 02/03/17 04:20 Neutrophils % 45 % 02/03/17 04:20 Neutrophils % (Manual) 66.0 % 02/02/17 05:45 Lymphocytes % 47 % 02/03/17 04:20 Lymphocytes % (Manual) 19.0 % 02/02/17 05:45 Monocytes % 3 % 02/03/17 04:20 Monocytes % (Manual) 9.0 % 02/02/17 05:45 Eosinophils % 1 % 02/03/17 04:20 Eosinophils % (Manual) 4.0 % 02/02/17 05:45 Basophils % 1 % 02/03/17 04:20 Basophils % (Manual) 2.0 % 02/02/17 05:45 Neutrophils # 6.6 k/uL (1.3-7.7) 02/03/17 04:20 Neutrophils # (Manual) 3.4 k/uL (1.3-7.7) 02/02/17 05:45 Lymphocytes # 7.0 k/uL (1.0-4.8) H 02/03/17 04:20 Lymphocytes # (Manual) 1.0 k/uL (1.0-4.8) 02/02/17 05:45 Monocytes # 0.4 k/uL (0-1.0) 02/03/17 04:20 Monocytes # (Manual) 0.5 k/uL (0-1.0) 02/02/17 05:45 Eosinophils # 0.2 k/uL (0-0.7) 02/03/17 04:20 Eosinophils # (Manual) 0.2 k/uL (0-0.7) 02/02/17 05:45 Basophils # 0.1 k/uL (0-0.2) 02/03/17 04:20 Basophils # (Manual) 0.1 k/uL (0-0.2) 02/02/17 05:45 Nucleated RBCs 0 /100 WBC (0-0) 02/02/17 05:45 Manual Slide Review Performed 02/02/17 05:45 Hypochromasia Marked 02/03/17 04:20 Poikilocytosis Slight 02/02/17 05:45 Anisocytosis Slight 02/03/17 04:20 Macrocytosis Marked 02/03/17 04:20 PT 10.2 sec (9.0-12.0) 02/01/17 05:31 INR 1.0 (<1.1) 02/01/17 05:31 APTT 23.0 sec (22.0-30.0) 02/01/17 05:31 Sample Site RRAD 02/03/17 05:11 ABG pH 7.37 (7.35-7.45) 02/03/17 05:11 ABG pCO2 31 mmHg (35-45) L 02/03/17 05:11 ABG pO2 204 mmHg (83-108) H 02/03/17 05:11 ABG HCO3 17 mmol/L (21-25) L 02/03/17 05:11 ABG Total CO2 18 mmol/L (19-24) L 02/03/17 05:11 ABG O2 Saturation 100.0 % (94-97) H 02/03/17 05:11 ABG Base Excess -7.2 mmol/L 02/03/17 05:11 FiO2 100 % 02/03/17 05:11 Sodium 143 mmol/L (137-145) 02/03/17 04:20 Potassium 4.8 mmol/L (3.5-5.1) 02/03/17 04:20 Chloride 112 mmol/L (98-107) H 02/03/17 04:20 Carbon Dioxide 15 mmol/L (22-30) L 02/03/17 04:20 Anion Gap 16 mmol/L 02/03/17 04:20 BUN 15 mg/dL (9-20) 02/03/17 04:20 Creatinine 2.40 mg/dL (0.66-1.25) H 02/03/17 04:20 Est GFR (MDRD) Af Amer 31 (>60 ml/min/1.73 sqM) 02/03/17 04:20 Est GFR (MDRD) Non-Af 26 (>60 ml/min/1.73 sqM) 02/03/17 04:20 Glucose 122 mg/dL (74-99) H 02/03/17 04:20 POC Glucose (mg/dL) 128 mg/dL (75-99) H 02/03/17 18:05 POC Glu [employer] Grade Teacher ID Luz Fuller 02/03/17 18:[address] Glu mg/dL 94 mg/dL 01/29/17 12:08 Hemoglobin A1c 4.9 % (4.2-6.1) 01/29/17 12:08 Plasma Lactic Acid Geovani 1.2 mmol/L (0.7-2.0) 01/29/17 04:09 Calcium 8.1 mg/dL (8.4-10.2) L 02/03/17 04:20 Phosphorus 4.2 mg/dL (2.5-4.5) 02/03/17 04:20 Magnesium 2.3 mg/dL (1.6-2.3) 02/03/17 04:20 Total Bilirubin 0.3 mg/dL (0.2-1.3) 01/29/17 04:09 AST 60 U/L (17-59) H 01/29/17 04:09 ALT 34 U/L (21-72) 01/29/17 04:09 Alkaline Phosphatase 85 U/L (38-126) 01/29/17 04:09 Total Creatine Kinase 452 U/L (55-170) H 01/29/17 04:09 CK-MB (CK-2) 8.6 ng/mL (0.0-2.4) H* 02/03/17 04:20 CK-MB (CK-2) Rel Index 11.4 01/29/17 04:09 Troponin I 27.900 ng/mL (0.000-0.034) H* 02/03/17 04:20 NT-Pro-B Natriuret Pep 84063 pg/mL 01/28/17 18:30 Total Protein 4.8 g/dL (6.3-8.2) L 01/29/17 04:09 Albumin 2.1 g/dL (3.5-5.0) L 01/29/17 04:09 Urine Color Light Yellow 01/28/17 19:37 Urine Appearance Turbid (Clear) 01/28/17 19:37 Urine pH 8.0 (5.0-8.0) 01/28/17 19:37 Ur Specific [place] 1.007 (1.001-1.035) 01/28/17 19:37 Urine Protein 2+ (Negative) H 01/28/17 19:37 Urine Glucose (UA) 1+ (Negative) H 01/28/17 19:37 Urine Ketones Negative (Negative) 01/28/17 19:37 Urine Blood Small (Negative) H 01/28/17 19:37 Urine Nitrate Negative (Negative) 01/28/17 19:37 Urine Bilirubin Negative (Negative) 01/28/17 19:37 Urine Urobilinogen <2.0 mg/dL (<2.0) 01/28/17 19:37 Ur Leukocyte Esterase Large (Negative) H 01/28/17 19:37 Urine RBC 27 /hpf (0-5) H 01/28/17 19:37 Urine WBC >182 /hpf (0-5) H 01/28/17 19:37 Urine WBC Clumps Many /hpf (None) H 01/28/17 19:37 Urine Bacteria Occasional /hpf (None) H 01/28/17 19:37 Urine Mucus Rare /hpf (None) H 01/28/17 19:37 C. difficile Tox (PCR) (Not Detectd) 01/30/17 04:45 Miscellaneous Test PT/INR/PTT 01/29/17 04:09 Misc Test Result 01/29/17 04:09 Blood Type O Positive 01/30/17 05:36 Blood Type Recheck No 01/30/17 05:36 Antibody Screen NEGATIVE 01/30/17 05:36 Crossmatch See Detail 01/30/17 05:36 Spec Expiration Date 02/02/2017 03301/30/17 05:36 Microbiology 01/28/17 19:30 Blood Blood Culture - Preliminary No Growth after 120 hours 01/28/17 19:30 Sputum Gram Stain - Final 01/28/17 19:30 Sputum Sputum Culture - Final Proteus mirabilis Klebsiella oxytoca 01/28/17 19:37 Urine,Clean Catch Urine Culture - Final Pseudomonas aeruginosa Assessment and Plan (1) Respiratory failure Narrative/Plan: 81-year-old male who has complex underlying medical illness with dementia, end-stage renal disease on dialysis, recent bout of sepsis from his dialysis catheter which is being treated with Ceftaroline. The patient is now had improvement of his status. He has been extubated. He is sitting upright and tolerating his dialysis well without hypotension. He is conversational near his baseline. The urine culture has shown evidence of pseudomonas aeruginosa sputum culture with Proteus mirabilis. Both are susceptible to ceftazidime. The patient's prior catheter related sepsis has now been effectively treated for 4 weeks. No evidence of any ongoing bacteremia this time. Constantly to Ceftaroline is discontinued. We'll plan a 10 day course of ceftazidime for his current gram-negative sepsis from the urinary system. worked with the home care and discharge planners. We'll be able to receive his dose of ceftazidime after hemodialysis over the next 10 days. Home care will supply will take the dialysis center for infusion. She has now had cardiopulmonary arrest. He is doing very poorly. Likely will be made comfort care tomorrow. If so will not need further antibiotic therapy. Comfort care is appropriate Status: Acute (2) Severe sepsis Status: Acute (3) Chronic indwelling Norman catheter Status: Acute
[2017-02-04] MEDS: PROPOFOL 500 MG in EMPTY BAG 1 BAG IV SCH ×4 (03:11→21:20)
[2017-02-04] MEDS: NOREPINEPHRINE 16 MG in SODIUM CHLORIDE 0.9% 250 ML IV SCH ×3 (03:39→20:10)
[2017-02-04 05:15] LABS: Calcium 7.9 mg/dL (8.4-10.2); Phosphorous 5.9 mg/dL (2.5-4.5); Potassium 4.9 mmol/L (3.5-5.1)
[2017-02-04 05:49] LABS: ABG HCO3 12 mmol/L (21-25); ABG PCO2 27 mmHg (35-45); ABG PH 7.26 (7.35-7.45); ABG PO2 70 mmHg (83-108); ABG TCO2 13 mmol/L (19-24)
[2017-02-04 05:50] LABS: Anisocytosis Slight; CH 28.3; CHCM 27.5; HCT 39.9 % (39.0-53.0); HDW 3.03; HGB 11.5 gm/dL (13.0-17.5); Hypochromasia Marked; MCH 29.9 pg (25.0-35.0); MCHC 28.8 g/dL (31.0-37.0); MCV 103.7 fL (80.0-100.0); Macrocytosis Moderate; Mean Platelet Volume 9.9; RBC 3.85 m/uL (4.30-5.90); RDW 16.9 % (11.5-15.5); WBC 22.8 k/uL (3.8-10.6); WBC (Perox) 23.55
[2017-02-04] MEDS ORDERED: DEXTROSE 5% IN WATER 1,000 ML with SODIUM BICARB (1 MEQ/ML) 150 ML IV ONE (07:00)
[2017-02-04] MEDS: IPRATROPIUM-ALBUTEROL 3 ML NEB INHALATION SCH ×4 (07:40→19:24)
--- NOTE | 2017-02-04 07:44 | XR ---
EXAMINATION TYPE: XR chest 1V DATE OF EXAM: 02/04/2017 6:31 AM COMPARISON: 02/03/2017 HISTORY: Shortness of breath TECHNIQUE: Single frontal view of the chest is obtained. FINDINGS: There is now a large right hydropneumothorax with approximately 70% pneumothorax. Heart si ze and position is stable from previous exam. Small left effusion seen. Underlying COPD suspected. ET tube and central line stable. IMPRESSION: 1. Progression of pneumothorax on the right large right hydropneumothorax now seen measuring greater than 70%. Report telephoned to the ICU. 2. Small left effusion and basilar consolidation. Correlate for CHF.
[2017-02-04] MEDS: CHLORHEXIDINE GLUCONATE 15 ML CUP MUCOUS MEM SCH ×2 (08:40→20:17)
[2017-02-04] MEDS: HEPARIN SODIUM,PORCINE 5,000 UNIT/ML 1 ML VIAL SQ SCH ×2 (08:40→16:25)
[2017-02-04] MEDS: PANTOPRAZOLE 40 MG/10 ML VIAL IV SCH (08:40)
[2017-02-04] MEDS: INSULIN LISPRO (humaLOG) 300 UNIT/3 ML VIAL SQ SCH ×4 (08:40→21:09)
--- NOTE | 2017-02-04 09:43 | P.CON ---
Consult Note - . Consult date: 02/04/17 Assessment/Plan:: Thoracic surgery consult: Reason for consult: Right hydropneumothorax. History chief complaint: This is an 81-year-old gentleman on chronic dialysis for end-stage renal failure. He is currently cared for at home by 2 daughters apparently. He has been intubated and underwent a full code yesterday. He is status post bilateral above-knee amputations. He is currently fully sedated and on the vent. He is currently requiring large amounts of Levophed to maintain an adequate blood pressure. Please refer to medicine notes for more detailed history. Review of systems is not possible at this time related to his intubation and sedation. Physical examination: Sedated 81-year-old gentleman resting on a ventilator. HEENT: Patient intubated. Dialysis catheter in right internal jugular Lungs: Slight decreased breath sounds right. Abdomen: Soft and benign Status post bilateral above-knee amputations with well-healed stumps. Chest x-ray shows greater than 50% right hydropneumothorax. Impression: Right hydropneumothorax with patient on the ventilator and requiring vasopressors. Multiple other comorbidities as described by other specialists. Recognition: Agree with other providers that comfort care should be considered strongly. In the meantime in view of the family is desire to maintain a full CODE STATUS, recommend placing a right-sided chest tube. We'll follow as needed.
--- NOTE | 2017-02-04 09:46 | P.PCN ---
Date of Procedure: 02/04/17 Preoperative Diagnosis: Right hydropneumothorax Postoperative Diagnosis: Same with some degree of tension pneumothorax Procedure(s) Performed: Insertion of right thoracostomy tube Anesthesia: local Surgeon: Deven Velasco Estimated Blood Loss (ml): 5 Pathology: none sent Condition: other (Unchanged) Disposition: no change Indications for Procedure: Patient has a large right hydropneumothorax on chest x-ray. He is requiring vasopressors. Operative Findings: On inserting the tube there was a pressure gush of air consistent with tension pneumothorax. We also received serosanguineous fluid. Description of Procedure: With the patient in supine position, with IV sedation, we prepped and draped in standard fashion. We anesthetized with 1% lidocaine beneath the seventh rib and in the sixth interspace approximately and in the anterior axillary line. We made an incision beneath the seventh rib and in the sixth interspace entered the chest using a hemostat. We dilated the opening. Through this we placed a 28 Combs chest tube and directed it to the apex. It was secured to skin using Ethibond. Sterile dressings were applied. Condition remained unchanged during procedure.
--- NOTE | 2017-02-04 10:50 | P.PN ---
Subjective Progress note dated 01/30/2017 This is a 81-year-old gentleman that I saw yesterday in consultation. The patient came in with difficulty breathing and mental status changes. He was intubated in the emergency room for respiratory failure. He came in with a diagnosis of respiratory failure fluid overload secondary to his chronic kidney disease and chronic hemodialysis as well as sepsis. He was admitted to the hospital on January 29. Yesterday here in the ICU I put a right femoral vein triple lumen catheter in. He still currently on the ventilator. I did have a chance to talk to his 2 daughters today. He is currently appointment 9 IV at 20 mL an hour the Brovana 15 mics per kilogram per minute levo fed is currently off these received 2 units of PRBCs. Having hemodialysis today. He is getting vital 1.245 with a goal of 45. His vent settings include the assist control mode rate 2210 400 FiO2 30% to be dropped to 25% PEEP of 5. Arterial blood gases show pO2 of 105 pCO2 of 30. 7.47. Gases are consistent with normoactive see me and a mild respiratory alkalosis. After dialysis and after 2 units of blood, we will do a daily eruption of sedation see if the patient is ready for extubation. I did tell the family that should he not show improvement, we will we will be talking about CODE STATUS changes and/or tracheostomy and feeding tube placement down the road. Progress note dated 01/31/2017 81-year-old male with a history of a difficulty breathing in mental status changes. He was intubated in the emergency room for respiratory failure. Yesterday, the patient's spontaneous breathing trial 1 very well and is weaning parameters were excellent. He was extubated extubated successfully. I was in contact with the nurse entire time. Her and the respiratory therapist make a decision to extubate based on my recommendations. Currently the patient is on O2 at 2 L. Getting an IV appointment 90 KVO. Hemodialysis as scheduled for today. The patient's chest x-ray shows bilateral fluid in the lungs more the right than on the left side. Certainly his x-rays improved from his initial her admission x-ray. He is awake and alert. Speech pathology is in the room. Him in terms of a swallow evaluation. Progress note dated 02/01/2017 The patient seemed to be doing better. Moved out of the ICU yesterday. Undergoing hemodialysis. The patient's respiratory status has improved. The patient still has a right femoral vein triple lumen catheter in place. Speech pathology is seen the patient. We'll continue to see as needed. Infectious disease is on the case. Progress note dated 02/04/2017 81-year-old white male who was admitted back on January 28. He came in with mental status changes and shortness of breath. He was initially intubated in the emergency department respiratory failure. His sputum was positive for both Proteus and Klebsiella and a urine that was positive for Pseudomonas. He did well here in the ICU was eventually extubated. He was sent out to the floor. The patient does have a history of chronic kidney disease currently on 3 time a week hemodialysis. More recently, he developed ST segment elevation and became pulseless with PDA and was resuscitated and intubated and brought back to the ICU. We've had long discussions with the family about CODE STATUS. There are insistent on full code at this time. Today, the nurse call me and told me that he had a large right-sided hydropneumothorax. This was a new finding. Dr. Velasco was kind enough the common up with chest tube in. The patient's currently still on the ventilator. Not yet ready for weaning. He 's on the assist control mode rate of 22 timeline 400 FiO2 50% PEEP of 5 blood gases show pO2 of 70 pCO2 of 27 a piece 0.26. This is consistent with metabolic acidosis. He's an IV of D5W with 3 A of bicarbonate at 100 mL an hour propofol at 30 mics per kilogram per minute and levo fed at 50 mics per minute. That's his max. A right chest chest tube was placed and 1300 mL of fluid exited the right hemothorax. Tube feedings will be started today. Objective - Vital Signs Vital signs: Vital Signs Temp 100.2 F H 02/04/17 08:00 Pulse 110 H 02/04/17 10:00 Resp 25 H 02/04/17 10:00 BP 118/58 02/04/17 10:00 Pulse Ox 100 02/04/17 10:00 Intake & Output 02/03/17 02/04/17 02/04/17 17:59 06:59 18:59 Intake Total 576.000 Output Total 2630 Balance -2053.000 Weight Intake: IV 10 Sodium Chloride 0.9% 1, 10 000 ml @ 10 mls/hr IV . Q24H [facility] [place] Rx#:[id number] Intake, IV Titration 566.000 Amount Dextrose 5% in Water 1, 300 000 ml @ 100 mls/hr IV . [id number] ONE with Sodium Bicarb (1 Meq/ml) 150 ml Rx#:[id number] Norepinephrine 16 mg In 266.000 Sodium Chloride 0.9% 250 ml @ Titrate IV .Q0M [facility] Rx#:[id number] Norepinephrine 4 mg In Sodium Chloride 0.9% 250 ml @ Titrate IV .Q0M [facility] Rx#:[id number] Propofol 500 mg In Empty Bag 1 bag @ Titrate IV . Q0M [facility] Rx#:[id number] Tube Feeding 0 Output: Chest Tube Drainage 2630 Right Lateral Chest 2630 Urine 0 Other: Voiding Method Indwelling Catheter - Exam No acute distress, oriented 3. Nasal O2 in place HEENT examinations unremarkable. Neck supple. Full range of motion. Cardiovascular examination reveals regular rhythm rate. S1-S2 normal. Lungs reveal some coarse rhonchi. Breath sounds are diminished. Some bibasilar crackles. Abdomen soft. Extremities are intact. Bilateral amputee. Right femoral vein site looks good. Exam dated 02/04/2017 No acute distress, the patient's currently sedated. NG tube and endotracheal tube are in good position. I right chest sided chest tube is noted. HEENT examination is grossly unremarkable. Neck supple. Cardiovascular examination reveals regular rhythm rate. Lungs reveal diminished breath sounds on the right. A few scattered bilateral rhonchi are noted. Abdomen soft. Is a bilateral lower extremity amputee. Right femoral vein triple lumen catheter that I put in earlier this week looks good. - Labs CBC & Chem 7: 02/04/17 04:42 02/04/17 04:42 Labs: Abnormal Lab Results - Last 24 Hours (Table) 02/03/17 02/03/17 02/03/17 Range/Units 04:20 13:21 18:05 WBC (3.8-10.6) k/uL RBC (4.30-5.90) m/uL Hgb (13.0-17.5) gm/dL MCV (80.0-100.0) fL MCHC (31.0-37.0) g/dL RDW (11.5-15.5) % ABG pH (7.35-7.45) ABG pCO2 (35-45) mmHg ABG pO2 (83-108) mmHg ABG HCO3 (21-25) mmol/L ABG Total CO2 (19-24) mmol/L ABG O2 Saturation (94-97) % Chloride (98-107) mmol/L Carbon Dioxide (22-30) mmol/L BUN (9-20) mg/dL Creatinine (0.66-1.25) mg/dL Glucose (74-99) mg/dL POC Glucose (mg/dL) 140 H 128 H (75-99) mg/dL Calcium (8.4-10.2) mg/dL Phosphorus (2.5-4.5) mg/dL CK-MB (CK-2) 8.6 H* (0.0-2.4) ng/mL Troponin I 27.900 H* (0.000-0.034) ng/mL 02/03/17 02/04/17 02/04/17 Range/Units 21:02 04:42 04:42 WBC 22.8 H (3.8-10.6) k/uL RBC 3.85 L (4.30-5.90) m/uL Hgb 11.5 L (13.0-17.5) gm/dL MCV 103.7 H (80.0-100.0) fL MCHC 28.8 L (31.0-37.0) g/dL RDW 16.9 H (11.5-15.5) % ABG pH (7.35-7.45) ABG pCO2 (35-45) mmHg ABG pO2 (83-108) mmHg ABG HCO3 (21-25) mmol/L ABG Total CO2 (19-24) mmol/L ABG O2 Saturation (94-97) % Chloride 116 H (98-107) mmol/L Carbon Dioxide 8 L* (22-30) mmol/L BUN 22 H (9-20) mg/dL Creatinine 2.90 H (0.66-1.25) mg/dL Glucose 106 H (74-99) mg/dL POC Glucose (mg/dL) 115 H (75-99) mg/dL Calcium 7.9 L (8.4-10.2) mg/dL Phosphorus 5.9 H (2.5-4.5) mg/dL CK-MB (CK-2) (0.0-2.4) ng/mL Troponin I (0.000-0.034) ng/mL 02/04/17 Range/Units 05:40 WBC (3.8-10.6) k/uL RBC (4.30-5.90) m/uL Hgb (13.0-17.5) gm/dL MCV (80.0-100.0) fL MCHC (31.0-37.0) g/dL RDW (11.5-15.5) % ABG pH 7.26 L (7.35-7.45) ABG pCO2 27 L (35-45) mmHg ABG pO2 70 L (83-108) mmHg ABG HCO3 12 L (21-25) mmol/L ABG Total CO2 13 L (19-24) mmol/L ABG O2 Saturation 92.0 L (94-97) % Chloride (98-107) mmol/L Carbon Dioxide (22-30) mmol/L BUN (9-20) mg/dL Creatinine (0.66-1.25) mg/dL Glucose (74-99) mg/dL POC Glucose (mg/dL) (75-99) mg/dL Calcium (8.4-10.2) mg/dL Phosphorus (2.5-4.5) mg/dL CK-MB (CK-2) (0.0-2.4) ng/mL Troponin I (0.000-0.034) ng/mL Assessment and Plan (1) Respiratory failure Status: Acute (2) Severe sepsis Status: Acute (3) Chronic renal failure Status: Acute (4) Diabetes Status: Acute (5) Gram-negative sepsis with organ dysfunction Status: Acute (6) Nosocomial pneumonia Status: Acute (7) Proteus mirabilis infection Status: Acute (8) Pseudomonas urinary tract infection Status: Acute (9) Urinary tract infection in male Status: Acute Plan: Plan The patient's doing reasonably well. A couple things will be done. We'll get the patient on some tube feeds. We'll talk to the family about CODE STATUS. Apparently the patient was recently evaluated for PEG tube placement. The patient tidal Lyme we dropped down to 400 mL. We bumped her rate up to 20 or 22 breaths per minute. We'll drop the FiO2 from 40-30%. Medications labs are reviewed. Prognosis is guarded. The patient will probably need dialysis soon. Additional recommendations suggestions are forthcoming. PICC line will be placed. Plan dated 01/30/2017 I did have a chance to speak to the 2 daughters. The [facility] patient is a full code at the present time. The patient is receiving hemodialysis in 2 units of blood. Afterwards, we'll do the daily eruption of sedation. We'll see if the patient is ready for extubation. I did talk to the family about CODE STATUS changes down the road and/or tracheostomy and PEG tube placement if he does not show improvement. Currently he is off the levo fed. Hopefully the dialysis and that units of blood will improve the situation. He is receiving tube feeds. His gases show very mild respiratory alkalosis. He is normal toxemic. Additional recommendations suggestions are forthcoming. Again prognosis is guarded. Plan dated 01/31/2017 The patient's doing well. Was successfully extubated yesterday. We'll continue to follow. Medications labs x-rays are reviewed. Hemodialysis today. The patient can be discharged from the unit either later today or tomorrow. We'll continue to follow. We'll advance diet. No additional recommendations are made. Await recommendations from speech pathology. Next Plan dated 02/01/2017 The patient did well post extubation. Moved out of the ICU yesterday. Speech pathology seen the patient as his infectious disease. We'll sign off and see the patient only as needed. Thank you for your much for allowing me to participate in the care of this patient. I'm happy that the patient did well post respiratory failure. Plan dated 02/04/2017 The patient will continue on life support at this time. No vent changes were made. A right-sided chest tube was placed by Dr. Velasco. I told less of the nurse that his maximal levo fed doses 1 chintan per kilogram body weight per minute or roughly 50 mics per minute. We will do a daily eruption of sedation. He is not ready for liberation from mechanical ventilation. Nephrology started him on bicarb drip. Am labs and x-rays are ordered. Additional recommendations suggestions are forthcoming. Prognosis is poor. We will start tube feeds today. Time with Patient: Greater than 30
[2017-02-04 12:23] LABS: Add Differential Manual Differential
[2017-02-04 12:25] LABS: Nucleated Red Blood Cells 0 /100 WBC (0-0); Total Cells Counted 100; Toxic Vacuolation Present
[2017-02-04 12:26] LABS: Manual Review Performed; Polychromasia Present
--- NOTE | 2017-02-04 12:45 | PN ---
Patient is seen for followup for end-stage renal disease. He is currently on 50 mcg of Levophed and was also quite acidotic. He developed a large hydropneumothorax and currently has right chest tube. Patient's FiO2 is down to about 50%. Family is present at bedside and overall prognosis in general condition is discussed. I have also advised him that he is not a candidate for dialysis at this point, given his significant hemodynamic instability and hypotension requiring high-dose pressors. On examination, blood pressure is 103/49, heart rate 110 per minute. He is afebrile. He has a low-grade temp of 100 degrees Fahrenheit. Examination of the heart, heart sounds are heard. Examination of the lungs, bilateral breath sounds are heard. 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 Abdomen is soft with abdominal hernia. Labs show sodium 145, potassium 4.9. CO2 was 8. Hemoglobin 11.5 g/dL. ASSESSMENT: 1. End-stage renal disease on hemodialysis, currently hemodynamically unstable for dialysis. 2. Severe metabolic acidosis, most likely related to significant hypotension and requiring pressors. Abdomen remains soft. 3. Patient is maintained on IV bicarb. 4. Sepsis with the Proteus and Klebsiella oxytoca in the sputum and pseudomonas aeruginosa in the urine, maintained on antibiotics. PLAN: Overall prognosis is poor. Family is advised, consider comfort care measures.
[2017-02-04 13:08] LABS: Glucose,Whole Blood 142 mg/dL (75-99)
[2017-02-04] MEDS: SODIUM CHLORIDE 0.9% 1,000 ML IV SCH (15:24)
[2017-02-04 18:47] LABS: Glucose,Whole Blood 149 mg/dL (75-99)
[2017-02-04] MEDS: HYDROcodone/APAP 5-325MG 1 EACH TAB PO PRN (20:16)
--- NOTE | 2017-02-04 20:39 | P.PN ---
Subjective Principal diagnosis: Respiratory failure 81-year-old male well-known to the infectious disease service, recently was hospitalized with a bout of pneumonia as well as bacteremia related to his hemodialysis catheter. He has significant sepsis at that time. Dialysis catheter was removed. Sepsis improved in a new catheter was placed in left anterior chest wall. Patient was receiving his course of outpatient intravenous antibiotic therapy. At admission the patient had evidence of respiratory failure required intubation sedation and mechanical ventilation. he was noted to have EKG changes. There is elevated CK and troponins also. He eventually improved and was extubated. We'll get the medical floor. Receiving his hemodialysis and plans for completion of his intravenous antibiotic therapy at home for his urinary infection and pulmonary infection. Patient however suffered a cardiopulmonary arrest last night. Appear to be somewhat protracted. Is now back in intensive care unit intubated sedated and mechanically ventilated. The family has been in contact with the critical care team. The futility of the care has been expressed. The family however is struggling to make decisions in his care continues for the moment. Did agree for DNR status today Objective - Vital Signs Vital signs: Vital Signs Temp 101.4 F H 02/04/17 20:00 Pulse 114 H 02/04/17 20:00 Resp 20 02/04/17 20:00 BP 117/46 02/04/17 20:00 Pulse Ox 100 02/04/17 20:00 Intake & Output 02/04/17 02/04/17 02/05/17 06:59 18:59 06:59 Intake Total 1822.380 230 Output Total 2700 6 Balance -877.620 224 Weight Intake: IV 110 200 Dextrose 5% in Water 1, 100 200 000 ml @ 100 mls/hr IV . [id number] ONE with Sodium Bicarb (1 Meq/ml) 150 ml Rx#:[id number] Sodium Chloride 0.9% 1, 10 000 ml @ 10 mls/hr IV . Q24H [facility] Rx#:[id number] Intake, IV Titration 1712.380 Amount Dextrose 5% in Water 1, 1100 000 ml @ 100 mls/hr IV . [id number] ONE with Sodium Bicarb (1 Meq/ml) 150 ml Rx#:[id number] Norepinephrine 16 mg In 532.000 Sodium Chloride 0.9% 250 ml @ Titrate IV .Q0M [facility] Rx#:[id number] Propofol 500 mg In Empty 80.38 Bag 1 bag @ Titrate IV . Q0M [facility] Rx#:[id number] Tube Feeding 0 Other 30 Output: Chest Tube Drainage 2700 0 Right Lateral Chest 2700 0 Urine 0 6 Other: Voiding Method Indwelling Catheter - Exam Patient is Intubated sedated and mechanically ventilated HEENT: Anicteric conjunctiva are pink and moist nasal mucosa grossly intact without significant lesions, there is no thrush. Neck: The neck is supple without significant lymphadenopathy or thyromegaly. Lungs: There is symmetrical air entry. Basilar crackles are heard. Heart: Irregular with an audible S1 and S2 loud S4 no distinct murmur click or rub Abdomen: Positive bowel sounds soft and nontender without palpable masses or organomegaly. There was no guarding or rebound. Extremities: Extremities have evidence of some generalized edema. He does have evidence of the bilateral below-knee amputation. Residual limbs are without evidence of infection at this time. Please see the nursing photography regarding the pressure ulcerations to the buttocks.also has minimal irritation to his legs left patella right distal residual limb with the dressings in place. Neuro: intubated and sedated Genitalia has evidence of the splayed penis, and some irritation for which zinc cream is applied. the new irritation to the right distal residual limb, likely abrasion - Labs CBC & Chem 7: 02/04/17 04:42 02/04/17 04:42 Labs: Abnormal Lab Results - Last 24 Hours (Table) 02/03/17 02/04/17 02/04/17 Range/Units 21:02 04:42 04:42 WBC 22.8 H (3.8-10.6) k/uL RBC 3.85 L (4.30-5.90) m/uL Hgb 11.5 L (13.0-17.5) gm/dL MCV 103.7 H (80.0-100.0) fL MCHC 28.8 L (31.0-37.0) g/dL RDW 16.9 H (11.5-15.5) % Plt Count 78 L (150-450) k/uL Neutrophils # (Manual) 20.7 H (1.3-7.7) k/uL ABG pH (7.35-7.45) ABG pCO2 (35-45) mmHg ABG pO2 (83-108) mmHg ABG HCO3 (21-25) mmol/L ABG Total CO2 (19-24) mmol/L ABG O2 Saturation (94-97) % Chloride 116 H (98-107) mmol/L Carbon Dioxide 8 L* (22-30) mmol/L BUN 22 H (9-20) mg/dL Creatinine 2.90 H (0.66-1.25) mg/dL Glucose 106 H (74-99) mg/dL POC Glucose (mg/dL) 115 H (75-99) mg/dL Calcium 7.9 L (8.4-10.2) mg/dL Phosphorus 5.9 H (2.5-4.5) mg/dL 02/04/17 02/04/17 02/04/17 Range/Units 05:40 13:06 18:45 WBC (3.8-10.6) k/uL RBC (4.30-5.90) m/uL Hgb (13.0-17.5) gm/dL MCV (80.0-100.0) fL MCHC (31.0-37.0) g/dL RDW (11.5-15.5) % Plt Count (150-450) k/uL Neutrophils # (Manual) (1.3-7.7) k/uL ABG pH 7.26 L (7.35-7.45) ABG pCO2 27 L (35-45) mmHg ABG pO2 70 L (83-108) mmHg ABG HCO3 12 L (21-25) mmol/L ABG Total CO2 13 L (19-24) mmol/L ABG O2 Saturation 92.0 L (94-97) % Chloride (98-107) mmol/L Carbon Dioxide (22-30) mmol/L BUN (9-20) mg/dL Creatinine (0.66-1.25) mg/dL Glucose (74-99) mg/dL POC Glucose (mg/dL) 142 H 149 H (75-99) mg/dL Calcium (8.4-10.2) mg/dL Phosphorus (2.5-4.5) mg/dL Laboratory Results WBC 22.8 k/uL (3.8-10.6) H 02/04/17 04:42 RBC 3.85 m/uL (4.30-5.90) L 02/04/17 04:42 Hgb 11.5 gm/dL (13.0-17.5) L 02/04/17 04:42 Hct 39.9 % (39.0-53.0) 02/04/17 04:42 MCV 103.7 fL (80.0-100.0) H 02/04/17 04:42 MCH 29.9 pg (25.0-35.0) 02/04/17 04:42 MCHC 28.8 g/dL (31.0-37.0) L 02/04/17 04:42 RDW 16.9 % (11.5-15.5) H 02/04/17 04:42 Plt Count 78 k/uL (150-450) L 02/04/17 04:42 Neutrophils % 45 % 02/03/17 04:20 Neutrophils % (Manual) 88.0 % 02/04/17 04:42 Band Neutrophils % 3.0 % 02/04/17 04:42 Lymphocytes % 47 % 02/03/17 04:20 Lymphocytes % (Manual) 7.0 % 02/04/17 04:42 Monocytes % 3 % 02/03/17 04:20 Monocytes % (Manual) 2.0 % 02/04/17 04:42 Eosinophils % 1 % 02/03/17 04:20 Eosinophils % (Manual) 4.0 % 02/02/17 05:45 Basophils % 1 % 02/03/17 04:20 Basophils % (Manual) 2.0 % 02/02/17 05:45 Neutrophils # 6.6 k/uL (1.3-7.7) 02/03/17 04:20 Neutrophils # (Manual) 20.7 k/uL (1.3-7.7) H 02/04/17 04:42 Lymphocytes # 7.0 k/uL (1.0-4.8) H 02/03/17 04:20 Lymphocytes # (Manual) 1.6 k/uL (1.0-4.8) 02/04/17 04:42 Monocytes # 0.4 k/uL (0-1.0) 02/03/17 04:20 Monocytes # (Manual) 0.5 k/uL (0-1.0) 02/04/17 04:42 Eosinophils # 0.2 k/uL (0-0.7) 02/03/17 04:20 Eosinophils # (Manual) 0.2 k/uL (0-0.7) 02/02/17 05:45 Basophils # 0.1 k/uL (0-0.2) 02/03/17 04:20 Basophils # (Manual) 0.1 k/uL (0-0.2) 02/02/17 05:45 Nucleated RBCs 0 /100 WBC (0-0) 02/04/17 04:42 Manual Slide Review Performed 02/04/17 04:42 Toxic Vacuolation Present 02/04/17 04:42 Polychromasia Present 02/04/17 04:42 Hypochromasia Marked 02/04/17 04:42 Poikilocytosis Slight 02/02/17 05:45 Anisocytosis Slight 02/04/17 04:42 Macrocytosis Moderate 02/04/17 04:42 PT 10.2 sec (9.0-12.0) 02/01/17 05:31 INR 1.0 (<1.1) 02/01/17 05:31 APTT 23.0 sec (22.0-30.0) 02/01/17 05:31 Sample Site rrad 02/04/17 05:40 ABG pH 7.26 (7.35-7.45) L 02/04/17 05:40 ABG pCO2 27 mmHg (35-45) L 02/04/17 05:40 ABG pO2 70 mmHg (83-108) L 02/04/17 05:40 ABG HCO3 12 mmol/L (21-25) L 02/04/17 05:40 ABG Total CO2 13 mmol/L (19-24) L 02/04/17 05:40 ABG O2 Saturation 92.0 % (94-97) L 02/04/17 05:40 ABG Base Excess -14.0 mmol/L 02/04/17 05:40 FiO2 50 % 02/04/17 05:40 Sodium 145 mmol/L (137-145) 02/04/17 04:42 Potassium 4.9 mmol/L (3.5-5.1) 02/04/17 04:42 Chloride 116 mmol/L (98-107) H 02/04/17 04:42 Carbon Dioxide 8 mmol/L (22-30) L* 02/04/17 04:42 Anion Gap 21 mmol/L 02/04/17 04:42 BUN 22 mg/dL (9-20) H 02/04/17 04:42 Creatinine 2.90 mg/dL (0.66-1.25) H 02/04/17 04:42 Est GFR (MDRD) Af Amer 25 (>60 ml/min/1.73 sqM) 02/04/17 04:42 Est GFR (MDRD) Non-Af 21 (>60 ml/min/1.73 sqM) 02/04/17 04:42 Glucose 106 mg/dL (74-99) H 02/04/17 04:42 POC Glucose (mg/dL) 149 mg/dL (75-99) H 02/04/17 18:45 POC Glu Lace Roller Operator ID Luz Fuller 02/04/17 18:[address] Glu mg/dL 94 mg/dL 01/29/17 12:08 Hemoglobin A1c 4.9 % (4.2-6.1) 01/29/17 12:08 Plasma Lactic Acid Geovani 1.2 mmol/L (0.7-2.0) 01/29/17 04:09 Calcium 7.9 mg/dL (8.4-10.2) L 02/04/17 04:42 Phosphorus 5.9 mg/dL (2.5-4.5) H 02/04/17 04:42 Magnesium 2.0 mg/dL (1.6-2.3) 02/04/17 04:42 Total Bilirubin 0.3 mg/dL (0.2-1.3) 01/29/17 04:09 AST 60 U/L (17-59) H 01/29/17 04:09 ALT 34 U/L (21-72) 01/29/17 04:09 Alkaline Phosphatase 85 U/L (38-126) 01/29/17 04:09 Total Creatine Kinase 452 U/L (55-170) H 01/29/17 04:09 CK-MB (CK-2) 8.6 ng/mL (0.0-2.4) H* 02/03/17 04:20 CK-MB (CK-2) Rel Index 11.4 01/29/17 04:09 Troponin I 27.900 ng/mL (0.000-0.034) H* 02/03/17 04:20 NT-Pro-B Natriuret Pep 45598 pg/mL 01/28/17 18:30 Total Protein 4.8 g/dL (6.3-8.2) L 01/29/17 04:09 Albumin 2.1 g/dL (3.5-5.0) L 01/29/17 04:09 Urine Color Light Yellow 01/28/17 19:37 Urine Appearance Turbid (Clear) 01/28/17 19:37 Urine pH 8.0 (5.0-8.0) 01/28/17 19:37 Ur Specific [place] 1.007 (1.001-1.035) 01/28/17 19:37 Urine Protein 2+ (Negative) H 01/28/17 19:37 Urine Glucose (UA) 1+ (Negative) H 01/28/17 19:37 Urine Ketones Negative (Negative) 01/28/17 19:37 Urine Blood Small (Negative) H 01/28/17 19:37 Urine Nitrate Negative (Negative) 01/28/17 19:37 Urine Bilirubin Negative (Negative) 01/28/17 19:37 Urine Urobilinogen <2.0 mg/dL (<2.0) 01/28/17 19:37 Ur Leukocyte Esterase Large (Negative) H 01/28/17 19:37 Urine RBC 27 /hpf (0-5) H 01/28/17 19:37 Urine WBC >182 /hpf (0-5) H 01/28/17 19:37 Urine WBC Clumps Many /hpf (None) H 01/28/17 19:37 Urine Bacteria Occasional /hpf (None) H 01/28/17 19:37 Urine Mucus Rare /hpf (None) H 01/28/17 19:37 C. difficile Tox (PCR) (Not Detectd) 01/30/17 04:45 Miscellaneous Test PT/INR/PTT 01/29/17 04:09 Misc Test Result 01/29/17 04:09 Blood Type O Positive 01/30/17 05:36 Blood Type Recheck No 01/30/17 05:36 Antibody Screen NEGATIVE 01/30/17 05:36 Crossmatch See Detail 01/30/17 05:36 Spec Expiration Date 02/02/2017 0187 01/30/17 05:36 Microbiology 01/28/17 19:30 Blood Blood Culture - Final No Growth after 144 hours 01/28/17 19:30 Sputum Gram Stain - Final 01/28/17 19:30 Sputum Sputum Culture - Final Proteus mirabilis Klebsiella oxytoca 01/28/17 19:37 Urine,Clean Catch Urine Culture - Final Pseudomonas aeruginosa Assessment and Plan (1) Respiratory failure Narrative/Plan: 81-year-old male who has complex underlying medical illness with dementia, end-stage renal disease on dialysis, recent bout of sepsis from his dialysis catheter which is being treated with Ceftaroline. The patient is now had improvement of his status. He has been extubated. He is sitting upright and tolerating his dialysis well without hypotension. He is conversational near his baseline. The urine culture has shown evidence of pseudomonas aeruginosa sputum culture with Proteus mirabilis. Both are susceptible to ceftazidime. The patient's prior catheter related sepsis has now been effectively treated for 4 weeks. No evidence of any ongoing bacteremia this time. Constantly to Ceftaroline is discontinued. We'll plan a 10 day course of ceftazidime for his current gram-negative sepsis from the urinary system. worked with the home care and discharge planners. We'll be able to receive his dose of ceftazidime after hemodialysis over the next 10 days. Home care will supply will take the dialysis center for infusion. Patient had cardiopulmonary arrest and remains of vasopressor therapy, He is doing very poorly. Likely will be made comfort care tomorrow. If so will not need further antibiotic therapy which is currently for UTI and bronchitis Comfort care is appropriate Status: Acute (2) Severe sepsis Status: Acute (3) Chronic indwelling [place] catheter Status: Acute
[2017-02-04] MEDS: DEXTROSE 5% IN WATER 1,000 ML with SODIUM BICARB (1 MEQ/ML) 150 ML IV SCH (20:53)
[2017-02-04 21:11] LABS: Glucose,Whole Blood 227 mg/dL (75-99)
[2017-02-05] MEDS: HEPARIN SODIUM,PORCINE 5,000 UNIT/ML 1 ML VIAL SQ SCH ×3 (00:04→16:09)
[2017-02-05] MEDS: INSULIN LISPRO (humaLOG) 300 UNIT/3 ML VIAL SQ SCH ×3 (00:04→13:44)
[2017-02-05 00:05] LABS: Glucose,Whole Blood 187 mg/dL (75-99)
[2017-02-05] MEDS: PROPOFOL 500 MG in EMPTY BAG 1 BAG IV SCH ×2 (00:51→05:07)
[2017-02-05 04:17] LABS: Glucose,Whole Blood 154 mg/dL (75-99)
[2017-02-05 04:59] LABS: Anisocytosis Slight; Basophils # (A) 0.1 k/uL (0-0.2); Basophils % (A) 1 %; CH 29.6; CHCM 32.1; Eosinophils # (A) 0.2 k/uL (0-0.7); Eosinophils % (A) 1 %; Hypochromasia Slight; Luc # (Auto) 0.22; Luc % (Auto) 2; Lymphocytes # (A) 1.9 k/uL (1.0-4.8); Lymphocytes % (A) 14 %; MCH 30.1 pg (25.0-35.0); MCHC 32.4 g/dL (31.0-37.0); Mean Platelet Volume 9.2; Monocytes # (A) 0.4 k/uL (0-1.0); Monocytes % (A) 3 %; Neutrophils # (A) 10.2 k/uL (1.3-7.7); Neutrophils % (A) 79 %; RBC 3.13 m/uL (4.30-5.90); RDW 17.2 % (11.5-15.5); WBC 12.9 k/uL (3.8-10.6); WBC (Perox) 13.74
[2017-02-05 05:05] LABS: HGB 9.4 gm/dL (13.0-17.5)
[2017-02-05 05:06] LABS: MCV 92.9 fL (80.0-100.0)
[2017-02-05 05:10] LABS: ABG Base Excess -1.2 mmol/L; ABG HCO3 21 mmol/L (21-25); ABG PCO2 25 mmHg (35-45); ABG PH 7.53 (7.35-7.45); ABG PO2 135 mmHg (83-108); ABG TCO2 22 mmol/L (19-24)
[2017-02-05 05:44] LABS: Calcium 7.3 mg/dL (8.4-10.2); Magnesium 1.8 mg/dL (1.6-2.3); Phosphorous 3.8 mg/dL (2.5-4.5); Potassium 3.2 mmol/L (3.5-5.1)
[2017-02-05 06:20] LABS: Glucose,Whole Blood 194 mg/dL (75-99)
--- NOTE | 2017-02-05 07:15 | XR ---
EXAMINATION TYPE: XR chest 1V DATE OF EXAM: 02/05/2017 6:46 AM COMPARISON: Prior chest x-ray 04 February 2017 HISTORY: Mechanical ventilation management, intubated, chest tube TECHNIQUE: Single frontal view of the chest is obtained. FINDINGS: Left jugular central venous dialysis catheter is present with the distal tip overlying the superior vena cava. Endotracheal tube and NG tube are overlying appropriate positions, right chest t ube is stable. There are overlying cardiac leads. No sizable pneumothorax. Lucency in the right hemit horax apex may be due to small pneumothorax. Heart size is likely stable. Suspect improvement in aera tion, pleural effusion on the right. Persistent basilar density on the left. IMPRESSION: Interval right-sided chest tube placement and improvement in right pleural effusion and pneumothorax. There may be a minimal right apical pneumothorax.
[2017-02-05] MEDS: DEXTROSE 5% IN WATER 1,000 ML with SODIUM BICARB (1 MEQ/ML) 150 ML IV SCH (07:59)
[2017-02-05] MEDS: CHLORHEXIDINE GLUCONATE 15 ML CUP MUCOUS MEM SCH (07:59)
[2017-02-05] MEDS: PANTOPRAZOLE 40 MG/10 ML VIAL IV SCH (07:59)
[2017-02-05] MEDS: IPRATROPIUM-ALBUTEROL 3 ML NEB INHALATION SCH ×3 (08:19→15:39)
--- NOTE | 2017-02-05 08:31 | PN ---
DATE OF SERVICE: 02/04/2017 PRESENTING COMPLAINT: Intubated. INTERVAL HISTORY: This patient with multiple problems who is on hemodialysis initially, presented with urinary tract infection, sepsis, acute hypoxic respiratory failure, was on the ventilator and was extubated. Patient subsequently had a cardiac arrest with pulseless electrical activity and had to be intubated. Patient remains on Levophed, FiO2 of 50 and a PEEP of 5. Alert today. Patient is found to have a pneumothorax. Chest tube was placed by Dr. Velasco and 1300 mL of fluid was also obtained. Family today made the patient DNR. Tube feeding was started. REVIEW OF SYSTEMS: Patient intubated. Current medications are reviewed and include IV ceftazidime, Levophed and propofol. On examination, temperature 98.9, pulse 108, respirations 22, blood pressure 107/42, pulse ox 100% on FiO2 of 50%. GENERAL APPEARANCE: Lying in bed, intubated. EYES: Pupils equal. Conjunctivae are pale. ENT: Endotracheal tube in place with a feeding tube in place. NECK: JVD unable to assess. Mass not palpable. Respiratory effort normal. LUNGS: Diminished breath sounds. CARDIOVASCULAR: First and second sounds normal. No edema. ABDOMEN: Soft, nontender. Liver and spleen not palpable. Chest wall hemodialysis catheter on the left side and a right-sided chest tube. NEUROLOGICAL: Patient does respond to pain. INVESTIGATIONS: White count 22.8, hemoglobin 11.5. Blood gases noted, potassium 4.9. Patient's bicarb is 8, BUN 22, creatinine 2.90. ASSESSMENT: 1. Cardiac arrest with pulseless electrical activity in a patient with multiple medical problems. 2. Acute pneumonia, suspect gram-negative organism causing severe sepsis on presentation, cultures were positive for Proteus mirabilis and Klebsiella oxytoca. 3. Acute hydropneumothorax on the right side with 1300 mL of pleural fluid removed and a chest tube in place. 4. Acute urinary tract infection from Pseudomonas aeruginosa present on admission related to chronic Norman catheter. 5. Septic shock on presentation from above. 6. End-stage kidney disease on hemodialysis. 7. Chronic obstructive pulmonary disease in an ex-smoker. 8. Alzheimer's dementia, late onset type, chronic. 9. Diabetes mellitus type 2. 10. Chronic urine outflow obstruction. Patient with chronic Norman catheter. 11. Stage II sacral decubitus ulcer present on admission. 12. Normocytic anemia secondary to chronic kidney disease. 13. Moderate protein calorie malnutrition from decreased oral intake. 14. CODE STATUS: DNR. 15. Cardiogenic shock. Patient has been on pressure support. 16. Acute hypoxic respiratory failure, multifactor including pleural effusion, pneumonia. 17. Right-sided chest tube for pneumothorax. PLAN: Spoke to patient's daughter Susan over the phone. Overall very poor prognosis which we have been talking to family for quite a while. At this point, after talking to his daughter, she wishes to proceed with VNA with palliative care on board and then depending on how the patient does, we may have to transfer patient into hospice. Prognosis remains extremely poor at this point.
--- NOTE | 2017-02-05 08:40 | P.PN ---
Subjective Principal diagnosis: Right hydro-pneumothorax with some degree of tension pneumothorax, acute respiratory failure requiring mechanical ventilation. POD #1 placement of right pleural thoracostomy tube Patient is sedated on mechanical ventilation and pressors. Does not appear to be in any distress. Objective - Vital Signs Vital signs: Vital Signs Temp 99 F 02/05/17 07:30 Pulse 97 02/05/17 08:00 Resp 22 02/05/17 08:00 BP 115/57 02/05/17 08:00 Pulse Ox 100 02/05/17 08:00 Intake & Output 02/04/17 02/05/17 02/05/17 18:59 06:59 18:59 Intake Total 4220.481 5258.984 257.592 Output Total 2700 80 5 Balance -959.345 6476.984 252.592 Weight 69.2 kg 69.2 kg Intake: IV 110 1200 200 Dextrose 5% in Water 1, 100 1200 200 000 ml @ 100 mls/hr IV . [id number] ONE with Sodium Bicarb (1 Meq/ml) 150 ml Rx#:[id number] Sodium Chloride 0.9% 1, 10 000 ml @ 10 mls/hr IV . Q24H [facility] Rx#:[id number] Intake, IV Titration 1712.380 393.984 17.592 Amount Dextrose 5% in Water 1, 1100 000 ml @ 100 mls/hr IV . [id number] ONE with Sodium Bicarb (1 Meq/ml) 150 ml Rx#:[id number] Norepinephrine 16 mg In 532.000 248.408 17.592 Sodium Chloride 0.9% 250 ml @ Titrate IV .Q0M [facility] Rx#:[id number] Propofol 500 mg In Empty 80.38 145.576 Bag 1 bag @ Titrate IV . Q0M [facility] Rx#:[id number] Tube Feeding 0 250 40 Other 120 Output: Chest Tube Drainage 2700 70 0 Right Lateral Chest 2700 70 0 Urine 0 10 5 Other: Voiding Method Indwelling Catheter Indwelling Catheter - Constitutional General appearance: Present: no acute distress - Respiratory Details: Lungs sounds diminished bilaterally. Respirations even, nonlabored on mechanical ventilation, patient is not breathing over the vent. Current ventilator settings FiO2 50%, tidal volume 400, respiratory rate 22, PEEP 5. Right pleural chest tube to -20 cm wall suction, with serous drainage, approximately 70 mL in the last 8 hours, 170 mL since 10 AM yesterday morning, total 1490 mL in the atrium. No air leak present. - Cardiovascular Details: S1, S2 present. Regular rate and rhythm, normal sinus rhythm on telemetry. - Gastrointestinal Gastrointestinal Comment(s): Abdomen soft, nondistended. Currently receiving enteral nutrition through OG tube. - Genitourinary Genitourinary Comment(s): Norman present draining clear yellow urine. Minimal amount, hemodialysis dependent. Nakul cath present left anterior chest wall. - Musculoskeletal Musculoskeletal: Present: generalized weakness - Psychiatric Psychiatric Comment(s): Sedated on mechanical ventilation. - Allied health notes Allied health notes reviewed: nursing - Labs CBC & Chem 7: 02/05/17 04:35 02/05/17 04:35 Labs: Abnormal Lab Results - Last 24 Hours (Table) 02/04/17 02/04/17 02/04/17 Range/Units 04:42 13:06 18:45 WBC 22.8 H (3.8-10.6) k/uL RBC 3.85 L (4.30-5.90) m/uL Hgb 11.5 L (13.0-17.5) gm/dL Hct (39.0-53.0) % MCV 103.7 H (80.0-100.0) fL MCHC 28.8 L (31.0-37.0) g/dL RDW 16.9 H (11.5-15.5) % Plt Count 78 L (150-450) k/uL Neutrophils # (1.3-7.7) k/uL Neutrophils # (Manual) 20.7 H (1.3-7.7) k/uL ABG pH (7.35-7.45) ABG pCO2 (35-45) mmHg ABG pO2 (83-108) mmHg ABG O2 Saturation (94-97) % Potassium (3.5-5.1) mmol/L Chloride (98-107) mmol/L BUN (9-20) mg/dL Creatinine (0.66-1.25) mg/dL Glucose (74-99) mg/dL POC Glucose (mg/dL) 142 H 149 H (75-99) mg/dL Plasma Lactic Acid Geovani (0.7-2.0) mmol/L Calcium (8.4-10.2) mg/dL 02/04/17 02/05/17 02/05/17 Range/Units 21:09 00:03 04:15 WBC (3.8-10.6) k/uL RBC (4.30-5.90) m/uL Hgb (13.0-17.5) gm/dL Hct (39.0-53.0) % MCV (80.0-100.0) fL MCHC (31.0-37.0) g/dL RDW (11.5-15.5) % Plt Count (150-450) k/uL Neutrophils # (1.3-7.7) k/uL Neutrophils # (Manual) (1.3-7.7) k/uL ABG pH (7.35-7.45) ABG pCO2 (35-45) mmHg ABG pO2 (83-108) mmHg ABG O2 Saturation (94-97) % Potassium (3.5-5.1) mmol/L Chloride (98-107) mmol/L BUN (9-20) mg/dL Creatinine (0.66-1.25) mg/dL Glucose (74-99) mg/dL POC Glucose (mg/dL) 227 H 187 H 154 H (75-99) mg/dL Plasma Lactic Acid Geovani (0.7-2.0) mmol/L Calcium (8.4-10.2) mg/dL 02/05/17 02/05/17 02/05/17 Range/Units 04:35 04:35 04:35 WBC 12.9 H (3.8-10.6) k/uL RBC 3.13 L (4.30-5.90) m/uL Hgb 9.4 L D (13.0-17.5) gm/dL Hct 29.0 L (39.0-53.0) % MCV (80.0-100.0) fL MCHC (31.0-37.0) g/dL RDW 17.2 H (11.5-15.5) % Plt Count 144 L D (150-450) k/uL Neutrophils # 10.2 H (1.3-7.7) k/uL Neutrophils # (Manual) (1.3-7.7) k/uL ABG pH (7.35-7.45) ABG pCO2 (35-45) mmHg ABG pO2 (83-108) mmHg ABG O2 Saturation (94-97) % Potassium 3.2 L (3.5-5.1) mmol/L Chloride 108 H (98-107) mmol/L BUN 31 H (9-20) mg/dL Creatinine 3.40 H (0.66-1.25) mg/dL Glucose 186 H (74-99) mg/dL POC Glucose (mg/dL) (75-99) mg/dL Plasma Lactic Acid Geovani 3.0 H* (0.7-2.0) mmol/L Calcium 7.3 L (8.4-10.2) mg/dL 02/05/17 02/05/17 Range/Units 05:00 06:16 WBC (3.8-10.6) k/uL RBC (4.30-5.90) m/uL Hgb (13.0-17.5) gm/dL Hct (39.0-53.0) % MCV (80.0-100.0) fL MCHC (31.0-37.0) g/dL RDW (11.5-15.5) % Plt Count (150-450) k/uL Neutrophils # (1.3-7.7) k/uL Neutrophils # (Manual) (1.3-7.7) k/uL ABG pH 7.53 H (7.35-7.45) ABG pCO2 25 L (35-45) mmHg ABG pO2 135 H (83-108) mmHg ABG O2 Saturation 99.0 H (94-97) % Potassium (3.5-5.1) mmol/L Chloride (98-107) mmol/L BUN (9-20) mg/dL Creatinine (0.66-1.25) mg/dL Glucose (74-99) mg/dL POC Glucose (mg/dL) 194 H (75-99) mg/dL Plasma Lactic Acid Geovani (0.7-2.0) mmol/L Calcium (8.4-10.2) mg/dL - Imaging and Cardiology Chest x-ray: report reviewed, image reviewed Assessment and Plan (1) Hydropneumothorax Status: Acute (2) Acute respiratory failure Status: Acute Plan: 1. Continue to monitor chest tube output for now. 2. Would recommend daily x-rays, however, it appears there is current discussion about admitting patient to hospice care. 3. Medical management per internal medicine. 4. Will follow and assist with chest tube management, will discontinue chest tube when appropriate. Time with Patient: Greater than 30
--- NOTE | 2017-02-05 09:11 | P.PN ---
Subjective 81-year-old white male who previously the found to have pneumonia and bacteremia with MRSA related to a hemodialysis catheter infection on 2016. The patient had significant sepsis. The catheter was removed. Sepsis improved and a new catheter was placed over the left anterior chest wall area. The patient was receiving outpatient IV antibiotics He comes back to the hospital on January 28 with mental status changes and shortness of breath. He was initially intubated in the emergency department respiratory failure. His sputum was positive for both Proteus and Klebsiella and a urine that was positive for Pseudomonas. He did well here in the ICU was eventually extubated. He was sent out to the floor. The patient does have a history of chronic kidney disease currently on 3 time a week hemodialysis. On 02/03/2017, he developed ST segment elevation and became pulseless with PEA and was resuscitated and intubated and brought back to the ICU. The patient had a down time of at least 20 minutes. Cardiology decided not to proceed with any interventions. The patient's echocardiogram from 01/30/2017 had shown a preserved LV function with an ejection fraction of 50-55% and there is mild aortic stenosis.Subsequently, the patient was found to have a right-sided hydropneumothorax. A emergency chest tube was inserted yesterday on the right side with complete evacuation of the right-sided hydropneumothorax and there was a total output of 1400 mL of pleural fluid. Today's chest x-ray shows complete expansion of the right lung and the chest tube is in a good location without evidence of any residual pneumothorax. There is no evidence of any air leak from the chest tube. Meanwhile, the patient is an assist-control mode of ventilation at the rate of 22, tidal volume of 400, FiO2 of 50% and a PEEP of 5. Morning blood gases showed respiratory alkalosis with a pH of 7.53 and a pCO2 of 25 and pO2 of 135.The patient is currently on a bicarb drip with D5 and 3 ampules of sodium bicarbonate running at 100 mL an hour. The patient is also on norepinephrine infusion running at 20 mics per minute. The patient is also on Diprivan running at 20 g per KG per minutes. The patient has had a complicated clinical course along with multiple medical problems and comorbidities. 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 As such medical treatment is being offered for this patient to the final decision is being made in regards to goals of treatment and care. His CODE STATUS is DO NOT RESUSCITATE for now. Objective - Vital Signs Vital signs: Vital Signs Temp 99 F 02/05/17 07:30 Pulse 98 02/05/17 08:30 Resp 22 02/05/17 08:00 BP 115/57 02/05/17 08:00 Pulse Ox 100 02/05/17 08:00 Intake & Output 02/04/17 02/05/17 02/05/17 18:59 06:59 18:59 Intake Total 9160.396 0883.984 257.592 Output Total 2700 80 5 Balance -153.149 1395.984 252.592 Weight 69.2 kg 69.2 kg Intake: IV 110 1200 200 Dextrose 5% in Water 1, 100 1200 200 000 ml @ 100 mls/hr IV . [id number] ONE with Sodium Bicarb (1 Meq/ml) 150 ml Rx#:[id number] Sodium Chloride 0.9% 1, 10 000 ml @ 10 mls/hr IV . Q24H [facility] Rx#:[id number] Intake, IV Titration 1712.380 393.984 17.592 Amount Dextrose 5% in Water 1, 1100 000 ml @ 100 mls/hr IV . [id number] ONE with Sodium Bicarb (1 Meq/ml) 150 ml Rx#:[id number] Norepinephrine 16 mg In 532.000 248.408 17.592 Sodium Chloride 0.9% 250 ml @ Titrate IV .Q0M [facility] Rx#:[id number] Propofol 500 mg In Empty 80.38 145.576 Bag 1 bag @ Titrate IV . Q0M [facility] Rx#:[id number] Tube Feeding 0 250 40 Other 120 Output: Chest Tube Drainage 2700 70 0 Right Lateral Chest 2700 70 0 Urine 0 10 5 Other: Voiding Method Indwelling Catheter Indwelling Catheter - Exam The patient is unresponsive, intubated on a mechanical ventilator. Head is atraumatic normocephalic. Neck is supple there is no JVDs no goiter or neck masses. His orogastric and orotracheal tube are both in place. Pupils around 2 -3 mm in size and there is sluggishly reactive to light. No nystagmus. No preferential gaze. Lung sounds are clear to auscultation and breath sounds are equal and symmetrical bilaterally. There is a right-sided chest tube in place.Cardiac exam revealed the PMI to be normally situated and sized. The rhythm was regular and no extrasystoles were noted during several minutes of auscultation. The first and second heart sounds were normal and physiologic splitting of the second heart sound was noted. There were no murmurs, rubs, clicks, or gallops. Abdomen is soft and there is an anterior abdominal wall hernia. There is no direct tenderness or rebound tensile guarding. Extremities below-knee amputation in the lower extremities bilaterally in the patient's wounds are well-dressed. - Labs CBC & Chem 7: 02/05/17 04:35 02/05/17 04:35 Labs: Abnormal Lab Results - Last 24 Hours (Table) 02/04/17 02/04/17 02/04/17 Range/Units 04:42 13:06 18:45 WBC 22.8 H (3.8-10.6) k/uL RBC 3.85 L (4.30-5.90) m/uL Hgb 11.5 L (13.0-17.5) gm/dL Hct (39.0-53.0) % MCV 103.7 H (80.0-100.0) fL MCHC 28.8 L (31.0-37.0) g/dL RDW 16.9 H (11.5-15.5) % Plt Count 78 L (150-450) k/uL Neutrophils # (1.3-7.7) k/uL Neutrophils # (Manual) 20.7 H (1.3-7.7) k/uL ABG pH (7.35-7.45) ABG pCO2 (35-45) mmHg ABG pO2 (83-108) mmHg ABG O2 Saturation (94-97) % Potassium (3.5-5.1) mmol/L Chloride (98-107) mmol/L BUN (9-20) mg/dL Creatinine (0.66-1.25) mg/dL Glucose (74-99) mg/dL POC Glucose (mg/dL) 142 H 149 H (75-99) mg/dL Plasma Lactic Acid Geovani (0.7-2.0) mmol/L Calcium (8.4-10.2) mg/dL 02/04/17 02/05/17 02/05/17 Range/Units 21:09 00:03 04:15 WBC (3.8-10.6) k/uL RBC (4.30-5.90) m/uL Hgb (13.0-17.5) gm/dL Hct (39.0-53.0) % MCV (80.0-100.0) fL MCHC (31.0-37.0) g/dL RDW (11.5-15.5) % Plt Count (150-450) k/uL Neutrophils # (1.3-7.7) k/uL Neutrophils # (Manual) (1.3-7.7) k/uL ABG pH (7.35-7.45) ABG pCO2 (35-45) mmHg ABG pO2 (83-108) mmHg ABG O2 Saturation (94-97) % Potassium (3.5-5.1) mmol/L Chloride (98-107) mmol/L BUN (9-20) mg/dL Creatinine (0.66-1.25) mg/dL Glucose (74-99) mg/dL POC Glucose (mg/dL) 227 H 187 H 154 H (75-99) mg/dL Plasma Lactic Acid Geovani (0.7-2.0) mmol/L Calcium (8.4-10.2) mg/dL 02/05/17 02/05/17 02/05/17 Range/Units 04:35 04:35 04:35 WBC 12.9 H (3.8-10.6) k/uL RBC 3.13 L (4.30-5.90) m/uL Hgb 9.4 L D (13.0-17.5) gm/dL Hct 29.0 L (39.0-53.0) % MCV (80.0-100.0) fL MCHC (31.0-37.0) g/dL RDW 17.2 H (11.5-15.5) % Plt Count 144 L D (150-450) k/uL Neutrophils # 10.2 H (1.3-7.7) k/uL Neutrophils # (Manual) (1.3-7.7) k/uL ABG pH (7.35-7.45) ABG pCO2 (35-45) mmHg ABG pO2 (83-108) mmHg ABG O2 Saturation (94-97) % Potassium 3.2 L (3.5-5.1) mmol/L Chloride 108 H (98-107) mmol/L BUN 31 H (9-20) mg/dL Creatinine 3.40 H (0.66-1.25) mg/dL Glucose 186 H (74-99) mg/dL POC Glucose (mg/dL) (75-99) mg/dL Plasma Lactic Acid Geovani 3.0 H* (0.7-2.0) mmol/L Calcium 7.3 L (8.4-10.2) mg/dL 02/05/17 02/05/17 Range/Units 05:00 06:16 WBC (3.8-10.6) k/uL RBC (4.30-5.90) m/uL Hgb (13.0-17.5) gm/dL Hct (39.0-53.0) % MCV (80.0-100.0) fL MCHC (31.0-37.0) g/dL RDW (11.5-15.5) % Plt Count (150-450) k/uL Neutrophils # (1.3-7.7) k/uL Neutrophils # (Manual) (1.3-7.7) k/uL ABG pH 7.53 H (7.35-7.45) ABG pCO2 25 L (35-45) mmHg ABG pO2 135 H (83-108) mmHg ABG O2 Saturation 99.0 H (94-97) % Potassium (3.5-5.1) mmol/L Chloride (98-107) mmol/L BUN (9-20) mg/dL Creatinine (0.66-1.25) mg/dL Glucose (74-99) mg/dL POC Glucose (mg/dL) 194 H (75-99) mg/dL Plasma Lactic Acid Geovani (0.7-2.0) mmol/L Calcium (8.4-10.2) mg/dL Assessment and Plan Plan: Assessment 1 acute respiratory failure, multifactorial complicated by development of a right-sided hydropneumothorax, status post chest tube insertion with adequate expansion of the right lung without evidence of any residual pneumothorax or air leak. The pleural effusion is also drains 2 ventilator-dependent respiratory failure secondary to above 3 pneumonia, gram-negative, related to Klebsiella and Proteus currently on Fortaz [address] segment elevation myocardial infarction, not candidate for any emergent coronary interventions 5 acute cardiac arrest with a down time of at least 20 minutes during which the patient received CPR, no shocks, for epinephrine treatment with subsequent intubation mechanical ventilation 6 previous bouts of septicemia including a MRSA catheter infection, treated 7 recurrent urine checked infection with infections related to pseudomonas and VRE, and the patient has a chronic Norman catheter in place and the most recent cultures are consistent with pseudomonas reinfection 8 renal failure, end stage, currently on hemodialysis 9 dementia 10 diabetes mellitus 11 hypotension, multifactorial, currently attributing factors of acute septicemia complicated by further acute ST segment elevation myocardial infarction. Based on our knowledge, the latest echocardiogram from 01/29/2017 the patient has a preserved LV function with an ejection fraction of 50-55% and echocardiogram has not been repeated since his acute [place]. 12 dysphagia, history of 13 stage II coccyx ulcer 14 severe peripheral vascular disease with below-knee amputations bilaterally 15 COPD 16 chronic indwelling Norman catheter 17 anterior abdominal wall hernia 18 chronic anemia Plan Stop the sedation and assess the patient's mentation. Very much likely that the patient has underlying hypoxic/anoxic encephalopathy related to his cardiac arrest and prolonged downtime. We'll continue monitoring the mentation and consider comfort care measures/hospice if there is no significant neurologic recovery. Meanwhile, continue the antibiotics and the pressors. Stop the bicarb drip. Continue the vent support. We will discuss this with the family and make further recommendations based on his overall progress. We'll continue following up this patient along with the rest of the consultants. The secondary to care evaluation was done in 40 minutes. Time with Patient: Greater than 30
[2017-02-05 10:16] VITALS: BMI 29.7
[2017-02-05 11:18] LABS: Glucose,Whole Blood 170 mg/dL (75-99)
[2017-02-05 13:58] VITALS: TEMP 98.4
[2017-02-05 16:09] VITALS: RESP 21
[2017-02-05] MEDS: SODIUM CHLORIDE 0.9% 1,000 ML IV SCH (16:09)
[2017-02-05 18:06] VITALS: BP 54/40; PULSE 97
--- NOTE | 2017-02-05 19:40 | P.PN ---
Subjective Principal diagnosis: Respiratory failure 81-year-old male well-known to the infectious disease service, recently was hospitalized with a bout of pneumonia as well as bacteremia related to his hemodialysis catheter. He has significant sepsis at that time. Dialysis catheter was removed. Sepsis improved in a new catheter was placed in left anterior chest wall. Patient was receiving his course of outpatient intravenous antibiotic therapy. At admission the patient had evidence of respiratory failure required intubation sedation and mechanical ventilation. he was noted to have EKG changes. There is elevated CK and troponins also. He eventually improved and was extubated. We'll get the medical floor. Receiving his hemodialysis and plans for completion of his intravenous antibiotic therapy at home for his urinary infection and pulmonary infection. Patient however suffered a cardiopulmonary arrest last night. Appear to be somewhat protracted. Is now back in intensive care unit intubated sedated and mechanically ventilated. The family has been in contact with the critical care team. The futility of the care has been expressed. The family however is struggling to make decisions in his care continues for the moment. Did agree for DNR status , and the family likely will allow transition to hospice and comfort care. Objective - Vital Signs Vital signs: Vital Signs Temp 98.4 F 02/05/17 12:00 Pulse 97 02/05/17 18:00 Resp 21 02/05/17 18:00 BP 54/40 02/05/17 18:00 Pulse Ox 100 02/05/17 18:00 Intake & Output 02/05/17 02/05/17 02/06/17 06:59 18:59 06:59 Intake Total 1963.984 437.592 Output Total 80 45 Balance 1883.984 392.592 Weight 69.2 kg 69.2 kg Intake: IV 1200 270 0.9 NS 70 Dextrose 5% in Water 1, 1200 200 000 ml @ 100 mls/hr IV . [id number] ONE with Sodium Bicarb (1 Meq/ml) 150 ml Rx#:[id number] Intake, IV Titration 393.984 67.592 Amount Norepinephrine 16 mg In 248.408 17.592 Sodium Chloride 0.9% 250 ml @ Titrate IV .Q0M COLNI Rx#:[id number] Propofol 500 mg In Empty 145.576 50 Bag 1 bag @ Titrate IV . Q0M COLIN Rx#:[id number] Tube Feeding 250 100 Other 120 Output: Chest Tube Drainage 70 40 Right Lateral Chest 70 40 Urine 10 5 Other: Voiding Method Indwelling Catheter Indwelling Catheter - Exam Patient is Intubated sedated and mechanically ventilated remains on vasopressor therapy HEENT: Anicteric conjunctiva are pink and moist nasal mucosa grossly intact without significant lesions, there is no thrush. Neck: The neck is supple without significant lymphadenopathy or thyromegaly. Lungs: There is symmetrical air entry. Basilar crackles are heard. Heart: Irregular with an audible S1 and S2 loud S4 no distinct murmur click or rub Abdomen: Positive bowel sounds soft and nontender without palpable masses or organomegaly. There was no guarding or rebound. Extremities: Extremities have evidence of some generalized edema. He does have evidence of the bilateral below-knee amputation. Residual limbs are without evidence of infection at this time. Please see the nursing photography regarding the pressure ulcerations to the buttocks.also has minimal irritation to his legs left patella right distal residual limb with the dressings in place. Neuro: intubated and sedated Genitalia has evidence of the splayed penis, and some irritation for which zinc cream is applied. the new irritation to the right distal residual limb, likely abrasion - Labs CBC & Chem 7: 02/05/17 04:35 02/05/17 04:35 Labs: Abnormal Lab Results - Last 24 Hours (Table) 02/04/17 02/05/17 02/05/17 Range/Units 21:09 00:03 04:15 WBC (3.8-10.6) k/uL RBC (4.30-5.90) m/uL Hgb (13.0-17.5) gm/dL Hct (39.0-53.0) % RDW (11.5-15.5) % Plt Count (150-450) k/uL Neutrophils # (1.3-7.7) k/uL ABG pH (7.35-7.45) ABG pCO2 (35-45) mmHg ABG pO2 (83-108) mmHg ABG O2 Saturation (94-97) % Potassium (3.5-5.1) mmol/L Chloride (98-107) mmol/L BUN (9-20) mg/dL Creatinine (0.66-1.25) mg/dL Glucose (74-99) mg/dL POC Glucose (mg/dL) 227 H 187 H 154 H (75-99) mg/dL Plasma Lactic Acid Geovani (0.7-2.0) mmol/L Calcium (8.4-10.2) mg/dL 02/05/17 02/05/17 02/05/17 Range/Units 04:35 04:35 04:35 WBC 12.9 H (3.8-10.6) k/uL RBC 3.13 L (4.30-5.90) m/uL Hgb 9.4 L D (13.0-17.5) gm/dL Hct 29.0 L (39.0-53.0) % RDW 17.2 H (11.5-15.5) % Plt Count 144 L D (150-450) k/uL Neutrophils # 10.2 H (1.3-7.7) k/uL ABG pH (7.35-7.45) ABG pCO2 (35-45) mmHg ABG pO2 (83-108) mmHg ABG O2 Saturation (94-97) % Potassium 3.2 L (3.5-5.1) mmol/L Chloride 108 H (98-107) mmol/L BUN 31 H (9-20) mg/dL Creatinine 3.40 H (0.66-1.25) mg/dL Glucose 186 H (74-99) mg/dL POC Glucose (mg/dL) (75-99) mg/dL Plasma Lactic Acid Geovani 3.0 H* (0.7-2.0) mmol/L Calcium 7.3 L (8.4-10.2) mg/dL 02/05/17 02/05/17 02/05/17 Range/Units 05:00 06:16 11:16 WBC (3.8-10.6) k/uL RBC (4.30-5.90) m/uL Hgb (13.0-17.5) gm/dL Hct (39.0-53.0) % RDW (11.5-15.5) % Plt Count (150-450) k/uL Neutrophils # (1.3-7.7) k/uL ABG pH 7.53 H (7.35-7.45) ABG pCO2 25 L (35-45) mmHg ABG pO2 135 H (83-108) mmHg ABG O2 Saturation 99.0 H (94-97) % Potassium (3.5-5.1) mmol/L Chloride (98-107) mmol/L BUN (9-20) mg/dL Creatinine (0.66-1.25) mg/dL Glucose (74-99) mg/dL POC Glucose (mg/dL) 194 H 170 H (75-99) mg/dL Plasma Lactic Acid Geovani (0.7-2.0) mmol/L Calcium (8.4-10.2) mg/dL Laboratory Results WBC 12.9 k/uL (3.8-10.6) H 02/05/17 04:35 RBC 3.13 m/uL (4.30-5.90) L 02/05/17 04:35 Hgb 9.4 gm/dL (13.0-17.5) L D 02/05/17 04:35 Hct 29.0 % (39.0-53.0) L 02/05/17 04:35 MCV 92.9 fL (80.0-100.0) D 02/05/17 04:35 MCH 30.1 pg (25.0-35.0) 02/05/17 04:35 MCHC 32.4 g/dL (31.0-37.0) 02/05/17 04:35 RDW 17.2 % (11.5-15.5) H 02/05/17 04:35 Plt Count 144 k/uL (150-450) L D 02/05/17 04:35 Neutrophils % 79 % 02/05/17 04:35 Neutrophils % (Manual) 88.0 % 02/04/17 04:42 Band Neutrophils % 3.0 % 02/04/17 04:42 Lymphocytes % 14 % 02/05/17 04:35 Lymphocytes % (Manual) 7.0 % 02/04/17 04:42 Monocytes % 3 % 02/05/17 04:35 Monocytes % (Manual) 2.0 % 02/04/17 04:42 Eosinophils % 1 % 02/05/17 04:35 Eosinophils % (Manual) 4.0 % 02/02/17 05:45 Basophils % 1 % 02/05/17 04:35 Basophils % (Manual) 2.0 % 02/02/17 05:45 Neutrophils # 10.2 k/uL (1.3-7.7) H 02/05/17 04:35 Neutrophils # (Manual) 20.7 k/uL (1.3-7.7) H 02/04/17 04:42 Lymphocytes # 1.9 k/uL (1.0-4.8) 02/05/17 04:35 Lymphocytes # (Manual) 1.6 k/uL (1.0-4.8) 02/04/17 04:42 Monocytes # 0.4 k/uL (0-1.0) 02/05/17 04:35 Monocytes # (Manual) 0.5 k/uL (0-1.0) 02/04/17 04:42 Eosinophils # 0.2 k/uL (0-0.7) 02/05/17 04:35 Eosinophils # (Manual) 0.2 k/uL (0-0.7) 02/02/17 05:45 Basophils # 0.1 k/uL (0-0.2) 02/05/17 04:35 Basophils # (Manual) 0.1 k/uL (0-0.2) 02/02/17 05:45 Nucleated RBCs 0 /100 WBC (0-0) 02/04/17 04:42 Manual Slide Review Performed 02/04/17 04:42 Toxic Vacuolation Present 02/04/17 04:42 Polychromasia Present 02/04/17 04:42 Hypochromasia Slight 02/05/17 04:35 Poikilocytosis Slight 02/02/17 05:45 Anisocytosis Slight 02/05/17 04:35 Macrocytosis Moderate 02/04/17 04:42 PT 10.2 sec (9.0-12.0) 02/01/17 05:31 INR 1.0 (<1.1) 02/01/17 05:31 APTT 23.0 sec (22.0-30.0) 02/01/17 05:31 Sample Site rrad 02/05/17 05:00 ABG pH 7.53 (7.35-7.45) H 02/05/17 05:00 ABG pCO2 25 mmHg (35-45) L 02/05/17 05:00 ABG pO2 135 mmHg (83-108) H 02/05/17 05:00 ABG HCO3 21 mmol/L (21-25) 02/05/17 05:00 ABG Total CO2 22 mmol/L (19-24) 02/05/17 05:00 ABG O2 Saturation 99.0 % (94-97) H 02/05/17 05:00 ABG Base Excess -1.2 mmol/L 02/05/17 05:00 FiO2 50 % 02/05/17 05:00 Sodium 143 mmol/L (137-145) 02/05/17 04:35 Potassium 3.2 mmol/L (3.5-5.1) L 02/05/17 04:35 Chloride 108 mmol/L (98-107) H 02/05/17 04:35 Carbon Dioxide 25 mmol/L (22-30) 02/05/17 04:35 Anion Gap 10 mmol/L 02/05/17 04:35 BUN 31 mg/dL (9-20) H 02/05/17 04:35 Creatinine 3.40 mg/dL (0.66-1.25) H 02/05/17 04:35 Est GFR (MDRD) Af Amer 21 (>60 ml/min/1.73 sqM) 02/05/17 04:35 Est GFR (MDRD) Non-Af 17 (>60 ml/min/1.73 sqM) 02/05/17 04:35 Glucose 186 mg/dL (74-99) H 02/05/17 04:35 POC Glucose (mg/dL) 170 mg/dL (75-99) H 02/05/17 11:16 POC Glu Bridge Operator ID Raul Mayberry 02/05/17 11:[address] Glu mg/dL 94 mg/dL 01/29/17 12:08 Hemoglobin A1c 4.9 % (4.2-6.1) 01/29/17 12:08 Plasma Lactic Acid Geovani 3.0 mmol/L (0.7-2.0) H* 02/05/17 04:35 Calcium 7.3 mg/dL (8.4-10.2) L 02/05/17 04:35 Phosphorus 3.8 mg/dL (2.5-4.5) 02/05/17 04:35 Magnesium 1.8 mg/dL (1.6-2.3) 02/05/17 04:35 Total Bilirubin 0.3 mg/dL (0.2-1.3) 01/29/17 04:09 AST 60 U/L (17-59) H 01/29/17 04:09 ALT 34 U/L (21-72) 01/29/17 04:09 Alkaline Phosphatase 85 U/L (38-126) 01/29/17 04:09 Total Creatine Kinase 452 U/L (55-170) H 01/29/17 04:09 CK-MB (CK-2) 8.6 ng/mL (0.0-2.4) H* 02/03/17 04:20 CK-MB (CK-2) Rel Index 11.4 01/29/17 04:09 Troponin I 27.900 ng/mL (0.000-0.034) H* 02/03/17 04:20 NT-Pro-B Natriuret Pep 18642 pg/mL 01/28/17 18:30 Total Protein 4.8 g/dL (6.3-8.2) L 01/29/17 04:09 Albumin 2.1 g/dL (3.5-5.0) L 01/29/17 04:09 Urine Color Light Yellow 01/28/17 19:37 Urine Appearance Turbid (Clear) 01/28/17 19:37 Urine pH 8.0 (5.0-8.0) 01/28/17 19:37 Ur Specific Pound 1.007 (1.001-1.035) 01/28/17 19:37 Urine Protein 2+ (Negative) H 01/28/17 19:37 Urine Glucose (UA) 1+ (Negative) H 01/28/17 19:37 Urine Ketones Negative (Negative) 01/28/17 19:37 Urine Blood Small (Negative) H 01/28/17 19:37 Urine Nitrate Negative (Negative) 01/28/17 19:37 Urine Bilirubin Negative (Negative) 01/28/17 19:37 Urine Urobilinogen <2.0 mg/dL (<2.0) 01/28/17 19:37 Ur Leukocyte Esterase Large (Negative) H 01/28/17 19:37 Urine RBC 27 /hpf (0-5) H 01/28/17 19:37 Urine WBC >182 /hpf (0-5) H 01/28/17 19:37 Urine WBC Clumps Many /hpf (None) H 01/28/17 19:37 Urine Bacteria Occasional /hpf (None) H 01/28/17 19:37 Urine Mucus Rare /hpf (None) H 01/28/17 19:37 C. difficile Tox (PCR) (Not Detectd) 01/30/17 04:45 Miscellaneous Test PT/INR/PTT 01/29/17 04:09 Misc Test Result 01/29/17 04:09 Blood Type O Positive 01/30/17 05:36 Blood Type Recheck No 01/30/17 05:36 Antibody Screen NEGATIVE 01/30/17 05:36 Crossmatch See Detail 01/30/17 05:36 Spec Expiration Date 02/02/2017 - 7719 01/30/17 05:36 Microbiology 01/28/17 19:30 Blood Blood Culture - Final No Growth after 144 hours 01/28/17 19:30 Sputum Gram Stain - Final 01/28/17 19:30 Sputum Sputum Culture - Final Proteus mirabilis Klebsiella oxytoca 01/28/17 19:37 Urine,Clean Catch Urine Culture - Final Pseudomonas aeruginosa Assessment and Plan (1) Respiratory failure Narrative/Plan: 81-year-old male who has complex underlying medical illness with dementia, end-stage renal disease on dialysis, recent bout of sepsis from his dialysis catheter which is being treated with Ceftaroline. The patient is now had improvement of his status. He has been extubated. He is sitting upright and tolerating his dialysis well without hypotension. He is conversational near his baseline. The urine culture has shown evidence of pseudomonas aeruginosa sputum culture with Proteus mirabilis. Both are susceptible to ceftazidime. The patient's prior catheter related sepsis has now been effectively treated for 4 weeks. No evidence of any ongoing bacteremia this time. Constantly to Ceftaroline is discontinued. We'll plan a 10 day course of ceftazidime for his current gram-negative sepsis from the urinary system. worked with the home care and discharge planners. We'll be able to receive his dose of ceftazidime after hemodialysis over the next 10 days. Home care will supply will take the dialysis center for infusion. Patient had cardiopulmonary arrest and remains of vasopressor therapy, He is doing very poorly. Likely will be made comfort care . If so will not need further antibiotic therapy which is currently for UTI and bronchitis Comfort care is appropriate Status: Acute (2) Severe sepsis Status: Acute (3) Chronic indwelling Norman catheter Status: Acute
--- NOTE | 2017-02-06 07:47 | PN ---
Patient is seen for follow-up for end-stage renal disease. Yesterday, he had been on 50 mcg of Levophed. Today, the Levophed is down to about 20 mcg. Patient remains on the vent. He has not been waking up. On examination, blood pressure is 110/55, heart rate 100 per minute. He is afebrile. Examination of the heart S1 and S2. Examination of the lungs: Decreased breath sounds in bases. Abdomen is soft, nontender. 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 There is edema noted in the upper extremities bilaterally. Labs show hemoglobin 9.4, sodium 143, potassium 3.2, CO2 was 25. ASSESSMENT: 1. End-stage renal disease on hemodialysis. Currently dialysis has been on hold given his significant hemodynamic instability and hypotension. Levophed is down to 20 mcg today. 2. Severe metabolic acidosis improved. Agree with discontinuation of IV bicarb. 3. Ventilator-dependent respiratory failure. 4. Sepsis with Proteus Klebsiella oxytoca in the sputum and Pseudomonas in the urine, maintained on antibiotics. 5. Status post cardiac arrest. PLAN: Overall prognosis remains poor particularly if patient is not waking up. We will reassess on daily basis regarding need for dialysis.
--- NOTE | 2017-02-06 10:39 | DS ---
DATE OF ADMISSION: 01/28/2017 DATE OF DISCHARGE: 02/05/2017 FINAL DIAGNOSES: 1. Acute pneumonia, suspect gram-negative organism causing severe sepsis on presentation, cultures are positive for Proteus mirabilis and Klebsiella oxytoca. 2. Cardiac arrest with pulseless electrical activity in a patient with multiple medical problems. 3. Acute right-sided hydropneumothorax at ( ) mL of pleural fluid removed and a chest tube in place. 4. Acute urinary tract infection from Pseudomonas aeruginosa secondary to chronic Norman catheter. 5. Septic shock on presentation from pneumonia. 6. End-stage kidney disease on hemodialysis. 7. Chronic obstructive pulmonary disease in an ex-smoker. 8. Alzheimer's dementia, late onset type, chronic. 9. Diabetes mellitus type 2. 10. Chronic urine outflow obstruction. Patient has a chronic Norman catheter. 11. Stage II sacral decubitus ulcer, present on admission. 12. Normocytic anemia secondary to chronic kidney disease. 13. Moderate protein calorie malnutrition from decreased oral intake, present at admission. 14. Cardiogenic shock. 15. Acute hypoxic respiratory failure, multifactorial in a patient including pleural effusion, pneumonia and patient going on the ventilator x2. 16. Right-sided chest tube for pneumothorax. CONSULTATIONS: Dr. Sanders from infectious disease; Dr. Don from critical care; Dr. Velasco from cardiothoracic surgery; Dr. Dickerson from nephrology. HOSPITAL COURSE: This very pleasant, but unfortunate gentleman with multiple medical problems was yet again admitted with pneumonia and UTI, having a very high risk of aspiration. The patient had been on hemodialysis. Patient presented and got intubated, was extubated. Talks were held with daughters several times about code status. They wanted him remained on FULL CODE. When patient was supposed to get discharged, patient again had a cardiac arrest, was intubated yet again. Also had hydropneumothorax, chest tube was placed. Patient eventually was made DNR. Today talked with the family and they agreed to make the patient comfort care with inpatient hospice. DISCHARGE MEDICATIONS: 1. Morphine for pain control. 2. Ativan for anxiety. 3. Oxygen for comfort. DISPOSITION: Inpatient hospice under [facility] as per daughter's family choice. This was discussed with the [facility] liaison Norah and a nurse. Discharge planning more than 35 minutes. ADVANCED CARE PLANNING: Family meeting was held with the 2 daughters earlier today and also Dr. Don was present. Patient's overall poor prognosis was discussed with multiple comorbidities and they agreed to proceed with comfort care. Care was discussed in detail with regards to pain control, anxiety. Several questions were answered. Total time spent in advanced care planning was about 20 to 25 minutes in addition to the discharge planning.
== END 2017-02-05 18:05 | disposition hospice, inpatient (51) | DRG 871 ==
LOC: EC 18:16 → 6ICU 21:11 → 6SEL 01-31 20:25 → 6ICU 02-03 04:01
PROVIDERS: ADMIT Hospitalist; ATTEND Hospitalist
PROC: 5A1945Z Respiratory Ventilation, 24-96 Consecutive Hours (ICD-10-PCS; principal; 2017-01-28)
PROC: 0DH67UZ Insertion of Feeding Device into Stomach, Via Natural or Artificial Opening (ICD-10-PCS; 2017-01-28)
PROC: 0BH17EZ Insertion of Endotracheal Airway into Trachea, Via Natural or Artificial Opening (ICD-10-PCS; 2017-01-28)
PROC: 06HM33Z Insertion of Infusion Device into Right Femoral Vein, Percutaneous Approach (ICD-10-PCS; 2017-01-29)
PROC: 5A1D60Z (ICD-10-PCS; 2017-01-30)
PROC: 30243N1 Transfusion of Nonautologous Red Blood Cells into Central Vein, Percutaneous Approach (ICD-10-PCS; 2017-01-30)
PROC: 5A12012 Performance of Cardiac Output, Single, Manual (ICD-10-PCS; 2017-02-03)
PROC: 0BH17EZ Insertion of Endotracheal Airway into Trachea, Via Natural or Artificial Opening (ICD-10-PCS; 2017-02-03)
PROC: 5A1945Z Respiratory Ventilation, 24-96 Consecutive Hours (ICD-10-PCS; 2017-02-03)
PROC: 3E0G76Z Introduction of Nutritional Substance into Upper GI, Via Natural or Artificial Opening (ICD-10-PCS; 2017-02-03)
PROC: 0W9930Z Drainage of Right Pleural Cavity with Drainage Device, Percutaneous Approach (ICD-10-PCS; 2017-02-04)
DX: A41.59 Other Gram-negative sepsis (principal); J96.01 Acute respiratory failure with hypoxia; R65.21 Severe sepsis with septic shock; J15.0 Pneumonia due to Klebsiella pneumoniae; J93.0 Spontaneous tension pneumothorax; J94.2 Hemothorax; G93.1 Anoxic brain damage, not elsewhere classified; N18.6 End stage renal disease; I46.9 Cardiac arrest, cause unspecified; L89.153 Pressure ulcer of sacral region, stage 3; J44.0 Chronic obstructive pulmonary disease with (acute) lower respiratory infection; E87.4 Mixed disorder of acid-base balance; Z99.11 Dependence on respirator [ventilator] status; N39.0 Urinary tract infection, site not specified; E44.0 Moderate protein-calorie malnutrition; I13.2 Hypertensive heart and chronic kidney disease with heart failure and with stage 5 chronic kidney disease, or end stage renal disease; I50.32 Chronic diastolic (congestive) heart failure; I95.9 Hypotension, unspecified; E87.70 Fluid overload, unspecified; R13.10 Dysphagia, unspecified; Z66 Do not resuscitate; Z99.2 Dependence on renal dialysis; Z51.5 Encounter for palliative care; B96.5 Pseudomonas (aeruginosa) (mallei) (pseudomallei) as the cause of diseases classified elsewhere; I35.0 Nonrheumatic aortic (valve) stenosis; E11.51 Type 2 diabetes mellitus with diabetic peripheral angiopathy without gangrene; B96.4 Proteus (mirabilis) (morganii) as the cause of diseases classified elsewhere; D63.1 Anemia in chronic kidney disease; E11.22 Type 2 diabetes mellitus with diabetic chronic kidney disease; G30.1 Alzheimer's disease with late onset; I49.1 Atrial premature depolarization; N32.0 Bladder-neck obstruction; R74.8 Abnormal levels of other serum enzymes; I44.0 Atrioventricular block, first degree; F41.9 Anxiety disorder, unspecified; K43.9 Ventral hernia without obstruction or gangrene; F32.9 Major depressive disorder, single episode, unspecified; F02.80 Dementia in other diseases classified elsewhere, unspecified severity, without behavioral disturbance, psychotic disturbance, mood disturbance, and anxiety; Z87.891 Personal history of nicotine dependence; Z87.440 Personal history of urinary (tract) infections; Z83.3 Family history of diabetes mellitus; Z81.8 Family history of other mental and behavioral disorders; Z86.14 Personal history of Methicillin resistant Staphylococcus aureus infection; Z79.899 Other long term (current) drug therapy; Z79.4 Long term (current) use of insulin; Z88.1 Allergy status to other antibiotic agents; Z88.0 Allergy status to penicillin; Z88.8 Allergy status to other drugs, medicaments and biological substances; Z87.01 Personal history of pneumonia (recurrent); Z86.19 Personal history of other infectious and parasitic diseases; Z16.24 Resistance to multiple antibiotics; Z90.49 Acquired absence of other specified parts of digestive tract; Z68.29 Body mass index [BMI] 29.0-29.9, adult; Z96.0 Presence of urogenital implants; Z79.2 Long term (current) use of antibiotics; Z89.511 Acquired absence of right leg below knee; Z89.512 Acquired absence of left leg below knee; Y95 Nosocomial condition
CPT/HCPCS: 31500; 36415; 36600; 71010; 80048; 80053; 81001; 82550; 82553; 82805; 83036; 83605; 83735; 83880; 84100; 84484; 85025; 85027; 85610; 85730; 86850; 86900; 86901; 86920; 87040; 87070; 87077; 87086; 87186; 87205; 87493; 90935; 93005; 93306; 94002; 94003; 94640; 94760; 96365; 96366; 96367; 96375; 99291

== ENCOUNTER 2017-02-05 18:08 | Inpatient (IN) | payer OTHER ==
[2017-02-05 18:12] VITALS: BMI 29.7
[2017-02-05] MEDS ORDERED: LORazepam ORAL CONC 60 MG/30 ML BOTTLE PO PRN (18:27)
[2017-02-05] MEDS ORDERED: MORPHINE ORAL SOLN 20 MG/1 ML ORAL SYRINGE PO PRN (18:27)
[2017-02-05] MEDS ORDERED: ATROPINE OPHTH SOLN 1% 5ML BTL SUBLINGUAL PRN (18:29)
[2017-02-05] MEDS ORDERED: MORPHINE SULFATE 100 MG in SODIUM CHLORIDE 0.9% 100 ML IV SCH (18:30)
[2017-02-05] MEDS ORDERED: MORPHINE SULFATE 2 MG/ML SYRINGE ONE (19:11)
[2017-02-05] MEDS ORDERED: MORPHINE SULFATE 2 MG/ML SYRINGE IVP STA (19:14)
[2017-02-05 20:27] VITALS: BP 79/39; PULSE 0; RESP 0
--- NOTE | 2017-02-26 18:15 | DS ---
DATE OF ADMISSION: 02/05/2017 DATE OF DISCHARGE: 02/05/2017 DATE ADMITTED TO HOSPICE: 02/05/2017 DATE PATIENT : 02/05/2017 CAUSE OF : Pneumonia. HOSPITAL COURSE: This was admitted to hospice inpatient service. Was put on hospice measures.
== END 2017-02-05 23:37 | disposition expired | DRG 871 ==
LOC: 6ICU 18:08
PROVIDERS: ADMIT Hospitalist; ATTEND Hospitalist
DX: A41.9 Sepsis, unspecified organism (principal); N18.6 End stage renal disease; J96.01 Acute respiratory failure with hypoxia; Z99.11 Dependence on respirator [ventilator] status; R65.21 Severe sepsis with septic shock; I13.2 Hypertensive heart and chronic kidney disease with heart failure and with stage 5 chronic kidney disease, or end stage renal disease; J18.9 Pneumonia, unspecified organism; F03.90 Unspecified dementia, unspecified severity, without behavioral disturbance, psychotic disturbance, mood disturbance, and anxiety; I50.32 Chronic diastolic (congestive) heart failure; Z51.5 Encounter for palliative care; Z66 Do not resuscitate; E11.22 Type 2 diabetes mellitus with diabetic chronic kidney disease; R74.8 Abnormal levels of other serum enzymes; F41.9 Anxiety disorder, unspecified; F32.9 Major depressive disorder, single episode, unspecified; Z79.899 Other long term (current) drug therapy; Z88.1 Allergy status to other antibiotic agents; Z88.0 Allergy status to penicillin; Z88.8 Allergy status to other drugs, medicaments and biological substances; Z87.891 Personal history of nicotine dependence; Z87.440 Personal history of urinary (tract) infections; Z86.14 Personal history of Methicillin resistant Staphylococcus aureus infection; Z86.19 Personal history of other infectious and parasitic diseases; Z83.3 Family history of diabetes mellitus; Z82.0 Family history of epilepsy and other diseases of the nervous system; Z99.2 Dependence on renal dialysis; Z79.2 Long term (current) use of antibiotics